=== PATIENT | female | born 1990 | race Caucasian/White ===

== ENCOUNTER 2016-10-28 16:56 | Emergency (ER) | payer BC ==
[~2016-10-28] VITALS: Ht 160 cm; Wt 107.0 kg
[~2016-10-28 16:56] MED LIST: ATV/1 PO; ESCI1TAB10 PO; FLNIN NAE; PRED20TA PO
[2016-10-28 17:06] VITALS: TEMP 37; Ht 160 cm; Wt 107.0 kg
[2016-10-28] MEDS ORDERED: HYDROCODONE/ACETAMOPHEN 5/325MG TAB PO STA (17:29)
[2016-10-28] MEDS ORDERED: CYCLOBENZAPRINE HCL 10 MG TAB PO STA (17:29)
[2016-10-28] MEDS ORDERED: KETOROLAC TROMETHAMINE 60 MG/2 ML VIAL IM STA (17:29)
[2016-10-28] MEDS ORDERED: DEXAMETHASONE SOD INJ 10 MG/ML VIAL IM ONE (17:30)
[2016-10-28] MEDS ORDERED: NORCO 5/325MG HOME PACK PO ONE (18:45)
--- NOTE | 2016-10-28 18:58 | EMERGENCY ROOM VISIT NOTE ---
ED Visit Note First contact with patient: 17:18 CHIEF COMPLAINT: Low back pain HISTORY OF PRESENT ILLNESS: This 25-year-old female presents the ER with chief complaint of bilateral low back pain which started on Saturday evening. She states it radiates down both legs posteriorly to her knees. She states it is worse with sitting or walking. If she lays on her belly it gives her relief. The patient denies any loss of bowel or bladder control. Patient does admit to having some difficulty urinating this morning but no urinary symptoms since that time. The patient does have a history of chronic back pain but has never had surgery. She took Tylenol arthritis last evening without any relief of the pain. The patient denies . REVIEW OF SYSTEMS: 6 system review was performed and was negative unless stated otherwise in history of present illness. PMH: The patient is healthy; PCOS , anxiety SOCIAL HISTORY: Patient lives with her . The patient denies tobacco use but admits to occasional alcohol use. PHYSICAL EXAM: Vital Signs normal: Reviewed Nurse's notes and agree. GEN.: 25- year-old white female appears in no acute distress. MENTAL STATUS: Alert and oriented in no acute distress. LUNGS: Clear to auscultation that wheezes rales or rhonchi. CARDIAC: Regular rate and rhythm with a 2/6 murmur noted. BACK: No CVA tenderness noted. ABDOMEN: Positive bowel sounds all 4 quadrants. Soft , nontender to palpation throughout. LUMBAR SPINE: No gross bony abnormality noted. Patient is nontender to palpation over the spinous processes. He is tender to palpation over the paravertebral regions bilaterally. She full range of motion of the lumbar spine with pain elicited with flexion, right lateral bending and right rotation . muscle strength is 5 out of 5 bilateral lower extremities and symmetrical. NEURO: Patient is able to heel and toe walk without difficulty. I lateral patellar and Achilles reflexes are 2+. Sensation is intact to pinprick bilateral lower extremities. Negative straight leg raise bilaterally. EMERGENCY DEPARTMENT COURSE: The patient was evaluated. The patient was given Decadron 10 mg IM, Toradol 60 mg IM, Flexeril 10 mg by mouth and [place] 5/325 mg 2 tablets by mouth for pain. Urine dip reveal some blood but the patient has vaginal spotting. The patient was reevaluated was feeling much better. The patient was discharged home in stable condition.. DIAGNOSIS: Low back pain with bilateral sciatica DISCHARGE INSTRUCTIONS AND TREATMENT: Take Medrol dosepak as prescribed. Ibuprofen 600 mg every 6 hours with food for pain. Rx is given for [place] 5/325 mg. 1-2 tablets every 6 hours as needed for more severe pain. Dispense [address] taking the [place]. Patient was also given Rx for Flexeril 10 mg. One tablet p.o. every 8 hours for muscle spasms. Dispense [address] taking the Flexeril. Avoid staying in any one position for an extended period of time. If symptoms persist or worsen, follow up with your family doctor for referral for additional testing. Problem List Medical Problems: (1) Murmur Status: Chronic (2) No chronic past medical history Status: Chronic (3) PCOS (polycystic ovarian syndrome) Status: Chronic Current/Historical Medications Scheduled Escitalopram Oxalate (Lexapro), 20 MG PO DAILY Lorazepam (Ativan), 1 MG PO Q6H Allergies Coded Allergies: Amoxicillin (Unverified Allergy, Unknown, extreme stomach pain , 10/28/16) Vital Signs Date Time Temp Pulse Resp B/P Pulse Ox O2 Delivery O2 Flow Rate FiO2 10/28/16 17:50 74 20 140/92 99 Room Air 10/28/16 17:06 37.0 84 18 141/88 98 Room Air Laboratory Results Test 10/28/16 18:30 Medications Administered Medications (Trade) Dose Ordered Sig/Hiram Route Start Time Stop Time Status Last Admin Dose Admin Dexamethasone Sodium Phosphate (Decadron Inj) 10 mg NOW ONCE IM 10/28/16 17:30 10/28/16 17:31 DC 10/28/16 17:46 10 MG Ketorolac Tromethamine (Toradol Inj) 60 mg NOW STAT IM 10/28/16 17:29 10/28/16 17:31 DC 10/28/16 17:46 60 MG Cyclobenzaprine HCl (Flexeril Tab) 10 mg NOW STAT PO 10/28/16 17:29 10/28/16 17:31 DC 10/28/16 17:45 10 MG Acetaminophen/ Hydrocodone Bitart ([place] 5/325 Tab) 2 tab NOW STAT PO 10/28/16 17:29 10/28/16 17:31 DC 10/28/16 17:46 2 TAB Departure Information Referrals No Doctor, Assigned (PCP) Patient Instructions [facility]
[2016-10-28 19:00] LABS: URINE APPEARANCE TURBID (CLEAR); URINE BILIRUBIN NEG (NEG); URINE COLOR DK YELLOW; URINE EPITHELIAL CELL AUTO >30 /lpf (0-5); URINE NITRITE NEG (NEG); UROBILINOGEN NEG (NEG); ZZUR CULT IF INDIC CLEAN CATCH YES
[2016-10-28] MEDS ORDERED: CYCL10TA6 PO (19:00)
[2016-10-28] MEDS ORDERED: HYDR-5688 PO (19:00)
[2016-10-28] MEDS ORDERED: METH4PAK PO (19:00)
[2016-10-28 19:02] LABS: MANUAL MICROSCOPIC REQUIRED? NO; REVIEW REQ? YES
[2016-10-28 19:17] VITALS: BP 122/78; PULSE 68; O2SAT 99
== END 2016-10-28 19:20 | disposition home or self-care (01) ==
LOC: C.EDB 16:57
DX: M54.41 Lumbago with sciatica, right side (principal); M54.42 Lumbago with sciatica, left side; G89.29 Other chronic pain; E28.2 Polycystic ovarian syndrome; F41.9 Anxiety disorder, unspecified; Z79.899 Other long term (current) drug therapy; Z88.1 Allergy status to other antibiotic agents

== ENCOUNTER 2017-04-01 16:53 | Emergency (ER) | payer SELFPAY ==
[~2017-04-01] VITALS: Ht 160 cm; Wt 103.0 kg
[~2017-04-01 16:53] MED LIST changes: -FLNIN NAE; +HYDR-5688 PO; -PRED20TA PO
[2017-04-01 17:00] VITALS: TEMP 36.7; Ht 160 cm; Wt 103.0 kg
[2017-04-01] MEDS ORDERED: MoRPHine SULFATE 10 MG/ML CARP/VIAL IV STA ×2 (17:56→20:01)
[2017-04-01] MEDS ORDERED: SODIUM CHLORIDE 0.9% 1000ML 1,000 ML IV STA (17:56)
[2017-04-01 18:31] LABS: BASO % 0.4 %; BASO ABS # 0.04 K/uL (0-0.2); COMPLETE YES; EOS % 1.8 %; HEMATOCRIT 38.3 % (37-47); IG% 0.3 %; LYMPH % 31.4 %; LYMPH ABS # 2.89 K/uL (1.2-3.4); MEAN CELL VOLUME 84.2 fL (80-100); MEAN CORPUSCULAR HEMOGLOBIN 28.8 pg (25-34); MEAN CORPUSCULAR HGB CONC 34.2 g/dl (32-36); MEAN PLATELET VOLUME 8.5 fL (7.4-10.4); MONO % 7.3 %; NEUT % 58.8 %; PLATELET COUNT 325 K/uL (130-400); RED BLOOD COUNT 4.55 M/uL (4.2-5.4); WHITE BLOOD COUNT 9.19 K/uL (4.8-10.8)
[2017-04-01 18:48] LABS: URINE APPEARANCE CLEAR (CLEAR); URINE BILIRUBIN NEG (NEG); URINE COLOR YELLOW; URINE EPITHELIAL CELL AUTO >30 /lpf (0-5); URINE NITRITE NEG (NEG); URINE PH 5.5 (4.5-7.5); URINE SPECIFIC GRAVITY 1.031 (1.000-1.030); UROBILINOGEN NEG (NEG)
[2017-04-01 18:50] LABS: MANUAL MICROSCOPIC REQUIRED? NO; REVIEW REQ? YES
[2017-04-01 18:52] LABS: ALT/SGPT 50 U/L (12-78); AST/SGOT 26 U/L (15-37); BLOOD UREA NITROGEN 10 mg/dl (7-18); BUN/CREATININE RATIO 14.4 (10-20); CALCIUM 9.3 mg/dl (8.5-10.1); CARBON DIOXIDE 25 mmol/L (21-32); CHLORIDE 102 mmol/L (98-107); CREATININE 0.72 mg/dl (0.60-1.20); GLUCOSE 174 mg/dl (70-99); POTASSIUM 3.6 mmol/L (3.5-5.1); SODIUM 134 mmol/L (136-145)
[2017-04-01 18:54] LABS: ALKALINE PHOSPHATASE 97 U/L (45-117)
--- NOTE | 2017-04-01 19:13 | EMERGENCY ROOM VISIT NOTE ---
History First contact with patient: 17:43 Chief Complaint: ABDOMINAL PAIN Stated Complaint: NAUSEA, SHARP PAIN RT SIDE, FEVER, DIARRHEA Nursing Triage Summary: pt to the ED with c/o right sided abd sharp pain over the weekend that got worse with n/d no vag bleeding no dc no urinary complaints History of Present Illness The patient is a 26 year old female who presents to the Emergency Room with complaints of right-sided abdominal pain/flank pain that started 2-3 days ago, initially was intermittent, now it is constant, sharp and stabbing, 8/10. She has associated nausea but no vomiting, as well as diarrhea, 3-4 episodes per day , that is loose and sometimes watery, nonbloody. She states today she developed fevers up to 101 that resolved after taking Advil, last dose 2 PM. She states the Advil has improved her pain, but he keeps coming back. She denies any chest pain, shortness of breath, back pain, urinary symptoms, vaginal bleeding or discharge. She reports a history of PCOS and irregular periods, last menstrual period was over 3 months ago. Review of Systems A complete 10 point review of systems was reviewed with the patient with pertinent positives and negatives as per history of present illness. All else were negative. Past Medical/Surgical History Medical Problems: (1) Murmur (2) No chronic past medical history (3) PCOS (polycystic ovarian syndrome) Family History Patient reports no known family medical history. Social History Smoking Status: Never Smoker Alcohol Use: occasionally Housing Status: lives with significant other Occupation Status: employed Current/Historical Medications Scheduled Escitalopram Oxalate (Lexapro), 20 MG PO DAILY Scheduled PRN Hydrocodone/Acetaminophen 5MG/325MG ([place] 5MG/325MG), 1 TABLET PO Q6H PRN for Pain Physical Exam Vital Signs Date Time Temp Pulse Resp B/P (MAP) Pulse Ox O2 Delivery O2 Flow Rate FiO2 04/01/17 22:44 78 19 140/90 96 Room Air 04/01/17 22:00 74 20 148/81 96 Room Air 04/01/17 20:07 80 22 147/93 95 Room Air 04/01/17 18:26 102 04/01/17 18:22 95 24 137/89 97 Room Air 04/01/17 17:00 36.7 98 18 98 Room Air Physical Exam CONSTITUTIONAL: No acute distress. Well hydrated, Well appearing and well nourished. Alert and oriented X 4 with normal affect. HEENT: Normocephalic, atraumatic. Pupils equal, round and reactive to light, EOMI. TMs normal. Pharynx normal. Moist mucous membranes. NECK: Supple, full active range of motion without discomfort. RESPIRATORY: Clear to auscultation bilaterally with no wheezing, crackles, rhonchi or stridor. Equal expansion bilaterally. CARDIOVASCULAR: Regular rate and rhythm with no murmurs, rubs or gallops. Normal peripheral perfusion. No edema. GASTROINTESTINAL: Moderate tenderness in the right upper and lower quadrants of the abdomen. Negative rebound, negative guarding. No CVA tenderness. Soft, nondistended, obese. Active bowel sounds in all 4 quadrants. INTEGUMENTARY: No rash or other significant dermatologic conditions noted. NEUROLOGIC: Cranial nerves II-XII grossly intact. No focal neurologic deficits noted. Medical Decision & Procedures ER Provider Diagnostic Interpretation: ABD/PELVIS IV AND ORAL CONT CT DOSE: 1175.41 mGy.cm HISTORY: Flank pain Rt sided abd pain, diff includes natan, ov cyst, stone, GB TECHNIQUE: Multiaxial CT images of the abdomen and pelvis were performed following the use of intravenous and oral contrast. A dose lowering technique was utilized adhering to the principles of ALARA. COMPARISON STUDY: 06/09/2016. FINDINGS: lung bases are clear. Fatty infiltration of liver. Small high density focus right hepatic lobe unchanged. This may be a small hemangioma. Spleen kidneys and pancreas are uniform. Bowel pattern is nonobstructive. The appendix is normal. 2.6 cm right ovarian cyst. Bladder is midline. No free fluid within the pelvic cul-de-sac. IMPRESSION: 1. 2.6 cm right ovarian cyst. 2. Fatty infiltration of liver. 3. Otherwise negative study. The appendix is normal. Laboratory Results 04/01/17 18:19 Red Blood Count 4.55, Mean Corpuscular Volume 84.2, Mean Corpuscular Hemoglobin 28.8, Mean Corpuscular Hemoglobin Concent 34.2, Mean Platelet Volume 8.5, Neutrophils (%) (Auto) 58.8, Lymphocytes (%) (Auto) 31.4, Monocytes (%) (Auto) 7.3, Eosinophils (%) (Auto) 1.8, Basophils (%) (Auto) 0.4, Neutrophils # (Auto) 5.39, Lymphocytes # (Auto) 2.89, Monocytes # (Auto) 0.67, Eosinophils # (Auto) 0.17, Basophils # (Auto) 0.04 04/01/17 18:19 Test 04/01/17 18:19 04/01/17 18:25 White Blood Count 9.19 K/uL (4.8-10.8) Red Blood Count 4.55 M/uL (4.2-5.4) Hemoglobin 13.1 g/dL (12.0-16.0) Hematocrit 38.3 % (37-47) Mean Corpuscular Volume 84.2 fL (80-100) Mean Corpuscular Hemoglobin 28.8 pg (25-34) Mean Corpuscular Hemoglobin Concent 34.2 g/dl (32-36) Platelet Count 325 K/uL (130-400) Mean Platelet Volume 8.5 fL (7.4-10.4) Neutrophils (%) (Auto) 58.8 % Lymphocytes (%) (Auto) 31.4 % Monocytes (%) (Auto) 7.3 % Eosinophils (%) (Auto) 1.8 % Basophils (%) (Auto) 0.4 % Neutrophils # (Auto) 5.39 K/uL (1.4-6.5) Lymphocytes # (Auto) 2.89 K/uL (1.2-3.4) Monocytes # (Auto) 0.67 K/uL (0.11-0.59) Eosinophils # (Auto) 0.17 K/uL (0-0.5) Basophils # (Auto) 0.04 K/uL (0-0.2) RDW Standard Deviation 39.2 fL (36.4-46.3) RDW Coefficient of Variation 12.9 % (11.5-14.5) Immature Granulocyte % (Auto) 0.3 % Immature Granulocyte # (Auto) 0.03 K/uL (0.00-0.02) Anion Gap 7.0 mmol/L (3-11) Est Creatinine Clear Calc Drug Dose 133.4 ml/min Estimated GFR () 132.1 Estimated GFR (Non- 114.0 BUN/Creatinine Ratio 14.4 (10-20) Calcium Level 9.3 mg/dl (8.5-10.1) Total Bilirubin 0.3 mg/dl (0.2-1) Direct Bilirubin < 0.1 mg/dl (0-0.2) Aspartate Amino Transf (AST/SGOT) 26 U/L (15-37) Alanine Aminotransferase (ALT/SGPT) 50 U/L (12-78) Alkaline Phosphatase 97 U/L (45-117) Total Protein 8.7 gm/dl (6.4-8.2) Albumin 3.5 gm/dl (3.4-5.0) Lipase 90 U/L (73-393) Urine Color YELLOW Urine Appearance CLEAR (CLEAR) Urine pH 5.5 (4.5-7.5) Urine Specific [place] 1.031 (1.000-1.030) Urine Protein NEG (NEG) Urine Glucose (UA) TRACE (NEG) Urine Ketones NEG (NEG) Urine Occult Blood 1+ (NEG) Urine Nitrite NEG (NEG) Urine Bilirubin NEG (NEG) Urine Urobilinogen NEG (NEG) Urine Leukocyte Esterase NEG (NEG) Urine WBC (Auto) 1-5 /hpf (0-5) Urine RBC (Auto) 0-4 /hpf (0-4) Urine Hyaline Casts (Auto) 1-5 /lpf (0-5) Urine Epithelial Cells (Auto) >30 /lpf (0-5) Urine Bacteria (Auto) NEG (NEG) Urine Crystals CALCIUM OXALATE (NONE Urine Test NEG (NEG) Medications Administered Medications (Trade) Dose Ordered Sig/Hiram Route Start Time Stop Time Status Last Admin Dose Admin Morphine Sulfate (MoRPHine SULFATE INJ) 6 mg NOW STAT IV 04/01/17 17:56 04/01/17 18:00 HI 04/01/17 18:28 6 MG Sodium Chloride 1,000 ml @ 999 mls/hr Q1H1M STAT IV 04/01/17 17:56 04/01/17 18:56 DC 04/01/17 18:28 999 MLS/HR Morphine Sulfate (MoRPHine SULFATE INJ) 6 mg NOW STAT IV 04/01/17 20:01 04/01/17 20:02 DC 04/01/17 20:06 6 MG Ketorolac Tromethamine (Toradol Inj) 15 mg NOW STAT IV 04/01/17 22:18 04/01/17 22:20 DC 04/01/17 22:42 15 MG Acetaminophen/ Hydrocodone Bitart ([place] 5/325mg Home Pack) 1 homepack UD ONCE PO 04/01/17 22:45 04/01/17 22:46 DC 04/01/17 22:45 1 [email or web address] Medical Decision CC: Patient presenting with complaint of right-sided abdominal pain for 3 days Interpretation of Labs: No leukocytosis, no anemia, no significant electrolyte abnormalities, normal renal fudge, normal liver enzymes and lipase, no UTI, not . Differential Diagnosis: Includes, but not limited to appendicitis, mesenteric adenitis, ovarian cyst, UTI, pyelonephritis, ureteral stone, cholecystitis, cholelithiasis, gastroenteritis, ectopic , among others. Medication Reconciliation: I attest that I have personally reviewed the patient' s current medication list. Vital signs review: I reviewed the patient's vital signs and interpret them as follows: T: Afebrile; BP: Hypertensive; HR: Mildly tachycardic; RR: Within normal limits; Pulse Ox: Within normal limits on room air. Blood pressure screening: The patient was found to have an elevated blood pressure and was referred to their primary doctor for recheck and further treatment. Summary: Patient was evaluated at bedside, history of physical exam performed. Patient is alert and in no acute distress, resting calmly in the stretcher. Patient is tender diffusely in the right side of her abdomen, no definite McBurney's or Quispe's sign tenderness, no rebound or guarding. Pelvic exam was offered and deferred by the patient. She denies any concerns for STDs. Orders were placed at bedside for labs, UA and , IV fluids, morphine for pain, CT abdomen and pelvis to evaluate for appendicitis, among other possible etiologies. Patient discussed with Dr. Mack, who agrees with my assessment and plan. Labs reviewed as above, unremarkable. CT imaging reviewed, negative for appendicitis. It shows a right ovarian cyst which is most likely the cause of patient's pain. Patient reassessed multiple times throughout ED stay, she reports improved pain after morphine and IV fluids. She was also given a dose of IV Toradol, which should work well to treat ovarian cyst pain. Patient was updated on all results and plan for discharge home with PCP/DIRECTOR CARDIOLOGY follow-up. Patient was instructed on return criteria should her symptoms worsen in any way , she verbalized understanding. Patient was discharged home in stable condition and ambulatory. Impression Primary Impression: Right ovarian cyst Departure Information Dispostion Home / Self-Care Condition GOOD Prescriptions Hydrocodone/Acetaminophen 5MG/325MG ([place] 5MG/325MG) Tab 1 TABLET PO Q6H Y for Pain, #12 TAB For Initial Treatment Prov: Keke Ríos CRNP 04/01/17 Referrals No Doctor, Assigned (PCP) Patient Instructions ED Cyst Ovarian, [facility] Additional Instructions You have been treated in the Emergency Department your Abdominal Pain. Laboratory results and imaging studies have ruled out any emergent causes for your abdominal pain which would warrant admission or surgery. You were found to have a cyst on your right ovary which is most likely the cause of your abdominal pain. You should follow-up with your PCP or Strategic Planner for further management of your ovarian cyst. You have been prescribed [place] to be used for pain control. This is a narcotic medication. You cannot drive or consume alcohol while on this medicine. This medicine should only be used for pain that cannot be controlled with over-the- counter pain medicines. For pain control, you can use the following [id number] medicines (if >12 yo): - Regular strength (200 mg/tab) Advil (ibuprofen) 3 tabs every 6-8 hours as needed. Do not exceed a dose of 3200 mg per day. Drink plenty of water and stay well hydrated. Return to the emergency department if your symptoms persist despite treatment plan outlined above or if the following symptoms occur: Fevers, chills or feeling ill, severe nausea/vomiting, blood in your stool or urine, severe worsening pain, or any other concerns.
[2017-04-01] MEDS ORDERED: OPTIRAY 320 IV PRN (21:15)
--- NOTE | 2017-04-01 21:21 | DIAGNOSTIC IMAGING REPORT ---
ABD/PELVIS IV AND ORAL CONT CT DOSE: 1175.41 mGy.cm HISTORY: Flank pain Rt sided abd pain, diff includes natan, ov cyst, stone, GB TECHNIQUE: Multiaxial CT images of the abdomen and pelvis were performed following the use of intravenous and oral contrast. A dose lowering technique was utilized adhering to the principles of ALARA. COMPARISON STUDY: 06/09/2016. FINDINGS: lung bases are clear. Fatty infiltration of liver. Small high density focus right hepatic lobe unchanged. This may be a small hemangioma. Spleen kidneys and pancreas are uniform. Bowel pattern is nonobstructive. The appendix is normal. 2.6 cm right ovarian cyst. Bladder is midline. No free fluid within the pelvic cul-de-sac. IMPRESSION: 1. 2.6 cm right ovarian cyst. 2. Fatty infiltration of liver. 3. Otherwise negative study. The appendix is normal. The above report was generated using voice recognition software. It may contain grammatical, syntax or spelling errors. Electronically signed by: Jairo Duenas M.D. 04/01/2017 9:19 PM Dictated Date/Time: 04/01/2017 9:16 PM
[2017-04-01] MEDS ORDERED: KETOROLAC TROMETHAMINE 30 MG/ML VIAL IV STA (22:18)
[2017-04-01] MEDS ORDERED: HYDR-5688 PO (22:41)
[2017-04-01 22:44] VITALS: BP 140/90; PULSE 78; O2SAT 96
[2017-04-01] MEDS ORDERED: NORCO 5/325MG HOME PACK PO ONE (22:45)
== END 2017-04-01 23:04 | disposition home or self-care (01) ==
LOC: C.EDB 16:55 → C.EDA 23:04
DX: N83.201 Unspecified ovarian cyst, right side (principal); E28.2 Polycystic ovarian syndrome; R01.1 Cardiac murmur, unspecified

== ENCOUNTER 2018-04-17 20:51 | Emergency (ER) | payer OTHER ==
[~2018-04-17] VITALS: Ht 160 cm; Wt 93.6 kg
[~2018-04-17 20:51] MED LIST changes: -ATV/1 PO; -HYDR-5688 PO
[2018-04-17 20:54] VITALS: Ht 160 cm; Wt 93.6 kg
[2018-04-17] MEDS ORDERED: SODIUM CHLORIDE 0.9% 1000ML 1,000 ML IV STA (21:23)
[2018-04-17] MEDS ORDERED: ONDANSETRON INJ 2 MG/ML 2 ML VIAL IV STA (21:23)
[2018-04-17 22:21] LABS: HEMATOCRIT 39.9 % (37-47); MEAN CORPUSCULAR HEMOGLOBIN 29.5 pg (25-34); MEAN CORPUSCULAR HGB CONC 35.1 g/dl (32-36); MEAN PLATELET VOLUME 8.8 fL (7.4-10.4); PLATELET COUNT 384 K/uL (130-400); RED CELL DISTRIBUTION WIDTH CV 12.7 % (11.5-14.5); RED CELL DISTRIBUTION WIDTH SD 38.5 fL (36.4-46.3); WHITE BLOOD COUNT 13.68 K/uL (4.8-10.8)
[2018-04-17] MEDS ORDERED: ROSU5TAB PO (22:37)
[2018-04-17] MEDS ORDERED: LORA-741 PO (22:37)
[2018-04-17] MEDS ORDERED: GLC500 PO (22:37)
[2018-04-17] MEDS ORDERED: SPIR25TA PO (22:37)
[2018-04-17 22:43] LABS: ALBUMIN 3.7 gm/dl (3.4-5.0); CALCIUM 9.4 mg/dl (8.5-10.1); CREATININE 0.85 mg/dl (0.60-1.20); POTASSIUM 3.6 mmol/L (3.5-5.1); TOTAL PROTEIN 8.7 gm/dl (6.4-8.2)
[2018-04-17] MEDS ORDERED: MoRPHine SULFATE 4 MG/ML 1 ML CARP\\VIAL IV STA (23:33)
[2018-04-18] MEDS ORDERED: ONDA4TAB65 PO
[2018-04-18 00:43] VITALS: BP 137/88; PULSE 92; TEMP 36.6; O2SAT 79
--- NOTE | 2018-04-18 07:09 | DIAGNOSTIC IMAGING REPORT ---
ULTRASOUND RIGHT UPPER QUADRANT ABDOMEN CLINICAL HISTORY: Right upper quadrant abdominal pain. COMPARISON STUDY: Abdominal CT dated 04/01/2017. TECHNIQUE: Real-time, grayscale, and color flow sonography of the right upper quadrant of the abdomen was performed. Images are reviewed in the transverse and longitudinal planes. FINDINGS: Liver: The liver is enlarged measuring over 22 cm in length. The liver demonstrates heterogeneously increased echotexture consistent with severe hepatic steatosis. Note that this degrades acoustic penetration of the liver. There is no intrahepatic biliary ductal dilatation. The main portal vein is patent. Gallbladder: The gallbladder is partially contracted. No gallstones are identified. There is no gallbladder wall thickening or pericholecystic fluid. A sonographic Quispe's sign is reportedly absent. The common bile duct measures up to 0.7 cm in diameter. Pancreas: Not well visualized due to overlying bowel gas. Right kidney: Survey images of the right kidney demonstrate normal size and echotexture. There is no hydronephrosis. Ascites: None. IMPRESSION: 1. No acute sonographic abnormality is identified. No gallstones are seen. 2. Hepatomegaly and severe hepatic steatosis. Electronically signed by: Benjamin Greco M.D. 04/18/2018 7:08 AM Dictated Date/Time: 04/18/2018 7:06 AM
--- NOTE | 2018-04-18 12:06 | EMERGENCY ROOM VISIT NOTE ---
History Report prepared by Geraldine: Madi Chaparro Under the Supervision of: Dr. Tommie Ray D.O. First contact with patient: 20:59 Chief Complaint: ABDOMINAL PAIN Stated Complaint: NAUSEA,STOMACH PAINS History of Present Illness The patient is a 27 year old female who presents to the Emergency Room with complaints of constant abdominal pain that started 3-4 days ago. The patient states she has been nauseous and has had diarrhea as well. She describes the pain as sharp and rates it a 7/10. She reports that the pain is worsened with deep breaths and movements. The patient does report a change in diet recently and that fatty foods sometimes irritate the symptoms. She also reports having a history of NIDDM in which she takes Metformin for and PCOS so she does not know when her LNMP was. Patient denies any chest pain, shortness breath, fevers, vaginal bleeding, vaginal discharge, urinary complaints, or any other symptoms. Source of History: patient Onset: 3-4 days ago Position: abdomen Symptom Intensity: 7/10 Quality: sharp Timing: constant Modifying Factors (Worsening): breathing, movement Associated Symptoms: + nausea, + diarrhea Review of Systems See HPI for pertinent positives & negatives. A total of 10 systems reviewed and were otherwise negative. Past Medical & Surgical Medical Problems: (1) Murmur (2) No chronic past medical history (3) PCOS (polycystic ovarian syndrome) Family History Patient reports no known family medical history. Social History Smoking Status: Never Smoker Alcohol Use: occasionally Housing Status: lives with significant other Occupation Status: employed Current/Historical Medications Scheduled Escitalopram Oxalate (Lexapro), 20 MG PO DAILY Lorazepam (Ativan), 0.5 MG PO DIRECTED Metformin HCl (Metformin HCl), 500 MG PO BID Rosuvastatin Calcium (Crestor), 10 MG PO DAILY Spironolactone (Aldactone), 25 MG PO DAILY Scheduled PRN Ondansetron Hcl (Zofran), 4 MG PO PRN PRN for Nausea Allergies Coded Allergies: Amoxicillin (Unverified Allergy, Unknown, extreme stomach pain , 04/17/18) Physical Exam Vital Signs Date Time Temp Pulse Resp B/P (MAP) Pulse Ox O2 Delivery O2 Flow Rate FiO2 04/18/18 00:43 36.6 92 20 137/88 79 04/17/18 20:54 36.6 92 20 162/100 79 Room Air Physical Exam GENERAL: Sitting up in bed, alert, well appearing, well nourished, no distress, non-toxic EYE EXAM: normal conjunctiva. PERRL and EOM's intact. OROPHARYNX: no exudate, no erythema, lips, buccal mucosa, and tongue normal and mucous membranes are moist NECK: supple, no nuchal rigidity, no adenopathy, non-tender LUNGS: Clear to auscultation. Normal chest wall mechanics HEART: no murmurs, S1 normal and S2 normal ABDOMEN: abdomen soft, non-tender, normo-active bowel sounds, no masses, no rebound or guarding. BACK: Back is symmetrical on inspection and there is no deformity, no midline tenderness, no CVA tenderness. SKIN: no rashes and no bruising UPPER EXTREMITIES: upper extremities are grossly normal. LOWER EXTREMITIES: No pitting edema. NEURO EXAM: Normal sensorium, cranial nerves II-XII grossly intact, normal speech, no gross weakness of arms, no gross weakness of legs. Medical Decision & Procedures ER Provider Diagnostic Interpretation: Radiology results as stated below per my review and the radiologist's interpretation: US GALLBLADDER Pancrease is not visualized on this exam. Liver in enlarged, measuring 22.2cm increased echogenicity is suggestive of fatty infiltration. Mildly dilated common bile duct measure 7mm. No choledocholithiasis is identified. No gallstones or sludge. No gallbladder wall thickening or pericholecystic fluid. Negative sonographic. No hydronephrosis or stone in the visualized portions of the right kidney No ascites Radiologist Lesvia Kelley MD Study read at 2309 and initial results transmitted at 2320. Laboratory Results 04/17/18 22:00 Red Blood Count 4.75, Mean Corpuscular Volume 84.0, Mean Corpuscular Hemoglobin 29.5, Mean Corpuscular Hemoglobin Concent 35.1, Mean Platelet Volume 8.8 04/17/18 22:00 Test 04/17/18 21:40 04/17/18 22:00 Urine Color YELLOW Urine Appearance CLOUDY (CLEAR) Urine pH 5.0 (4.5-7.5) Urine Specific [place] 1.028 (1.000-1.030) Urine Protein NEG (NEG) Urine Glucose (UA) NEG (NEG) Urine Ketones NEG (NEG) Urine Occult Blood NEG (NEG) Urine Nitrite NEG (NEG) Urine Bilirubin NEG (NEG) Urine Urobilinogen NEG (NEG) Urine Leukocyte Esterase SMALL (NEG) Urine WBC (Auto) 10-30 /hpf (0-5) Urine RBC (Auto) 0-4 /hpf (0-4) Urine Hyaline Casts (Auto) 1-5 /lpf (0-5) Urine Epithelial Cells (Auto) >30 /lpf (0-5) Urine Bacteria (Auto) 1+ (NEG) Urine Crystals CALCIUM OXALATE (NONE Urine Test NEG (NEG) White Blood Count 13.68 K/uL (4.8-10.8) Red Blood Count 4.75 M/uL (4.2-5.4) Hemoglobin 14.0 g/dL (12.0-16.0) Hematocrit 39.9 % (37-47) Mean Corpuscular Volume 84.0 fL (80-100) Mean Corpuscular Hemoglobin 29.5 pg (25-34) Mean Corpuscular Hemoglobin Concent 35.1 g/dl (32-36) Platelet Count 384 K/uL (130-400) Mean Platelet Volume 8.8 fL (7.4-10.4) RDW Standard Deviation 38.5 fL (36.4-46.3) RDW Coefficient of Variation 12.7 % (11.5-14.5) Neutrophils % (Manual) 50.8 % Lymphocytes % (Manual) 31.0 % Variant Lymphocytes % (manual) 12.1 % Monocytes % (Manual) 5.2 % Basophils % (Manual) 0.9 % Neutrophils # (Manual) 6.95 K/uL (1.4-6.5) Total Absolute Neutrophils 6.95 K/uL (1.4-6.5) Lymphocytes # (Manual) 4.24 K/uL (1.2-3.4) Absolute Variant Lymphocytes 1.66 K/uL Total Absolute Lymphocytes 5.90 K/uL (1.2-3.4) Monocytes # (Manual) 0.71 K/uL (0.11-0.59) Basophils # (Manual) 0.12 K/uL (0-0.2) Red Blood Cell Morphology Unremarkable Anion Gap 7.0 mmol/L (3-11) Est Creatinine Clear Calc Drug Dose 106.2 ml/min Estimated GFR () 107.3 Estimated GFR (Non- 92.6 BUN/Creatinine Ratio 17.6 (10-20) Calcium Level 9.4 mg/dl (8.5-10.1) Total Bilirubin 0.4 mg/dl (0.2-1) Direct Bilirubin 0.1 mg/dl (0-0.2) Aspartate Amino Transf (AST/SGOT) 17 U/L (15-37) Alanine Aminotransferase (ALT/SGPT) 36 U/L (12-78) Alkaline Phosphatase 78 U/L (45-117) Total Protein 8.7 gm/dl (6.4-8.2) Albumin 3.7 gm/dl (3.4-5.0) Lipase 94 U/L (73-393) Laboratory results per my review. Medications Administered Medications (Trade) Dose Ordered Sig/Hiram Route Start Time Stop Time Status Last Admin Dose Admin Ondansetron HCl (Zofran Inj) 4 mg NOW STAT IV 04/17/18 21:23 04/17/18 21:25 DC 04/17/18 22:21 4 MG Morphine Sulfate (MoRPHine SULFATE INJ) 4 mg NOW STAT IV 04/17/18 23:33 04/17/18 23:34 DC 04/18/18 00:17 4 MG ED Course ED COURSE: Vital signs were reviewed and showed hypertension The patients medical record was reviewed The above diagnostic studies were performed and reviewed. ED treatments and interventions as stated above. 2111: The patient was evaluated in room C12B. A complete history and physical examination was performed. 0045: Upon reevaluation, the patient is resting in bed. I discussed my findings with the patient and she understands and agrees with the treatment plan. Based on the patients age, coexisting illnesses, exam and lab findings the decision to treat as an outpatient was made. The patient remained stable while under my care. The patient appeared well at the time of discharge. Medical Decision Differential diagnoses includes but is not limited to gastritis, peptic ulcer disease, GERD, gallbladder disease, pancreatitis, small bowel obstruction, acute coronary syndrome, pericarditis, ischemic bowel, irritable bowel disease, irritable bowel syndrome, appendicitis, diverticulitis, malignancy, hernia, urinary tract infection, torsion, [/ectopic (if female)], perforation, trauma, infectious. On exam patient has minimal tenderness in the epigastric region. There is no signs of peritonitis rebound or guarding. She does have a mild leukocytosis of 13.6 thousand. BMP along with LFTs, bilirubin and lipase is normal. UA was contaminated with multiple epithelial cells. Ultrasound the gallbladder was unremarkable. There was some liver steatosis. Patient was given fluids, Zofran and morphine. She did feel significantly better. She was updated bedside discharge follow-up with PCP and hopefully GI as an outpatient. Discussed with Pt concerning signs and symptoms to watch out for. Pt was instructed to follow up with their PCP and discussed with the patient their option to return to the ED at anytime for persistent or worsening symptoms. The appropriate anticipatory guidance and out-patient management, including indications for return to the emergency department, were explained at length to the patient and understood. Medication Reconcilliation Current Medication List: was personally reviewed by me Blood Pressure Screening Patient's blood pressure: Elevated blood pressure Blood pressure disposition: Elevated BP felt to be situational Impression Primary Impression: Abdominal pain Scribe Attestation The scribe's documentation has been prepared under my direction and personally reviewed by me in its entirety. I confirm that the note above accurately reflects all work, treatment, procedures, and medical decision making performed by me. Departure Information Dispostion Home / Self-Care Prescriptions Ondansetron Hcl (ZOFRAN) 4 Mg Tab 4 MG PO PRN Y for Nausea, #20 TAB Prov: Tommie Ray, DO 04/18/18 Referrals No Doctor, Assigned (PCP) Forms HOME CARE DOCUMENTATION FORM, IMPORTANT VISIT INFORMATION Patient Instructions My [facility] Additional Instructions Please follow up with your primary care doctor with in the next 24 hours. Any worsening of your symptoms, please return to the ED immediately. This includes any fevers greater than 100.4, worsening pain, chest pain, shortness breath, persistent nausea, vomiting, unable to eat or drink, or any other concerning signs or symptoms from your standpoint. Please take Tylenol or Motrin as needed for pain. Please take Zofran as needed for nausea. Problem Qualifiers Primary Impression: Abdominal pain Abdominal location: right upper quadrant Qualified Codes: R10.11 - Right upper quadrant pain
== END 2018-04-18 00:45 | disposition home or self-care (01) ==
LOC: C.EDB 20:53 → C.EDC 04-18 00:45
DX: R10.11 Right upper quadrant pain (principal); Z88.1 Allergy status to other antibiotic agents

== ENCOUNTER 2023-12-11 19:05 | Inpatient (IN) ==
[2023-12-11] MEDS ORDERED: OXYTOCIN 30 UNITS/NSS 30 UNITS/500 ML BAG IV PRN (23:32)
[2023-12-11] MEDS ORDERED: LIDOCAINE 1% LOCAL 20 ML VIAL INFIL PRN (23:32)
[2023-12-11] MEDS ORDERED: DEXTROSE 50% 50 ML SYRINGE IV PRN (23:42)
[2023-12-11] MEDS ORDERED: SODIUM CHLORIDE 0.9% 1,000 ML IV PRN (23:42)
--- NOTE | 2023-12-11 23:50 | History & Physical Report ---
Date of Service December 11, 2023 Assessment & Plan (1) Gestational diabetes mellitus (GDM) requiring insulin: Plan: induction with cervical ripening with Cytotec Brandon balloon for ripening insulin drip Admission and Anticipated Discharge Date Admission Date: December 11, 2023 History of Present Illness Chief Complaint: induction of labor Primary Care Provider: Pj Kearney DO 33 F P0000 at38.6 weeks here for induction of labor for GDM on insulin. GBS is negative. Allergies Allergy/AdvReac Type Severity Reaction Status Date / Time amoxicillin Allergy Severe SOB/chest Verified 09/16/23 00:18 pains Home Medications Medication Instructions Recorded Confirmed Type vit no.95-ferrous 1 tab PO DAILY 03/20/23 12/11/23 History fumarate 28 mg-folic acid 800 mcg tablet () aspirin 81 mg tablet,delayed 81 mg PO DAILY 09/16/23 12/11/23 History release insulin glargine 100 unit/mL (3 65 unit subcut HS 09/16/23 12/11/23 History mL) subcutaneous pen (Basaglar KwikPen U-100 Insulin) insulin glargine 100 unit/mL (3 70 unit subcut QAM 09/16/23 12/11/23 History mL) subcutaneous pen (Basaglar KwikPen U-100 Insulin) Zoloft 100 mg PO DAILY 12/11/23 12/11/23 History Patient History Medical History Anxiety Abdominal pain PCOS (polycystic ovarian syndrome) Murmur Chest pain Surgical History H/O dilation and curettage Family History Other No significant family history Social History Smoking Status: Unknown if ever smoked Preferred Language: Moldovan marital status: Current Living Situation: Family current occupational status: employed current occupation: [employer] Feels Safe at Home: Yes OB History GDM on insulin bid ADMISSIONS EVALUATOR History PCOS hx Review of Systems All systems reviewed & are unremarkable except as noted in HPI & below Physical Exam Constitutional: WD/WN, vitals as above Eyes: PERRL, conjunctivae normal, anicteric sclerae Respiratory: normal respiratory effort, lungs clear to auscultation Cardiovascular: Rate/Rhythm: regular rate and regular rhythm Gastrointestinal (Abdomen): Inspection/Auscultation: abdomen normal to inspection Musculoskeletal: Extremities: extremities normal to inspection Skin: no rashes, warm and dry Neurologic: patellar DTR's 2+ bilat, sensation intact Psychiatric: A+Ox3, euthymic affect Genitourinary: no vaginal lesions, no adnexal mass OB Exam Abdomen: + fundal height and + vertex Manual OB Exam: + cervical dilation fingertip, + cervical effacement 50% and + station high OB Exam Monitor Tracing: + external FHT monitor used, + external uterine monitor used, + category I and + normal FHT variability Brandon with 35 ml saline placed in cervix Results & Data Vital Signs (Past 12 Hours) Vital Signs Pulse BP 12/11/23 23:34 92 H 12/11/23 23:34 153/93 H 12/11/23 23:21 85 157/93 H Code Status & VTE Plan VTE Prophylaxis Plan VTE Prophylaxis will be ordered: No Monitoring External Monitor Cat 1
[2023-12-12] MEDS: miSOPROStoL 50 MCG TAB PO SCH (00:44)
[2023-12-12 00:48] LABS: Hemoglobin 12.8 g/dl (12.0-16.0); Mean Corpuscular Hemoglobin 27.4 pg (25.0-34.0); Mean Corpuscular Hgb Conc 33.7 g/dL (32.0-36.0); Mean Corpuscular Volume 81.4 fL (80.0-100.0); Mean Platelet Volume 9.5 fL (9.4-12.4); Platelet Count 389 K/uL (130-400); RDW Coefficient of Variation 15.1 % (11.5-14.5); RDW Standard Deviation 44.1 fL (36.4-46.3); Red Blood Count 4.67 M/uL (4.20-5.40)
[2023-12-12] MEDS: INSULIN REGULAR 250 UNITS in SODIUM CHLORIDE 0.9% 247.5 ML IV PRN (01:05)
[2023-12-12] MEDS: DEXTROSE 5% 1,000 ML IV PRN (01:06)
[2023-12-12] MEDS ORDERED: BUTORPHANOL TARTRATE 2 MG/ML VIAL IV PRN (08:28)
[2023-12-12] MEDS ORDERED: ONDANSETRON INJ 2 MG/ML 2 ML VIAL IV PRN ×3 (08:29→13:41)
--- NOTE | 2023-12-12 09:10 | Obstetrical Progress Note ---
Date of Service December 12, 2023 Assessment & Plan Admission and Anticipated Discharge Date Admission Date: December 11, 2023 Subjective Patient seen and examined. I reviewed her records and confirm with her. She is 43-year-old -0-1-0 at 39 weeks of gestation who was admitted for induction of labor for pre-gestational diabetes, on insulin. She has received 1 dose of p.o. Cytotec and has been feeling contractions every 2 to 3 minutes. Pain is 5 out of 10 but she does not require any pain medications. She has a history of anxiety and she has been on Zoloft 100 mg daily and it has been under control. She denies any other medical problems. GBS is negative. She had growth ultrasounds by [facility] and EFW was have been within normal limits with abdominal circumference on the larger side. I performed a bedside ultrasound and all the measurement is all within normal limits between 37 to 38 weeks including abdominal circumference. VE; cervix is 3 to 4 cm, 60% effaced, head at -3 station, with a bulging bag. heart rate category 1, [place] showing contractions every 1 to 3 minutes, Patient plans to get epidural but not yet, Plan to continue to monitor, insulin drip per pharmacy orders, augment with oxytocin as needed, AROM after epidural, All questions were answered. Results & Data Vital Signs (Past 12 Hours) Vital Signs Temp Pulse Resp BP 12/12/23 08:20 90 143/98 H 12/12/23 08:18 82 140/94 12/12/23 07:10 16 12/12/23 07:10 36.7 C 16 12/12/23 07:07 85 136/81 12/12/23 03:10 75 124/75 12/12/23 02:57 18 12/12/23 02:57 36.7 C 18 12/11/23 23:48 36.5 C 18 12/11/23 23:34 92 H 12/11/23 23:34 153/93 H 12/11/23 23:21 85 157/93 H 12/11/23 23:18 18 12/11/23 23:18 36.5 C 18
[2023-12-12] MEDS: LACTATED RINGER'S 1,000 ML IV PRN (09:15)
[2023-12-12 09:20] LABS: Albumin Globulin Ratio 0.8 (0.9-2); Albumin Level 3.1 gm/dl (3.4-5.0); BUN Creatinine Ratio 19.7 (10-20); Bilirubin,Total 0.3 mg/dl (0.2-1.0); Calcium 9.3 mg/dl (8.6-10.3); Creatinine Clr Calc Pharmacy 142.1 ml/min; Est GFR (African American) 136.1 ml/min; Est GFR (Non-African American) 117.5 ml/min; Globulin 3.8 gm/dl (2.5-4.0); Total Protein 6.9 gm/dl (6.0-8.3)
[2023-12-12] MEDS ORDERED: BUPIVACAINE 0.25% PF 30 ML VIAL EPI PRN (10:07)
[2023-12-12] MEDS ORDERED: fentaNYL citrate PF 100 MCG/2 ML VIAL EPI PRN (10:07)
[2023-12-12] MEDS ORDERED: SODIUM CHLORIDE 0.9% PF INJ 10 ML VIAL EPI PRN (10:07)
[2023-12-12] MEDS ORDERED: ROPIVACAINE 0.5% PF 5 MG/ML 20 ML VIAL EPI PRN (10:07)
[2023-12-12] MEDS ORDERED: NALOXONE HCL 0.4 MG/1 ML VIAL/CARP IV PRN ×2 (10:07→13:41)
[2023-12-12] MEDS ORDERED: fentANYL 2 MCG/ML BUPIVacaine 0.125%-NSS 100ML BAG EPI PRN (10:07)
[2023-12-12] MEDS ORDERED: NALOXONE HCL 1 MG in SODIUM CHLORIDE 0.9% 1,000 ML IV PRN ×2 (10:07→13:41)
[2023-12-12] MEDS ORDERED: NALBUPHINE HCL 5 MG in SYRINGE 0 ML IV PRN ×2 (10:07→13:41)
[2023-12-12] MEDS ORDERED: ePHEDrine sulfate 50 MG/ML AMP IV PRN ×2 (10:07→13:41)
[2023-12-12] MEDS ORDERED: LIDOCAINE 2% MPF LOCAL 5 ML VIAL EPI PRN (10:07)
[2023-12-12] MEDS ORDERED: diphenhydrAMINE 50 MG/ML VIAL IV PRN ×2 (10:07→13:41)
--- NOTE | 2023-12-12 10:09 | Anesthesiology Consultation ---
Date of Service December 12, 2023 Assessment & Plan (1) Encounter for pre-operative examination: Chart Review Chart Review: Patient NOT seen in Pre Admission Testing and Acceptable Risk for Labor Epidural Consults Requested none History Height/Weight Height: 5 ft 3 in Weight: 96.162 kg Allergies Allergy/AdvReac Type Severity Reaction Status Date / Time amoxicillin Allergy Severe SOB/chest Verified 09/16/23 00:18 pains Medications Home Medications Medication Instructions Recorded Confirmed Last Taken vit no.95-ferrous 1 tab PO DAILY 03/20/23 12/11/23 12/11/23 fumarate 28 mg-folic acid 800 mcg tablet () aspirin 81 mg tablet,delayed 81 mg PO DAILY 09/16/23 12/11/23 12/11/23 release 0900 insulin glargine 100 unit/mL (3 65 unit subcut HS 09/16/23 12/11/23 12/11/23 20:00 mL) subcutaneous pen (Basaglar KwikPen U-100 Insulin) insulin glargine 100 unit/mL (3 70 unit subcut QAM 09/16/23 12/11/23 12/11/23 09:00 mL) subcutaneous pen (Basaglar KwikPen U-100 Insulin) Zoloft 100 mg PO DAILY 12/11/23 12/11/23 12/11/23 Active Medications Generic Name Dose Route Start Last Admin Trade Name Freq PRN Reason Stop Dose Admin Lactated Ringer's 1,000 mls @ 125 mls/hr 12/11/23 23:32 12/12/23 09:15 Lr IV 12/13/23 23:31 999 mls/hr .Q8H PRN Administration L&D Protocol Protocol Dextrose 1,000 mls @ 100 mls/hr 12/11/23 23:42 12/12/23 09:10 D5w IV 01/10/24 23:41 100 mls/hr .Q10H PRN Infusion BSG 180 or below Protocol Insulin Human Regular 250 250 mls @ 0 mls/hr 12/11/23 23:42 12/12/23 09:10 units/ Sodium Chloride IV 01/10/24 23:41 0.5 units/hr .Q0M PRN 0.5 mls/hr BSG 80mg/dL or ABOVE Titration Protocol Per Protocol Misoprostol 50 mcg 12/12/23 00:00 12/12/23 09:10 Misoprostol 50 Mcg Tab PO 01/11/24 00:00 Not Given Q4 RUBÉN Past Medical History Medical History (Updated 12/12/23 @ 10:09 by Dain Olivas MD) Encounter for pre-operative examination Anxiety Abdominal pain PCOS (polycystic ovarian syndrome) Murmur Chest pain Exercise / Class Metabolic Activity II 4-5 Yardwork/Stairs/Walk up hill Past Family History Family History Other No significant family history Past Surgical History Surgical History H/O dilation and curettage Social History Smoking Status: Unknown if ever smoked Hx Alcohol Use: No Hx Substance Use: No Physical Exam Vital Signs Last Vital Signs Temp 36.7 C 12/12/23 07:10 Pulse 78 12/12/23 10:26 Resp 16 12/12/23 07:10 BP 170/87 H 12/12/23 10:26 Pulse Ox 100 12/12/23 10:24 Testing Laboratory Results 12/12/23 00:01 12/12/23 08:40 Blood Type A Positive 12/12/23 00:01 Blood Type Cancelled 12/12/23 00:01 Antibody Screen Cancelled 12/12/23 00:01 Antibody Screen NEGATIVE 12/12/23 00:01 12/12/23 12/12/23 12/12/23 10:13 09:09 08:07 POC Glucose 88 83 86 12/12/23 12/12/23 12/12/23 07:06 06:05 05:02 POC Glucose 91 85 86 12/12/23 12/12/23 12/12/23 04:14 03:09 01:57 POC Glucose 91 86 89 12/12/23 12/11/23 01:02 23:26 POC Glucose 94 111 H
[2023-12-12] MEDS: LIDOCAINE 2%/EPINEPHRINE 1:200,000 20 ML PF ONE (10:27)
[2023-12-12] MEDS: BUPIVACAINE 0.25% PF 30 ML VIAL ONE (10:27)
[2023-12-12] MEDS: fentaNYL citrate PF 100 MCG/2 ML VIAL ONE (10:27)
[2023-12-12] MEDS: fentANYL 2 MCG/ML BUPIVacaine 0.125%-NSS 100ML BAG ONE (10:35)
[2023-12-12] MEDS: OXYTOCIN 30 UNITS/NSS 30 UNITS/500 ML BAG IV PRN (11:25)
--- OUTSIDE RECORDS SUMMARY | 2023-12-12 12:22 | External Medical Summary | Summary of Care ---
Author Name Unknown Organization [facility] Address [address] [place] [address] Phone [phone] Care Team Providers Care Pile Driving Nozzleman Name Role Phone Unavailable Primary Care Provider Unavailabl e Reason for Visit * Reason Comments Non Stress Test Encounter Details Date Type Department Care Team ([facility] st Contact Info) Description 12/05/2023 1:45 PM EDT Office Visit Gynecology/Obstetric s [facility] [place] [address] [place] [id number] Za Esquivel CRNP [address] [place] [address] [place], Non Stress Tests [facility] [address] [place] [address] High-risk in third trimester*; Obesity in , antepartum; Pre-existing type 2 diabetes mellitus during in third trimester; Medication exposure during first trimester of ; Family history of cerebral palsy; Anxiety during ; Multigravida of advanced maternal age in third trimester; Abnormal CBC; Echogenic focus of heart of fetus affecting antepartum care of mother, single or unspecified fetus; Antepartum anemia complicating Allergies Active Allergy Reactions Criticality Noted Date Comments Amoxicillin Nausea/vomiting 06/04/2016 documented as of this encounter (statuses as of 12/05/2023) Medications Medication Sig Dispensed Refills Start Date End Date Status Vitamin 27-0.8 MG Oral TabletIndications:En counter for preconception consultation Take 1 Tablet by mouth in the morning. 90 Tablet 3 11/16/2022 Active ProAir HFA 108 (90 Base) MCG/ACT Inhalation Aerosol SolutionIndications: Wheezing Inhale 2 Puffs by mouth every 4 hours as needed for Shortness of Breath or Wheezing. 18 g 3 03/28/2023 Active OneTouch Delica Lancets 33GIndications:Type 2 diabetes mellitus with hemoglobin A1c goal of less than 7.0% (FORMERLY [facility]) Check blood sugars twice daily as directed 100 Each 05/15/2023 Active OneTouch Verio In Vitro Strip (Glucose Blood)Indications:Ty pe 2 diabetes mellitus with hemoglobin A1c goal of less than 7.0% ([facility]) Check blood sugars twice daily as directed 100 Strip 05/15/2023 Active Aspirin 81 MG Oral Capsule Take by mouth. 0 Active OneTouch Verio w/Device KitIndications:Pre-e xisting type 2 diabetes mellitus during , antepartum,Supervisi on of high risk in first trimester Please monitor blood sugar four times daily (once fasting & 1 hour after breakfast, lunch, and dinner). 1 Kit 0 06/14/2023 Active OneTouch Delica Lancets 33GIndications:Pre-e xisting type 2 diabetes mellitus during , antepartum,Supervisi on of high risk in first trimester Monitor blood sugar four times daily (once fasting & 1 hour after breakfast, lunch, and dinner). 200 Each 06/14/2023 Active OneTouch Verio In Vitro Strip (Glucose Blood)Indications:Pr e-existing type 2 diabetes mellitus during , antepartum,Supervisi on of high risk in first trimester Monitor blood sugar four times daily (once fasting & 1 hour after breakfast, lunch, and dinner). 160 Strip 09/12/2023 Active Ferrous Sulfate 325 (65 Fe) MG Oral Tablet (Feosol) Take 1 Tablet by mouth in the morning and 1 Tablet at noon and 1 Tablet in the evening. 90 Tablet 09/20/2023 Active Pen [place] 32G X 4 MMIndications:Pre-ex isting type 2 diabetes mellitus during , antepartum Use to inject insulin twice daily 200 Each 09/24/2023 Active Sertraline HCl 100 MG Oral Tablet (Zoloft)Indications: Anxiety during Take 0.5 Tablets by mouth daily for 7 days, THEN 1 Tablet daily. 94 Tablet 0 10/18/2023 01/23/2024 Active Lantus SoloStar 100 UNIT/ML Subcutaneous Solution Pen-injectorIndicati ons:Pre-existing type 2 diabetes mellitus during , antepartum Inject under the skin 70 units with breakfast and 65 units at bedtime. 90 mL 3 12/04/2023 Active Hospital, Clinic, or Other Facility Administered Medication Ordered Dose Route Frequency Start Date End Date Status Albuterol Sulfate (Proventil) (5 MG/ML) 0.5% *conc* inhalation solution 2.5 mgIndications:Wheezing 2.5 mg NEBULIZER PRN 02/01/2023 02/01/2024 Ac tive documented as of this encounter (statuses as of 12/05/2023) Active Problems Problem Noted Date Diagnosed Date Antepartum anemia complicating 024 Overview: Hgb 10.2 at 27 wks, start iron Echogenic focus of heart of fetus affecting antepartum care of mother 07/23/2023 Overview: Low risk NIPT Last Assessment & Plan: An echogenic focus was seen in the left ventricle. We discussed the debatable and rare association (ie. less than 1%) between isolated echogenic focus in LV and aneuploidy. It has been reported as a weak ultrasound marker for Down syndrome. Given the fact that there are no other markers seen on ultrasound, her risk of having a fetus with Down syndrome remains overall low. In the setting of previous low- risk aneuploidy screening, no further testing is recommended for this finding. Abnormal CBC 05/15/2023 Overview: Per Ask A Doc with hematology 05/15/23: Suggest checking inflammatory markers, iron studies including ferritin and monitoring of platelet count every 8-12 weeks during . An myeloproliferative disorder can not be completely excluded though is unusual in a young patients such as this. High-risk 05/14/2023 Obesity in , antepartum 05/14/2023 Overview: Pre-gravid BMI is 36.68. Class II obesity Diagnosed with Type 2 diabetes Lab Results Component Value Date/Time HEMOGLOBIN A1C - [facility] 8.6 (H) 05/14/2023 10:06 AM HEMOGLOBIN A1C - [facility] 12.5 (H) 06/15/2020 10:09 AM Baseline Preeclampsia Labs Lab Results Component Value Date/Time PLATELET AUTO - [facility] 512 (H) 05/14/2023 10:06 AM CREATININE - [facility] 0.6 05/14/2023 10:06 AM AST - [facility] 10 05/14/2023 10:06 AM ALT - [facility] 12 05/14/2023 10:06 AM PROTEIN/ CREATININE RATIO, URINE - [facility] 118 05/14/2023 10:00 AM Last Assessment & Plan: CONSIDERATIONS: Discussed obstetrical risks associated with class II obesity (pre- BMI of 35 to 39.9) Reviewed that the accuracy of ultrasound at diagnosing anomalies is significantly decreased for women with an increased BMI. RECOMMENDATIONS: Recommend restricting weight gain during to 11-20 pounds. Patient should be referred for a nutrition consult. Recommend evaluation for signs and symptoms (snoring, excessive daytime sleepiness witnessed apnea or unexplained hypoxia) of obstructive sleep apnea. If any of these are present, referral to Sleep Medicine specialist for further evaluation should be considered. Recommend performing gestational diabetes mellitus screen now (if not performed at first visit) and repeat again at 26-28 weeks if early screen is normal. Recommend Maternal- Medicine ultrasound for anatomy at 20 weeks and for growth every 4 weeks thereafter. Pre-existing type 2 diabetes mellitus in pregnan cy 05/14/2023 Overview: Diagnosed in 2018 On insulin Follows with Diabetic MTM clinic / Plans to continue to follow with MTM Advised patient that we are available to answer any questions / concerns for her or MTM clinic about management of diabetes during Pt counseled on glucose monitoring at NOB: check QID, fasting <95 and 1 hr postprandial <140 Growth scans every 4 wks after 20 wks, twice weekly NSTs 32 wks, deliver 39th week Hemoglobin A1C last 3 results: Lab Results Component Value Date/Time HEMOGLOBIN A1C - [facility] 8.6 (H) 05/14/2023 10:06 AM HEMOGLOBIN A1C - [facility] 7.5 (H) 11/09/2022 02:06 PM HEMOGLOBIN A1C - [facility] 12.5 (H) 06/15/2020 10:09 AM HEMOGLOBIN A1C - [facility] 7.1 (H) 07/18/2018 10:27 AM HEMOGLOBIN A1C - [facility] 11.4 (H) 03/15/2018 09:21 AM HEMOGLOBIN-OUTSIDE LAB 14.2 10/01/2018 12:00 AM HEMOGLOBIN-OUTSIDE LAB 14.0 04/17/2018 12:00 AM 06/14/23: MFM ADAPT visit complete. Desires MFM to manage during now, previously followed with [facility] pharmacy. Elevated FBS and PP values. Increase to insulin glargine 20 units at bedtime (patient deferred adding in AM insulin dose at this time). Will enroll in [facility] RPM. Recommend Nutrition visit. 06/27/23-06/27/23- follow up adapt appt needs scheduled; msg sent to pars 06/28/23: RPM fasting 103-129 and PP values 116-227. Messages sent to scheduling for follow up ADAPT 07/02/23: ADAPT complete; grossly elevated fasting and PP values; increased to Basaglar 20 units with breakfast and 40 units at bedtime 07/11/23-elevations in BS msg sent to Chief Console Operator 07/11/23: RPM reviewed; elevated FBS and some PP; increase to Basaglar 25 units with breakfast and 45 units at bedtime 07/19/23-elevated sugars- msg sent to acupressure therapist 07/19/23: RPM increase to Basaglar insulin 30 units with breakfast and 50 units at bedtime 07/25/23- stable 07/02/23- elevated sugars sent to SATELLITE TV INSTALLER to review 08/01/23: RPM reviewed. Elevated FBS and PP's. (especially after breakfast). Increase Basaglar to 35 units with breakfast and 55 units at bedtime. May need to consider starting short acting with some meals--KW 08/08/23-elevated sugars- sent to SATELLITE TV INSTALLER 08/08/23: RPM reviewed. Few elevated FBS and several elevated PP's after lunches and dinners. Increase Basaglar to 45 units with breakfast and 60 units at bedtime --KW 08/16/23-elevations in sugars;msg sent to SATELLITE TV INSTALLER 08/16/23: RPM reviewed; blood sugars improving since last dose change; continue Basaglar to 45 units with breakfast and 60 units at bedtime 08/23/23- stable at this time- some elevations- will review again next week 08/29/23-sugars elevated sent to SATELLITE TV INSTALLER 08/29/23: RPM reviewed, some elevated after dinner readings over the holiday. Recent PP's within target. No medication change this week. Will review again next week. --KW 09/05/23- stable 09/12/23- stable; Recd message from patient that Basaglar is no longer covered by insurance; neither is levemir, lantus, semglar and detemir. Discussed with Dr Payne about changing patient over to Toujeo, as this is covered by insurance. Advised patient to finish our her current basaglar pens at current dose then begin Toujeo 40 units with breakfast and 50 units at bedtime.Asked her to let us know when she starts the Toujeo or if she has coverage problems again --KW 09/19/23- stable 09/24/23: Toujeo not covered per [facility]; instructed patient to call insurance to see which long acting insulin is covered. Reports Lantus and Novolin are covered. New RX sent for Lantus 45 units with breakfast and 60 units at bedtime 10/03/23-elevated sugars msg sent to SATELLITE TV INSTALLER 10/03/23: RPM reviewed; some elevated FBS and a few elevated dinner PP's. Increase Lantus to 50 units with breakfast and 65 units at bedtime ---KW 10/09/23: RPM reviewed; stable overall 10/17/23-stable 10/24/23- stable 10/31/23-some BS elevations msg sent to SATELLITE TV INSTALLER 10/31/23: RPM reviewed; some PP elevations; increase to Lantus 55 units with breakfast and continue 65 units at bedtime 11/08/23: RPM reviewed; some PP elevations; increase to Lantus 60 units with breakfast and continue 65 units at bedtime 11/19/23: RPM reviewed, overall stable. Continue Lantus 60 units with breakfast and continue 65 units at bedtime --KW 11/27/23: RPM reviewed. FBS overall stable; some PP elevations. Increase to Lantus 65 units with breakfast and continue 65 units at bedtime. 12/04/23: RPM reviewed. FBS stable; some PP elevations. Increase to Lantus 70 units with breakfast; continue 65 units at bedtime. Last Assessment & Plan: Working with ADAPT. Medication exposure during first trimester of pr egnancy 05/14/2023 Overview: LMP approximately middle of February Took 21 days doxycycline in March for Lyme disease Doxycycline. Tetracyclines cross the placenta Therapeutic doses of doxycycline during are unlikely to produce substantial teratogenic risk, but data are insufficient to say that there is no risk. In general, reports of exposure have been limited to short durations of therapy in the first trimester. Tetracyclines accumulate in developing teeth and long tubular bones. Permanent discoloration of teeth (yellow, alva, brown) can occur following in utero exposure and is more likely to occur following long-term or repeated exposure. For other indications, many guidelines consider use of doxycycline to be contraindicated during , or to be a relative contraindication in patients if other agents are available and appropriate for use. Doxycycline should not be used for the treatment of acne or rosacea in patients. Family history of cerebral palsy 05/14/2023 Overview: DION Donovan, age 43, has cerebral palsy Reviewed common cause of CP is injury Patient reports that Zion's mother had a difficult & delivery. NIPT: desires, OB to order at later date Genetic referral: declines at this time Anxiety during 05/14/2023 Overview: Switched from Prozac to Zoloft at 31 weeks due to increase in panic attacks, Buspar prn not helpful. Was on Lexapro in the past, stopped working. Last Assessment & Plan: ANXIETY AND DEPRESSION CONSIDERATIONS: Untreated maternal anxiety and depression may be associated with an increased risk of multiple poor obstetrical outcomes including miscarriages, low weight, and delivery. Women with a history of anxiety or depression are at risk for recurrence both during and/or the period. Studies of first-trimester SSRI exposure do not demonstrate consistent data to support an increased risk for structural malformations. Anti-anxiety or depression medications have been associated with transient effects (withdrawal syndrome). RECOMMENDATIONS: Mental illness can and should be treated during when the benefits of treatment outweigh potential risks. Referral to behavioral health services as clinically indicated. AMA (advanced maternal age) multigravida 35+ Overview: Patient will be age 33 at delivery NIPT: desires, OB to order Genetic referral: declines at this time Message sent to schedule patient for limited anatomy scan around 13 weeks MFM anatomy scan scheduled 07/23/2023 Last Assessment & Plan: Low risk NIPT appreciated. Type 2 diabetes mellitus wit h hemoglobin A1c goal of less than 7.0% 04/21/2018 Obesity, morbid (more than 1 00 lbs over ideal weight or BMI > 40) 06/09/2015 CAM (obstructive sleep apnea) 12/10/2014 Overview: 02/16/15 PSG -- CPAP 7 cwp, no desats 11/2014 PSG -- AHI 20.6, 33 mins <89% T&B Fibromyalgia 10/18/2014 Malaise and fatigue 10/05/2014 Snoring 10/05/2014 Panic attacks 06/29/2014 VANESSA (generalized anxiety disorder) PCOS (polycystic ovarian syndrome) Overview: Dr Soto Estimated Date of Delivery Comme nts Yes 12/18/2023 Based on Ultraso und documented as of this encounter (statuses as of 12/05/2023) Resolved Problems Problem Noted Date Diagnosed Date Resolved Date Supervision of high risk pre gnancy in first trimester 05/20/2023 10/16/2023 Tobacco smoking complicating 05/14/2023 05/14/2023 Acute conjunctivitis 08/25/2014 015 Bronchitis, complicated 08/09/201409/26 documented as of this encounter (statuses as of 12/05/2023) Immunizations Name Administration Dates Next Due Hepatitis B, 20+ yrs 07/04/2020,06/03/2020 PPD 09/26/2016,09/24/2014 Pneumococcal Conjugate Vacci ne, 20-valent ([id number]) 11/09/2022 Pneumococcal Polysaccharide PPV23 (Pneumovax) 06/03/2020 Seasonal Influenza, PF, 6 M & above, IM , (FluLaval or Fluzone) 05/14/2023,11/09/2022,06/03/2020 TDAP (age 10 and older)(Boostrix) 10/16/2023, documented as of this encounter Social History Tobacco Use Types Packs/Day Years Used Date Smoking Tobacco: Former Vaporizer Smokeless Tobacco: Never Comments:Vaporizer is medica l marijuana /discontinued since knowledge of the Alcohol Use Standard Drinks/Week Comments Not Currently 0 (1 standard drink = 0.6 oz pur e alcohol) a few beers per week PHQ-2 Answer Date Recorded PHQ-2 Score 0 09/29/2018 Hunger Vital Sign Answer Date Recorded Within the past 12 months, y ou worried that your food would run out before you got the money to buy more. Never true 11/13/19 23 Within the past 12 months, t he food you bought just didn't last and you didn't have money to get more. Never true 11/12/2022 Dolores Depression Scale Answer Date Recorded Last EPDS Total Score Not on file 05/14/2023 The thought of harming myself has occurred to me . Never 05/14/2023 Estimated Date of Delivery Comme nts Yes 12/18/2023 Based on Ultraso und Sex and Gender Information Value Date Recorded Sex Assigned at Female 04/23/2023 9:45 AM EDT Gender Identity Female 04/23/2023 9:45 AM EDT Sexual Orientation Straight 04/23/2023 9: 45 AM EDT Job Start Date Occupation Industry Not on file Not on file Not on file documented as of this encounter Progress Notes * Za Esquivel CRNP - 12/05/2023 2:20 PM EDT ASSESSMENT assessment with Non-stress Test completed on 12/05/2023 at 38.1 weeks gestation for indicationof diabetes mellitus and obesity heart baseline: 130 bpm Variability: Moderate Decelerations: absent Accelerations: present Contractions: None NST start time: 1356 NST stop time: 1429 NST strip reviewed, interpreted, and approved by OB provider, LYNN Rodriguez . NST strip stored in clinic storage file documented in this encounter Plan of Treatment Upcoming Encounters Date Type Department Care Team (Late st Contact Info) Description 12/09/2023 2:30 PM EDT Office Visit Gynecology/Obstetrics [facility] [place] [address] [place] [address] Heraclio Robledo MD [address] [place] [address] [place], Non Stress Tests [facility] [address] [address] 12/12/2023 1:45 PM EDT Office Visit Gynecology/Obstetrics [facility] [place] [address] [place] [id number] BackerZa CRNP [address] [place] [address] Freddy Non Stress Tests [facility] [address] [place] [id number] Health Maintenance Due Date Last Done Comments Diabetic Eye Exam 2006 Depression Screening 09/29/2019 09/29/2018, 03/14/20 18 Hepatitis B (3 of 3 - 19+ 3-dose series) 12/02/2020 07/04/2020, 06/03/2020 Diabetic Foot Exam 06/03/2021 06/03/2020 COVID-19 Vaccine ( season) 2023 12/22/2020, 12/01/2020 GFR 11/10/2024 11/11/2023, 08/27, 05/14/2023, Additional history exists Pap Smear 11/16/2025 11/16/2022, 1009/2017, 02/14/2016, Additional history exists Cervical Cancer Screening 11/17/2027 HPV/Co-Test 11/17/2027 11/16/2022 DTaP,Tdap,and Td Vaccines (3 - Td or Tdap) 10/16/2033 10/16/2023, 07/16/2014 Albumin/Creatinine Ratio Discontinued 11/09/2022 Pneumococcal Vaccine: Pediatrics (0 to 5 Years) and At-Risk Patients (6 to 64 Years) Completed 11/09/2022, 06/03/2020 Influenza Vaccine (FLU shot) Completed 05/14/2023, 11/09/2022, 06/03/2020 GARDASIL-HPV IMMUNIZATION SERIES Aged Out No longer eligible based on patient's age to complete this topic MENINGOCOCCAL (MENACTRA/MENVEO) Aged Out No longer eligible based on patient's age to complete this topic documented as of this encounter Medical Devices Not on filedocumented as of this encounter Visit Diagnoses Diagnosis High-risk in third trimester- Primary Obesity in , antepartum Obesity complicating , childbirth, or the puerperium, antepartum condition or complication Pre-existing type 2 diabetes mellitus during in third trimester Medication exposure during first trimester of Supervision of other high-risk Family history of cerebral palsy Family history of other neurological diseases Anxiety during Multigravida of advanced maternal age in third trimester Abnormal CBC Other abnormal blood chemistry Echogenic focus of heart of fetus affecting antepartum care of mother, single or unspecified fetus Antepartum anemia complicating Anemia, antepartum documented in this encounter
--- OUTSIDE RECORDS SUMMARY | 2023-12-12 12:22 | External Medical Summary | Summary of Care ---
Author Name Unknown Organization [facility] Address [address] [place] [address] Phone [phone] Care Team Providers Care Marketing Communications Manager Name Role Phone Unavailable Primary Care Provider Unavailabl e Encounter Details Date Type Department Care Team (Late st Contact Info) Description 12/04/2023 Orders Only [place] Superintendent Obstetric MFM [facility] [place] [address] [place] [address] Ameena Andrea CRNP [address] [place] [address] Pre-existing type 2 diabetes mellitus during , antepartum Allergies Active Allergy Reactions Criticality Noted Date Comments Amoxicillin Nausea/vomiting 06/04/2016 documented as of this encounter (statuses as of 12/04/2023) Medications Medication Sig Dispensed Refills Start Date End Date Status Vitamin 27-0.8 MG Oral TabletIndications:E ncounter for preconception consultation Take 1 Tablet by mouth in the morning. 90 Tablet 3 11/16/2022 Active ProAir HFA 108 (90 Base) MCG/ACT Inhalation Aerosol SolutionIndications :Wheezing Inhale 2 Puffs by mouth every 4 hours as needed for Shortness of Breath or Wheezing. 18 g 3 03/28/2023 Active OneTouch Delica Lancets 33GIndications:Type 2 diabetes mellitus with hemoglobin A1c goal of less than 7.0% ([facility]) Check blood sugars twice daily as directed 100 Each 5 05/15/2023 Active OneTouch Verio In Vitro Strip (Glucose Blood)Indications:T ype 2 diabetes mellitus with hemoglobin A1c goal of less than 7.0% ([facility]) Check blood sugars twice daily as directed 100 Strip 5 05/15/2023 Active Aspirin 81 MG Oral Capsule Take by mouth. 0 Active OneTouch Verio w/Device KitIndications:Pre- existing type 2 diabetes mellitus during , antepartum,Supervis ion of high risk in first trimester Please monitor blood sugar four times daily (once fasting & 1 hour after breakfast, lunch, and dinner). 1 Kit 0 06/14/2023 Active OneTouch Delica Lancets 33GIndications:Pre- existing type 2 diabetes mellitus during , antepartum,Supervis ion of high risk in first trimester Monitor blood sugar four times daily (once fasting & 1 hour after breakfast, lunch, and dinner). 200 Each 6 06/14/2023 Active OneTouch Verio In Vitro Strip (Glucose Blood)Indications:P re-existing type 2 diabetes mellitus during , antepartum,Supervis ion of high risk in first trimester Monitor blood sugar four times daily (once fasting & 1 hour after breakfast, lunch, and dinner). 160 Strip 6 09/12/2023 Active Ferrous Sulfate 325 (65 Fe) MG Oral Tablet (Feosol) Take 1 Tablet by mouth in the morning and 1 Tablet at noon and 1 Tablet in the evening. 90 Tablet 3 09/20/2023 Active Pen [place] 32G X 4 MMIndications:Pre-e xisting type 2 diabetes mellitus during , antepartum Use to inject insulin twice daily 200 Each 3 09/24/2023 Active Sertraline HCl 100 MG Oral Tablet (Zoloft)Indications :Anxiety during Take 0.5 Tablets by mouth daily for 7 days, THEN 1 Tablet daily. 94 Tablet 0 10/18/2023 4 Active Lantus SoloStar 100 UNIT/ML Subcutaneous Solution Pen-injectorIndicat ions:Pre-existing type 2 diabetes mellitus during , antepartum Inject under the skin 70 units with breakfast and 65 units at bedtime. 90 mL 3 12/04/2023 Active Lantus SoloStar 100 UNIT/ML Subcutaneous Solution Pen-injectorIndicat ions:Pre-existing type 2 diabetes mellitus during , antepartum Inject under the skin 65 units with breakfast and 65 units at bedtime. 90 mL 3 11/27/2023 4 Discontinued Hospital, Clinic, or Other Facility Administered Medication Ordered Dose Route Frequency Start Date End Date Status Albuterol Sulfate (Proventil) (5 MG/ML) 0.5% *conc* inhalation solution 2.5 mgIndications:Wheezing 2.5 mg NEBULIZER PRN 02/01/2023 02/01/2024 Ac tive documented as of this encounter (statuses as of 12/04/2023) Active Problems Problem Noted Date Diagnosed Date [...] HEMOGLOBIN-OUTSIDE LAB 14.0 04/17/2018 12:00 AM 06/14/23: M ADAPT visit complete. Desires MFM to manage during now, previously followed with [facility] pharmacy. Elevated FBS and PP values. [...] bedtime 07/11/23-elevations in BS msg sent to Administrative Court Justice 07/11/23: RPM reviewed; elevated FBS and some PP; increase to Basaglar 25 units with breakfast and 45 units at bedtime 07/19/23-elevated sugars- msg sent to post acute care nurse 07/19/23: RPM increase to Basaglar insulin 30 units with breakfast and 50 units at bedtime 07/25/23- stable 07/02/23- elevated sugars sent to CASING IN LINE FEEDER to review 08/01/23: RPM reviewed. Elevated FBS and PP's. (especially after breakfast). Increase Basaglar to 35 units with breakfast and 55 units at bedtime. May need to consider starting short acting with some meals--KW 08/08/23-elevated sugars- sent to CASING IN LINE FEEDER 08/08/23: RPM reviewed. Few elevated FBS and several elevated PP's after lunches and dinners. Increase Basaglar to 45 units with breakfast and 60 units at bedtime --KW 08/16/23-elevations in sugars;msg sent to CASING IN LINE FEEDER 08/16/23: RPM reviewed; blood sugars improving since last dose change; continue Basaglar to 45 units with breakfast and 60 units at bedtime 08/23/23- stable at this time- some elevations- will review again next week 08/29/23-sugars elevated sent to CASING IN LINE FEEDER 08/29/23: RPM reviewed, some elevated after dinner [...] at bedtime 10/03/23-elevated sugars msg sent to CASING IN LINE FEEDER 10/03/23: RPM reviewed; some elevated FBS and a few elevated dinner PP's. Increase Lantus to 50 units with breakfast and 65 units at bedtime ---KW 10/09/23: RPM reviewed; stable overall 10/17/23-stable 10/24/23- stable 10/31/23-some BS elevations msg sent to CASING IN LINE FEEDER 10/31/23: RPM reviewed; some PP elevations; increase [...] tubular bones. Permanent discoloration of teeth (yellow, mcleod, brown) can occur following in utero exposure [...] Family history of cerebral palsy 05/14/2023 Overview: FOKristie Donovan, age 43, has cerebral palsy Reviewed [...] for limited anatomy scan around 13 weeks [facility] anatomy scan scheduled 07/23/2023 Last Assessment & [...] as of this encounter (statuses as of 12/04/2023) Resolved Problems Problem Noted Date Diagnosed Date Resolved Date Supervision of high risk pre gnancy in first trimester 05/20/2023 10/16/2023 Tobacco smoking complicating 05/14/2023 05/14/2023 Acute conjunctivitis 08/25/2014 015 Bronchitis, complicated 08/09/201409/26 documented as of this encounter (statuses as of 12/04/2023) Immunizations Name Administration Dates Next Due Hepatitis B, 20+ yrs 07/04/2020,06/03/2020 PPD 09/26/2016,09/24/2014 Pneumococcal Conjugate Vacci ne, 20-valent ([id number]) 11/09/2022 Pneumococcal Polysaccharide PPV23 (Pneumovax) 06/03/2020 Seasonal [...] money to get more. Never true 11/12/2022 [place] Depression Scale Answer Date Recorded Last EPDS [...] on file documented as of this encounter Plan of Treatment Upcoming Encounters Date Type Department Care Team (Late st Contact Info) Description 12/05/2023 1:45 PM EDT Office Visit Gynecology/Obstetrics Amaris Hayes [address] [place] [address] Za Esquivel CRNP [address] [place] [id number] Freddy Non Stress Tests [facility] [address] [place] [address] 12/09/2023 2:30 PM EDT Office Visit Gynecology/Obstetrics Amaris Hayes [address] [place] [address] Heraclio Robledo MD [address] [place] [address] Freddy Non Stress Tests [facility] [address] [place] [address] 12/12/2023 1:45 PM EDT Office Visit Gynecology/Obstetrics Amaris Hayes [address] [place] [address] Za Esquivel CRNP [address] [place] [address] Freddy, Non Stress Tests [facility] [address] [place] [address] Health Maintenance Due Date Last Done Comments Diabetic Eye Exam 2006 Depression Screening 09/29/2019 09/29/2018, 03/14/20 18 Hepatitis B (3 of 3 - 19+ 3-dose series) 12/02/2020 07/04/2020, 06/03/2020 Diabetic Foot Exam 06/03/2021 06/03/2020 COVID-19 Vaccine (2022- season) 2023 12/22/2020, 12/01/2020 GFR 11/10/2024 11/11/2023, 08/27, 05/14/2023, Additional history exists Pap Smear 11/16/2025 11/16/2022, 09/2017, 02/14/2016, Additional history exists Cervical Cancer Screening [...] as of this encounter Visit Diagnoses Diagnosis Pre-existing type 2 diabetes mellitus during , antepartum documented in this encounter
--- OUTSIDE RECORDS SUMMARY | 2023-12-12 12:22 | External Medical Summary ---
Author Name Unknown Address Unknown Organization K01:[facility] - [facility] [address] [facility] [address] [facility] [address] Laboratory Report Ordering Provider Test Date Status BRENDA HENDRICKS 11/28/2023 15:35:34 Final Observation Date Value Abnormality Reference (Units ) Status Color of Urine by Auto 11/28/2023 15:35:34 Yellow Colorless, Light Yellow, Yellow, Dark Yellow Final Clarity, Urine 11/28/2023 15:35:34 Clear Clear Final Glucose [Mass/volume] in Urine by Automated test strip 11/28/2023 15:35:34 50 Abnormal Negative (mg/dL) Final Bilirubin.total [Presence] in Urine by Automated test strip 11/28/2023 15:35:34 Negative Negative Final Ketones [Mass/volume] in Urine by Automated test strip 11/28/2023 15:35:34 Trace Abnormal Negative (mg/dL) Final Specific gravity, Urine 11/28/2023 15:35:34 1.028 1.003-1.030 Final Hemoglobin [Presence] in Urine by Automated test strip 11/28/2023 15:35:34 Small Abnormal Negative Final pH, Urine 11/28/2023 15:35:34 6.0 5.0-7.5 (Units) Final Protein [Mass/volume] in Urine by Automated test strip 11/28/2023 15:35:34 Trace Abnormal Negative (mg/dL) Final Urobilinogen [Mass/volume] in Urine by Automated test strip 11/28/2023 15:35:34 2.0 Abnormal Normal (mg/dL) Final Nitrite [Presence] in Urine by Automated test strip 11/28/2023 15:35:34 Negative Negative Final Leukocyte esterase [Presence] in Urine by Automated test strip 11/28/2023 15:35:34 Negative Negative Final Performing Location [facility] - [address] [facility] [address]
--- OUTSIDE RECORDS SUMMARY | 2023-12-12 12:22 | External Medical Summary | Summary of Care ---
Author Name Unknown Organization [facility] Address [address] [place] [address] Phone [phone] Care Team Providers Care Extractor And Wringer Operator Name Role Phone Unavailable Primary Care Provider Unavailabl e Reason for Visit * Reason Comments Return Visit Non Stress Test Encounter Details Date Type Department Care Team ([facility] st Contact Info) Description 12/02/2023 9:15 AM EDT Office Visit Gynecology/Obstetric s [facility] [address] [facility] [place] [address] Arielle Lu, DNP, CNM [address] [facility] [place] [address] Hayes, Non Stress Tests [facility] [address] [facility] [place] [address] High risk , antepartum*; Obesity in , antepartum; Pre-existing type 2 diabetes mellitus during , antepartum; Medication exposure during first trimester of ; Family history of cerebral palsy; Anxiety during ; Antepartum multigravida of advanced maternal age; Abnormal CBC; Echogenic focus of heart of fetus affecting antepartum care of mother, single or unspecified fetus; Antepartum anemia complicating ; High risk , antepartum [O09.90]; Pre-existing type 2 diabetes mellitus during , antepartum [O24.119] Allergies Active Allergy Reactions Criticality Noted Date Comments Amoxicillin Nausea/vomiting 06/04/2016 documented as of this encounter (statuses as of 12/02/2023) Medications Medication Sig Dispensed Refills Start Date [...] hemoglobin A1c goal of less than 7.0% ([facility]) Check blood sugars twice daily as directed 100 Each 05/15/2023 Active OneTouch Verio In Vitro Strip (Glucose Blood)Indications:Ty pe 2 diabetes mellitus with hemoglobin A1c goal of less than 7.0% ([facility]) Check blood sugars twice daily as directed [...] evening. 90 Tablet 3 09/20/2023 Active Pen [place] 32G X 4 MMIndications:Pre-ex isting type 2 [...] units at bedtime. 90 mL 3 11/27/2023 Active Hospital, Clinic, or Other Facility Administered Medication Ordered Dose Route Frequency Start Date End Date Status Albuterol Sulfate (Proventil) (5 MG/ML) 0.5% *conc* inhalation solution 2.5 mgIndications:Wheezing 2.5 mg NEBULIZER PRN 02/01/2023 02/01/2024 Ac tive documented as of this encounter (statuses as of 12/02/2023) Active Problems Problem Noted Date Diagnosed Date [...] to manage during now, previously followed with [facility] pharmacy. Elevated FBS and PP values. Increase [...] bedtime 07/11/23-elevations in BS msg sent to Machine Stapler 07/11/23: RPM reviewed; elevated FBS and some PP; increase to Basaglar 25 units with breakfast and 45 units at bedtime 07/19/23-elevated sugars- msg sent to candy counter clerk 07/19/23: RPM increase to Basaglar insulin 30 units with breakfast and 50 units at bedtime 07/25/23- stable 07/02/23- elevated sugars sent to ELECTION ASSISTANT to review 08/01/23: RPM reviewed. Elevated FBS and PP's. (especially after breakfast). Increase Basaglar to 35 units with breakfast and 55 units at bedtime. May need to consider starting short acting with some meals--KW 08/08/23-elevated sugars- sent to ELECTION ASSISTANT 08/08/23: RPM reviewed. Few elevated FBS and several elevated PP's after lunches and dinners. Increase Basaglar to 45 units with breakfast and 60 units at bedtime --KW 08/16/23-elevations in sugars;msg sent to ELECTION ASSISTANT 08/16/23: RPM reviewed; blood sugars improving since last dose change; continue Basaglar to 45 units with breakfast and 60 units at bedtime 08/23/23- stable at this time- some elevations- will review again next week 08/29/23-sugars elevated sent to ELECTION ASSISTANT 08/29/23: RPM reviewed, some elevated after dinner [...] at bedtime 10/03/23-elevated sugars msg sent to ELECTION ASSISTANT 10/03/23: RPM reviewed; some elevated FBS and a few elevated dinner PP's. Increase Lantus to 50 units with breakfast and 65 units at bedtime ---KW 10/09/23: RPM reviewed; stable overall 10/17/23-stable 10/24/23- stable 10/31/23-some BS elevations msg sent to ELECTION ASSISTANT 10/31/23: RPM reviewed; some PP elevations; increase [...] breakfast and continue 65 units at bedtime. Last Assessment [...] for limited anatomy scan around 13 weeks [facility] anatomy scan scheduled 07/23/2023 Last Assessment & [...] as of this encounter (statuses as of 12/02/2023) Resolved Problems Problem Noted Date Diagnosed Date Resolved Date Supervision of high risk pre gnancy in first trimester 05/20/2023 10/16/2023 Tobacco smoking complicating 05/14/2023 05/14/2023 Acute conjunctivitis 08/25/2014 015 Bronchitis, complicated 08/09/201409/26 documented as of this encounter (statuses as of 12/02/2023) Immunizations Name Administration Dates Next Due Hepatitis B, 20+ yrs 07/04/2020,06/03/2020 PPD 09/26/2016,09/24/2014 Pneumococcal Conjugate Vacci ne, 20-valent ([id number]) 11/09/2022 Pneumococcal Polysaccharide PPV23 (Pneumovax) 06/03/2020 Seasonal [...] money to get more. Never true 11/12/2022 [place] Depression Scale Answer Date Recorded Last EPDS [...] on file documented as of this encounter Last Filed Vital Signs Vital Sign Reading Time Taken Comments Blood Pressure 124/72 12/02/2023 9:09 AM EDT Pulse - - Temperature - - Respiratory Rate - - Oxygen Saturation - - Inhaled Oxygen Concentration - - Weight - - Height - - Body Mass Index - - documented in this encounter Progress Notes * Arielle Lu, SULLY, CNM - 12/02/2023 9:38 AM EDT 37w5d Doing well, no concerns today. Active movement, denies contractions, LOF or VB. NST Cat 1 Taking insulin 65u AM and PM, reporting sugars via ADAPT per pt. ASSESSMENT assessment with Non-stress Test completed on 12/02/2023 at 37.5 weeks gestation for indication of diabetes mellitus and obesity heart baseline: 145 bpm Variability: Moderate Decelerations: absent Accelerations: present Contractions: None, some Darci Gonsales, pt denies painful UCs NST start time: 911 NST stop time: 936 NST strip reviewed, interpreted, and approved by OB provider, Arielle Lu DNP, CNM. NST strip stored in clinic storage file Reviewed labor precautions, kick counts, loss of fluid, vaginal bleeding, round ligament pain, and encouraged hydration. Has IOL scheduled 12/10 Will continue 2x weekly NSTs RTO on for FLORIDALMA/NST documented in this encounter Nursing Notes * Sheridan Garcia LPN - 12/02/2023 9:09 AM EDT Pt is currently 37w5d with an Estimated Date of Delivery: 12/18/23 - documented in this encounter Plan of Treatment Upcoming Encounters Date Type Department Care Team (Late st Contact Info) Description 12/05/2023 1:45 PM EDT Office Visit Gynecology/Obstetrics Amaris Hayes [address] [place] [address] Za Esquivel CRNP [address] [place] [address] Freddy Non Stress Tests [facility] [address] [place] [address] 12/09/2023 2:30 PM EDT Office Visit Gynecology/Obstetrics Amaris Hayes [address] [place] [address] Heraclio Robledo MD [address] [place] [address] Freddy Non Stress Tests [facility] [address] [place] [address] 12/12/2023 1:45 PM EDT Office Visit Gynecology/Obstetrics Amaris Hayes [address] [place] [address] Za Esquivel CRNP [address] [place] [address] Freddy, Non Stress Tests [facility] [address] [place] [address] Health Maintenance Due Date Last Done Comments [...] as of this encounter Visit Diagnoses Diagnosis High risk , antepartum [O09.90]- Primary Obesity in , antepartum Obesity complicating , childbirth, or the puerperium, antepartum condition or complication Pre-existing type 2 diabetes mellitus during , antepartum [O24.119] Medication exposure during first trimester of Supervision of other high-risk Family history of cerebral palsy Family history of other neurological diseases Anxiety during Antepartum multigravida of advanced maternal age Abnormal CBC Other abnormal blood chemistry Echogenic focus of heart of fetus affecting antepartum care of mother, single or unspecified fetus Antepartum anemia complicating Anemia, antepartum documented in this encounter
--- OUTSIDE RECORDS SUMMARY | 2023-12-12 12:22 | External Medical Summary | Summary of Care ---
Author Name Unknown Organization [facility] Address [address] [place] [address] Phone [phone] Care Team Providers Care Overedge Sewer Name Role Phone Unavailable Primary Care Provider Unavailabl e Reason for Visit * Reason Onset Date Comments Home Monitoring Orders Only 12/11/2023 Encounter Details Date Type Department Care Team ([facility] st Contact Info) Description 12/11/2023 Home Monitoring Retrofit Installer Obstetric MFM [facility] [address] [place] [address] Luz Cordon CRNP [address] [place] [address] Pre-existing type 2 diabetes mellitus in * Allergies Active Allergy Reactions Criticality Noted Date Comments Amoxicillin Nausea/vomiting 06/04/2016 documented as of this encounter (statuses as of 12/11/2023) Medications Medication Sig Dispensed Refills Start Date [...] than 7.0% ([facility]) Check blood sugars twice daily as directed 100 Each 5 05/15/2023 Active OneTouch Verio In Vitro Strip (Glucose Blood)Indications:Ty pe 2 diabetes mellitus with hemoglobin A1c goal of less than 7.0% ([facility]) Check blood sugars twice daily as directed [...] evening. 90 Tablet 3 09/20/2023 Active Pen [place] 32G X 4 MMIndications:Pre-ex isting type 2 [...] as of this encounter (statuses as of 12/11/2023) Active Problems Problem Noted Date Diagnosed Date [...] AM 06/14/23: MFM ADAPT visit complete. Desires M to manage during now, previously followed with [facility] pharmacy. Elevated FBS and PP values. Increase [...] bedtime 07/11/23-elevations in BS msg sent to Academic Vice President 07/11/23: RPM reviewed; elevated FBS and some PP; increase to Basaglar 25 units with breakfast and 45 units at bedtime 07/19/23-elevated sugars- msg sent to nps 07/19/23: RPM increase to Basaglar insulin 30 units with breakfast and 50 units at bedtime 07/25/23- stable 07/02/23- elevated sugars sent to BLUEPRINT READER to review 08/01/23: RPM reviewed. Elevated FBS and PP's. (especially after breakfast). Increase Basaglar to 35 units with breakfast and 55 units at bedtime. May need to consider starting short acting with some meals--KW 08/08/23-elevated sugars- sent to BLUEPRINT READER 08/08/23: RPM reviewed. Few elevated FBS and several elevated PP's after lunches and dinners. Increase Basaglar to 45 units with breakfast and 60 units at bedtime --KW 08/16/23-elevations in sugars;msg sent to BLUEPRINT READER 08/16/23: RPM reviewed; blood sugars improving since last dose change; continue Basaglar to 45 units with breakfast and 60 units at bedtime 08/23/23- stable at this time- some elevations- will review again next week 08/29/23-sugars elevated sent to BLUEPRINT READER 08/29/23: RPM reviewed, some elevated after dinner [...] at bedtime 10/03/23-elevated sugars msg sent to BLUEPRINT READER 10/03/23: RPM reviewed; some elevated FBS and a few elevated dinner PP's. Increase Lantus to 50 units with breakfast and 65 units at bedtime ---KW 10/09/23: RPM reviewed; stable overall 10/17/23-stable 10/24/23- stable 10/31/23-some BS elevations msg sent to BLUEPRINT READER 10/31/23: RPM reviewed; some PP elevations; increase [...] with breakfast; continue 65 units at bedtime. 12/11/23: RPM reviewed; Stable; continue Lantus 70 units with breakfast and 65 units at bedtime Last Assessment & Plan: Working with ADAPT. [...] for limited anatomy scan around 13 weeks [facility] anatomy scan scheduled 07/23/2023 Last Assessment & [...] as of this encounter (statuses as of 12/11/2023) Resolved Problems Problem Noted Date Diagnosed Date Resolved Date Supervision of high risk pre gnancy in first trimester 05/20/2023 10/16/2023 Tobacco smoking complicating 05/14/2023 05/14/2023 Acute conjunctivitis 08/25/2014 015 Bronchitis, complicated 08/09/201409/26 documented as of this encounter (statuses as of 12/11/2023) Immunizations Name Administration Dates Next Due Hepatitis B, 20+ yrs 07/04/2020,06/03/2020 PPD 09/26/2016,09/24/2014 Pneumococcal Conjugate Vacci ne, 20-valent ([id number]) 11/09/2022 Pneumococcal Polysaccharide PPV23 (Pneumovax) 06/03/2020 Seasonal [...] money to get more. Never true 11/12/2022 [place] Depression Scale Answer Date Recorded Last EPDS [...] as of this encounter Progress Notes * Adali Yoder, SWATHI - 12/11/2023 12:34 PM EDT Patient has been discharged from [facility] Diabetes in Home Monitoring Program - Delivery documented in this encounter Plan of Treatment Upcoming Encounters Date Type Department Care Team (Late st Contact Info) Description 12/12/2023 1:45 PM EDT Office Visit Gynecology/Obstetrics Amaris Hayes [address] [place] [address] Za Esquivel CRNP [address] [place] [address] Maile Hayes Stress Tests [facility] [address] [place] [address] Health Maintenance Due Date Last Done Comments Diabetic Eye Exam 2006 Depression Screening 09/29/2019 09/29/2018, 03/14/20 18 Hepatitis B (3 of 3 - 19+ 3-dose series) 12/02/2020 07/04/2020, 06/03/2020 Diabetic Foot Exam 06/03/2021 06/03/2020 COVID-19 Vaccine ( - season) 2023 12/22/2020, 12/01/2020 GFR 11/10/2024 11/11/2023, [...] Diagnoses Diagnosis Pre-existing type 2 diabetes mellitus in - Primary Diabetes mellitus of mother, complicating , childbirth, or the puerperium, unspecified as to episode of care documented in this encounter
--- OUTSIDE RECORDS SUMMARY | 2023-12-12 12:22 | External Medical Summary ---
Author Name Unknown Address Unknown Organization [id number]:[facility] [place] [address] [facility] [address] Laboratory Report Ordering Provider Test Date Status BRENDA HENDRICKS 11/28/2023 15:35:34 Final Observation Date Value Abnormality Reference (Units ) Status RBC, Urine 11/28/2023 15:35:34 0-2 0-2 (/HPF) Final WBC, Urine 11/28/2023 15:35:34 0-2 0-2 (/HPF) Final Bacteria [#/area] in Urine sediment by Microscopy high power field 11/28/2023 15:35:34 0-25 0-25 (/HPF) Final Calcium oxalate crystals [#/area] in Urine sediment by Microscopy high power field 11/28/2023 15:35:34 50+ Abnormal None (/HPF) Final Performing Location [facility] [place] [address] [facility] [address]
--- OUTSIDE RECORDS SUMMARY | 2023-12-12 12:22 | External Medical Summary | Summary of Care ---
Author Name Unknown Organization [facility] Address [address] [place] [address] Phone [phone] Care Team Providers Care Arson Investigator Name Role Phone Unavailable Primary Care Provider Unavailabl e Encounter Details Date Type Department Care Team (Late st Contact Info) Description 08/29/2023 Telephone Family Practice [facility], [place] [address] [place] [address] [facility] [place], [address] [place] [address] Allergies Active Allergy Reactions Criticality Noted Date Comments Amoxicillin Nausea/vomiting 06/04/2016 documented as of this encounter (statuses as of 11/28/2023) Medications Medication Sig Dispensed Refills Start Date End Date Status Vitamin 27-0.8 MG Oral TabletIndications: Encounter for preconception consultation Take 1 Tablet by mouth in the morning. 90 Tablet 3 3 Active ProAir HFA 108 (90 Base) MCG/ACT Inhalation Aerosol SolutionIndication s:Wheezing Inhale 2 Puffs by mouth every 4 hours as needed for Shortness of Breath or Wheezing. 18 g 3 3 Active OneTouch Delica Lancets 33GIndications:Typ e 2 diabetes mellitus with hemoglobin A1c goal of less than 7.0% ([facility]) Check blood sugars twice daily as directed 100 Each 5 3 Active OneTouch Verio In Vitro Strip (Glucose Blood)Indications: Type 2 diabetes mellitus with hemoglobin A1c goal of less than 7.0% ([facility]) Check blood sugars twice daily as directed 100 Strip 5 3 Active Aspirin 81 MG Oral Capsule Take by mouth. 0 Active OneTouch Verio w/Device KitIndications:Pre -existing type 2 diabetes mellitus during , antepartum,Supervi kiera of high risk in first trimester Please monitor blood sugar four times daily (once fasting & 1 hour after breakfast, lunch, and dinner). 1 Kit 0 3 Active OneTouch Delica Lancets 33GIndications:Pre -existing type 2 diabetes mellitus during , antepartum,Supervi kiera of high risk in first trimester Monitor blood sugar four times daily (once fasting & 1 hour after breakfast, lunch, and dinner). 200 Each 6 3 Active FLUoxetine HCl 20 MG Oral Capsule (PROzac) Take 1 Capsule by mouth in the morning. Take together with the 10mg capsule for a total dose of 30mg.. 90 Capsule 3 3 10/16/19 24 Discontinued(Ref ill) FLUoxetine HCl 10 MG Oral Capsule (PROzac) Take 1 Capsule by mouth in the morning. Take together with the 20mg capsule for a total dose of 30mg.. 90 Capsule 3 3 10/16/19 24 Discontinued(Ref ill) Promethazine HCl 25 MG Oral Tablet (Phenergan) Take 1 Tablet by mouth every 6 hours as needed for Nausea. 30 Tablet 1 3 10/16/19 24 Discontinued [employer]Touch Verio In Vitro Strip (Glucose Blood)Indications: Pre-existing type 2 diabetes mellitus during , antepartum,Supervi ikera of high risk in first trimester Monitor blood sugar four times daily (once fasting & 1 hour after breakfast, lunch, and dinner). 150 Strip 6 3 09/12/19 24 Discontinued Pen [place] 32G X 4 MMIndications:Pre- existing type 2 diabetes mellitus during in second trimester Use to inject insulin twice daily 200 Each 3 3 09/24/19 24 Discontinued(Ref ill) Insulin Glargine Solostar 100 UNIT/ML Subcutaneous Solution Pen-injector (Basaglar Magalis)Indication s:Pre-existing type 2 diabetes mellitus during in second trimester Inject 45 units with breakfast and 60 units at bedtime. 135 mL 3 3 09/12/19 24 Discontinued(Med ication/Dose Changed) Hospital, Clinic, or Other Facility Administered Medication Ordered Dose Route Frequency Start Date End Date Status Albuterol Sulfate (Proventil) (5 MG/ML) 0.5% *conc* inhalation solution 2.5 mgIndications:Wheezing 2.5 mg NEBULIZER PRN 02/01/2023 02/01/2024 Ac tive documented as of this encounter (statuses as of 11/28/2023) Active Problems Problem Noted Date Diagnosed Date [...] to manage during now, previously followed with [facility] pharmacy. Elevated FBS and PP values. Increase [...] bedtime 07/11/23-elevations in BS msg sent to Manufacturer Representative 07/11/23: RPM reviewed; elevated FBS and some PP; increase to Basaglar 25 units with breakfast and 45 units at bedtime 07/19/23-elevated sugars- msg sent to center human resources manager 07/19/23: RPM increase to Basaglar insulin 30 units with breakfast and 50 units at bedtime 07/25/23- stable 07/02/23- elevated sugars sent to TREATING MACHINE OPERATOR to review 08/01/23: RPM reviewed. Elevated FBS and PP's. (especially after breakfast). Increase Basaglar to 35 units with breakfast and 55 units at bedtime. May need to consider starting short acting with some meals--KW 08/08/23-elevated sugars- sent to TREATING MACHINE OPERATOR 08/08/23: RPM reviewed. Few elevated FBS and several elevated PP's after lunches and dinners. Increase Basaglar to 45 units with breakfast and 60 units at bedtime --KW 08/16/23-elevations in sugars;msg sent to TREATING MACHINE OPERATOR 08/16/23: RPM reviewed; blood sugars improving since last dose change; continue Basaglar to 45 units with breakfast and 60 units at bedtime 08/23/23- stable at this time- some elevations- will review again next week 08/29/23-sugars elevated sent to TREATING MACHINE OPERATOR 08/29/23: RPM reviewed, some elevated after dinner [...] at bedtime 10/03/23-elevated sugars msg sent to TREATING MACHINE OPERATOR 10/03/23: RPM reviewed; some elevated FBS and a few elevated dinner PP's. Increase Lantus to 50 units with breakfast and 65 units at bedtime ---KW 10/09/23: RPM reviewed; stable overall 10/17/23-stable 10/24/23- stable 10/31/23-some BS elevations msg sent to TREATING MACHINE OPERATOR 10/31/23: RPM reviewed; some PP elevations; increase [...] Family history of cerebral palsy 05/14/2023 Overview: FOB [place], age 41, has cerebral palsy Reviewed common [...] as of this encounter (statuses as of 11/28/2023) Resolved Problems Problem Noted Date Diagnosed Date Resolved Date Supervision of high risk pre gnancy in first trimester 05/20/2023 10/16/2023 Tobacco smoking complicating 05/14/2023 05/14/2023 Acute conjunctivitis 08/25/2014 015 Bronchitis, complicated 08/09/201409/26 documented as of this encounter (statuses as of 11/28/2023) Immunizations Name Administration Dates Next Due Hepatitis B, 20+ yrs 07/04/2020,06/03/2020 PPD 09/26/2016,09/24/2014 Pneumococcal Conjugate Vacci ne, 20-valent ([id number]) 11/09/2022 Pneumococcal Polysaccharide PPV23 (Pneumovax) 06/03/2020 Seasonal Influenza, PF, 6 M & above, IM , (FluLaval or Fluzone) 05/14/2023,11/09/2022,06/03/2020 TDAP (age 10 and older)(Boostrix) 07/16/2014 documented as of this encounter Social History [...] money to get more. Never true 11/12/2022 [place] Depression Scale Answer Date Recorded Last EPDS [...] on file documented as of this encounter Miscellaneous Notes * Telephone Encounter - Marlin Morris OSA - 08/29/2023 1:00 PM EST Alternative request was sent for medication Basaglar Comments " The prescribed Medication is not covered by insurance.Please consider changing to one ofthe suggested covered alternatives" [facility] Pharmacy documented in this encounter Plan of Treatment Upcoming Encounters Date Type Department Care Team (Late st Contact Info) Description 12/02/2023 9:15 AM EDT Office Visit Gynecology/Obstetrics [facility] [address] [address] Arielle Lu, DNP, CNM [address] [place] [address] Maile Hayes Stress [facility] [address] [address] 12/05/2023 1:45 PM EDT Office Visit Gynecology/Obstetrics [facility] [address] [address] Za Esquivel CRNP [address] [place] [address] Freddy Non Stress Tests [facility] [address] [place] [address] 12/09/2023 2:30 PM EDT Office Visit Gynecology/Obstetrics [facility]iel[facility] [address] [place] [address] eHraclio Robledo MD [address] [place] [address] Maile Hayes Stress [facility] [address] [place] [address] 12/12/2023 1:45 PM EDT Office Visit Gynecology/Obstetrics ArtieDavonfrances Hayes [address] [place] [address] Za Esquivel CRNP [address] [place] [address] Maile Hayes Stress [facility] [address] [place] [address] Health Maintenance Due Date Last Done Comments [...]
--- OUTSIDE RECORDS SUMMARY | 2023-12-12 12:22 | External Medical Summary | Summary of Care ---
Author Name Unknown Organization [facility] Address [address] [place] [address] Phone [phone] Care Team Providers Care Composite Technician Name Role Phone Unavailable Primary Care Provider Unavailabl e Reason for Visit * Reason Comments Return Visit Non Stress Test Encounter Details Date Type Department Care Team ([facility] st Contact Info) Description 12/09/2023 2:30 PM EDT Office Visit Gynecology/Obstetric s [facility] Freddy [address] [place] [address] Heraclio Robledo MD [address] [place] [address] Freddy, Non Stress Tests [facility] [address] [place] [address] High-risk in third trimester*; Obesity in , [...] as of this encounter (statuses as of 12/09/2023) Medications Medication Sig Dispensed Refills Start Date [...] hemoglobin A1c goal of less than 7.0% ([facility]) Check blood sugars twice daily as directed 100 Each 05/15/2023 Active OneTouch Verio In Vitro Strip (Glucose Blood)Indications:Ty pe 2 diabetes mellitus with hemoglobin A1c goal of less than 7.0% ([facility]) Check blood sugars twice daily as directed [...] the evening. 90 Tablet 09/20/2023 Active Pen [place] 32G X 4 MMIndications:Pre-ex isting type 2 [...] as of this encounter (statuses as of 12/09/2023) Active Problems Problem Noted Date Diagnosed Date [...] to manage during now, previously followed with [facility] pharmacy. Elevated FBS and PP values. [...] bedtime 07/11/23-elevations in BS msg sent to Export Sales Assistant 07/11/23: RPM reviewed; elevated FBS and some PP; increase to Basaglar 25 units with breakfast and 45 units at bedtime 07/19/23-elevated sugars- msg sent to diorama model maker 07/19/23: RPM increase to Basaglar insulin 30 units with breakfast and 50 units at bedtime 07/25/23- stable 07/02/23- elevated sugars sent to OPERATING ENGINEER to review 08/01/23: RPM reviewed. Elevated FBS and PP's. (especially after breakfast). Increase Basaglar to 35 units with breakfast and 55 units at bedtime. May need to consider starting short acting with some meals--KW 08/08/23-elevated sugars- sent to OPERATING ENGINEER 08/08/23: RPM reviewed. Few elevated FBS and several elevated PP's after lunches and dinners. Increase Basaglar to 45 units with breakfast and 60 units at bedtime --KW 08/16/23-elevations in sugars;msg sent to OPERATING ENGINEER 08/16/23: RPM reviewed; blood sugars improving since last dose change; continue Basaglar to 45 units with breakfast and 60 units at bedtime 08/23/23- stable at this time- some elevations- will review again next week 08/29/23-sugars elevated sent to OPERATING ENGINEER 08/29/23: RPM reviewed, some elevated after dinner [...] at bedtime 10/03/23-elevated sugars msg sent to OPERATING ENGINEER 10/03/23: RPM reviewed; some elevated FBS and a few elevated dinner PP's. Increase Lantus to 50 units with breakfast and 65 units at bedtime ---KW 10/09/23: RPM reviewed; stable overall 10/17/23-stable 10/24/23- stable 10/31/23-some BS elevations msg sent to OPERATING ENGINEER 10/31/23: RPM reviewed; some PP elevations; increase [...] as of this encounter (statuses as of 12/09/2023) Resolved Problems Problem Noted Date Diagnosed Date Resolved Date Supervision of high risk pre gnancy in first trimester 05/20/2023 10/16/2023 Tobacco smoking complicating 05/14/2023 05/14/2023 Acute conjunctivitis 08/25/2014 015 Bronchitis, complicated 08/09/201409/26 documented as of this encounter (statuses as of 12/09/2023) Immunizations Name Administration Dates Next Due Hepatitis B, 20+ yrs 07/04/2020,06/03/2020 PPD 09/26/2016,09/24/2014 Pneumococcal Conjugate Vacci ne, 20-valent ([id number]) 11/09/2022 Pneumococcal Polysaccharide PPV23 (Pneumovax) 06/03/2020 Seasonal [...] money to get more. Never true 11/12/2022 [place] Depression Scale Answer Date Recorded Last EPDS [...] Sign Reading Time Taken Comments Blood Pressure 124/66 12/09/2023 2:48 PM EDT Pulse - - Temperature - - Respiratory Rate - - Oxygen Saturation - - Inhaled Oxygen Concentration - - Weight 95.7 kg (211 lb) 12/09/2023 2:48 PM EDT Height 160 cm (5' 3") 12/09/2023 2:48 PM EDT Body Mass Index 37.38 12/09/2023 2:48 PM EDT documented in this encounter Progress Notes * Heraclio Robledo MD - 12/09/2023 3:23 PM EDT Pt doing well NST; CAT1 VE; th/post Hiram for induction in 48 hrs documented in this encounter Nursing Notes * Deidra Mccullough LPN - 12/09/2023 2:50 PM EDT 38w5d NST, FLORIDALMA IOL 12/11/23. documented in this encounter Plan of Treatment Upcoming Encounters Date Type Department Care Team (Late st Contact Info) Description 12/12/2023 1:45 PM EDT Office Visit Gynecology/Obstetrics Artie'frances Hayes [address] [place] [address] Za Esquivel CRNP [address] [place] [address] Maile Hayes Stress [facility] [address] [place] [address] Health Maintenance Due Date Last Done Comments [...]
--- OUTSIDE RECORDS SUMMARY | 2023-12-12 12:22 | External Medical Summary | Summary of Care ---
Author Name Unknown Organization [facility] Address [address] [place] [address] Phone [phone] Care Team Providers Care Engineer Sergeant Name Role Phone Unavailable Primary Care Provider Unavailabl e Reason for Visit * Reason Comments Return Visit Encounter Details Date Type Department Care Team ([facility] st Contact Info) Description 11/28/2023 1:45 PM EDT Office Visit Gynecology/Obstetric s [facility] Freddy [address] [place] [address] Luz Wadsworth PA-Barry [address] [facility] [place] [address] Freddy, Non Stress Tests [facility] [address] [place] [address] High-risk in third trimester*; Obesity in , antepartum; Pre-existing type 2 diabetes mellitus during in third trimester; Antepartum anemia complicating ; Multigravida of advanced maternal age in third trimester; Anxiety during ; Medication exposure during first trimester of ; Family history of cerebral palsy; Echogenic focus of heart of fetus affecting antepartum care of mother, single or unspecified fetus; Decreased urine output Allergies Active Allergy Reactions Criticality Noted Date [...] goal of less than 7.0% ([facility]) Check blood sugars twice daily as directed 100 Each 05/15/2023 Active OneTouch Verio In Vitro Strip (Glucose Blood)Indications:Ty pe 2 diabetes mellitus with hemoglobin A1c goal of less than 7.0% ([facility]) Check blood sugars twice daily as directed [...] the evening. 90 Tablet 09/20/2023 Active Pen [place] 32G X 4 MMIndications:Pre-ex isting type 2 [...] to manage during now, previously followed with [facility] pharmacy. Elevated FBS and PP [...] bedtime 07/11/23-elevations in BS msg sent to Web Consultant 07/11/23: RPM reviewed; elevated FBS and some PP; increase to Basaglar 25 units with breakfast and 45 units at bedtime 07/19/23-elevated sugars- msg sent to educational specialist 07/19/23: RPM increase to Basaglar insulin 30 units with breakfast and 50 units at bedtime 07/25/23- stable 07/02/23- elevated sugars sent to MOSAIC TILE MAKER to review 08/01/23: RPM reviewed. Elevated FBS and PP's. (especially after breakfast). Increase Basaglar to 35 units with breakfast and 55 units at bedtime. May need to consider starting short acting with some meals--KW 08/08/23-elevated sugars- sent to MOSAIC TILE MAKER 08/08/23: RPM reviewed. Few elevated FBS and several elevated PP's after lunches and dinners. Increase Basaglar to 45 units with breakfast and 60 units at bedtime --KW 08/16/23-elevations in sugars;msg sent to MOSAIC TILE MAKER 08/16/23: RPM reviewed; blood sugars improving since last dose change; continue Basaglar to 45 units with breakfast and 60 units at bedtime 08/23/23- stable at this time- some elevations- will review again next week 08/29/23-sugars elevated sent to MOSAIC TILE MAKER 08/29/23: RPM reviewed, some elevated after dinner [...] at bedtime 10/03/23-elevated sugars msg sent to MOSAIC TILE MAKER 10/03/23: RPM reviewed; some elevated FBS and a few elevated dinner PP's. Increase Lantus to 50 units with breakfast and 65 units at bedtime ---KW 10/09/23: RPM reviewed; stable overall 10/17/23-stable 10/24/23- stable 10/31/23-some BS elevations msg sent to MOSAIC TILE MAKER 10/31/23: RPM reviewed; some PP elevations; increase [...] PPD 09/26/2016,09/24/2014 Pneumococcal Conjugate Vacci ne, 20-valent ([id number]) 11/09/2022 Pneumococcal Polysaccharide PPV23 (Pneumovax) 06/03/2020 Seasonal [...] money to get more. Never true 11/12/2022 [place] Depression Scale Answer Date Recorded Last EPDS [...] Sign Reading Time Taken Comments Blood Pressure 124/76 11/28/2023 1:59 PM EDT Pulse - - Temperature - - Respiratory Rate - - Oxygen Saturation - - Inhaled Oxygen Concentration - - Weight 94.8 kg (209 lb) 11/28/2023 1:59 PM EDT Height 160 cm (5' 3") 11/28/2023 1:59 PM EDT Body Mass Index 37.02 11/28/2023 1:59 PM EDT documented in this encounter Progress Notes * Luz Wadsworth PA-C - 11/28/2023 1:45 PM EDT Lilly Tristan is a 32 year old female here for her routine OB appointment at 37w1d Her Estimated Date of Delivery: 12/18/23 Patient states she has been having trouble urinating. She has been having decreased volume to her urine since yesterday. She feels that when she pees it has just been "little dribbles". She reports drinking 3 diluted bottle of Gatorade daily for fluid intake. She has no further concerns at this time. REVIEW OF SYSTEMS She affirms movement. Denies vaginal bleeding, LOF, contractions, N/V, headaches, vision changes, chest pain, deep calf pain/tightness, RUQ pain. PHYSICAL EXAM Filed Vitals: 11/28/23 1359 BP: 124/76 Weight: 94.8 kg (209 lb) Height: 1.6 m (5' 3") Consulted with LYNN Alcantara to perform a bladder scan. Volume less than 200 mL. ASSESSMENT assessment with Non-stress Test completed on 11/28/2023 at 37w1d gestation for indication of diabetes mellitus, obesity. heart baseline: 130 bpm Variability: Moderate Decelerations: absent Accelerations: present Contractions: None NST start time: 1352 NST stop time: 1421 NST strip reviewed, interpreted, and approved by OB provider, Luz Wadsworth PA-C. NST strip stored in clinic storage file ASSESSMENT/PLAN High-risk in third trimester (Primary) Obesity in , antepartum Pre-existing type 2 diabetes mellitus during in third trimester - NSTs 2x weekly. IOL scheduled 12/10. Antepartum anemia complicating - Patient is taking PO iron. Multigravida of advanced maternal age in third trimester Anxiety during Medication exposure during first trimester of Family history of cerebral palsy Echogenic focus of heart of fetus affecting antepartum care of mother, single or unspecified fetus Decreased urine output - URINALYSIS, REFLEX TO MICROSCOPIC - Strongly encouraged her to increase fluid intake to ensure adequate hydration. Patient states sheis able to tolerate water, she just prefers Gatorade. Encouraged to replace some of her daily Gatorades with plain water. - Will follow-up with results of urine culture. Supervision of - labor precautions and kick counts reviewed RTO in 1 week Luz Wadsworth PA-C 11/28/2023 documented in this encounter Plan of Treatment Upcoming Encounters Date Type Department Care Team (Late st Contact Info) Description 12/02/2023 9:15 AM EDT Office Visit Gynecology/Obstetrics [facility] [address] [place] [address] Arielle Lu, DNP, CNM [address] [place] [address] Hayes, Non Stress Tests [facility] [address] [place] [address] 12/05/2023 1:45 PM EDT Office Visit Gynecology/Obstetrics [facility] [address] [place] [address] Za Esquivel CRNP [address] [place] [address] Freddy, Non Stress Tests [facility] [address] [place] [address] 12/09/2023 2:30 PM EDT Office Visit Gynecology/Obstetrics [facility] [address] [place] [address] Heraclio Robledo MD [address] [place] [address] Hayes, Non Stress Tests [facility] [address] [place] [address] 12/12/2023 1:45 PM EDT Office Visit Gynecology/Obstetrics [facility] [address] [place] [address] Za Esquivel CRNP [address] [place] [address] Hayes, Non Stress Tests [facility] [address] [place] [address] Pending Results Name Type Priority Associated Diagnoses Date /Time URINALYSIS, REFLEX TO MICROSCOPIC Lab Routine Decreased urine output 11/28/2023 3:35 PM EDT Health Maintenance Due Date Last Done Comments [...] 2 diabetes mellitus during in third trimester Antepartum anemia complicating Anemia, antepartum Multigravida of advanced maternal age in third trimester Anxiety during Medication exposure during first trimester of Supervision of other high-risk Family history of cerebral palsy Family history of other neurological diseases Echogenic focus of heart of fetus affecting antepartum care of mother, single or unspecified fetus Decreased urine output documented in this encounter
--- OUTSIDE RECORDS SUMMARY | 2023-12-12 12:23 | External Medical Summary | Summary of Care ---
Author Name Unknown Organization [facility] Address [address] [place] [address] Phone [phone] Care Team Providers Care Recoating Machine Operator Name Role Phone Unavailable Primary Care Provider Unavailabl e Reason for Visit * Reason Comments Non Stress Test Encounter Details Date Type Department Care Team ([facility] st Contact Info) Description 11/21/2023 9:45 AM EDT Office Visit Gynecology/Obstetric s [facility] [address] [place] [address] Lolly Wright CRNP [address] [place] [address] Hayes, Non Stress Tests [facility] [address] [place] [address] High-risk in third trimester*; Obesity in , [...] as of this encounter (statuses as of 11/21/2023) Medications Medication Sig Dispensed Refills Start Date [...] hemoglobin A1c goal of less than 7.0% ([facility]) Check blood sugars twice daily as directed 100 Each 05/15/2023 Active OneTouch Verio In Vitro Strip (Glucose Blood)Indications:Ty pe 2 diabetes mellitus with hemoglobin A1c goal of less than 7.0% ([facility]) Check blood sugars twice daily as [...] the evening. 90 Tablet 09/20/2023 Active Pen [place] 32G X 4 MMIndications:Pre-ex isting type 2 [...] during , antepartum Inject under the skin 60 units with breakfast and 65 units at bedtime. 90 mL 3 11/08/2023 Active Hospital, Clinic, or Other Facility Administered Medication Ordered Dose Route Frequency Start Date End Date Status Albuterol Sulfate (Proventil) (5 MG/ML) 0.5% *conc* inhalation solution 2.5 mgIndications:Wheezing 2.5 mg NEBULIZER PRN 02/01/2023 02/01/2024 Ac tive documented as of this encounter (statuses as of 11/21/2023) Active Problems Problem Noted Date Diagnosed Date [...] to manage during now, previously followed with [facility] pharmacy. Elevated FBS and PP [...] bedtime 07/11/23-elevations in BS msg sent to Waiter Waitress 07/11/23: RPM reviewed; elevated FBS and some PP; increase to Basaglar 25 units with breakfast and 45 units at bedtime 07/19/23-elevated sugars- msg sent to filter plant supervisor 07/19/23: RPM increase to Basaglar insulin 30 units with breakfast and 50 units at bedtime 07/25/23- stable 07/02/23- elevated sugars sent to INFUSION PHARMACIST to review 08/01/23: RPM reviewed. Elevated FBS and PP's. (especially after breakfast). Increase Basaglar to 35 units with breakfast and 55 units at bedtime. May need to consider starting short acting with some meals--KW 08/08/23-elevated sugars- sent to INFUSION PHARMACIST 08/08/23: RPM reviewed. Few elevated FBS and several elevated PP's after lunches and dinners. Increase Basaglar to 45 units with breakfast and 60 units at bedtime --KW 08/16/23-elevations in sugars;msg sent to INFUSION PHARMACIST 08/16/23: RPM reviewed; blood sugars improving since last dose change; continue Basaglar to 45 units with breakfast and 60 units at bedtime 08/23/23- stable at this time- some elevations- will review again next week 08/29/23-sugars elevated sent to INFUSION PHARMACIST 08/29/23: RPM reviewed, some elevated after dinner [...] at bedtime 10/03/23-elevated sugars msg sent to INFUSION PHARMACIST 10/03/23: RPM reviewed; some elevated FBS and a few elevated dinner PP's. Increase Lantus to 50 units with breakfast and 65 units at bedtime ---KW 10/09/23: RPM reviewed; stable overall 10/17/23-stable 10/24/23- stable 10/31/23-some BS elevations msg sent to INFUSION PHARMACIST 10/31/23: RPM reviewed; some PP elevations; increase to Lantus 55 units with breakfast and continue 65 units at bedtime 11/08/23: RPM reviewed; some PP elevations; increase to Lantus 60 units with breakfast and continue 65 units at bedtime 11/19/23: RPM reviewed, overall stable. Continue Lantus 60 units with breakfast and continue 65 units at bedtime --KW Last Assessment & Plan: Working with [facility]. [...] for limited anatomy scan around 13 weeks [facility] anatomy scan scheduled 07/23/2023 Last Assessment [...] as of this encounter (statuses as of 11/21/2023) Resolved Problems Problem Noted Date Diagnosed Date Resolved Date Supervision of high risk pre gnancy in first trimester 05/20/2023 10/16/2023 Tobacco smoking complicating 05/14/2023 05/14/2023 Acute conjunctivitis 08/25/2014 015 Bronchitis, complicated 08/09/201409/26 documented as of this encounter (statuses as of 11/21/2023) Immunizations Name Administration Dates Next Due Hepatitis B, 20+ yrs 07/04/2020,06/03/2020 PPD 09/26/2016,09/24/2014 Pneumococcal Conjugate Vacci ne, 20-valent ([id number]) 11/09/2022 Pneumococcal Polysaccharide PPV23 (Pneumovax) 06/03/2020 Seasonal [...] money to get more. Never true 11/12/2022 [facility] [place] Depression Scale Answer Date Recorded Last EPDS [...] Sign Reading Time Taken Comments Blood Pressure 114/78 11/21/2023 10:08 AM EDT Pulse - - Temperature - - Respiratory Rate - - Oxygen Saturation - - Inhaled Oxygen Concentration - - Weight 94.3 kg (208 lb) 11/21/2023 10:08 AM EDT Height - - Body Mass Index 36.85 11/18/2023 10:57 AM EDT documented in this encounter Progress Notes * Lolly Wright CRNP - 11/21/2023 10:38 AM EDT 36w1d Feeling some pressure, ?mild, irregular contractions. Asking for cervical check. Cervix high- only able to palpate a small portion of anterior lip. GBS done. Program Services Planner Documentation Provider requested production scheduler. Name of production scheduler: [facility] ASSESSMENT assessment with Non-stress Test completed on 11/21/2023 at 36.1weeks gestation for indication of diabetes mellitus heart baseline: 150 bpm Variability: Moderate Decelerations: absent Accelerations: present Contractions: None NST start time: 0943 NST stop time: 1020 NST strip reviewed, interpreted, and approved by OB provider, LYNN Figueredo . NST strip stored in clinic storage file documented in this encounter Plan of Treatment Upcoming Encounters Date Type Department Care Team (Late st Contact Info) Description 11/25/2023 9:15 AM EDT Office Visit Gynecology/Obstetrics [facility] [address] [place] [address] Faby Zelaya, NADEEM [address] [place] [address] Freddy Non Stress Tests [facility] [address] [place] [address] 11/28/2023 1:45 PM EDT Office Visit Gynecology/Obstetrics [facility] [address] [place] [address] Za Esquivel CRNP [address] [place] [address] Freddy Non Stress Tests [facility] [address] [place] [address] 12/02/2023 9:15 AM EDT Office Visit Gynecology/Obstetrics [facility] [address] [place] [address] Arielle Lu DNP, CNM [address] [place] [address] Freddy Non Stress Tests [facility] [address] [place] [address] 12/05/2023 1:45 PM EDT Office Visit Gynecology/Obstetrics [facility] [address] [place] [address] Za Esquivel CRNP [address] [place] [address] Maile Hayes Stress Tests [facility] [address] [place] [address] 12/09/2023 2:30 PM EDT Office Visit Gynecology/Obstetrics [facility] [address] [place] [address] Heraclio Robledo MD [address] [place] [address] Maile Hayes Stress Tests [facility] [address] [place] [address] 12/12/2023 1:45 PM EDT Office Visit Gynecology/Obstetrics Artieli Hayes [address] [place] [address] Za Esquivel CRNP [address] [place] [address] Maile Hayes Stress Tests [facility] [address] [place] [address] Scheduled Orders Name Type Priority Associated Diagnoses Orde r Schedule GROUP B STREP CULTURE/PCR Lab Routine High-risk in third trimester Ordered: 11/21/2023 Health Maintenance Due Date Last Done Comments Diabetic Eye Exam 2006 Depression Screening 09/29/2019 09/29/2018, 03/14/20 18 Hepatitis B (3 of 3 - 19+ 3-dose series) 12/02/2020 07/04/2020, 06/03/2020 Diabetic Foot Exam 06/03/2021 06/03/2020 COVID-19 Vaccine (3 2022- season) 2023 12/22/2020, 12/01/2020 GFR 11/10/2024 11/11/2023, 08/27, 05/14/2023, Additional history exists Pap Smear 11/16/2025 11/16/2022, 10/0 09/2017, 02/14/2016, Additional history exists Cervical Cancer [...]
--- OUTSIDE RECORDS SUMMARY | 2023-12-12 12:23 | External Medical Summary ---
Author Name Unknown Address Unknown Organization [id number]:[facility] [place] [address] [facility] [address] Laboratory Report Ordering Provider Test Date Status SALVADOR KILGORE 11/21/2023 10:56:33 Final Observation Date Value Abnormality Reference (Units ) Status Streptococcus agalactiae DNA [Presence] in Specimen by NASRA with probe detection 11/21/2023 10:56:33 Negative Negative Final No Group B Streptococcus det ected by culture-enhanced PCR (amplified probe).
The collection of vaginal/rectal swab specimen combinations (FDA approved specimen type) is optimal for the detection of Group B Streptococcus. Single source collection (vaginal only or rectal only) or alternate specimen sources may lead to false negative results. Performing Location [facility] [place] [address] [place] [address]
--- OUTSIDE RECORDS SUMMARY | 2023-12-12 12:23 | External Medical Summary | Summary of Care ---
Author Name Unknown Organization [facility] Address [address] [place] [address] Phone [phone] Care Team Providers Care Coremaker Pipe Name Role Phone Unavailable Primary Care Provider Unavailabl e Reason for Visit * Reason Comments Return Visit Encounter Details Date Type Department Care Team ([facility] st Contact Info) Description 11/14/2023 1:45 PM EDT Office Visit Gynecology/Obstetric s [facility] [address] [place] [address] Za Esquivel CRNP [address] [place] [address] Freddy, Non Stress Tests [facility]avo [address] [place] [address] High-risk in third trimester*; Obesity in , [...] as of this encounter (statuses as of 11/14/2023) Medications Medication Sig Dispensed Refills Start Date [...] hemoglobin A1c goal of less than 7.0% ([facility]) Check blood sugars twice daily as directed 100 Each 05/15/2023 Active OneTouch Verio In Vitro Strip (Glucose Blood)Indications:Ty pe 2 diabetes mellitus with hemoglobin A1c goal of less than 7.0% ([facility]) Check blood sugars twice daily [...] the evening. 90 Tablet 09/20/2023 Active Pen [place] 32G X 4 MMIndications:Pre-ex isting type 2 diabetes mellitus during , antepartum Use to inject insulin twice daily 200 Each 09/24/2023 Active hydrOXYzine HCl 50 MG Oral TabletIndications:An xiety during Take 1 Tablet by mouth 4 times a day as needed for Anxiety. 30 Tablet 3 10/16/2023 Active Sertraline HCl 100 MG Oral Tablet [...] as of this encounter (statuses as of 11/14/2023) Active Problems Problem Noted Date Diagnosed Date [...] manage during now, previously followed with [facility] pharmacy. Elevated FBS and PP values. [...] bedtime 07/11/23-elevations in BS msg sent to Agent Broker 07/11/23: RPM reviewed; elevated FBS and some PP; increase to Basaglar 25 units with breakfast and 45 units at bedtime 07/19/23-elevated sugars- msg sent to medical laboratory technologist 07/19/23: RPM increase to Basaglar insulin 30 units with breakfast and 50 units at bedtime 07/25/23- stable 07/02/23- elevated sugars sent to SEAFOOD AND SERVICE MEAT MANAGER to review 08/01/23: RPM reviewed. Elevated FBS and PP's. (especially after breakfast). Increase Basaglar to 35 units with breakfast and 55 units at bedtime. May need to consider starting short acting with some meals--KW 08/08/23-elevated sugars- sent to SEAFOOD AND SERVICE MEAT MANAGER 08/08/23: RPM reviewed. Few elevated FBS and several elevated PP's after lunches and dinners. Increase Basaglar to 45 units with breakfast and 60 units at bedtime --KW 08/16/23-elevations in sugars;msg sent to SEAFOOD AND SERVICE MEAT MANAGER 08/16/23: RPM reviewed; blood sugars improving since last dose change; continue Basaglar to 45 units with breakfast and 60 units at bedtime 08/23/23- stable at this time- some elevations- will review again next week 08/29/23-sugars elevated sent to SEAFOOD AND SERVICE MEAT MANAGER 08/29/23: RPM reviewed, some elevated after dinner [...] at bedtime 10/03/23-elevated sugars msg sent to SEAFOOD AND SERVICE MEAT MANAGER 10/03/23: RPM reviewed; some elevated FBS and a few elevated dinner PP's. Increase Lantus to 50 units with breakfast and 65 units at bedtime ---KW 10/09/23: RPM reviewed; stable overall 10/17/23-stable 10/24/23- stable 10/31/23-some BS elevations msg sent to SEAFOOD AND SERVICE MEAT MANAGER 10/31/23: RPM reviewed; some PP elevations; increase to Lantus 55 units with breakfast and continue 65 units at bedtime 11/08/23: RPM reviewed; some PP elevations; increase to Lantus 60 units with breakfast and continue 65 units at bedtime Last Assessment & [...] for limited anatomy scan around 13 weeks [facility] anatomy scan scheduled 07/23/2023 Last Assessment & [...] as of this encounter (statuses as of 11/14/2023) Resolved Problems Problem Noted Date Diagnosed Date Resolved Date Supervision of high risk pre gnancy in first trimester 05/20/2023 10/16/2023 Tobacco smoking complicating 05/14/2023 05/14/2023 Acute conjunctivitis 08/25/2014 015 Bronchitis, complicated 08/09/201409/26 documented as of this encounter (statuses as of 11/14/2023) Immunizations Name Administration Dates Next Due Hepatitis B, 20+ yrs 07/04/2020,06/03/2020 PPD 09/26/2016,09/24/2014 Pneumococcal Conjugate Vacci ne, 20-valent ([id number]) 11/09/2022 Pneumococcal Polysaccharide PPV23 (Pneumovax) 06/03/2020 Seasonal [...] money to get more. Never true 11/12/2022 [place] Depression Scale Answer Date Recorded Last EPDS [...] Sign Reading Time Taken Comments Blood Pressure 136/82 11/14/2023 2:03 PM EDT Pulse - - Temperature - - Respiratory Rate - - Oxygen Saturation - - Inhaled Oxygen Concentration - - Weight 95.3 kg (210 lb) 11/14/2023 2:03 PM EDT Height - - Body Mass Index 37.2 11/04/2023 10:06 AM EDT documented in this encounter Progress Notes * Za Esquivel CRNP - 11/14/2023 2:10 PM EDT 35w1d Good movement. No leaking/bleeding or regular ctx. Seeing MFM for growth scan and BPP today. Recommend talking to MFM in regards to EFW; advised that typically C/S would be advised if EFM is projected to be >/=4500 g at term in patients with DM. Baby's size alone would not change delivery or due date. Normal fundal height. Denies HAs, vision changes today. Normal preE labs earlier this week. 39 wk IOL scheduled. Continue NSTs, weekly visits. LYNN Rodriguez * Sita Westbrook LPN - 11/14/2023 2:04 PM EDT 35w1d Denies vaginal bleeding/rom + movement Concerns with growth- would size be indication for sooner than 39 wk delivery. documented in this encounter Plan of Treatment Upcoming Encounters Date Type Department Care Team (Late st Contact Info) Description 11/18/2023 11:00 AM EDT Office Visit Gynecology/Obstetrics [facility]onfr[facility] Hayes [address] [place] [address] Silva Crowder, [place] [address] [facility] [address] Freddy Non Stress Tests [facility] [address] [place] [address] 11/21/2023 9:45 AM EDT Office Visit Gynecology/Obstetrics ArtieDavonfrances Hayes [address] [place] [address] Lolly Wright CRNP [address] [place] [address] Freddy Non Stress Tests Chavo [address] [place] [address] 11/25/2023 9:15 AM EDT Office Visit Gynecology/Obstetrics ArtieDavons Ahyes [address] [place] [address] Faby Zelaya, NADEEM [address] [place] [address] Freddy Non Stress Tests Chavo [address] [place] [address] 11/28/2023 1:45 PM EDT Office Visit Gynecology/Obstetrics Amaris Hayes [address] [place] [address] BackerZa CRNP [address] [place] [address] Freddy, Non Stress Tests Chavo [address] [place] [address] 12/02/2023 9:15 AM EDT Office Visit Gynecology/Obstetrics Amaris Hayes [address] [place] [address] Arielle Lu, SULLY, [address] [place] [address] Freddy Non Stress Tests Chavo [address] [place] [address] 12/05/2023 1:45 PM EDT Office Visit Gynecology/Obstetrics Amaris Hayes [address] [place] [address] BackerZa CRNP [address] [place] [address] Freddy Non Stress Tests Chavo [address] [place] [address] 12/09/2023 2:30 PM EDT Office Visit Gynecology/Obstetrics [facility] Hayes [address] [place] [address] Heraclio Robledo MD [address] [place] [address] Hayes, Non Stress Tests Chavo [address] [place] [address] 12/12/2023 1:45 PM EDT Office Visit Gynecology/Obstetrics Amaris Hayes [address] [place] [address] Backer, LYNN Campbell [address] [place] [address] Freddy, Non Stress Tests Chavo [address] [place] [address] Health Maintenance Due Date Last Done Comments [...]
--- OUTSIDE RECORDS SUMMARY | 2023-12-12 12:23 | External Medical Summary | Summary of Care ---
Author Name Unknown Organization [facility] Address [address] [place] [address] Phone [phone] Care Team Providers Care Corrections Cadet Name Role Phone Unavailable Primary Care Provider Unavailabl e Reason for Visit * Reason Comments Return Visit Encounter Details Date Type Department Care Team ([facility] st Contact Info) Description 11/18/2023 11:00 AM EDT Office Visit Gynecology/Obstetric s [facility] [address] [facility] [address] Silva Crowder, CN [address] [place] [address] Hayes, Non Stress Tests Chavo [address] [facility] [address] High-risk in third trimester*; Pre-existing type 2 diabetes mellitus during in third trimester; Anxiety during ; Multigravida of advanced maternal age in third trimester; Antepartum anemia complicating Allergies Active Allergy Reactions Criticality Noted Date Comments Amoxicillin Nausea/vomiting 06/04/2016 documented as of this encounter (statuses as of 11/18/2023) Medications Medication Sig Dispensed Refills Start Date [...] hemoglobin A1c goal of less than 7.0% ([facility]) Check blood sugars twice daily as directed 100 Each 05/15/2023 Active OneTouch Verio In Vitro Strip (Glucose Blood)Indications:T ype 2 diabetes mellitus with hemoglobin A1c goal of less than 7.0% ([facility]) Check blood sugars twice daily as directed [...] evening. 90 Tablet 3 09/20/2023 Active Pen [place] 32G X 4 MMIndications:Pre-e xisting type 2 diabetes mellitus during , antepartum Use to inject insulin twice daily 200 Each 3 09/24/2023 Active Sertraline HCl 100 MG Oral Tablet (Zoloft)Indications :Anxiety during Take 0.5 Tablets by mouth daily for 7 days, THEN 1 Tablet daily. 94 Tablet 0 10/18/2023 Active Lantus SoloStar 100 UNIT/ML Subcutaneous Solution Pen-injectorIndicat ions:Pre-existing type 2 diabetes mellitus during , antepartum Inject under the skin 60 units with breakfast and 65 units at bedtime. 90 mL 3 11/08/2023 Active hydrOXYzine HCl 50 MG Oral TabletIndications:A nxiety during Take 1 Tablet by mouth 4 times a day as needed for Anxiety. 30 Tablet 3 10/16/2023 Discontinue d(Patient preference/ discontinua tion) Hospital, Clinic, or Other Facility Administered Medication Ordered Dose Route Frequency Start Date End Date Status Albuterol Sulfate (Proventil) (5 MG/ML) 0.5% *conc* inhalation solution 2.5 mgIndications:Wheezing 2.5 mg NEBULIZER PRN 02/01/2023 02/01/2024 Ac tive documented as of this encounter (statuses as of 11/18/2023) Active Problems Problem Noted Date Diagnosed Date [...] manage during now, previously followed with [facility] pharmacy. Elevated FBS and PP values. [...] bedtime 07/11/23-elevations in BS msg sent to Air Commodore 07/11/23: RPM reviewed; elevated FBS and some PP; increase to Basaglar 25 units with breakfast and 45 units at bedtime 07/19/23-elevated sugars- msg sent to rnp 07/19/23: RPM increase to Basaglar insulin 30 units with breakfast and 50 units at bedtime 07/25/23- stable 07/02/23- elevated sugars sent to NUTRITION WORKER to review 08/01/23: RPM reviewed. Elevated FBS and PP's. (especially after breakfast). Increase Basaglar to 35 units with breakfast and 55 units at bedtime. May need to consider starting short acting with some meals--KW 08/08/23-elevated sugars- sent to NUTRITION WORKER 08/08/23: RPM reviewed. Few elevated FBS and several elevated PP's after lunches and dinners. Increase Basaglar to 45 units with breakfast and 60 units at bedtime --KW 08/16/23-elevations in sugars;msg sent to NUTRITION WORKER 08/16/23: RPM reviewed; blood sugars improving since last dose change; continue Basaglar to 45 units with breakfast and 60 units at bedtime 08/23/23- stable at this time- some elevations- will review again next week 08/29/23-sugars elevated sent to NUTRITION WORKER 08/29/23: RPM reviewed, some elevated after dinner [...] at bedtime 10/03/23-elevated sugars msg sent to NUTRITION WORKER 10/03/23: RPM reviewed; some elevated FBS and a few elevated dinner PP's. Increase Lantus to 50 units with breakfast and 65 units at bedtime ---KW 10/09/23: RPM reviewed; stable overall 10/17/23-stable 10/24/23- stable 10/31/23-some BS elevations msg sent to NUTRITION WORKER 10/31/23: RPM reviewed; some PP elevations; increase [...] for limited anatomy scan around 13 weeks [facility] anatomy scan scheduled 07/23/2023 Last Assessment [...] as of this encounter (statuses as of 11/18/2023) Resolved Problems Problem Noted Date Diagnosed Date Resolved Date Supervision of high risk pre gnancy in first trimester 05/20/2023 10/16/2023 Tobacco smoking complicating 05/14/2023 05/14/2023 Acute conjunctivitis 08/25/2014 015 Bronchitis, complicated 08/09/201409/26 documented as of this encounter (statuses as of 11/18/2023) Immunizations Name Administration Dates Next Due Hepatitis B, 20+ yrs 07/04/2020,06/03/2020 PPD 09/26/2016,09/24/2014 Pneumococcal Conjugate Vacci ne, 20-valent ([id number]) 11/09/2022 Pneumococcal Polysaccharide PPV23 (Pneumovax) 06/03/2020 Seasonal [...] money to get more. Never true 11/12/2022 [place] Depression Scale Answer Date Recorded Last EPDS [...] Sign Reading Time Taken Comments Blood Pressure 120/68 11/18/2023 10:57 AM EDT Pulse - - Temperature - - Respiratory Rate - - Oxygen Saturation - - Inhaled Oxygen Concentration - - Weight 94.8 kg (209 lb) 11/18/2023 10:57 AM EDT Height 160 cm (5' 3") 11/18/2023 10:57 AM EDT Body Mass Index 37.02 11/18/2023 10:57 AM EDT documented in this encounter Progress Notes * Silva Crowder CNM - 11/18/2023 11:46 AM EDT ASSESSMENT assessment with Non-stress Test completed on 11/18/2023 at 35w5d EGA for indication of gestational diabetes mellitus heart baseline: 140 bpm Variability: Moderate Decelerations: absent Accelerations: present Contractions: occasional, no consistent pattern NST start time: 10:49am NST stop time: 11:37am NST strip reviewed, interpreted, and approved by OB provider, Silva Crowder CNM. NST strip stored in clinic storage file. Patient here for NST only today. Affirms good movement. Denies vaginal bleeding, LOF, FONTANEZ, vision changes, and RUQ pain. Occasional contractions. Taking insulin, 81mg ASA daily, PNV, iron, and Zoloft. Feels well on Zoloft. No concerns today. Reviewed labor precautions. RTC 11/21/23 for NST and FLORDIALMA. Silva Crowder CNM 11/18/23 11:49 AM documented in this encounter Plan of Treatment Upcoming Encounters Date Type Department Care Team (Late st Contact Info) Description 11/21/2023 9:45 AM EDT Office Visit Gynecology/Obstetrics Amaris Hayes [address] [place] [address] Lolly Wright CRNP [address] [place] [address] Freddy Non Stress Tests Chavo [address] [place] [address] 11/25/2023 9:15 AM EDT Office Visit Gynecology/Obstetrics Amaris Hayes [address] [place] [address] Faby Zelaya, NADEEM [address] [facility] [place] [address] Freddy Non Stress Tests Chavo [address] [place] [address] 11/28/2023 1:45 PM EDT Office Visit Gynecology/Obstetrics Amaris Hayes [address] [place] [address] Za Esquivel CRNP [address] [place] [address] Freddy Non Stress Tests Chavo [address] [place] [address] 12/02/2023 9:15 AM EDT Office Visit Gynecology/Obstetrics Amaris Acs [address] [place] [address] Arielle Lu, SULLY, CN [address] [place] [address] Freddy, Non Stress Tests Chavo [address] [place] [address] 12/05/2023 1:45 PM EDT Office Visit Gynecology/Obstetrics Artie's Hayes [address] [place] [address] Za Esquivel CRNP [address] [place] [address] Freddy Non Stress Tests Chavo [address] [place] [address] 12/09/2023 2:30 PM EDT Office Visit Gynecology/Obstetrics [facility]aris Acs [address] [place] [address] Heraclio Robledo MD [address] [place] [address] Freddy Non Stress Tests Chavo [address] [place] [address] 12/12/2023 1:45 PM EDT Office Visit Gynecology/Obstetrics Artie's Hayes [address] [place] [address] Za Esquivel CRNP [address] [place] [address] Freddy Non Stress Tests Chavo [address] [place] [address] Health Maintenance Due Date Last Done Comments Diabetic Eye Exam 2006 Depression Screening 09/29/2019 09/29/2018, 03/14/20 18 Hepatitis B (3 of 3 - 19+ 3-dose series) 12/02/2020 07/04/2020, 06/03/2020 Diabetic Foot Exam 06/03/2021 06/03/2020 COVID-19 Vaccine (3 - 2022- season) 2023 12/22/2020, 12/01/2020 GFR 11/10/2024 [...] Diagnoses Diagnosis High-risk in third trimester- Primary Pre-existing type 2 diabetes mellitus during in third trimester Anxiety during Multigravida of advanced maternal age in third trimester Antepartum anemia complicating Anemia, antepartum documented in this encounter
--- OUTSIDE RECORDS SUMMARY | 2023-12-12 12:23 | External Medical Summary | Summary of Care ---
Author Name Unknown Organization [facility] Address [address] [place] [address] Phone [phone] Care Team Providers Care Emg Technician Name Role Phone Unavailable Primary Care Provider Unavailabl e Reason for Visit * Reason Comments Non Stress Test Encounter Details Date Type Department Care Team ([facility] st Contact Info) Description 11/21/2023 9:45 AM EDT Office Visit Gynecology/Obstetric s Alva's Hayes [address] [place] [address] Lolly Wright CRNP [address] [place] [address] Hayes, Non Stress Tests Chavo [address] [place] [address] High-risk in third trimester*; Obesity in , [...] hemoglobin A1c goal of less than 7.0% ([facility]) Check blood sugars twice daily as directed 100 Each 05/15/2023 Active OneTouch Verio In Vitro Strip (Glucose Blood)Indications:Ty pe 2 diabetes mellitus with hemoglobin A1c goal of less than 7.0% ([facility]) Check blood sugars twice daily as [...] the evening. 90 Tablet 09/20/2023 Active Pen [place] 32G X 4 MMIndications:Pre-ex isting type 2 [...] to manage during now, previously followed with [facility] pharmacy. Elevated FBS and PP [...] bedtime 07/11/23-elevations in BS msg sent to Graphic Arts Technician 07/11/23: RPM reviewed; elevated FBS and some PP; increase to Basaglar 25 units with breakfast and 45 units at bedtime 07/19/23-elevated sugars- msg sent to wireless cellular technician 07/19/23: RPM increase to Basaglar insulin 30 units with breakfast and 50 units at bedtime 07/25/23- stable 07/02/23- elevated sugars sent to DISABILITY RATER to review 08/01/23: RPM reviewed. Elevated FBS and PP's. (especially after breakfast). Increase Basaglar to 35 units with breakfast and 55 units at bedtime. May need to consider starting short acting with some meals--KW 08/08/23-elevated sugars- sent to DISABILITY RATER 08/08/23: RPM reviewed. Few elevated FBS and several elevated PP's after lunches and dinners. Increase Basaglar to 45 units with breakfast and 60 units at bedtime --KW 08/16/23-elevations in sugars;msg sent to DISABILITY RATER 08/16/23: RPM reviewed; blood sugars improving since last dose change; continue Basaglar to 45 units with breakfast and 60 units at bedtime 08/23/23- stable at this time- some elevations- will review again next week 08/29/23-sugars elevated sent to DISABILITY RATER 08/29/23: RPM reviewed, some elevated after dinner [...] at bedtime 10/03/23-elevated sugars msg sent to DISABILITY RATER 10/03/23: RPM reviewed; some elevated FBS and a few elevated dinner PP's. Increase Lantus to 50 units with breakfast and 65 units at bedtime ---KW 10/09/23: RPM reviewed; stable overall 10/17/23-stable 10/24/23- stable 10/31/23-some BS elevations msg sent to DISABILITY RATER 10/31/23: RPM reviewed; some PP elevations; increase [...] for limited anatomy scan around 13 weeks [facility] anatomy scan scheduled 07/23/2023 Last Assessment [...] PPD 09/26/2016,09/24/2014 Pneumococcal Conjugate Vacci ne, 20-valent ([id number]) 11/09/2022 Pneumococcal Polysaccharide PPV23 (Pneumovax) 06/03/2020 Seasonal [...] money to get more. Never true 11/12/2022 [place] Depression Scale Answer Date Recorded Last EPDS [...] small portion of anterior lip. GBS done. Court Registry Officer Documentation Provider requested time stamp assembler. Name of time stamp assembler: [facility] ASSESSMENT assessment with Non-stress Test completed on [...] Hayes [address] [place] [address] Faby Zelaya, NADEEM [address] [place] [address] Freddy Non Stress Tests Chavo [address] [place] [address] 11/28/2023 1:45 PM EDT Office Visit Gynecology/Obstetrics Amaris Acs [address] [place] [address] Za Esquivel CRNP [address] [place] [address] Freddy Non Stress Tests Chavo [address] [place] [address] 12/02/2023 9:15 AM EDT Office Visit Gynecology/Obstetrics Amaris Acs [address] [place] [address] Arielle Lu DNP, CNM [address] [place] [address] Freddy Non Stress Tests Chavo [address] [place] [address] 12/05/2023 1:45 PM EDT Office Visit Gynecology/Obstetrics Amaris Acs [address] [place] [address] Za Esquivel CRNP [address] [place] [address] Maile Hayes Stress Tests Chavo [address] [place] [address] 12/09/2023 2:30 PM EDT Office Visit Gynecology/Obstetrics Alvali Hayes [address] [place] [address] Heraclio Robledo MD [address] [place] [address] Maile Hayes Stress Tests Chavo [address] [place] [address] 12/12/2023 1:45 PM EDT Office Visit Gynecology/Obstetrics ArtieDavonfrances Hayes [address] [place] [address] Za Esquivel CRNP [address] [place] [address] Maile Hayes Stress Tests Chavo [address] [place], [place] [address] Pending Results Name Type Priority Associated Diagnoses Date /Time GROUP B STREP CULTURE/PCR Lab Routine High-risk in third trimester 11/21/2023 10:56 AM EDT Health Maintenance Due Date Last Done [...]
--- OUTSIDE RECORDS SUMMARY | 2023-12-12 12:23 | External Medical Summary | Summary of Care ---
Author Name Unknown Organization [facility] Address [address] [place] [address] Phone [phone] Care Team Providers Care Business Technology Teacher Name Role Phone Unavailable Primary Care Provider Unavailabl e Encounter Details Date Type Department Care Team (Late st Contact Info) Description 11/27/2023 Orders Only Automotive Brake Adjuster Obstetric MFM [facility], [place] [address] [place] [address] Ameena Andrea CRNP [address] [place] [address] Pre-existing type 2 diabetes mellitus during , antepartum Allergies Active Allergy Reactions Criticality Noted Date Comments Amoxicillin Nausea/vomiting 06/04/2016 documented as of this encounter (statuses as of 11/27/2023) Medications Medication Sig Dispensed Refills Start Date [...] hemoglobin A1c goal of less than 7.0% ([facility]) Check blood sugars twice daily as directed 100 Each 5 05/15/2023 Active OneTouch Verio In Vitro Strip (Glucose Blood)Indications:T ype 2 diabetes mellitus with hemoglobin A1c goal of less than 7.0% ([facility]) Check blood sugars twice daily as [...] evening. 90 Tablet 3 09/20/2023 Active Pen Gray 32G X 4 MMIndications:Pre-e xisting type 2 [...] at bedtime. 90 mL 3 11/27/2023 Active Lantus SoloStar 100 UNIT/ML Subcutaneous Solution Pen-injectorIndicat ions:Pre-existing type 2 diabetes mellitus during , antepartum Inject under the skin 60 units with breakfast and 65 units at bedtime. 90 mL 3 11/08/2023 4 Discontinued Hospital, Clinic, or Other Facility Administered Medication Ordered Dose Route Frequency Start Date End Date Status Albuterol Sulfate (Proventil) (5 MG/ML) 0.5% *conc* inhalation solution 2.5 mgIndications:Wheezing 2.5 mg NEBULIZER PRN 02/01/2023 02/01/2024 Ac tive documented as of this encounter (statuses as of 11/27/2023) Active Problems Problem Noted Date Diagnosed Date [...] to manage during now, previously followed with [facility] pharmacy. Elevated FBS and PP [...] bedtime 07/11/23-elevations in BS msg sent to Commercial Cleaner 07/11/23: RPM reviewed; elevated FBS and some PP; increase to Basaglar 25 units with breakfast and 45 units at bedtime 07/19/23-elevated sugars- msg sent to nnps 07/19/23: RPM increase to Basaglar insulin 30 units with breakfast and 50 units at bedtime 07/25/23- stable 07/02/23- elevated sugars sent to DIRECTOR SALES AND TRADE MARKETING to review 08/01/23: RPM reviewed. Elevated FBS and PP's. (especially after breakfast). Increase Basaglar to 35 units with breakfast and 55 units at bedtime. May need to consider starting short acting with some meals--KW 08/08/23-elevated sugars- sent to DIRECTOR SALES AND TRADE MARKETING 08/08/23: RPM reviewed. Few elevated FBS and several elevated PP's after lunches and dinners. Increase Basaglar to 45 units with breakfast and 60 units at bedtime --KW 08/16/23-elevations in sugars;msg sent to DIRECTOR SALES AND TRADE MARKETING 08/16/23: RPM reviewed; blood sugars improving since last dose change; continue Basaglar to 45 units with breakfast and 60 units at bedtime 08/23/23- stable at this time- some elevations- will review again next week 08/29/23-sugars elevated sent to DIRECTOR SALES AND TRADE MARKETING 08/29/23: RPM reviewed, some elevated after dinner [...] at bedtime 10/03/23-elevated sugars msg sent to DIRECTOR SALES AND TRADE MARKETING 10/03/23: RPM reviewed; some elevated FBS and a few elevated dinner PP's. Increase Lantus to 50 units with breakfast and 65 units at bedtime ---KW 10/09/23: RPM reviewed; stable overall 10/17/23-stable 10/24/23- stable 10/31/23-some BS elevations msg sent to DIRECTOR SALES AND TRADE MARKETING 10/31/23: RPM reviewed; some PP elevations; increase [...] for limited anatomy scan around 13 weeks [facility] anatomy scan scheduled 07/23/2023 Last Assessment & [...] as of this encounter (statuses as of 11/27/2023) Resolved Problems Problem Noted Date Diagnosed Date Resolved Date Supervision of high risk pre gnancy in first trimester 05/20/2023 10/16/2023 Tobacco smoking complicating 05/14/2023 05/14/2023 Acute conjunctivitis 08/25/2014 015 Bronchitis, complicated 08/09/201409/26 documented as of this encounter (statuses as of 11/27/2023) Immunizations Name Administration Dates Next Due Hepatitis B, 20+ yrs 07/04/2020,06/03/2020 PPD 09/26/2016,09/24/2014 Pneumococcal Conjugate Vacci ne, 20-valent ([id number]) 11/09/2022 Pneumococcal Polysaccharide PPV23 (Pneumovax) 06/03/2020 Seasonal [...] money to get more. Never true 11/12/2022 [place] Depression Scale Answer Date Recorded Last EPDS [...] Care Team (Late st Contact Info) Description 11/28/2023 1:45 PM EDT Office Visit Gynecology/Obstetrics Amaris Hayes [address] [place] [address] Za Esquivel CRNP [address] [place] [address] Maile Hayes Stress Tests Chavo [address] [place] [address] 12/02/2023 9:15 AM EDT Office Visit Gynecology/Obstetrics Amaris Hayes [address] [place] [address] Arielle Lu, SULLY, [address] [place] [address] Maile Hayes Stress Tests Chavo [address] [place] [address] 12/05/2023 1:45 PM EDT Office Visit Gynecology/Obstetrics Amaris Hayes [address] [place] [address] BackerZa CRNP [address] [place] [address] Hayes, Non Stress Tests Chavo [address] [place] [address] 12/09/2023 2:30 PM EDT Office Visit Gynecology/Obstetrics Amaris Hayes [address] [place] [address] Heraclio Robledo MD [address] [place] [address] Freddy Non Stress Tests Chavo [address] [place] [address] 12/12/2023 1:45 PM EDT Office Visit Gynecology/Obstetrics Amaris Hayes [address] [place] [address] BackerZa CRNP [address] [place] [address] Maile Hayes Stress Tests Chavo [address] [place] [address] Health Maintenance Due Date Last Done Comments Diabetic Eye Exam 2006 Depression Screening 09/29/2019 09/29/2018, 03/14/20 18 Hepatitis B (3 of 3 - 19+ 3-dose series) 12/02/2020 07/04/2020, 06/03/2020 Diabetic Foot Exam 06/03/2021 06/03/2020 COVID-19 Vaccine ( - 2022- season) 2023 12/22/2020, 12/01/2020 GFR [...]
--- OUTSIDE RECORDS SUMMARY | 2023-12-12 12:23 | External Medical Summary | Summary of Care ---
Author Name Unknown Organization [facility] Address [address] [place] [address] Phone [phone] Care Team Providers Care Trestle Mainternance Laborer Name Role Phone Unavailable Primary Care Provider Unavailabl e Reason for Visit * Reason Comments Non Stress Test Encounter Details Date Type Department Care Team ([facility] st Contact Info) Description 11/25/2023 9:15 AM EDT Office Visit Gynecology/Obstetric s Alva's Hayes [address] [facility] [place] [address] Faby Zelaya, NADEEM [address] [place] [address] Hayes, Non Stress Tests [facility]avo [address] [facility] [address] High-risk in third trimester*; Obesity in , [...] as of this encounter (statuses as of 11/25/2023) Medications Medication Sig Dispensed Refills Start Date [...] the evening. 90 Tablet 09/20/2023 Active Pen [place] 32G X 4 MMIndications:Pre-ex isting type 2 [...] as of this encounter (statuses as of 11/25/2023) Active Problems Problem Noted Date Diagnosed Date [...] to manage during now, previously followed with [facility] pharmacy. Elevated FBS and PP values. [...] 07/11/23-elevations in BS msg sent to Air Reduction Equipment Operator 07/11/23: RPM reviewed; elevated FBS and some PP; increase to Basaglar 25 units with breakfast and 45 units at bedtime 07/19/23-elevated sugars- msg sent to fnp 07/19/23: RPM increase to Basaglar insulin 30 units with breakfast and 50 units at bedtime 07/25/23- stable 07/02/23- elevated sugars sent to STEVEDORING SUPERVISOR to review 08/01/23: RPM reviewed. Elevated FBS and PP's. (especially after breakfast). Increase Basaglar to 35 units with breakfast and 55 units at bedtime. May need to consider starting short acting with some meals--KW 08/08/23-elevated sugars- sent to STEVEDORING SUPERVISOR 08/08/23: RPM reviewed. Few elevated FBS and several elevated PP's after lunches and dinners. Increase Basaglar to 45 units with breakfast and 60 units at bedtime --KW 08/16/23-elevations in sugars;msg sent to STEVEDORING SUPERVISOR 08/16/23: RPM reviewed; blood sugars improving since last dose change; continue Basaglar to 45 units with breakfast and 60 units at bedtime 08/23/23- stable at this time- some elevations- will review again next week 08/29/23-sugars elevated sent to STEVEDORING SUPERVISOR 08/29/23: RPM reviewed, some elevated after dinner [...] at bedtime 10/03/23-elevated sugars msg sent to STEVEDORING SUPERVISOR 10/03/23: RPM reviewed; some elevated FBS and a few elevated dinner PP's. Increase Lantus to 50 units with breakfast and 65 units at bedtime ---KW 10/09/23: RPM reviewed; stable overall 10/17/23-stable 10/24/23- stable 10/31/23-some BS elevations msg sent to STEVEDORING SUPERVISOR 10/31/23: RPM reviewed; some PP elevations; increase [...] for limited anatomy scan around 13 weeks [facility] anatomy scan scheduled 07/23/2023 Last Assessment [...] as of this encounter (statuses as of 11/25/2023) Resolved Problems Problem Noted Date Diagnosed Date Resolved Date Supervision of high risk pre gnancy in first trimester 05/20/2023 10/16/2023 Tobacco smoking complicating 05/14/2023 05/14/2023 Acute conjunctivitis 08/25/2014 015 Bronchitis, complicated 08/09/201409/26 documented as of this encounter (statuses as of 11/25/2023) Immunizations Name Administration Dates Next Due Hepatitis B, 20+ yrs 07/04/2020,06/03/2020 PPD 09/26/2016,09/24/2014 Pneumococcal Conjugate Vacci ne, 20-valent ([id number]) 11/09/2022 Pneumococcal Polysaccharide PPV23 (Pneumovax) 06/03/2020 Seasonal [...] money to get more. Never true 11/12/2022 [place] Depression Scale Answer Date Recorded Last EPDS [...] Sign Reading Time Taken Comments Blood Pressure 112/76 11/25/2023 9:44 AM EDT Pulse - - Temperature - - Respiratory Rate - - Oxygen Saturation - - Inhaled Oxygen Concentration - - Weight 95.3 kg (210 lb 3.2 oz) 11/25/2023 9:44 A M EDT Height 160 cm (5' 3") 11/25/2023 9:44 AM EDT Body Mass Index 37.24 11/25/2023 9:44 AM EDT documented in this encounter Progress Notes * Faby Zelaya CNM - 11/25/2023 9:29 AM EDT ASSESSMENT assessment with Non-stress Test completed on 11/25/2023 at 36weeks gestation for indication of diabetes mellitus heart baseline: 150 bpm Variability: Moderate Decelerations: absent Accelerations: present Contractions: Present x1 lasting 50sec NST start time: 0930 NST stop time: 0954 NST strip reviewed, interpreted, and approved by OB provider, Faby Zelaya CNM . NST strip stored in clinic storage file documented in this encounter Nursing Notes * Kathy Fuentes RN - 11/25/2023 9:44 AM EDT Patient here for NST 36w5d No concerns Kathy Fuentes RN documented in this encounter Plan of Treatment Upcoming Encounters Date Type Department Care Team (Late st Contact Info) Description 11/28/2023 1:45 PM EDT Office Visit Gynecology/Obstetrics Artie'frances Hayes [address] [place] [address] Za Esquivel CRNP [address] [place] [address] Freddy, Non Stress Tests Chavo [address] [place] [address] 12/02/2023 9:15 AM EDT Office Visit Gynecology/Obstetrics Artie'frances Acs [address] [place] [address] Arielle Lu, SULLY, [address] [place] [address] Freddy, Non Stress Tests Chavo [address] [place] [address] 12/05/2023 1:45 PM EDT Office Visit Gynecology/Obstetrics Artie's Hayes [address] [place] [address] Za Esquivel CRNP [address] [place] [address] Freddy Non Stress Tests Chavo [address] [place] [address] 12/09/2023 2:30 PM EDT Office Visit Gynecology/Obstetrics Amaris Hayes [address] [place] [address] Heraclio Robledo MD [address] [place] [address] Freddy Non Stress Tests Chaov [address] [place] [address] 12/12/2023 1:45 PM EDT Office Visit Gynecology/Obstetrics Alvali Acs [address] [place] [address] Za Esquivel CRNP [address] [place] [address] Maile Hayes Stress Tests Chavo [address] [place] [address] Health Maintenance Due Date Last Done Comments [...]
--- OUTSIDE RECORDS SUMMARY | 2023-12-12 12:23 | External Medical Summary | Summary of Care ---
Author Name Unknown Organization [facility] Address [address] [place] [address] Phone [phone] Care Team Providers Care Staff Cytotechnologist Name Role Phone Unavailable Primary Care Provider Unavailabl e Encounter Details Date Type Department Care Team (Late st Contact Info) Description 11/14/2023 2:30 PM EDT Office Visit Director Of Marketing Communications Obstetrics Maternal Medicine, [address] [address] Shani Payne, DO [address] [place], [place] [id number] Pre-existing type 2 diabetes mellitus during in third trimester*; Obesity in , antepartum; Multigravida of advanced maternal age in third trimester; Ultrasound for screening for growth restriction; 35 weeks gestation of Allergies Active Allergy Reactions Criticality Noted Date [...] A1c goal of less than 7.0% ([facility]) Check blood sugars twice daily as directed 100 Each 5 05/15/2023 Active OneTouch Verio In Vitro Strip (Glucose Blood)Indications:Ty pe 2 diabetes mellitus with hemoglobin A1c goal of less than 7.0% ([facility]) Check blood sugars twice daily [...] evening. 90 Tablet 3 09/20/2023 Active Pen [place] 32G X 4 MMIndications:Pre-ex isting type 2 diabetes mellitus during , antepartum Use to inject insulin twice daily 200 Each 3 09/24/2023 Active hydrOXYzine HCl 50 MG Oral [...] to manage during now, previously followed with [facility] pharmacy. Elevated FBS and PP values. [...] bedtime 07/11/23-elevations in BS msg sent to Cartographic Engineer 07/11/23: RPM reviewed; elevated FBS and some PP; increase to Basaglar 25 units with breakfast and 45 units at bedtime 07/19/23-elevated sugars- msg sent to accountant helper 07/19/23: RPM increase to Basaglar insulin 30 units with breakfast and 50 units at bedtime 07/25/23- stable 07/02/23- elevated sugars sent to CERTIFIED ART THERAPIST to review 08/01/23: RPM reviewed. Elevated FBS and PP's. (especially after breakfast). Increase Basaglar to 35 units with breakfast and 55 units at bedtime. May need to consider starting short acting with some meals--KW 08/08/23-elevated sugars- sent to CERTIFIED ART THERAPIST 08/08/23: RPM reviewed. Few elevated FBS and several elevated PP's after lunches and dinners. Increase Basaglar to 45 units with breakfast and 60 units at bedtime --KW 08/16/23-elevations in sugars;msg sent to CERTIFIED ART THERAPIST 08/16/23: RPM reviewed; blood sugars improving since last dose change; continue Basaglar to 45 units with breakfast and 60 units at bedtime 08/23/23- stable at this time- some elevations- will review again next week 08/29/23-sugars elevated sent to CERTIFIED ART THERAPIST 08/29/23: RPM reviewed, some elevated after dinner [...] at bedtime 10/03/23-elevated sugars msg sent to CERTIFIED ART THERAPIST 10/03/23: RPM reviewed; some elevated FBS and a few elevated dinner PP's. Increase Lantus to 50 units with breakfast and 65 units at bedtime ---KW 10/09/23: RPM reviewed; stable overall 10/17/23-stable 10/24/23- stable 10/31/23-some BS elevations msg sent to CERTIFIED ART THERAPIST 10/31/23: RPM reviewed; some PP elevations; increase [...] for limited anatomy scan around 13 weeks [facility] anatomy scan scheduled 07/23/2023 Last Assessment [...] PPD 09/26/2016,09/24/2014 Pneumococcal Conjugate Vacci ne, 20-valent ([id number]) 11/09/2022 Pneumococcal Polysaccharide PPV23 (Pneumovax) 06/03/2020 Seasonal [...] money to get more. Never true 11/12/2022 [place] Depression Scale Answer Date Recorded Last EPDS [...] as of this encounter Progress Notes * Shani Payne DO - 11/14/2023 4:31 PM EDT Lilly presented today at 35w1d for an ultrasound for the following indications: Pre-existing type 2 diabetes mellitus during in third trimester Assessment & Plan: Working with [facility]. Obesity in , antepartum Multigravida of advanced maternal age in third trimester Ultrasound for screening for growth restriction 35 weeks gestation of Ultrasound summary: Patient presented for growth assessment at 35w 1d. Large AC noted at 99% with overall EFW of 2987 g at 85%. MELINDA 14.7 cm. Cephalic presentation. BP 8/8. I reviewed the ultrasound images. Lilly was given the opportunity to meet with me if she had any questions. Please refer to the ultrasound report for additional details about today's ultrasound examination. RECOMMENDATIONS: Follow up with MFM for ultrasound as clinically indicated. See prior formal MFM consultation note. 2x weekly NSTs. Thank you for allowing us to participate in the care of this patient. Please call with any questions. Shani Payne DO 11/14/2023 4:31 PM documented in this encounter Miscellaneous Notes * Assessment & Plan Note - Shani Payne DO - 11/14/2023 4:31 PM EDT Associated Problem(s): Pre-existing type 2 diabetes mellitus in Working with [facility]. documented in this encounter Plan of Treatment Upcoming Encounters Date Type Department Care Team (Late st Contact Info) Description 11/18/2023 11:00 AM EDT Office Visit Gynecology/Obstetrics Alva's Hayes [address] [place] [address] Silva Crowder CNM [address] [facility] [place] [address] Freddy, Non Stress Tests Chavo [address] [place] [address] 11/21/2023 9:45 AM EDT Office Visit Gynecology/Obstetrics Alva's Hayes [address] [place] [address] Lolly Wright CRNP [address] [place] [address] Hayes, Non Stress Tests Chavo [address] [place] [address] 11/25/2023 9:15 AM EDT Office Visit Gynecology/Obstetrics Alva's Hayes [address] [place] [address] Faby Zelaya CNM [address] [facility] [place] [address] Hayes, Non Stress Tests Chavo [address] [place] [address] 11/28/2023 1:45 PM EDT Office Visit Gynecology/Obstetrics Alva's Hayes [address] [place] [address] Za Esquivel CRNP [address] [place] [address] Hayes, Non Stress Tests Chavo [address] [place] [address] 12/02/2023 9:15 AM EDT Office Visit Gynecology/Obstetrics Artie's Hayes [address] [place] [address] Arielle Lu, SULLY, [address] [place] [address] Freddy, Non Stress Tests Chavo [address] [place] [address] 12/05/2023 1:45 PM EDT Office Visit Gynecology/Obstetrics Artie's Hayes [address] [place] [address] Za Esquivel CRNP [address] [place] [address] Freddy Non Stress Tests Chavo [address] [place] [address] 12/09/2023 2:30 PM EDT Office Visit Gynecology/Obstetrics Artie's Hayes [address] [place] [address] Heraclio Robledo MD [address] [place] [address] Freddy, Non Stress Tests Chavo [address] [place] [address] 12/12/2023 1:45 PM EDT Office Visit Gynecology/Obstetrics Alva's Hayes [address] [place] [address] Za Esquivel CRNP [address] [place] [address] Hayes, Non Stress Tests Chavo [address] [place] [address] Health Maintenance Due Date Last Done Comments Diabetic Eye Exam 2006 Depression Screening 09/29/2019 09/29/2018, 03/14/20 Hepatitis B (3 of 3 - 19+ [...] Diagnosis Pre-existing type 2 diabetes mellitus during in third trimester- Primary Obesity in , antepartum Obesity complicating , childbirth, or the puerperium, antepartum condition or complication Multigravida of advanced maternal age in third trimester Ultrasound for screening for growth restriction screening for growth retardation using ultrasonics 35 weeks gestation of state, incidental documented in this encounter
--- OUTSIDE RECORDS SUMMARY | 2023-12-12 12:24 | External Medical Summary ---
Author Name Unknown Address Unknown Organization [id number] [place] [address] [place] [id number] Laboratory Report Ordering Provider Test Date Status EDY ZACARIAS 11/11/2023 10:13:42 Final Observation Date Value Abnormality Reference (Units ) Status BUN 11/11/2023 10:13:42 11 6-20 (mg/dL) Final Creatinine 11/11/2023 10:13:42 0.7 0.5-1.0 (mg/dL) Final Glomerular filtration rate/1.73 sq M.predicted [Volume Rate/Area] in Serum, Plasma or Blood by Creatinine-based formula (CKD-EPI) 11/11/2023 10:13:42 >90 >=60 (mL/min) Final eGFR is calculated based on the CKD-EPI 2020 equation SODIUM 11/11/2023 10:13:42 134 Below low normal 135 -146 (mmol/L) Final Potassium 11/11/2023 10:13:42 4.4 3.5-5.1 (m mol/L) Final Cl 11/11/2023 10:13:42 101 98-107 (mm ol/L) Final CO2 11/11/2023 10:13:42 21 Below low normal 22- 32 (mmol/L) Final Anion gap 11/11/2023 10:13:42 12 7-15 (mmol /L) Final Glucose 11/11/2023 10:13:42 114 70-120 (mg /dL) Final Albumin 11/11/2023 10:13:42 3.5 Below low normal 3.8 -5.0 (g/dL) Final AST (Aspartate aminotransferase) 11/11/2023 10:13:42 16 10-35 (U/L) Fin al Alk Phos 11/11/2023 10:13:42 153 Above high normal 35 -130 (U/L) Final Bilirubin, Total 11/11/2023 10:13:42 0.2 <=1 .2 (mg/dL) Final Calcium 11/11/2023 10:13:42 10.1 8.4-10.2 ( mg/dL) Final Protein 11/11/2023 10:13:42 7.0 6.0-8.3 (g /dL) Final ALT (Alanine aminotransferase) 11/11/2023 10:13:42 27 10-35 (U/L) Dustin sherwood Performing Location [facility] [place] [address] [facility] [address]
--- OUTSIDE RECORDS SUMMARY | 2023-12-12 12:24 | External Medical Summary | Summary of Care ---
Author Name Unknown Organization [facility] Address [address] [place] [address] Phone [phone] Care Team Providers Care Line Patroller Name Role Phone Unavailable Primary Care Provider Unavailabl e Reason for Visit * Reason Onset Date Comments Encounter Created in Error 11/07/2023 Encounter Details Date Type Department Care Team ([facility] st Contact Info) Description 11/07/2023 Telephone Gynecology/Obstetrics [facility] [address] [place] [address] Silva Crowder, [facility] [address] [place] [address] Encounter Created in Error Allergies Active Allergy Reactions Criticality Noted Date Comments Amoxicillin Nausea/vomiting 06/04/2016 documented as of this encounter (statuses as of 11/07/2023) Medications Medication Sig Dispensed Refills Start Date [...] hemoglobin A1c goal of less than 7.0% ([facility]) Check blood sugars twice daily as directed 100 Each 5 05/15/2023 Active OneTouch Verio In Vitro Strip (Glucose Blood)Indications:Ty pe 2 diabetes mellitus with hemoglobin A1c goal of less than 7.0% ([facility]) Check blood sugars twice daily [...] evening. 90 Tablet 3 09/20/2023 Active Pen [place] 32G X 4 MMIndications:Pre-ex isting type 2 [...] during , antepartum Inject under the skin 55 units with breakfast and 65 units at bedtime. 90 mL 3 10/31/2023 Active Hospital, Clinic, or Other Facility Administered Medication Ordered Dose Route Frequency Start Date End Date Status Albuterol Sulfate (Proventil) (5 MG/ML) 0.5% *conc* inhalation solution 2.5 mgIndications:Wheezing 2.5 mg NEBULIZER PRN 02/01/2023 02/01/2024 Ac tive documented as of this encounter (statuses as of 11/07/2023) Active Problems Problem Noted Date Diagnosed Date [...] to manage during now, previously followed with [facility] pharmacy. Elevated FBS and PP [...] bedtime 07/11/23-elevations in BS msg sent to Space Control Agent 07/11/23: RPM reviewed; elevated FBS and some PP; increase to Basaglar 25 units with breakfast and 45 units at bedtime 07/19/23-elevated sugars- msg sent to manpower development specialist manager 07/19/23: RPM increase to Basaglar insulin 30 units with breakfast and 50 units at bedtime 07/25/23- stable 07/02/23- elevated sugars sent to LEG MAN to review 08/01/23: RPM reviewed. Elevated FBS and PP's. (especially after breakfast). Increase Basaglar to 35 units with breakfast and 55 units at bedtime. May need to consider starting short acting with some meals--KW 08/08/23-elevated sugars- sent to LEG MAN 08/08/23: RPM reviewed. Few elevated FBS and several elevated PP's after lunches and dinners. Increase Basaglar to 45 units with breakfast and 60 units at bedtime --KW 08/16/23-elevations in sugars;msg sent to LEG MAN 08/16/23: RPM reviewed; blood sugars improving since last dose change; continue Basaglar to 45 units with breakfast and 60 units at bedtime 08/23/23- stable at this time- some elevations- will review again next week 08/29/23-sugars elevated sent to LEG MAN 08/29/23: RPM reviewed, some elevated after dinner [...] at bedtime 10/03/23-elevated sugars msg sent to LEG MAN 10/03/23: RPM reviewed; some elevated FBS and a few elevated dinner PP's. Increase Lantus to 50 units with breakfast and 65 units at bedtime ---KW 10/09/23: RPM reviewed; stable overall 10/17/23-stable 10/24/23- stable 10/31/23-some BS elevations msg sent to LEG MAN 10/31/23: RPM reviewed; some PP elevations; increase [...] for limited anatomy scan around 13 weeks [facility] anatomy scan scheduled 07/23/2023 Last Assessment [...] as of this encounter (statuses as of 11/07/2023) Resolved Problems Problem Noted Date Diagnosed Date Resolved Date Supervision of high risk pre gnancy in first trimester 05/20/2023 10/16/2023 Tobacco smoking complicating 05/14/2023 05/14/2023 Acute conjunctivitis 08/25/2014 015 Bronchitis, complicated 08/09/201409/26 documented as of this encounter (statuses as of 11/07/2023) Immunizations Name Administration Dates Next Due Hepatitis B, 20+ yrs 07/04/2020,06/03/2020 PPD 09/26/2016,09/24/2014 Pneumococcal Conjugate Vacci ne, 20-valent ([id number]) 11/09/2022 Pneumococcal Polysaccharide PPV23 (Pneumovax) 06/03/2020 Seasonal [...] money to get more. Never true 11/12/2022 [place] Depression Scale Answer Date Recorded Last EPDS [...] Care Team (Late st Contact Info) Description 11/11/2023 9:15 AM EDT Office Visit Gynecology/Obstetrics Artieli Acs [address] [place] [address] Arielle Lu DNP, CNM [address] [place] [address] Maile Hayes Stress Tests Chavo [address] [place] [address] 11/14/2023 1:45 PM EDT Office Visit Gynecology/Obstetrics Artieli Freddy [address] [place] [address] Za Esquivel CRNP [address] [place] [address] Maile Hayes Stress Tests Chavo [address] [place] [address] 11/14/2023 2:30 PM EDT Imaging Maternal Medicine Imaging, Chavo Hayes [address] [place] [address] 11/18/2023 11:00 AM EDT Office Visit Gynecology/Obstetrics Artieli Acs [address] [place] [address] Silva Crowder, LEXISM [address] [place] [address] Hayes, Non Stress Tests Chavo [address] [place] [address] 11/21/2023 9:45 AM EDT Office Visit Gynecology/Obstetrics Artie's Hayes [address] [place] [address] Lolly Wright CRNP [address] [place] [address] Hayes, Non Stress Tests Chavo [address] [place] [address] 11/25/2023 9:15 AM EDT Office Visit Gynecology/Obstetrics [facility] Hayes [address] [place] [address] Faby Zelaya, LEXIS [address] [facility] [address] Freddy Non Stress Tests Chavo [address] [place] [address] 11/28/2023 1:45 PM EDT Office Visit Gynecology/Obstetrics [facility] Hayes [address] [place] [address] Za Esquivle CRNP [address] [place] [address] Hayes, Non Stress Tests Chavo [address] [place] [address] 12/02/2023 9:15 AM EDT Office Visit Gynecology/Obstetrics Artie's Hayes [address] [place] [address] Arielle Lu DNP, CNM [address] [facility] [address] Hayes, Non Stress Tests Chavo [address] [place] [address] 12/05/2023 1:45 PM EDT Office Visit Gynecology/Obstetrics Amaris Hayes [address] [place] [address] Za Esquivel CRNP [address] [place] [address] Freddy Non Stress Tests Chavo [address] [place] [address] 12/09/2023 2:30 PM EDT Office Visit Gynecology/Obstetrics Amaris Hayes [address] [place] [address] Heraclio Robledo MD [address] [place] [address] Freddy Non Stress Tests Chavo [address] [place] [address] 12/12/2023 1:45 PM EDT Office Visit Gynecology/Obstetrics Amaris Hayes [address] [place] [address] Za Esquivel CRNP [address] [place] [address] Freddy Non Stress Tests Chavo [address] [place] [address] Health Maintenance Due Date Last Done Comments Diabetic Eye Exam 2006 Depression Screening 09/29/2019 09/29/2018, 03/14/20 18 Hepatitis B (3 of 3 - 19+ 3-dose series) 12/02/2020 07/04/2020, 06/03/2020 Diabetic Foot Exam 06/03/2021 06/03/2020 COVID-19 Vaccine ( season) 2023 12/22/2020, 12/01/2020 GFR 09/19/2024 09/19/2023, 04/26, 11/09/2022, Additional history exists Pap Smear 11/16/2025 11/16/2022, 10/09/2017, 02/14/2016, Additional history exists Cervical Cancer Screening [...] as of this encounter Visit Diagnoses Diagnosis Antepartum anemia- Primary Anemia, antepartum documented in this encounter
--- OUTSIDE RECORDS SUMMARY | 2023-12-12 12:24 | External Medical Summary ---
Author Name Unknown Address Unknown Organization [facility] [address] [place] [id number] Laboratory Report Ordering Provider Test Date Status EDY ZACARIAS 11/11/2023 10:13:42 Final Observation Date Value Abnormality Reference (Units ) Status WBC, Total 11/11/2023 10:13:42 16.60 Above high normal 4 .00-10.80 (K/uL) Final RBC 11/11/2023 10:13:42 4.45 3.85-5.15 (M/uL) Final Hemoglobin 11/11/2023 10:13:42 12.2 12.0-15.3 (g/dL) Final HCT 11/11/2023 10:13:42 36.9 36.0-45.2 (%) Final MCV 11/11/2023 10:13:42 82.9 81.5-97.5 (fL) Final MCH 11/11/2023 10:13:42 27.4 27.0-34.0 (pg) Final MCHC 11/11/2023 10:13:42 33.1 32.0-36.0 (g/dL) Final RDW 11/11/2023 10:13:42 14.8 11.5-15.5 (%) Final Platelets 11/11/2023 10:13:42 410 Above high normal 14 0-400 (K/uL) Final MPV 11/11/2023 10:13:42 9.2 6.6-11.1 ( fL) Final Performing Location [facility] [place] [address] [place] [id number]
--- OUTSIDE RECORDS SUMMARY | 2023-12-12 12:24 | External Medical Summary | Summary of Care ---
Author Name Unknown Organization [facility] Address [address] [place] [address] Phone [phone] Care Team Providers Care Documentation Writer Name Role Phone Unavailable Primary Care Provider Unavailabl e Reason for Visit * Reason Comments Non Stress Test Encounter Details Date Type Department Care Team ([facility] st Contact Info) Description 11/04/2023 10:15 AM EDT Office Visit Gynecology/Obstetric s [facility] [address] [facility] [address] Silva Crowder, CN [address] [place] [address] Hayes, Non Stress Tests [facility] [address] [facility] [address] High-risk , third trimester*; Pre-existing type 2 diabetes mellitus during in third trimester; Anxiety during ; Multigravida of advanced maternal age in third trimester; Antepartum anemia complicating ; Class 2 obesity Allergies Active Allergy Reactions Criticality Noted Date [...] A1c goal of less than 7.0% ([facility]) Check blood sugars twice daily as directed 100 Each 5 05/15/2023 Active OneTouch Verio In Vitro Strip (Glucose Blood)Indications:Ty pe 2 diabetes mellitus with hemoglobin A1c goal of less than 7.0% (HCC) Check blood sugars twice daily as directed [...] evening. 90 Tablet 3 09/20/2023 Active Pen [place] 32G X 4 MMIndications:Pre-ex isting type 2 [...] to manage during now, previously followed with [facility] pharmacy. Elevated FBS and PP values. [...] bedtime 07/11/23-elevations in BS msg sent to Engineer Automated Equipment 07/11/23: RPM reviewed; elevated FBS and some PP; increase to Basaglar 25 units with breakfast and 45 units at bedtime 07/19/23-elevated sugars- msg sent to crystal report developer 07/19/23: RPM increase to Basaglar insulin 30 units with breakfast and 50 units at bedtime 07/25/23- stable 07/02/23- elevated sugars sent to WET SUIT GLUER to review 08/01/23: RPM reviewed. Elevated FBS and PP's. (especially after breakfast). Increase Basaglar to 35 units with breakfast and 55 units at bedtime. May need to consider starting short acting with some meals--KW 08/08/23-elevated sugars- sent to WET SUIT GLUER 08/08/23: RPM reviewed. Few elevated FBS and several elevated PP's after lunches and dinners. Increase Basaglar to 45 units with breakfast and 60 units at bedtime --KW 08/16/23-elevations in sugars;msg sent to WET SUIT GLUER 08/16/23: RPM reviewed; blood sugars improving since last dose change; continue Basaglar to 45 units with breakfast and 60 units at bedtime 08/23/23- stable at this time- some elevations- will review again next week 08/29/23-sugars elevated sent to WET SUIT GLUER 08/29/23: RPM reviewed, some elevated after dinner [...] at bedtime 10/03/23-elevated sugars msg sent to WET SUIT GLUER 10/03/23: RPM reviewed; some elevated FBS and a few elevated dinner PP's. Increase Lantus to 50 units with breakfast and 65 units at bedtime ---KW 10/09/23: RPM reviewed; stable overall 10/17/23-stable 10/24/23- stable 10/31/23-some BS elevations msg sent to WET SUIT GLUER 10/31/23: RPM reviewed; some PP elevations; increase [...] PPD 09/26/2016,09/24/2014 Pneumococcal Conjugate Vacci ne, 20-valent ([id number]) 11/09/2022 Pneumococcal Polysaccharide PPV23 (Pneumovax) 06/03/2020 Seasonal [...] money to get more. Never true 11/12/2022 Liberal Depression Scale Answer Date Recorded Last EPDS [...] Sign Reading Time Taken Comments Blood Pressure 128/76 11/04/2023 10:06 AM EDT Pulse - - Temperature - - Respiratory Rate - - Oxygen Saturation - - Inhaled Oxygen Concentration - - Weight 94.8 kg (209 lb) 11/04/2023 10:06 AM EDT Height 160 cm (5' 3") 11/04/2023 10:06 AM EDT Body Mass Index 37.02 11/04/2023 10:06 AM EDT documented in this encounter Progress Notes * Silva Crowder CNM - 11/04/2023 10:26 AM EDT ASSESSMENT assessment with Non-stress Test completed on 11/04/2023 at 33w5d gestation for indication of pre-existing type 2 diabetes heart baseline: 150 bpm Variability: Moderate Decelerations: absent Accelerations: present Contractions: None NST start time: 1012 NST stop time: 1109 NST strip reviewed, interpreted, and approved by OB provider, Silva Crowder CNM. NST strip stored in clinic storage file. NST reactive. Lilly Tristan is a 32 year old female here for her routine OB appointment at 34w1d Her Estimated Date of Delivery: 12/18/23 REVIEW OF SYSTEMS: She affirms movement. Denies vaginal bleeding, LOF, contractions, N/V, vision changes, and RUQ pain. Occasional cramping,about 2-3 times per day lasting 2-3 minutes. Lives 30 minutes from [facility]. Once weekly headaches which resolve with hydration. PHYSICAL EXAM: Filed Vitals: 11/04/23 1006 BP: 128/76 Weight: 94.8 kg (209 lb) Height: 1.6 m (5' 3") ASSESSMENT/PLAN: (O24.113) Pre-existing type 2 diabetes mellitus during in third trimester Plan: -Managed by MFM (O99.340, F41.9) Anxiety during Plan: -Continue Zoloft 100mg daily; patient states she feels "wonderful" (O09.523) Multigravida of advanced maternal age in third trimester (O99.019) Antepartum anemia complicating Plan: -Continue PO iron -Hgb 11.2 on 10/16/23 (E66.9) Class 2 obesity Plan: -Weekly NSTs (O09.93) High-risk , third trimester (primary encounter diagnosis) Plan: - labor precautions and kick counts reviewed - RTO in 3 days for NST Silva Crowder CNM documented in this encounter Plan of Treatment Upcoming Encounters Date Type Department Care Team (Late st Contact Info) Description 11/11/2023 9:15 AM EDT Office Visit Gynecology/Obstetrics [facility] [address] [place] [address] Arielle Lu, SULLY, CNM [address] [place] [address] [place] [address] Freddy, Non Stress Tests Ch[facility] [address] [address] 11/14/2023 1:45 PM EDT Office Visit Gynecology/Obstetrics [facility] [address] [place] [address] Za Esquivel CRNP [address] [place] [id number] Hayes, Non Stress Tests Chavo [address] [place] [address] 11/14/2023 2:30 PM EDT Imaging Maternal Medicine Imaging, [facility]avo Hayes [address] [place] [address] 11/18/2023 11:00 AM EDT Office Visit Gynecology/Obstetrics [facility] [address] [place] [address] Silva Crowder CN [address] [facility] [place] [address] Hayes, Non Stress Tests Chavo [address] [place] [address] 11/21/2023 9:45 AM EDT Office Visit Gynecology/Obstetrics [facility] [address] [place] [address] Lolly Wright CRNP [address] [place] [address] Hayes, Non Stress Tests Chavo [address] [place] [address] 11/25/2023 9:15 AM EDT Office Visit Gynecology/Obstetrics [facility] [address] [place] [address] Faby Zelaya, NADEEM [address] [facility] [place] [address] Hayes, Non Stress Tests Chavo [address] [place] [address] 11/28/2023 1:45 PM EDT Office Visit Gynecology/Obstetrics [facility] [address] [place] [address] BackerZa CRNP [address] [place] [address] Hayes, Non Stress Tests Chavo [address] [place] [address] 12/02/2023 9:15 AM EDT Office Visit Gynecology/Obstetrics [facility] [address] [place] [address] Arielle Lu, SULLY, [address] [place] [address] Freddy Non Stress Tests Chavo [address] [place] [address] 12/05/2023 1:45 PM EDT Office Visit Gynecology/Obstetrics [facility] [address] [place] [address] Backer, LYNN Campbell [address] [place] [address] Freddy Non Stress Tests Chavo [address] [place] [address] 12/09/2023 2:30 PM EDT Office Visit Gynecology/Obstetrics [facility] [address] [place] [address] Heraclio Robledo MD [address] [place] [address] Hayes, Non Stress Tests Chavo [address] [place] [address] 12/12/2023 1:45 PM EDT Office Visit Gynecology/Obstetrics [facility] [address] [place] [address] Backer, Za Brumfiled, BARREL COATER [address] [place] [address] Hayes, Non Stress Tests Chavo [address] [place] [address] Health Maintenance Due Date Last Done Comments Diabetic Eye Exam 2006 Depression Screening 09/29/2019 09/29/2018, 03/14/20 18 Hepatitis B (3 of 3 - 19+ 3-dose series) 12/02/2020 07/04/2020, 06/03/2020 Diabetic Foot Exam 06/03/2021 06/03/2020 COVID-19 Vaccine (2022- season) 2023 12/22/2020, 12/01/2020 GFR 09/19/2024 09/19/2023, [...] of this encounter Visit Diagnoses Diagnosis High-risk , third trimester- Primary Pre-existing type 2 diabetes mellitus during in third trimester Anxiety during Multigravida of advanced maternal age in third trimester Antepartum anemia complicating Anemia, antepartum Class 2 obesity documented in this encounter
--- OUTSIDE RECORDS SUMMARY | 2023-12-12 12:24 | External Medical Summary | Summary of Care ---
Author Name Unknown Organization [facility] Address [address] [place] [address] Phone [phone] Care Team Providers Care Porcelain Enameling Supervisor Name Role Phone Unavailable Primary Care Provider Unavailabl e Reason for Visit * Reason Comments Non Stress Test Encounter Details Date Type Department Care Team ([facility] st Contact Info) Description 11/11/2023 9:15 AM EDT Office Visit Gynecology/Obstetric s [facility] [address] [facility] [place] [address] Arielle Lu, SULLY, CNM [address] [place] [address] Hayes, Non Stress Tests [facility] [address] [facility] [address] High risk , antepartum*; Obesity in , antepartum; Pre-existing type 2 diabetes mellitus during , antepartum; Medication exposure during first trimester of ; Family history of cerebral palsy; Anxiety during ; Antepartum multigravida of advanced maternal age; Antepartum anemia complicating ; Elevated BP without diagnosis of hypertension; High risk , antepartum [O09.90]; Pre-existing type 2 diabetes mellitus during , antepartum [O24.119] Allergies Active Allergy Reactions Criticality Noted Date Comments Amoxicillin Nausea/vomiting 06/04/2016 documented as of this encounter (statuses as of 11/11/2023) Medications Medication Sig Dispensed Refills Start Date [...] evening. 90 Tablet 3 09/20/2023 Active Pen [place] 32G X 4 MMIndications:Pre-ex isting type 2 [...] as of this encounter (statuses as of 11/11/2023) Active Problems Problem Noted Date Diagnosed Date [...] to manage during now, previously followed with [facility] pharmacy. Elevated FBS and PP [...] bedtime 07/11/23-elevations in BS msg sent to Technical Instructor 07/11/23: RPM reviewed; elevated FBS and some PP; increase to Basaglar 25 units with breakfast and 45 units at bedtime 07/19/23-elevated sugars- msg sent to transmissions systems operator 07/19/23: RPM increase to Basaglar insulin 30 units with breakfast and 50 units at bedtime 07/25/23- stable 07/02/23- elevated sugars sent to CENTRAL STATION OPERATOR to review 08/01/23: RPM reviewed. Elevated FBS and PP's. (especially after breakfast). Increase Basaglar to 35 units with breakfast and 55 units at bedtime. May need to consider starting short acting with some meals--KW 08/08/23-elevated sugars- sent to CENTRAL STATION OPERATOR 08/08/23: RPM reviewed. Few elevated FBS and several elevated PP's after lunches and dinners. Increase Basaglar to 45 units with breakfast and 60 units at bedtime --KW 08/16/23-elevations in sugars;msg sent to CENTRAL STATION OPERATOR 08/16/23: RPM reviewed; blood sugars improving since last dose change; continue Basaglar to 45 units with breakfast and 60 units at bedtime 08/23/23- stable at this time- some elevations- will review again next week 08/29/23-sugars elevated sent to CENTRAL STATION OPERATOR 08/29/23: RPM reviewed, some elevated after [...] at bedtime 10/03/23-elevated sugars msg sent to CENTRAL STATION OPERATOR 10/03/23: RPM reviewed; some elevated FBS and a few elevated dinner PP's. Increase Lantus to 50 units with breakfast and 65 units at bedtime ---KW 10/09/23: RPM reviewed; stable overall 10/17/23-stable 10/24/23- stable 10/31/23-some BS elevations msg sent to CENTRAL STATION OPERATOR 10/31/23: RPM reviewed; some PP elevations; [...] for limited anatomy scan around 13 weeks [facility] anatomy scan scheduled 07/23/2023 Last Assessment [...] as of this encounter (statuses as of 11/11/2023) Resolved Problems Problem Noted Date Diagnosed Date Resolved Date Supervision of high risk pre gnancy in first trimester 05/20/2023 10/16/2023 Tobacco smoking complicating 05/14/2023 05/14/2023 Acute conjunctivitis 08/25/2014 015 Bronchitis, complicated 08/09/201409/26 documented as of this encounter (statuses as of 11/11/2023) Immunizations Name Administration Dates Next Due Hepatitis B, 20+ yrs 07/04/2020,06/03/2020 PPD 09/26/2016,09/24/2014 Pneumococcal Conjugate Vacci ne, 20-valent ([id number]) 11/09/2022 Pneumococcal Polysaccharide PPV23 (Pneumovax) 06/03/2020 Seasonal [...] money to get more. Never true 11/12/2022 [place] Depression Scale Answer Date Recorded Last EPDS [...] Sign Reading Time Taken Comments Blood Pressure 138/84 11/11/2023 10:01 AM EDT Pulse - - Temperature - - Respiratory Rate - - Oxygen Saturation - - Inhaled Oxygen Concentration - - Weight 94.3 kg (208 lb) 11/11/2023 10:01 AM EDT Height - - Body Mass Index 36.85 11/04/2023 10:06 AM EDT documented in this encounter Progress Notes * Arielle Lu, SULLY, CNM - 11/11/2023 10:03 AM EDT Lilly Tristan is a 32 year old female here for her routine OB appointment at 34w5d Her Estimated Date of Delivery: 12/18/23 REVIEW OF SYSTEMS: She affirms movement. Denies vaginal bleeding, LOF, contractions. Reports that she is having intermittent headaches, withseeing spots a couple times per day, sometimes accompanied by nausea. States she will check sugars when this happens and they will be 80s-90s. States they are very shortlived and never needs to take Tylenol. Encouraged increasing hydration. Discussed will get baseline pre-e labs as BP is slightly elevated today at 138/84. PHYSICAL EXAM: Filed Vitals: 11/11/23 1001 BP: 138/84 Weight: 94.3 kg (208 lb) ASSESSMENT/PLAN: (O09.90) High-risk (primary encounter diagnosis) Plan: US BPP W/O NON-STRESS TEST, COMPREHENSIVE METABOLIC PANEL, CBC, PROTEIN/ CREATININE RATIO, URINE (O24.119) Pre-existing type 2 diabetes mellitus in Plan: -NSTs 2x/weekly - Sending sugars in- on insulin Lantus 60u with breakfast, 65u PM (O99.019) Antepartum anemia complicating Plan: On iron (R03.0) Elevated BP without diagnosis of hypertension Plan: COMPREHENSIVE METABOLIC PANEL, CBC, PROTEIN/ CREATININE RATIO, URINE - Bp slightly elevated, will get baseline labs - Discussed warning signs Reviewed labor precautions, kick counts, loss of fluid, vaginal bleeding, round ligament pain, and encouraged hydration. ASSESSMENT assessment with Non-stress Test completed on 11/11/2023 at 34.5weeks gestation for indication of diabetes mellitus heart baseline: 135 bpm Variability: Moderate Decelerations: absent Accelerations: present Contractions: None, irritability NST start time: 0920 NST stop time: 0950 NST strip reviewed, interpreted, and approved by OB provider, Arielle Lu DNP, CNM. NST strip stored in clinic storage file - 2x weekly NSTs, - Visit with next NST Arielle Lu DNP, CNM documented in this encounter Plan of Treatment Upcoming Encounters Date Type Department Care Team (Late st Contact Info) Description 11/11/2023 10:45 AM EDT Imaging Radiology [facility]nd [address] [place] [address] High-risk 11/11/2023 11:40 AM EDT Laboratory Laboratory, [address] [place] [address] [facility] Chavo [address] [place] [address] Arrived 11/14/2023 1:45 PM EDT Office Visit Gynecology/Obstetric s [facility] [address] [place] [address] Za Esquivel CRNP [address] [place] [address] Freddy, Non Stress Tests Chavo [address] [place] [address] 11/14/2023 2:30 PM EDT Imaging Maternal Medicine ImagingChavo [address] [place] [phone] 11/18/2023 11:00 AM EDT Office Visit Gynecology/Obstetric s [facility] [address] [place] [address] Silva Crowder, [address], [place] [address] Freddy, Non Stress Tests Chavo [address] [place] [address] 11/21/2023 9:45 AM EDT Office Visit Gynecology/Obstetric s [facility] [address] [place] [address] Lolly Wright CRNP [address] [place] [address] Freddy, Non Stress Tests Chavo [address] [place] [address] 11/25/2023 9:15 AM EDT Office Visit Gynecology/Obstetric s [facility] [address] [place] [address] Faby Zelaya, CN [address] [place] [address] Hayes, Non Stress Tests Chavo [address] [place] [address] 11/28/2023 1:45 PM EDT Office Visit Gynecology/Obstetric s [facility] Hayes [address] [place] [address] Za Esquivel CRNP [address] [place] [address] Hayes, Non Stress Tests Chavo [address] [place] [address] 12/02/2023 9:15 AM EDT Office Visit Gynecology/Obstetric s [facility] [address] [place] [address] Arielle Lu DNP, CN [address] [place] [address] Hayes, Non Stress Tests Chavo [address] [place] [address] 12/05/2023 1:45 PM EDT Office Visit Gynecology/Obstetric s [facility] [address] [place] [address] Za Esquivel CRNP [address] [place] [address] Hayes, Non Stress Tests Chavo [address] [place] [address] 12/09/2023 2:30 PM EDT Office Visit Gynecology/Obstetric s [facility] [address] [place] [address] Heraclio Robledo MD [address] [place] [address] Hayes, Non Stress Tests Chavo [address] [place] [address] 12/12/2023 1:45 PM EDT Office Visit Gynecology/Obstetric s Am[facility] Hayes [address] [place] [address] Backer, LYNN Campbell [address] [place] [address] Freddy, Non Stress Tests Chavo [address] [place] [address] Pending Results Name Type Priority Associated Diagnoses Date /Time COMPREHENSIVE METABOLIC PANEL Lab Routine High risk , antepartum Elevated BP without diagnosis of hypertension 11/11/2023 10:13 AM EDT CBC Lab Routine High risk , antepartum Elevated BP without diagnosis of hypertension 11/11/2023 10:13 AM EDT Scheduled Orders Name Type Priority Associated Diagnoses Orde r Schedule US BPP W/O NON-STRESS TEST Medical Imaging Routine High risk , antepartum Expected: 11/11/2023, Expires: 12/11/2024 PROTEIN/ CREATININE RATIO, URINE Lab Routine High risk , antepartum Elevated BP without diagnosis of hypertension Ordered: 11/11/2023 Health Maintenance Due Date Last Done Comments [...] during Antepartum multigravida of advanced maternal age Antepartum anemia complicating Anemia, antepartum Elevated BP without diagnosis of hypertension High-risk Unspecified high-risk documented in this encounter
--- OUTSIDE RECORDS SUMMARY | 2023-12-12 12:24 | External Medical Summary | Summary of Care ---
Author Name Unknown Organization [facility] Address [address] [place] [address] Phone [phone] Care Team Providers Care Postdoctoral Scholar Name Role Phone Unavailable Primary Care Provider Unavailabl e Reason for Visit * Reason Comments Non Stress Test Encounter Details Date Type Department Care Team ([facility] st Contact Info) Description 11/04/2023 10:15 AM EDT Office Visit Gynecology/Obstetric s [facility] [address] [facility] [address] Silva Crowder, CN [address] [place] [address] Hayes, Non Stress Tests [facility] [address] [address] High-risk , third trimester*; Pre-existing type 2 [...] goal of less than 7.0% ([facility]) Check blood sugars twice daily as directed [...] evening. 90 Tablet 3 09/20/2023 Active Pen [place] 32G X 4 MMIndications:Pre-ex isting type 2 [...] to manage during now, previously followed with [facility] pharmacy. Elevated FBS and PP values. [...] bedtime 07/11/23-elevations in BS msg sent to Green Building Engineer 07/11/23: RPM reviewed; elevated FBS and some PP; increase to Basaglar 25 units with breakfast and 45 units at bedtime 07/19/23-elevated sugars- msg sent to worldwide chief creative officer 07/19/23: RPM increase to Basaglar insulin 30 units with breakfast and 50 units at bedtime 07/25/23- stable 07/02/23- elevated sugars sent to EDGE CUTTER to review 08/01/23: RPM reviewed. Elevated FBS and PP's. (especially after breakfast). Increase Basaglar to 35 units with breakfast and 55 units at bedtime. May need to consider starting short acting with some meals--KW 08/08/23-elevated sugars- sent to EDGE CUTTER 08/08/23: RPM reviewed. Few elevated FBS and several elevated PP's after lunches and dinners. Increase Basaglar to 45 units with breakfast and 60 units at bedtime --KW 08/16/23-elevations in sugars;msg sent to EDGE CUTTER 08/16/23: RPM reviewed; blood sugars improving since last dose change; continue Basaglar to 45 units with breakfast and 60 units at bedtime 08/23/23- stable at this time- some elevations- will review again next week 08/29/23-sugars elevated sent to EDGE CUTTER 08/29/23: RPM reviewed, some elevated after dinner [...] at bedtime 10/03/23-elevated sugars msg sent to EDGE CUTTER 10/03/23: RPM reviewed; some elevated FBS and a few elevated dinner PP's. Increase Lantus to 50 units with breakfast and 65 units at bedtime ---KW 10/09/23: RPM reviewed; stable overall 10/17/23-stable 10/24/23- stable 10/31/23-some BS elevations msg sent to EDGE CUTTER 10/31/23: RPM reviewed; some PP elevations; increase [...] PPD 09/26/2016,09/24/2014 Pneumococcal Conjugate Vacci ne, 20-valent ([id number]) 11/09/2022 Pneumococcal Polysaccharide PPV23 (Pneumovax) 06/03/2020 Seasonal [...] money to get more. Never true 11/12/2022 [place] Depression Scale Answer Date Recorded Last EPDS [...] lasting 2-3 minutes. Lives 30 minutes from [facility]. Once weekly headaches which resolve with hydration. [...] Gynecology/Obstetrics [facility] Hayes [address] [place] [address] Arielle Lu, SULLY, CNM [address] [place] [address] [place] [address] Freddy, Non Stress Tests Chavo [address] [place] [address] 11/14/2023 1:45 PM EDT Office Visit Gynecology/Obstetrics [facility] [address] [place] [address] Za Esquivel CRNP [address] [place] [id number] Hayes, Non Stress Tests Chavo [address] [place] [address] 11/14/2023 2:30 PM EDT Imaging Maternal Medicine Imaging, [facility]avo Hayes [address] [place] [address] 11/18/2023 11:00 AM EDT Office Visit Gynecology/Obstetrics [facility] [address] [place] [address] Silva Crowder CN [address] [place] [address] Hayes, Non Stress Tests Chavo [address] [place] [address] 11/21/2023 9:45 AM EDT Office Visit Gynecology/Obstetrics [facility] [address] [place] [address] Lolly Wright CRNP [address] [place] [address] Hayes, Non Stress Tests Chavo [address] [place] [address] 11/25/2023 9:15 AM EDT Office Visit Gynecology/Obstetrics [facility] [address] [place] [address] Faby Zelaya, NADEEM [address] [place] [address] Hayes, Non Stress Tests Chavo [address] [place] [address] 11/28/2023 1:45 PM EDT Office Visit Gynecology/Obstetrics [facility] Hayes [address] [place] [address] BackerZa CRNP [address] [place] [address] Hayes, Non Stress Tests Chavo [address] [place] [address] 12/02/2023 9:15 AM EDT Office Visit Gynecology/Obstetrics [facility] [address] [place] [address] Arielle Lu, SULLY, [address] [place] [address] Freddy Non Stress Tests Chavo [address] [place] [address] 12/05/2023 1:45 PM EDT Office Visit Gynecology/Obstetrics [facility] [address] [place] [address] Backer, LYNN Campbell [address] [place] [address] Freddy Non Stress Tests Chavo [address] [place] [address] 12/09/2023 2:30 PM EDT Office Visit Gynecology/Obstetrics [facility] [address] [place] [address] Heraclio Robledo MD [address] [place] [address] Hayes, Non Stress Tests Chavo [address] [place] [address] 12/12/2023 1:45 PM EDT Office Visit Gynecology/Obstetrics [facility] [address] [place] [address] Backer, Za Brumfield, LONG WALL MINING MACHINE HELPER [address] [place] [address] Hayes, Non Stress Tests Chavo [address] [place] [address] Health Maintenance Due Date Last Done Comments [...]
--- OUTSIDE RECORDS SUMMARY | 2023-12-12 12:24 | External Medical Summary | Summary of Care ---
Author Name Unknown Organization [facility] Address [address] [place] [address] Phone [phone] Care Team Providers Care Salesperson Burial Needs Name Role Phone Unavailable Primary Care Provider Unavailabl e Encounter Details Date Type Department Care Team (Late st Contact Info) Description 11/13/2023 Telephone Gynecology/Obstetrics [facility] [address] [facility] [address] Arielle Lu, DNP, CNM [address] [place] [address] Allergies Active Allergy Reactions Criticality Noted Date Comments Amoxicillin Nausea/vomiting 06/04/2016 documented as of this encounter (statuses as of 11/13/2023) Medications Medication Sig Dispensed Refills Start Date [...] A1c goal of less than 7.0% ([facility]) Check blood sugars twice daily as directed 100 Each 5 05/15/2023 Active OneTouch Verio In Vitro Strip (Glucose Blood)Indications:Ty pe 2 diabetes mellitus with hemoglobin A1c goal of less than 7.0% ([facility]) Check blood sugars twice daily as [...] evening. 90 Tablet 3 09/20/2023 Active Pen [place] 32G X 4 MMIndications:Pre-ex isting type [...] as of this encounter (statuses as of 11/13/2023) Active Problems Problem Noted Date Diagnosed Date [...] bedtime 07/11/23-elevations in BS msg sent to Automatic Oven Operator 07/11/23: RPM reviewed; elevated FBS and some PP; increase to Basaglar 25 units with breakfast and 45 units at bedtime 07/19/23-elevated sugars- msg sent to nonprofit financial controller 07/19/23: RPM increase to Basaglar insulin 30 units with breakfast and 50 units at bedtime 07/25/23- stable 07/02/23- elevated sugars sent to RES HABILITATION ASSISTANT to review 08/01/23: RPM reviewed. Elevated FBS and PP's. (especially after breakfast). Increase Basaglar to 35 units with breakfast and 55 units at bedtime. May need to consider starting short acting with some meals--KW 08/08/23-elevated sugars- sent to RES HABILITATION ASSISTANT 08/08/23: RPM reviewed. Few elevated FBS and several elevated PP's after lunches and dinners. Increase Basaglar to 45 units with breakfast and 60 units at bedtime --KW 08/16/23-elevations in sugars;msg sent to RES HABILITATION ASSISTANT 08/16/23: RPM reviewed; blood sugars improving since last dose change; continue Basaglar to 45 units with breakfast and 60 units at bedtime 08/23/23- stable at this time- some elevations- will review again next week 08/29/23-sugars elevated sent to RES HABILITATION ASSISTANT 08/29/23: RPM reviewed, some elevated after [...] at bedtime 10/03/23-elevated sugars msg sent to RES HABILITATION ASSISTANT 10/03/23: RPM reviewed; some elevated FBS and a few elevated dinner PP's. Increase Lantus to 50 units with breakfast and 65 units at bedtime ---KW 10/09/23: RPM reviewed; stable overall 10/17/23-stable 10/24/23- stable 10/31/23-some BS elevations msg sent to RES HABILITATION ASSISTANT 10/31/23: RPM reviewed; some PP elevations; [...] for limited anatomy scan around 13 weeks [facility] anatomy scan scheduled 07/23/2023 Last Assessment [...] as of this encounter (statuses as of 11/13/2023) Resolved Problems Problem Noted Date Diagnosed Date Resolved Date Supervision of high risk pre gnancy in first trimester 05/20/2023 10/16/2023 Tobacco smoking complicating 05/14/2023 05/14/2023 Acute conjunctivitis 08/25/2014 015 Bronchitis, complicated 08/09/201409/26 documented as of this encounter (statuses as of 11/13/2023) Immunizations Name Administration Dates Next Due Hepatitis B, 20+ yrs 07/04/2020,06/03/2020 PPD 09/26/2016,09/24/2014 Pneumococcal Conjugate Vacci ne, 20-valent ([id number]) 11/09/2022 Pneumococcal Polysaccharide PPV23 (Pneumovax) 06/03/2020 Seasonal [...] money to get more. Never true 11/12/2022 [place] Depression Scale Answer Date Recorded Last EPDS [...] encounter Miscellaneous Notes * Telephone Encounter - Sheridan Garcia LPN - 11/13/2023 12:17 PM EDT Patient notified. PIH precautions reviewed. * Telephone Encounter - Sheridan Garcia LPN - 11/13/2023 12:16 PM EDT ----- Message from Arielle Lu DNP, CNM sent at 11/13/2023 12:13 PM EDT ----- Please let pt know her baseline PIH labs do not indicate pre-eclampsia at this time, please review PIH precautions and continue 2x weekly NSTs/visits PCR: 139 AST: 16 ALT :27 Platelets: 410 documented in this encounter Plan of Treatment Upcoming Encounters Date Type Department Care Team (Late st Contact Info) Description 11/14/2023 1:45 PM EDT Office Visit Gynecology/Obstetrics Amaris Hayes [address] [place] [address] Za Esquivel CRNP [address] [place] [address] Maile Hayes Stress Tests Chavo [address] [place] [address] 11/14/2023 2:30 PM EDT Imaging Maternal Medicine Imaging, Chavo Hayes [address] [place] [address] 11/14/2023 2:30 PM EDT Office Visit Senior Corporate Accountant Obstetrics Maternal Medicine, Chavo Hayes [address] [place] [address] Shani Payne, DO [address] [place] [address] 11/18/2023 11:00 AM EDT Office Visit Gynecology/Obstetrics [facility] [address] [place] [address] Silva Crowder CNM [address] [place] [address] Hayes, Non Stress Tests Chavo [address] [place] [address] 11/21/2023 9:45 AM EDT Office Visit Gynecology/Obstetrics [facility] [address] [place] [address] Lolly Wright CRNP [address] [place] [address] Hayes, Non Stress Tests Chavo [address] [place] [address] 11/25/2023 9:15 AM EDT Office Visit Gynecology/Obstetrics [facility] [address] [place] [address] Faby Zelaya CNM 400 [place] [address] Hayes, Non Stress Tests Chavo [address] [place] [address] 11/28/2023 1:45 PM EDT Office Visit Gynecology/Obstetrics [facility] Hayes [address] [place] [address] Za Esquivel CRNP [address] [place] [address] Hayes, Non Stress Tests Chavo [address] [place] [address] 12/02/2023 9:15 AM EDT Office Visit Gynecology/Obstetrics [facility] Hayes [address] [place] [address] Arielle Lu, SULLY, [address] [place] [address] Freddy Non Stress Tests Chavo [address] [place] [address] 12/05/2023 1:45 PM EDT Office Visit Gynecology/Obstetrics [facility] [address] [place] [address] Za Esquivel CRNP [address] [place] [address] Freddy Non Stress Tests Chavo [address] [place] [address] 12/09/2023 2:30 PM EDT Office Visit Gynecology/Obstetrics [facility] [address] [place] [address] Heraclio Robledo MD [address] [place] [address] Hayes, Non Stress Tests Chavo [address] [place] [address] 12/12/2023 1:45 PM EDT Office Visit Gynecology/Obstetrics [facility] [address] [place] [address] Backer, LYNN Campbell [address] [place] [address] Freddy, Non Stress Tests Chavo [address] [place] [address] Health Maintenance Due Date Last Done Comments [...]
--- OUTSIDE RECORDS SUMMARY | 2023-12-12 12:24 | External Medical Summary ---
Author Name Unknown Address Unknown Organization K01:[facility] – [place] - [address] [place] [address] Laboratory Report Ordering Provider Test Date Status EDY ZACARIAS 11/11/2023 10:35:56 Final Normal: <150 mg/ g creatinine
High: 150-500 mg/g creatinine
Very High: >500 mg/g creatinine
Nephrotic: >3000 mg/g creatinine Observation Date Value Abnormality Reference (Units ) Status Protein/Creatinine [Ratio] in Urine 11/11/2023 10:35:56 139 <150 (mg/g ) Final Protein, Urine 11/11/2023 10:35:56 15 (mg/dL) Final Creatinine, Urine 11/11/2023 10:35:56 108 (mg/dL) Final Performing Location [facility] – [place] - [address] [place] [address]
--- OUTSIDE RECORDS SUMMARY | 2023-12-12 12:24 | External Medical Summary | Summary of Care ---
Author Name Unknown Organization [facility] Address [address] [place] [address] Phone [phone] Care Team Providers Care Workforce Management Consultant Name Role Phone Unavailable Primary Care Provider Unavailabl e Encounter Details Date Type Department Care Team ([facility] st Contact Info) Description 11/08/2023 Orders Only Product Marketing Engineer Obstetric MFM [facility] [address] [place] [address] Luz Cordon CRNP [address] [place], [place] [id number] Pre-existing type 2 diabetes mellitus during , antepartum Allergies Active Allergy Reactions Criticality Noted Date Comments Amoxicillin Nausea/vomiting 06/04/2016 documented as of this encounter (statuses as of 11/08/2023) Medications Medication Sig Dispensed Refills Start Date [...] hemoglobin A1c goal of less than 7.0% ([facility]) Check blood sugars twice daily as directed 100 Each 5 05/15/2023 Active OneTouch Verio In Vitro Strip (Glucose Blood)Indications:T ype 2 diabetes mellitus with hemoglobin A1c goal of less than 7.0% ([facility]) Check blood sugars twice daily [...] evening. 90 Tablet 3 09/20/2023 Active Pen [place] 32G X 4 MMIndications:Pre-e xisting type 2 diabetes mellitus during , antepartum Use to inject insulin twice daily 200 Each 3 09/24/2023 Active hydrOXYzine HCl 50 MG Oral TabletIndications:A [...] at bedtime. 90 mL 3 11/08/2023 Active Lantus SoloStar 100 UNIT/ML Subcutaneous Solution Pen-injectorIndicat ions:Pre-existing type 2 diabetes mellitus during , antepartum Inject under the skin 55 units with breakfast and 65 units at bedtime. 90 mL 3 10/31/2023 4 Discontinued Hospital, Clinic, or Other Facility Administered Medication Ordered Dose Route Frequency Start Date End Date Status Albuterol Sulfate (Proventil) (5 MG/ML) 0.5% *conc* inhalation solution 2.5 mgIndications:Wheezing 2.5 mg NEBULIZER PRN 02/01/2023 02/01/2024 Ac tive documented as of this encounter (statuses as of 11/08/2023) Active Problems Problem Noted Date Diagnosed Date [...] to manage during now, previously followed with [facility] pharmacy. Elevated FBS and PP [...] bedtime 07/11/23-elevations in BS msg sent to Fish Protector 07/11/23: RPM reviewed; elevated FBS and some PP; increase to Basaglar 25 units with breakfast and 45 units at bedtime 07/19/23-elevated sugars- msg sent to timber grader 07/19/23: RPM increase to Basaglar insulin 30 units with breakfast and 50 units at bedtime 07/25/23- stable 07/02/23- elevated sugars sent to COMMONWEALTH ATTORNEY to review 08/01/23: RPM reviewed. Elevated FBS and PP's. (especially after breakfast). Increase Basaglar to 35 units with breakfast and 55 units at bedtime. May need to consider starting short acting with some meals--KW 08/08/23-elevated sugars- sent to COMMONWEALTH ATTORNEY 08/08/23: RPM reviewed. Few elevated FBS and several elevated PP's after lunches and dinners. Increase Basaglar to 45 units with breakfast and 60 units at bedtime --KW 08/16/23-elevations in sugars;msg sent to COMMONWEALTH ATTORNEY 08/16/23: RPM reviewed; blood sugars improving since last dose change; continue Basaglar to 45 units with breakfast and 60 units at bedtime 08/23/23- stable at this time- some elevations- will review again next week 08/29/23-sugars elevated sent to COMMONWEALTH ATTORNEY 08/29/23: RPM reviewed, some elevated after dinner [...] at bedtime 10/03/23-elevated sugars msg sent to COMMONWEALTH ATTORNEY 10/03/23: RPM reviewed; some elevated FBS and a few elevated dinner PP's. Increase Lantus to 50 units with breakfast and 65 units at bedtime ---KW 10/09/23: RPM reviewed; stable overall 10/17/23-stable 10/24/23- stable 10/31/23-some BS elevations msg sent to COMMONWEALTH ATTORNEY 10/31/23: RPM reviewed; some PP elevations; increase [...] as of this encounter (statuses as of 11/08/2023) Resolved Problems Problem Noted Date Diagnosed Date Resolved Date Supervision of high risk pre gnancy in first trimester 05/20/2023 10/16/2023 Tobacco smoking complicating 05/14/2023 05/14/2023 Acute conjunctivitis 08/25/2014 015 Bronchitis, complicated 08/09/201409/26 documented as of this encounter (statuses as of 11/08/2023) Immunizations Name Administration Dates Next Due Hepatitis B, 20+ yrs 07/04/2020,06/03/2020 PPD 09/26/2016,09/24/2014 Pneumococcal Conjugate Vacci ne, 20-valent ([id number]) 11/09/2022 Pneumococcal Polysaccharide PPV23 (Pneumovax) 06/03/2020 Seasonal [...] money to get more. Never true 11/12/2022 [place] Depression Scale Answer Date Recorded Last EPDS [...] Gynecology/Obstetrics Amaris Hayes [address] [place] [address] Arielle Lu, SULLY, CNM [address] [facility] [place] [address] Maile Hayes Stress Tests Chavo [place] [address] 11/14/2023 1:45 PM EDT Office Visit Gynecology/Obstetrics Amaris Hayes [address] [place] [address] BackZa cross CRNP [address] [place] [address] Maile Hayes Stress Tests Chavo [place] [address] 11/14/2023 2:30 PM EDT Imaging Maternal Medicine Imaging, Chavo Hayes [address] [place] [phone] 11/18/2023 11:00 AM EDT Office Visit Gynecology/Obstetrics [facility] [address] [place] [address] Silva Crowder, [place] [address] [place] [address] Hayes, Non Stress Tests Chavo [address] [place] [address] 11/21/2023 9:45 AM EDT Office Visit Gynecology/Obstetrics [facility] Hayes [address] [place] [address] Lolly Wright CRNP [address] [place] [address] Hayes, Non Stress Tests Chavo [address] [place] [address] 11/25/2023 9:15 AM EDT Office Visit Gynecology/Obstetrics [facility] [address] [place] [address] Faby Zelaya, [place] 400 [place] [address] Hayes, Non Stress Tests Chavo [address] [place] [address] 11/28/2023 1:45 PM EDT Office Visit Gynecology/Obstetrics [facility] Hayes [address] [place] [address] Za Esquivel CRNP [address] [place] [address] Hayes, Non Stress Tests Chavo [address] [place] [address] 12/02/2023 9:15 AM EDT Office Visit Gynecology/Obstetrics [facility] Hayes [address] [place] [address] Arielle Lu, SULLY, [facility] [address] [place] [address] Hayes, Non Stress Tests Chavo [address] [place] [address] 12/05/2023 1:45 PM EDT Office Visit Gynecology/Obstetrics [facility] Hayes [address] [place] [address] Za Esquivel CRNP [address] [place] [address] Freddy Non Stress Tests Chavo [address] [place] [address] 12/09/2023 2:30 PM EDT Office Visit Gynecology/Obstetrics [facility] [address] [place] [address] Heraclio Robledo MD [address] [place] [address] Freddy Non Stress Tests Chavo [address] [place] [address] 12/12/2023 1:45 PM EDT Office Visit Gynecology/Obstetrics [facility] [address] [place] [address] Za Esquivel CRNP [address] [place] [address] Freddy Non Stress Tests Chavo [address] [place] [address] Health Maintenance Due Date Last Done Comments Diabetic Eye Exam 2006 Depression Screening 09/29/2019 09/29/2018, 03/14/20 18 Hepatitis B (3 of 3 - 19+ 3-dose series) 12/02/2020 07/04/2020, 06/03/2020 Diabetic Foot Exam 06/03/2021 06/03/2020 COVID-19 Vaccine ( - season) 2023 12/22/2020, 12/01/2020 GFR 09/19/2024 09/19/2023, [...]
--- OUTSIDE RECORDS SUMMARY | 2023-12-12 12:24 | External Medical Summary | Summary of Care ---
Author Name Unknown Organization [facility] Address [address] [place] [address] Phone [phone] Care Team Providers Care Prototype Assembler Electronics Name Role Phone Unavailable Primary Care Provider Unavailabl e Reason for Visit * Reason Comments Outpatient Testing Encounter Details Date Type Department Care Team (Late st Contact Info) Description 11/11/2023 11:40 AM EDT Laboratory Laboratory, [facility] [address] [place] [phone] [facility] [address] [place] [address] Arrived Allergies Active Allergy Reactions Criticality Noted Date [...] hemoglobin A1c goal of less than 7.0% ([facility]) Check blood sugars twice daily as directed 100 Each 5 05/15/2023 Active OneTouch Verio In Vitro Strip (Glucose Blood)Indications:Ty pe 2 diabetes mellitus with hemoglobin A1c goal of less than 7.0% ([facility]) Check blood sugars twice daily as directed [...] evening. 90 Tablet 3 09/20/2023 Active Pen [place] 32G X 4 MMIndications:Pre-ex isting type 2 [...] to manage during now, previously followed with [facility] pharmacy. Elevated FBS and PP values. [...] bedtime 07/11/23-elevations in BS msg sent to Slot Operations Director 07/11/23: RPM reviewed; elevated FBS and some PP; increase to Basaglar 25 units with breakfast and 45 units at bedtime 07/19/23-elevated sugars- msg sent to web mobile designer 07/19/23: RPM increase to Basaglar insulin 30 units with breakfast and 50 units at bedtime 07/25/23- stable 07/02/23- elevated sugars sent to DISTRICT EXTENSION SERVICE AGENT to review 08/01/23: RPM reviewed. Elevated FBS and PP's. (especially after breakfast). Increase Basaglar to 35 units with breakfast and 55 units at bedtime. May need to consider starting short acting with some meals--KW 08/08/23-elevated sugars- sent to DISTRICT EXTENSION SERVICE AGENT 08/08/23: RPM reviewed. Few elevated FBS and several elevated PP's after lunches and dinners. Increase Basaglar to 45 units with breakfast and 60 units at bedtime --KW 08/16/23-elevations in sugars;msg sent to DISTRICT EXTENSION SERVICE AGENT 08/16/23: RPM reviewed; blood sugars improving since last dose change; continue Basaglar to 45 units with breakfast and 60 units at bedtime 08/23/23- stable at this time- some elevations- will review again next week 08/29/23-sugars elevated sent to DISTRICT EXTENSION SERVICE AGENT 08/29/23: RPM reviewed, some elevated after dinner [...] at bedtime 10/03/23-elevated sugars msg sent to DISTRICT EXTENSION SERVICE AGENT 10/03/23: RPM reviewed; some elevated FBS and a few elevated dinner PP's. Increase Lantus to 50 units with breakfast and 65 units at bedtime ---KW 10/09/23: RPM reviewed; stable overall 10/17/23-stable 10/24/23- stable 10/31/23-some BS elevations msg sent to DISTRICT EXTENSION SERVICE AGENT 10/31/23: RPM reviewed; some PP elevations; increase [...] for limited anatomy scan around 13 weeks [facility] anatomy scan scheduled 07/23/2023 Last Assessment & [...] PPD 09/26/2016,09/24/2014 Pneumococcal Conjugate Vacci ne, 20-valent ([id number]) 11/09/2022 Pneumococcal Polysaccharide PPV23 (Pneumovax) 06/03/2020 Seasonal [...] money to get more. Never true 11/12/2022 [place] Depression Scale Answer Date Recorded Last EPDS [...] Gynecology/Obstetrics Amaris Hayes [address] [place] [address] Za Esquivel CRNP [address] [place] [address] Freddy Non Stress Tests Chavofrances [place]ail [place] [address] 11/14/2023 2:30 PM EDT Imaging Maternal Medicine Imaging, Chavo [place] [phone] 11/18/2023 11:00 AM EDT Office Visit Gynecology/Obstetrics [facility]ie[facility]onfr[facility] Hayes [address] [place] [address] Silva Crowder, [address] [place] [address] Freddy, Non Stress Tests Chavo [address] [place] [address] 11/21/2023 9:45 AM EDT Office Visit Gynecology/Obstetrics ArtieDavonfrances Hayes [address] [place] [address] Lolly Wright CRNP [address] [place] [address] Hayes, Non Stress Tests Chavo [address] [place] [address] 11/25/2023 9:15 AM EDT Office Visit Gynecology/Obstetrics [facility] Hayes [address] [place] [address] Faby Zelaya, CN [address] [place] [address] Hayes, Non Stress Tests Chavo [address] [place] [address] 11/28/2023 1:45 PM EDT Office Visit Gynecology/Obstetrics [facility] Hayes [address] [place] [address] Za Esquivel CRNP [address] [place] [address] Freddy, Non Stress Tests Chavo [address] [place] [address] 12/02/2023 9:15 AM EDT Office Visit Gynecology/Obstetrics [facility] [address] [place] [address] Arielle Lu DNP, CNM 400 [place] [address] Hayes, Non Stress Tests Chavo [address] [place] [address] 12/05/2023 1:45 PM EDT Office Visit Gynecology/Obstetrics [facility] [address] [place] [address] Za Esquivel CRNP [address] [place] [address] Maile Hayes Stress Tests Chavo [address] [place] [address] 12/09/2023 2:30 PM EDT Office Visit Gynecology/Obstetrics Amaris Hayes [address] [place] [address] Heraclio Robledo MD [address] [place] [address] Freddy Non Stress Tests Chavo [address] [place] [address] 12/12/2023 1:45 PM EDT Office Visit Gynecology/Obstetrics Amaris Hayes [address] [place] [address] Za Esquivel CRNP [address] [place] [address] Maile Hayes Stress Tests Chavo [address] [place] [address] Health Maintenance Due Date Last Done Comments [...]
--- OUTSIDE RECORDS SUMMARY | 2023-12-12 12:25 | External Medical Summary | Summary of Care ---
Author Name Unknown Organization [facility] Address [address] [place] [address] Phone [phone] Care Team Providers Care Publishing Manager Name Role Phone Unavailable Primary Care Provider Unavailabl e Encounter Details Date Type Department Care Team (Late st Contact Info) Description 10/31/2023 Telephone Gynecology/Obstetrics Amaris Hayes [address] [place] [address] Lolly Wright CRNP [address] [place] [address] Allergies Active Allergy Reactions Criticality Noted Date Comments Amoxicillin Nausea/vomiting 06/04/2016 documented as of this encounter (statuses as of 11/01/2023) Medications Medication Sig Dispensed Refills Start Date [...] A1c goal of less than 7.0% ([facility]) Check blood sugars twice daily as directed 100 Each 5 05/15/2023 Active OneTouch Verio In Vitro Strip (Glucose Blood)Indications:Ty pe 2 diabetes mellitus with hemoglobin A1c goal of less than 7.0% ([facility]) Check blood sugars twice [...] evening. 90 Tablet 3 09/20/2023 Active Pen [place] 32G X 4 MMIndications:Pre-ex isting type 2 [...] as of this encounter (statuses as of 11/01/2023) Active Problems Problem Noted Date Diagnosed Date [...] bedtime 07/11/23-elevations in BS msg sent to Erp Consultant 07/11/23: RPM reviewed; elevated FBS and some PP; increase to Basaglar 25 units with breakfast and 45 units at bedtime 07/19/23-elevated sugars- msg sent to gas worker 07/19/23: RPM increase to Basaglar insulin 30 units with breakfast and 50 units at bedtime 07/25/23- stable 07/02/23- elevated sugars sent to EVENT MARKETING REPRESENTATIVE to review 08/01/23: RPM reviewed. Elevated FBS and PP's. (especially after breakfast). Increase Basaglar to 35 units with breakfast and 55 units at bedtime. May need to consider starting short acting with some meals--KW 08/08/23-elevated sugars- sent to EVENT MARKETING REPRESENTATIVE 08/08/23: RPM reviewed. Few elevated FBS and several elevated PP's after lunches and dinners. Increase Basaglar to 45 units with breakfast and 60 units at bedtime --KW 08/16/23-elevations in sugars;msg sent to EVENT MARKETING REPRESENTATIVE 08/16/23: RPM reviewed; blood sugars improving since last dose change; continue Basaglar to 45 units with breakfast and 60 units at bedtime 08/23/23- stable at this time- some elevations- will review again next week 08/29/23-sugars elevated sent to EVENT MARKETING REPRESENTATIVE 08/29/23: RPM reviewed, some elevated after dinner [...] at bedtime 10/03/23-elevated sugars msg sent to EVENT MARKETING REPRESENTATIVE 10/03/23: RPM reviewed; some elevated FBS and a few elevated dinner PP's. Increase Lantus to 50 units with breakfast and 65 units at bedtime ---KW 10/09/23: RPM reviewed; stable overall 10/17/23-stable 10/24/23- stable 10/31/23-some BS elevations msg sent to EVENT MARKETING REPRESENTATIVE 10/31/23: RPM reviewed; some PP elevations; increase to Lantus 55 units with breakfast and continue 65 units at bedtime Last Assessment & Plan: Working with [facility]. Medication exposure during first trimester of pr caroleenancy 05/14/2023 Overview: LMP approximately middle of February [...] for limited anatomy scan around 13 weeks [facility] anatomy scan scheduled 07/23/2023 Last Assessment [...] as of this encounter (statuses as of 11/01/2023) Resolved Problems Problem Noted Date Diagnosed Date Resolved Date Supervision of high risk pre gnancy in first trimester 05/20/2023 10/16/2023 Tobacco smoking complicating 05/14/2023 05/14/2023 Acute conjunctivitis 08/25/2014 015 Bronchitis, complicated 08/09/201409/26 documented as of this encounter (statuses as of 11/01/2023) Immunizations Name Administration Dates Next Due Hepatitis B, 20+ yrs 07/04/2020,06/03/2020 PPD 09/26/2016,09/24/2014 Pneumococcal Conjugate Vacci ne, 20-valent ([id number]) 11/09/2022 Pneumococcal Polysaccharide PPV23 (Pneumovax) 06/03/2020 Seasonal [...] money to get more. Never true 11/12/2022 [place] Depression Scale Answer Date Recorded Last EPDS [...] encounter Miscellaneous Notes * Telephone Encounter - Sita Westbrook LPN - 10/31/2023 11:19 AM EST error documented in this encounter Plan of Treatment Upcoming Encounters Date Type Department Care Team (Late st Contact Info) Description 11/04/2023 10:15 AM EDT Office Visit Gynecology/Obstetrics [facility] [address] [place] [address] Silva Crowder, [place] [address] [facility] [address] Freddy, Non Stress Tests Chavo [address] [place] [address] 11/07/2023 1:45 PM EDT Office Visit Gynecology/Obstetrics [facility] [address] [place] [address] Za Esquivel CRNP [address] [place] [address] Freddy, Non Stress Tests Chavo [address] [place] [address] 11/11/2023 9:15 AM EDT Office Visit Gynecology/Obstetrics [facility] [address] [place] [address] Arielle Lu DNP, CNM 400 [facility] [place] [address] Hayes, Non Stress Tests Chavo [address] [place] [address] 11/14/2023 1:45 PM EDT Office Visit Gynecology/Obstetrics Amaris cAs [address] [place] [address] Za Esquivel CRNP [address] [place] [address] Hayes, Non Stress Tests Chavo [address] [place] [address] 11/14/2023 2:30 PM EDT Imaging Maternal Medicine Imaging, Chavo Hayes [address] [place] [address] 11/18/2023 11:00 AM EDT Office Visit Gynecology/Obstetrics Amaris Hayes [address] [place] [address] Silva Crowder, [address], [place] [address] Hayes, Non Stress Tests Chavo [address] [place] [address] 11/21/2023 9:45 AM EDT Office Visit Gynecology/Obstetrics Amaris Hayes [address] [place] [address] Lolly Wright CRNP [address] [place] [address] Hayes, Non Stress Tests Chavo [address] [place] [address] 11/25/2023 9:15 AM EDT Office Visit Gynecology/Obstetrics [facility] [address] [place] [address] Faby Zelaya, CN [address] [place] [address] Hayes, Non Stress Tests Chavo [address] [place] [address] 11/28/2023 1:45 PM EDT Office Visit Gynecology/Obstetrics [facility] Hayes [address] [place] [address] BackZa cross CRNP [address] [place] [address] Freddy Non Stress Tests Chavo [address] [place] [address] 12/02/2023 9:15 AM EDT Office Visit Gynecology/Obstetrics [facility] [address] [place] [address] Arielle Lu DNP, CN [address] [place] [address] Freddy Non Stress Tests Chavo [address] [place] [address] 12/05/2023 1:45 PM EDT Office Visit Gynecology/Obstetrics [facility] Hayes [address] [place] [address] BackerZa CRNP [address] [place] [address] Freddy, Non Stress Tests Chavo [address] [place] [address] 12/09/2023 2:30 PM EDT Office Visit Gynecology/Obstetrics [facility] [address] [place] [address] Heraclio Robledo MD [address] [place] [address] Hayes, Non Stress Tests Chavo [address] [place] [address] 12/12/2023 1:45 PM EDT Office Visit Gynecology/Obstetrics Amaris Hayes [address] [place] [address] Backer, LYNN Campbell [address] [place] [address] Freddy Non Stress Tests Chavo [address] [place] [address] Health Maintenance Due Date Last Done Comments Diabetic Eye Exam 2006 Depression Screening 09/29/2019 09/29/2018, 03/14/20 18 Hepatitis B (3 of 3 - 19+ 3-dose series) 12/02/2020 07/04/2020, 06/03/2020 Diabetic Foot Exam 06/03/2021 06/03/2020 COVID-19 Vaccine ( - 2022- season) 2023 12/22/2020, 12/01/2020 GFR 09/19/2024 09/19/2023, [...]
--- OUTSIDE RECORDS SUMMARY | 2023-12-12 12:25 | External Medical Summary | Summary of Care ---
Author Name Unknown Organization [facility] Address [address] [place] [address] Phone [phone] Care Team Providers Care Mixing Picker Tender Name Role Phone Unavailable Primary Care Provider Unavailabl e Encounter Details Date Type Department Care Team (Late st Contact Info) Description 10/17/2023 1:45 PM EST Office Visit Prn Occupational Therapist Obstetrics Maternal [facility], [address] [address] Shani Payne, DO [address] [place] [address] Pre-existing type 2 diabetes mellitus during in third trimester*; Obesity in , antepartum; Ultrasound for screening for growth restriction; 31 weeks gestation of Allergies Active Allergy Reactions Criticality Noted Date Comments Amoxicillin Nausea/vomiting 06/04/2016 documented as of this encounter (statuses as of 10/18/2023) Medications Medication Sig Dispensed Refills Start Date [...] evening. 90 Tablet 3 09/20/2023 Active Pen [place] 32G X 4 MMIndications:Pre-ex isting type 2 diabetes mellitus during , antepartum Use to inject insulin twice daily 200 Each 3 09/24/2023 Active Lantus SoloStar 100 UNIT/ML Subcutaneous Solution Pen-injectorIndicati ons:Pre-existing type 2 diabetes mellitus during , antepartum Inject under the skin 50 units with breakfast and 65 units at bedtime 90 mL 3 10/03/2023 Active hydrOXYzine HCl 50 MG Oral TabletIndications:An xiety during Take 1 Tablet by mouth 4 times a day as needed for Anxiety. 30 Tablet 3 10/16/2023 Active Sertraline HCl 100 MG Oral Tablet (Zoloft)Indications: Anxiety during Take 0.5 Tablets by mouth daily for 7 days, THEN 1 Tablet daily. 94 Tablet 0 10/18/2023 01/23/2024 Active Hospital, Clinic, or Other Facility Administered Medication Ordered Dose Route Frequency Start Date End Date Status Albuterol Sulfate (Proventil) (5 MG/ML) 0.5% *conc* inhalation solution 2.5 mgIndications:Wheezing 2.5 mg NEBULIZER PRN 02/01/2023 02/01/2024 Ac tive documented as of this encounter (statuses as of 10/18/2023) Active Problems Problem Noted Date Diagnosed Date [...] to manage during now, previously followed with [facility] pharmacy. Elevated FBS and PP values. [...] bedtime 07/11/23-elevations in BS msg sent to Pull Over Machine Operator 07/11/23: RPM reviewed; elevated FBS and some PP; increase to Basaglar 25 units with breakfast and 45 units at bedtime 07/19/23-elevated sugars- msg sent to fisheries enforcement officer 07/19/23: RPM increase to Basaglar insulin 30 units with breakfast and 50 units at bedtime 07/25/23- stable 07/02/23- elevated sugars sent to LOAF COUNTER to review 08/01/23: RPM reviewed. Elevated FBS and PP's. (especially after breakfast). Increase Basaglar to 35 units with breakfast and 55 units at bedtime. May need to consider starting short acting with some meals--KW 08/08/23-elevated sugars- sent to LOAF COUNTER 08/08/23: RPM reviewed. Few elevated FBS and several elevated PP's after lunches and dinners. Increase Basaglar to 45 units with breakfast and 60 units at bedtime --KW 08/16/23-elevations in sugars;msg sent to LOAF COUNTER 08/16/23: RPM reviewed; blood sugars improving since last dose change; continue Basaglar to 45 units with breakfast and 60 units at bedtime 08/23/23- stable at this time- some elevations- will review again next week 08/29/23-sugars elevated sent to LOAF COUNTER 08/29/23: RPM reviewed, some elevated after dinner [...] at bedtime 10/03/23-elevated sugars msg sent to LOAF COUNTER 10/03/23: RPM reviewed; some elevated FBS and a few elevated dinner PP's. Increase Lantus to 50 units with breakfast and 65 units at bedtime ---KW 10/09/23: RPM reviewed; stable overall 10/17/23-stable Last Assessment & Plan: Working with [facility]. [...] for limited anatomy scan around 13 weeks [facility] anatomy scan scheduled 07/23/2023 Last Assessment & [...] as of this encounter (statuses as of 10/18/2023) Resolved Problems Problem Noted Date Diagnosed Date Resolved Date Supervision of high risk pre gnancy in first trimester 05/20/2023 10/16/2023 Tobacco smoking complicating 05/14/2023 05/14/2023 Acute conjunctivitis 08/25/2014 015 Bronchitis, complicated 08/09/201409/26 documented as of this encounter (statuses as of 10/18/2023) Immunizations Name Administration Dates Next Due Hepatitis B, 20+ yrs 07/04/2020,06/03/2020 PPD 09/26/2016,09/24/2014 Pneumococcal Conjugate Vacci ne, 20-valent ([id number]) 11/09/2022 Pneumococcal Polysaccharide PPV23 (Pneumovax) 06/03/2020 Seasonal [...] money to buy more. Never true 11/13/19 Within the past 12 months, t he food you bought just didn't last and you didn't have money to get more. Never true 11/12/2022 [place] Depression Scale Answer Date Recorded Last EPDS [...] Progress Notes * Shani Payne DO - 10/18/2023 8:25 AM EST Lilly presented for an ultrasound for the following indications: Pre-existing type 2 diabetes mellitus during in third trimester Assessment & Plan: Working with [facility]. Obesity in , antepartum Ultrasound for screening for growth restriction 31 weeks gestation of Ultrasound summary: Patient presented at 31w 1d for growth assessment. Normal growth with EFW 1928 g at 73%ile. Normal MELINDA at 18.8 cm. Cephalic presentation. I reviewed the ultrasound images. Lilly was given the opportunity to meet with me if she had any questions. Please refer to the ultrasound report for additional details about today's ultrasound examination. RECOMMENDATIONS: Recommend follow up ultrasound with MFM in 4 weeks for growth secondary to above indications. See prior formal MFM consultation note. Thank you for allowing us to participate in the care of this patient. Please call with any questions. Shani Payne DO 10/18/2023 8:25 AM documented in this encounter Miscellaneous Notes * Assessment & Plan Note - Shani Payne DO - 10/18/2023 8:25 AM EST Associated Problem(s): Pre-existing type 2 diabetes mellitus in Working with [facility]. documented in this encounter Plan of Treatment Upcoming Encounters Date Type Department Care Team (Late st Contact Info) Description 10/24/2023 9:45 AM EST Office Visit Gynecology/Obstetrics [address] [place] [address] Silva Crowder CNM [address] [place] [address], [place] [address] Freddy, Non Stress Tests Chavo [address] [place] [address] 10/28/2023 1:45 PM EST Office Visit Gynecology/Obstetrics [facility] [address] [place] [address] Za Esquivel CRNP [address] [place] [address] Freddy Non Stress Tests Chavo [address] [place] [address] 10/31/2023 11:15 AM EST Office Visit Gynecology/Obstetrics [facility] [address] [place] [address] Lolly Wright CRNP [address] [place] [address] Freddy Non Stress Tests Chavo [address] [place] [address] 11/04/2023 10:15 AM EDT Office Visit Gynecology/Obstetrics [facility] [address] [place] [address] Silva Crowder, [place] [address] [facility] [address] Freddy, Non Stress Tests Chavo [address] [place] [address] 11/07/2023 1:45 PM EDT Office Visit Gynecology/Obstetrics [facility] [address] [place] [address] Za Esquivel CRNP [address] [place] [address] Hayes, Non Stress Tests Chavo [address] [place] [address] 11/11/2023 9:15 AM EDT Office Visit Gynecology/Obstetrics [facility] [address] [place] [address] Arielle Lu DNP, CNM [address] [place] [address] Hayes, Non Stress Tests Chavo [address] [place] [address] 11/14/2023 1:45 PM EDT Office Visit Gynecology/Obstetrics [facility] [address] [place] [address] Za Esquivel CRNP [address] [place] [address] Hayes, Non Stress Tests Chavo [address] [place] [address] 11/14/2023 2:30 PM EDT Imaging Maternal Medicine Imaging, Chavo Hayes [address] [place] [address] 11/18/2023 11:00 AM EDT Office Visit Gynecology/Obstetrics [facility] [address] [place] [address] Silva Crowder, [facility] [address] [place] [address] Hayes, Non Stress Tests Chavo [address] [place] [address] 11/21/2023 9:45 AM EDT Office Visit Gynecology/Obstetrics [facility] [address] [place] [address] Lolly Wright CRNP [address] [place] [address] Hayes, Non Stress Tests Chavo [address] [place] [address] 11/25/2023 9:15 AM EDT Office Visit Gynecology/Obstetrics [facility] [address] [place] [address] Faby Zelaya, [place] [address] [place] [address] Hayes, Non Stress Tests Chavo [address] [place] [address] 11/28/2023 1:45 PM EDT Office Visit Gynecology/Obstetrics [facility] [address] [place] [address] Za Esquivel CRNP [address] [place] [address] Hayes, Non Stress Tests Chavo [address] [place] [address] 12/02/2023 9:15 AM EDT Office Visit Gynecology/Obstetrics [facility] [address] [place] [address] Arielle Lu DNP, CNM [address] [place] [address] Hayes, Non Stress Tests Chavo [address] [place] [address] 12/05/2023 1:45 PM EDT Office Visit Gynecology/Obstetrics [facility] Hayes [address] [place] [address] Za Esquivel CRNP [address] [place] [address] Hayes, Non Stress Tests Chavo [address] [place] [address] 12/09/2023 2:30 PM EDT Office Visit Gynecology/Obstetrics Amaris Hayes [address] [place] [address] Heraclio Robledo MD [address] [place] [address] Freddy Non Stress Tests Ch[facility] [address] [place] [address] 12/12/2023 1:45 PM EDT Office Visit Gynecology/Obstetrics [facility] Hayes [address] [place] [address] Za Esquivel CRNP [address] [place] [address] Freddy Non Stress Tests Chavo [address] [place] [address] Health Maintenance Due Date Last Done Comments Diabetic Eye Exam 2006 Depression Screening 09/29/2019 09/29/2018, 03/14/20 18 Hepatitis B (3 of 3 - 19+ 3-dose series) 12/02/2020 07/04/2020, 06/03/2020 Diabetic Foot Exam 06/03/2021 06/03/2020 COVID-19 Vaccine (3 2022- season) 2023 12/22/2020, 12/01/2020 GFR 09/19/2024 [...] or the puerperium, antepartum condition or complication Ultrasound for screening for growth restriction screening for growth retardation using ultrasonics 31 weeks gestation of state, incidental documented in this encounter
--- OUTSIDE RECORDS SUMMARY | 2023-12-12 12:25 | External Medical Summary | Summary of Care ---
Author Name Unknown Organization [facility] Address [address] [place] [address] Phone [phone] Care Team Providers Care Box Spinner Name Role Phone Unavailable Primary Care Provider Unavailabl e Encounter Details Date Type Department Care Team ([facility] st Contact Info) Description 10/31/2023 Orders Only Dairy Worker Obstetric MFM [facility] [address] [place] [address] Luz Cordon CRNP [address] [place], [place] [id number] Pre-existing type 2 diabetes mellitus during , antepartum Allergies Active Allergy Reactions Criticality Noted Date Comments Amoxicillin Nausea/vomiting 06/04/2016 documented as of this encounter (statuses as of 10/31/2023) Medications Medication Sig Dispensed Refills Start Date [...] hemoglobin A1c goal of less than 7.0% ([facility]) Check blood sugars twice daily as directed 100 Each 5 05/15/2023 Active OneTouch Verio In Vitro Strip (Glucose Blood)Indications:T ype 2 diabetes mellitus with hemoglobin A1c goal of less than 7.0% ([facility]) Check blood sugars twice daily as [...] evening. 90 Tablet 3 09/20/2023 Active Pen [place] 32G X 4 MMIndications:Pre-e xisting type 2 [...] at bedtime. 90 mL 3 10/31/2023 Active Lantus SoloStar 100 UNIT/ML Subcutaneous Solution Pen-injectorIndicat ions:Pre-existing type 2 diabetes mellitus during , antepartum Inject under the skin 50 units with breakfast and 65 units at bedtime 90 mL 3 10/03/2023 4 Discontinued Hospital, Clinic, or Other Facility Administered Medication Ordered Dose Route Frequency Start Date End Date Status Albuterol Sulfate (Proventil) (5 MG/ML) 0.5% *conc* inhalation solution 2.5 mgIndications:Wheezing 2.5 mg NEBULIZER PRN 02/01/2023 02/01/2024 Ac tive documented as of this encounter (statuses as of 10/31/2023) Active Problems Problem Noted Date Diagnosed Date [...] manage during now, previously followed with [facility] pharmacy. Elevated FBS and PP [...] bedtime 07/11/23-elevations in BS msg sent to Nightman 07/11/23: RPM reviewed; elevated FBS and some PP; increase to Basaglar 25 units with breakfast and 45 units at bedtime 07/19/23-elevated sugars- msg sent to community center coordinator 07/19/23: RPM increase to Basaglar insulin 30 units with breakfast and 50 units at bedtime 07/25/23- stable 07/02/23- elevated sugars sent to APPLICATION SUPPORT TECHNICIAN to review 08/01/23: RPM reviewed. Elevated FBS and PP's. (especially after breakfast). Increase Basaglar to 35 units with breakfast and 55 units at bedtime. May need to consider starting short acting with some meals--KW 08/08/23-elevated sugars- sent to APPLICATION SUPPORT TECHNICIAN 08/08/23: RPM reviewed. Few elevated FBS and several elevated PP's after lunches and dinners. Increase Basaglar to 45 units with breakfast and 60 units at bedtime --KW 08/16/23-elevations in sugars;msg sent to APPLICATION SUPPORT TECHNICIAN 08/16/23: RPM reviewed; blood sugars improving since last dose change; continue Basaglar to 45 units with breakfast and 60 units at bedtime 08/23/23- stable at this time- some elevations- will review again next week 08/29/23-sugars elevated sent to APPLICATION SUPPORT TECHNICIAN 08/29/23: RPM reviewed, some elevated after dinner [...] at bedtime 10/03/23-elevated sugars msg sent to APPLICATION SUPPORT TECHNICIAN 10/03/23: RPM reviewed; some elevated FBS and a few elevated dinner PP's. Increase Lantus to 50 units with breakfast and 65 units at bedtime ---KW 10/09/23: RPM reviewed; stable overall 10/17/23-stable 10/24/23- stable 10/31/23-some BS elevations msg sent to APPLICATION SUPPORT TECHNICIAN 10/31/23: RPM reviewed; some PP elevations; increase [...] for limited anatomy scan around 13 weeks [facility] anatomy scan scheduled 07/23/2023 Last Assessment & [...] as of this encounter (statuses as of 10/31/2023) Resolved Problems Problem Noted Date Diagnosed Date Resolved Date Supervision of high risk pre gnancy in first trimester 05/20/2023 10/16/2023 Tobacco smoking complicating 05/14/2023 05/14/2023 Acute conjunctivitis 08/25/2014 015 Bronchitis, complicated 08/09/201409/26 documented as of this encounter (statuses as of 10/31/2023) Immunizations Name Administration Dates Next Due Hepatitis B, 20+ yrs 07/04/2020,06/03/2020 PPD 09/26/2016,09/24/2014 Pneumococcal Conjugate Vacci ne, 20-valent ([id number]) 11/09/2022 Pneumococcal Polysaccharide PPV23 (Pneumovax) 06/03/2020 Seasonal [...] money to get more. Never true 11/12/2022 [place] Depression Scale Answer Date Recorded Last EPDS [...] Team (Late st Contact Info) Description 10/31/2023 11:15 AM EST Office Visit Gynecology/Obstetrics Amaris Hayes [address] [place] [address] Lolly Wright CRNP [address] [place] [address] Freddy Non Stress Tests Chavo [address] [place] [address] 11/04/2023 10:15 AM EDT Office Visit Gynecology/Obstetrics ArtieDavonfrances Hayes [address] [place] [address] Silva Crowder, [address] [place] [address] Freddy Non Stress Tests Chavo [address] [place] [address] 11/07/2023 1:45 PM EDT Office Visit Gynecology/Obstetrics Artieli Hayes [address] [place] [address] Za Esquivel CRNP [address] [place] [address] Hayes, Non Stress Tests Chavo [address] [place] [address] 11/11/2023 9:15 AM EDT Office Visit Gynecology/Obstetrics Concepcións Hayes [address] [place] [address] Arielle Lu DNP, CNM [address] [place] [address] Hayes, Non Stress Tests Chavo [address] [place] [address] 11/14/2023 1:45 PM EDT Office Visit Gynecology/Obstetrics Amaris Acs [address] [place] [address] Za Esquivel CRNP [address] [place] [address] Hayes, Non Stress Tests Chavo [address] [place] [address] 11/14/2023 2:30 PM EDT Imaging Maternal Medicine Imaging, Chavo Hayes [address] [place] [address] 11/18/2023 11:00 AM EDT Office Visit Gynecology/Obstetrics Artie's Hayes [address] [place] [address] Silva Crowder, [place] [address] [place] [address] Hayes, Non Stress Tests Chavo [address] [place] [address] 11/21/2023 9:45 AM EDT Office Visit Gynecology/Obstetrics Artie's Hayes [address] [place] [address] Lolly Wright CRNP [address] [place] [address] Hayes, Non Stress Tests Chavo [address] [place] [address] 11/25/2023 9:15 AM EDT Office Visit Gynecology/Obstetrics Alva's Hayes [address] [place] [address] Faby Zelaya, [place] [address] [place] [address] Freddy, Non Stress Tests Chavo [address] [place] [address] 11/28/2023 1:45 PM EDT Office Visit Gynecology/Obstetrics Alva's Hayes [address] [place] [address] Za Esquivel CRNP [address] [place] [address] Freddy, Non Stress Tests Chavo [address] [place] [address] 12/02/2023 9:15 AM EDT Office Visit Gynecology/Obstetrics Alva's Hayes [address] [place] [address] Arielle Lu DNP, CNM [address] [place] [address] Hayes, Non Stress Tests Chavo [address] [place] [address] 12/05/2023 1:45 PM EDT Office Visit Gynecology/Obstetrics Alva's Hayes [address] [place] [address] BackerZa CRNP [address] [place] [address] Freddy Non Stress Tests Chavo [address] [place] [address] 12/09/2023 2:30 PM EDT Office Visit Gynecology/Obstetrics Amaris Hayes [address] [place] [address] Heraclio Robledo MD [address] [place] [address] Maile Hayes Stress Tests [facility] [address] [place] [address] 12/12/2023 1:45 PM EDT Office Visit Gynecology/Obstetrics Alvali Hayes [address] [place] [address] BackerZa CRNP [address] [place] [address] Maile Hayes Stress Tests [facility] [address] [place] [address] Health Maintenance Due Date Last Done Comments [...]
--- OUTSIDE RECORDS SUMMARY | 2023-12-12 12:25 | External Medical Summary | Summary of Care ---
Author Name Unknown Organization [facility] Address [address] [place] [address] Phone [phone] Care Team Providers Care Composition Stone Applicator Name Role Phone Unavailable Primary Care Provider Unavailabl e Reason for Visit * Reason Comments Non Stress Test Encounter Details Date Type Department Care Team ([facility] st Contact Info) Description 10/31/2023 11:15 AM EST Office Visit Gynecology/Obstetric s Artie's Freddy [address] [place] [address] oLlly Wright CRNP [address] [place] [address] Hayes, Non Stress Tests Chavo [address] [place] [address] High-risk in third trimester*; Obesity in , [...] hemoglobin A1c goal of less than 7.0% ([facility]) Check blood sugars twice daily as directed 100 Each 05/15/2023 Active OneTouch Verio In Vitro Strip (Glucose Blood)Indications:Ty pe 2 diabetes mellitus with hemoglobin A1c goal of less than 7.0% ([facility]) Check blood sugars twice daily [...] the evening. 90 Tablet 09/20/2023 Active Pen [place] 32G X 4 MMIndications:Pre-ex isting type 2 [...] to manage during now, previously followed with [facility] pharmacy. Elevated FBS and PP values. [...] bedtime 07/11/23-elevations in BS msg sent to Division Operations Manager 07/11/23: RPM reviewed; elevated FBS and some PP; increase to Basaglar 25 units with breakfast and 45 units at bedtime 07/19/23-elevated sugars- msg sent to biblical studies professor 07/19/23: RPM increase to Basaglar insulin 30 units with breakfast and 50 units at bedtime 07/25/23- stable 07/02/23- elevated sugars sent to COLD ROLLER to review 08/01/23: RPM reviewed. Elevated FBS and PP's. (especially after breakfast). Increase Basaglar to 35 units with breakfast and 55 units at bedtime. May need to consider starting short acting with some meals--KW 08/08/23-elevated sugars- sent to COLD ROLLER 08/08/23: RPM reviewed. Few elevated FBS and several elevated PP's after lunches and dinners. Increase Basaglar to 45 units with breakfast and 60 units at bedtime --KW 08/16/23-elevations in sugars;msg sent to COLD ROLLER 08/16/23: RPM reviewed; blood sugars improving since last dose change; continue Basaglar to 45 units with breakfast and 60 units at bedtime 08/23/23- stable at this time- some elevations- will review again next week 08/29/23-sugars elevated sent to COLD ROLLER 08/29/23: RPM reviewed, some elevated after dinner [...] at bedtime 10/03/23-elevated sugars msg sent to COLD ROLLER 10/03/23: RPM reviewed; some elevated FBS and a few elevated dinner PP's. Increase Lantus to 50 units with breakfast and 65 units at bedtime ---KW 10/09/23: RPM reviewed; stable overall 10/17/23-stable 10/24/23- stable 10/31/23-some BS elevations msg sent to COLD ROLLER 10/31/23: RPM reviewed; some PP elevations; increase [...] for limited anatomy scan around 13 weeks [facility] anatomy scan scheduled 07/23/2023 Last Assessment [...] PPD 09/26/2016,09/24/2014 Pneumococcal Conjugate Vacci ne, 20-valent ([id number]) 11/09/2022 Pneumococcal Polysaccharide PPV23 (Pneumovax) 06/03/2020 Seasonal [...] money to get more. Never true 11/12/2022 [place] Depression Scale Answer Date Recorded Last EPDS [...] Sign Reading Time Taken Comments Blood Pressure 108/68 10/31/2023 12:16 PM EST Pulse - - Temperature - - Respiratory Rate - - Oxygen Saturation - - Inhaled Oxygen Concentration - - Weight - - Height - - Body Mass Index - - documented in this encounter Progress Notes * Lolly Wright CRNP - 10/31/2023 12:15 PM EST ASSESSMENT assessment with Non-stress Test completed on 10/31/2023 at 33.1weeks gestation for indication of diabetes mellitus heart baseline: 130 bpm Variability: Moderate Decelerations: absent Accelerations: present Contractions: None NST start time: 1110 NST stop time: 1137 NST strip reviewed, interpreted, and approved by OB providerLolly CRNP . NST strip stored in clinic storage file documented in this encounter Plan of Treatment Upcoming Encounters Date Type Department Care Team (Late st Contact Info) Description 11/04/2023 10:15 AM EDT Office Visit Gynecology/Obstetrics [facility] [address] [place] [address] Silva Crowder, CN [address] [place] [address] Hayes, Non Stress Tests Chavo [address] [place] [address] 11/07/2023 1:45 PM EDT Office Visit Gynecology/Obstetrics Alva's Hayes [address] [place] [address] BackerZa CRNP [address] [place] [address] Freddy Non Stress Tests Chavo [address] [place] [address] 11/11/2023 9:15 AM EDT Office Visit Gynecology/Obstetrics Alva's Hayes [address] [place] [address] Arielle Lu DNP, CN [address] [place] [address] Freddy, Non Stress Tests Chavo [address] [place] [address] 11/14/2023 1:45 PM EDT Office Visit Gynecology/Obstetrics Alva's Hayes [address] [place] [address] BackerZa CRNP [address] [place] [address] Freddy, Non Stress Tests Chavo [address] [place] [address] 11/14/2023 2:30 PM EDT Imaging Maternal Medicine Imaging, Chavo Hayes [address] [place] [address] 11/18/2023 11:00 AM EDT Office Visit Gynecology/Obstetrics Artie'frances Acs [address] [place] [address] Silva Crowder, [facility] [address] [place] [address] Freddy Non Stress Tests Chavo [address] [place] [address] 11/21/2023 9:45 AM EDT Office Visit Gynecology/Obstetrics Amaris Acs [address] [place] [address] Lolly Wright CRNP [address] [place] [address] Freddy Non Stress Tests Chavo [address] [place] [address] 11/25/2023 9:15 AM EDT Office Visit Gynecology/Obstetrics Amaris Acs [address] [place] [address] Faby Zelaya, [place] [address] [place] [address] Freddy Non Stress Tests Chavo [address] [place] [address] 11/28/2023 1:45 PM EDT Office Visit Gynecology/Obstetrics Amaris Acs [address] [place] [address] Za Esquivel CRNP [address] [place] [address] Freddy Non Stress Tests Chavo [address] [place] [address] 12/02/2023 9:15 AM EDT Office Visit Gynecology/Obstetrics Artie's Hayes [address] [place] [address] Arielle Lu, DNP, CNM [address] [place] [address] Freddy Non Stress Tests Chavo [address] [place] [address] 12/05/2023 1:45 PM EDT Office Visit Gynecology/Obstetrics Artie's Hayes [address] [place] [address] Za Esquivel CRNP [address] [place] [address] Maile Hayes Stress Tests Ch[facility] [address] [place] [address] 12/09/2023 2:30 PM EDT Office Visit Gynecology/Obstetrics [facility]aris Acs [address] [place] [address] Heraclio Robledo MD [address] [place] [address] Maile Hayes Stress Tests Ch[facility] [address] [place] [address] 12/12/2023 1:45 PM EDT Office Visit Gynecology/Obstetrics Artie'frances Acs [address] [place] [address] Za Esquivel CRNP [address] [place] [address] Freddy Non Stress Tests Chavo [address] [place] [address] Health Maintenance Due Date Last Done Comments [...]
--- OUTSIDE RECORDS SUMMARY | 2023-12-12 12:25 | External Medical Summary | Summary of Care ---
Author Name Unknown Organization [facility] Address [address] [place] [address] Phone [phone] Care Team Providers Care Pharmacy Graduate Intern Name Role Phone Unavailable Primary Care Provider Unavailabl e Reason for Visit * Reason Comments Non Stress Test Encounter Details Date Type Department Care Team ([facility] st Contact Info) Description 11/07/2023 1:45 PM EDT Office Visit Gynecology/Obstetric s Alva's Hayes [address] [place] [address] Za Esquivel CRNP [address] [place] [address] Hayes, Non Stress Tests Chavo [address] [place] [address] High-risk in third trimester*; Obesity in , [...] hemoglobin A1c goal of less than 7.0% ([facility]) Check blood sugars twice daily as directed 100 Each 05/15/2023 Active OneTouch Verio In Vitro Strip (Glucose Blood)Indications:Ty pe 2 diabetes mellitus with hemoglobin A1c goal of less than 7.0% ([facility]) Check blood sugars twice daily [...] the evening. 90 Tablet 09/20/2023 Active Pen [place] 32G X 4 MMIndications:Pre-ex isting type 2 [...] to manage during now, previously followed with [facility] pharmacy. Elevated FBS and PP [...] bedtime 07/11/23-elevations in BS msg sent to Tunnel Drier Operator 07/11/23: RPM reviewed; elevated FBS and some PP; increase to Basaglar 25 units with breakfast and 45 units at bedtime 07/19/23-elevated sugars- msg sent to entry level marketing representative 07/19/23: RPM increase to Basaglar insulin 30 units with breakfast and 50 units at bedtime 07/25/23- stable 07/02/23- elevated sugars sent to COMMUNITY ASSOCIATE to review 08/01/23: RPM reviewed. Elevated FBS and PP's. (especially after breakfast). Increase Basaglar to 35 units with breakfast and 55 units at bedtime. May need to consider starting short acting with some meals--KW 08/08/23-elevated sugars- sent to COMMUNITY ASSOCIATE 08/08/23: RPM reviewed. Few elevated FBS and several elevated PP's after lunches and dinners. Increase Basaglar to 45 units with breakfast and 60 units at bedtime --KW 08/16/23-elevations in sugars;msg sent to COMMUNITY ASSOCIATE 08/16/23: RPM reviewed; blood sugars improving since last dose change; continue Basaglar to 45 units with breakfast and 60 units at bedtime 08/23/23- stable at this time- some elevations- will review again next week 08/29/23-sugars elevated sent to COMMUNITY ASSOCIATE 08/29/23: RPM reviewed, some elevated after dinner [...] at bedtime 10/03/23-elevated sugars msg sent to COMMUNITY ASSOCIATE 10/03/23: RPM reviewed; some elevated FBS and a few elevated dinner PP's. Increase Lantus to 50 units with breakfast and 65 units at bedtime ---KW 10/09/23: RPM reviewed; stable overall 10/17/23-stable 10/24/23- stable 10/31/23-some BS elevations msg sent to COMMUNITY ASSOCIATE 10/31/23: RPM reviewed; some PP elevations; increase [...] for limited anatomy scan around 13 weeks [facility] anatomy scan scheduled 07/23/2023 Last Assessment & [...] PPD 09/26/2016,09/24/2014 Pneumococcal Conjugate Vacci ne, 20-valent ([id number]) 11/09/2022 Pneumococcal Polysaccharide PPV23 (Pneumovax) 06/03/2020 Seasonal [...] money to get more. Never true 11/12/2022 [place] Depression Scale Answer Date Recorded Last EPDS [...] Sign Reading Time Taken Comments Blood Pressure 114/70 11/07/2023 2:27 PM EDT Pulse - - Temperature - - Respiratory Rate - - Oxygen Saturation - - Inhaled Oxygen Concentration - - Weight - - Height - - Body Mass Index - - documented in this encounter Progress Notes * Za Esquivel CRNP - 11/07/2023 2:05 PM EDT ASSESSMENT assessment with Non-stress Test completed on 11/07/2023 at 34.1 weeks gestation for indicationof diabetes mellitus heart baseline: 130 bpm Variability: Moderate Decelerations: absent Accelerations: present Contractions: x1 NST start time: 1339 NST stop time: 1415 NST strip reviewed, interpreted, and approved by OB provider, LYNN Rodriguez . NST strip stored in clinic storage file documented in this encounter Plan of Treatment Upcoming Encounters Date Type Department Care Team (Late st Contact Info) Description 11/11/2023 9:15 AM EDT Office Visit Gynecology/Obstetrics [facility]va[facility] Hayes [address] [place] [address] Arielle Lu DNP, CN [address] [place] [address] Hayes, Non Stress Tests [facility] [address] [place] [address] 11/14/2023 1:45 PM EDT Office Visit Gynecology/Obstetrics [facility] Hayes [address] [place] [address] Za Esquivel CRNP [address] [place] [address] Hayes, Non Stress Tests Chavo [address] [place] [address] 11/14/2023 2:30 PM EDT Imaging Maternal Medicine Imaging, Chavo Hayes [address] [place] [address] 11/18/2023 11:00 AM EDT Office Visit Gynecology/Obstetrics [facility] Hayes [address] [place] [address] Silva Crowder, CN [address] [place] [address] Hayes, Non Stress Tests Ch[facility] [address] [place] [address] 11/21/2023 9:45 AM EDT Office Visit Gynecology/Obstetrics [facility] Hayes [address] [place] [address] Lolly Wright CRNP [address] [place] [address] Hayes, Non Stress Tests Ch[facility] [address] [place] [address] 11/25/2023 9:15 AM EDT Office Visit Gynecology/Obstetrics Alva's Hayes [address] [place] [address] Faby Zelaya, [facility] [address] [place] [address] Freddy, Non Stress Tests Chavo [address] [place] [address] 11/28/2023 1:45 PM EDT Office Visit Gynecology/Obstetrics Alva[facility] Hayes [address] [place] [address] BackZa cross CRNP [address] [place] [address] Freddy Non Stress Tests Chavo [address] [place] [address] 12/02/2023 9:15 AM EDT Office Visit Gynecology/Obstetrics Alva[facility] Hayes [address] [place] [address] Arielle Lu DNP, [facility] [address] [place] [address] Freddy Non Stress Tests Chavo [address] [place] [address] 12/05/2023 1:45 PM EDT Office Visit Gynecology/Obstetrics [facility]va[facility] Hayes [address] [place] [address] BackerZa CRNP [address] [place] [address] Freddy Non Stress Tests Chavo [address] [place] [address] 12/09/2023 2:30 PM EDT Office Visit Gynecology/Obstetrics Amaris Hayes [address] [place] [address] Heraclio Robledo MD [address] [address] Freddy Non Stress Tests [facility] [address] [place] [address] 12/12/2023 1:45 PM EDT Office Visit Gynecology/Obstetrics Amaris Hayes [address] [place] [address] Backer, LYNN Campbell [address] [place] [address] Maile Hayes Stress Tests [facility] [address] [place] [address] Health Maintenance Due Date Last Done Comments [...]
--- OUTSIDE RECORDS SUMMARY | 2023-12-12 12:25 | External Medical Summary | Summary of Care ---
Author Name Unknown Organization [facility] Address [address] [place] [address] Phone [phone] Care Team Providers Care Pan Cleaner Name Role Phone Unavailable Primary Care Provider Unavailabl e Reason for Visit * Reason Comments Return Visit Encounter Details Date Type Department Care Team ([facility] st Contact Info) Description 10/28/2023 1:45 PM EST Office Visit Gynecology/Obstetric s Amaris Hayes [address] [place] [address] Za Esquivel CRNP [address] [place] [address] Freddy, Non Stress Tests Chavo [address] [place] [address] High-risk in third trimester*; Obesity in , [...] as of this encounter (statuses as of 10/28/2023) Medications Medication Sig Dispensed Refills Start Date [...] the evening. 90 Tablet 09/20/2023 Active Pen [place] 32G X 4 MMIndications:Pre-ex isting type 2 diabetes mellitus during , antepartum Use to inject insulin twice daily 200 Each 09/24/2023 Active Lantus SoloStar 100 UNIT/ML Subcutaneous [...] as of this encounter (statuses as of 10/28/2023) Active Problems Problem Noted Date Diagnosed Date [...] to manage during now, previously followed with [facility] pharmacy. Elevated FBS and PP values. Increase [...] bedtime 07/11/23-elevations in BS msg sent to Cook Jelly 07/11/23: RPM reviewed; elevated FBS and some PP; increase to Basaglar 25 units with breakfast and 45 units at bedtime 07/19/23-elevated sugars- msg sent to slipcover cutter 07/19/23: RPM increase to Basaglar insulin 30 units with breakfast and 50 units at bedtime 07/25/23- stable 07/02/23- elevated sugars sent to DRAW STRING KNOTTER to review 08/01/23: RPM reviewed. Elevated FBS and PP's. (especially after breakfast). Increase Basaglar to 35 units with breakfast and 55 units at bedtime. May need to consider starting short acting with some meals--KW 08/08/23-elevated sugars- sent to DRAW STRING KNOTTER 08/08/23: RPM reviewed. Few elevated FBS and several elevated PP's after lunches and dinners. Increase Basaglar to 45 units with breakfast and 60 units at bedtime --KW 08/16/23-elevations in sugars;msg sent to DRAW STRING KNOTTER 08/16/23: RPM reviewed; blood sugars improving since last dose change; continue Basaglar to 45 units with breakfast and 60 units at bedtime 08/23/23- stable at this time- some elevations- will review again next week 08/29/23-sugars elevated sent to DRAW STRING KNOTTER 08/29/23: RPM reviewed, some elevated after dinner [...] at bedtime 10/03/23-elevated sugars msg sent to DRAW STRING KNOTTER 10/03/23: RPM reviewed; some elevated FBS and a few elevated dinner PP's. Increase Lantus to 50 units with breakfast and 65 units at bedtime ---KW 10/09/23: RPM reviewed; stable overall 10/17/23-stable 10/24/23- stable Last Assessment & Plan: Working with [facility]. [...] as of this encounter (statuses as of 10/28/2023) Resolved Problems Problem Noted Date Diagnosed Date Resolved Date Supervision of high risk pre gnancy in first trimester 05/20/2023 10/16/2023 Tobacco smoking complicating 05/14/2023 05/14/2023 Acute conjunctivitis 08/25/2014 015 Bronchitis, complicated 08/09/201409/26 documented as of this encounter (statuses as of 10/28/2023) Immunizations Name Administration Dates Next Due Hepatitis B, 20+ yrs 07/04/2020,06/03/2020 PPD 09/26/2016,09/24/2014 Pneumococcal Conjugate Vacci ne, 20-valent ([id number]) 11/09/2022 Pneumococcal Polysaccharide PPV23 (Pneumovax) 06/03/2020 Seasonal [...] money to get more. Never true 11/12/2022 Ava Depression Scale Answer Date Recorded Last EPDS [...] Sign Reading Time Taken Comments Blood Pressure 112/70 10/28/2023 2:39 PM EST Pulse - - Temperature - - Respiratory Rate - - Oxygen Saturation - - Inhaled Oxygen Concentration - - Weight - - Height - - Body Mass Index - - documented in this encounter Progress Notes * Za Esquivel CRNP - 10/28/2023 1:53 PM EST 32w5d Up to date with growth scans, followed by [facility]. Baby is moving well. No ctx, leaking/bleeding. Feels "much better" since switching to Zoloft. Reactive NST. Continue 2x/week. LYNN Rodriguez ASSESSMENT assessment with Non-stress Test completed on 10/28/2023 at 32.5 weeks gestation for indication of diabetes mellitus heart baseline: 130 bpm Variability: Moderate Decelerations: absent Accelerations: present Contractions: None NST start time: 1348 NST stop time: 1431 NST strip reviewed, interpreted, and approved by OB provider, LYNN Rodriguez . NST strip stored in clinic storage file documented in this encounter Plan of Treatment Upcoming Encounters Date Type Department Care Team (Late st Contact Info) Description 10/31/2023 11:15 AM EST Office Visit Gynecology/Obstetrics [facility] Hayes [address] [place] [address] Lolly Wright CRNP [address] [place] [address] Hayes, Non Stress Tests Chavo [address] [place] [address] 11/04/2023 10:15 AM EDT Office Visit Gynecology/Obstetrics [facility] Hayes [address] [place] [address] Silva Crowder, [place] [address] [facility] [place] [address] Hayes, Non Stress Tests Chavo [address] [place] [address] 11/07/2023 1:45 PM EDT Office Visit Gynecology/Obstetrics [facility]ie[facility] Hayes [address] [place] [address] Za Esquivel CRNP [address] [place] [address] Hayes, Non Stress Tests Chavo [address] [place] [address] 11/11/2023 9:15 AM EDT Office Visit Gynecology/Obstetrics [facility] [address] [place] [address] Arielle Lu DNP, CNM [address] [facility] [place] [address] Hayes, Non Stress Tests Chavo [address] [place] [address] 11/14/2023 1:45 PM EDT Office Visit Gynecology/Obstetrics [facility] Hayes [address] [place] [address] Za Esquivel CRNP [address] [place] [address] Hayes, Non Stress Tests Chavo [address] [place] [address] 11/14/2023 2:30 PM EDT Imaging Maternal Medicine Imaging, Chavo Hayes [address] [place] [address] 11/18/2023 11:00 AM EDT Office Visit Gynecology/Obstetrics [facility]aris Acs [address] [place] [address] Silva Crowder, CN [address] [place] [address] Hayes, Non Stress Tests Chavo [address] [place] [address] 11/21/2023 9:45 AM EDT Office Visit Gynecology/Obstetrics [facility] Acs [address] [place] [address] Lolly Wright CRNP [address] [place] [address] Hayes, Non Stress Tests Chavo [address] [place] [address] 11/25/2023 9:15 AM EDT Office Visit Gynecology/Obstetrics [facility] Hayes [address] [place] [address] Faby Zelaya, CNM [address] [facility] [place] [address] Hayes, Non Stress Tests Chavo [address] [place] [address] 11/28/2023 1:45 PM EDT Office Visit Gynecology/Obstetrics Amaris Hayes [address] [place] [address] BackerZa CRNP [address] [place] [address] Freddy Non Stress Tests Chavo [address] [place] [address] 12/02/2023 9:15 AM EDT Office Visit Gynecology/Obstetrics Amaris Hayes [address] [place] [address] Arielle Lu DNP, [address] [address] Maile Hayes Stress Tests Chavo [address] [place] [address] 12/05/2023 1:45 PM EDT Office Visit Gynecology/Obstetrics Amaris Hayes [address] [place] [address] BackerZa CRNP [address] [place] [address] Freddy Non Stress Tests Chavo [address] [place] [address] 12/09/2023 2:30 PM EDT Office Visit Gynecology/Obstetrics Amaris Hayes [address] [place] [address] Heraclio Robledo MD [address] [place] [address] Freddy Non Stress Tests Chavo [address] [place] [address] 12/12/2023 1:45 PM EDT Office Visit Gynecology/Obstetrics Amaris Hayes [address] [place] [address] Backer, ZaLYNN Arellano [address] [place] [address] Freddy, Non Stress Tests Chavo [address] [place] [address] Health Maintenance Due Date Last Done Comments [...]
--- OUTSIDE RECORDS SUMMARY | 2023-12-12 12:25 | External Medical Summary | Summary of Care ---
Author Name Unknown Organization [facility] Address [address] [place] [address] Phone [phone] Care Team Providers Care Lecturer Of Portuguese Name Role Phone Unavailable Primary Care Provider Unavailabl e Reason for Visit * Reason Comments Non Stress Test Encounter Details Date Type Department Care Team ([facility] st Contact Info) Description 11/07/2023 1:45 PM EDT Office Visit Gynecology/Obstetric s [facility] Hayes [address] [place] [address] Za Esquivel CRNP [address] [place] [address] Hayes, Non Stress Tests Chavo [address] [employer] [place] [address] High-risk in third trimester*; Obesity in , [...] hemoglobin A1c goal of less than 7.0% ([facility]) Check blood sugars twice daily as directed 100 Each 05/15/2023 Active OneTouch Verio In Vitro Strip (Glucose Blood)Indications:Ty pe 2 diabetes mellitus with hemoglobin A1c goal of less than 7.0% ([facility]) Check blood sugars twice daily [...] the evening. 90 Tablet 09/20/2023 Active Pen [place] 32G X 4 MMIndications:Pre-ex isting type 2 [...] to manage during now, previously followed with [facility] pharmacy. Elevated FBS and PP values. [...] bedtime 07/11/23-elevations in BS msg sent to Slate Picker 07/11/23: RPM reviewed; elevated FBS and some PP; increase to Basaglar 25 units with breakfast and 45 units at bedtime 07/19/23-elevated sugars- msg sent to experimental plastics fabricator 07/19/23: RPM increase to Basaglar insulin 30 units with breakfast and 50 units at bedtime 07/25/23- stable 07/02/23- elevated sugars sent to BIN PACKER to review 08/01/23: RPM reviewed. Elevated FBS and PP's. (especially after breakfast). Increase Basaglar to 35 units with breakfast and 55 units at bedtime. May need to consider starting short acting with some meals--KW 08/08/23-elevated sugars- sent to BIN PACKER 08/08/23: RPM reviewed. Few elevated FBS and several elevated PP's after lunches and dinners. Increase Basaglar to 45 units with breakfast and 60 units at bedtime --KW 08/16/23-elevations in sugars;msg sent to BIN PACKER 08/16/23: RPM reviewed; blood sugars improving since last dose change; continue Basaglar to 45 units with breakfast and 60 units at bedtime 08/23/23- stable at this time- some elevations- will review again next week 08/29/23-sugars elevated sent to BIN PACKER 08/29/23: RPM reviewed, some elevated after dinner [...] at bedtime 10/03/23-elevated sugars msg sent to BIN PACKER 10/03/23: RPM reviewed; some elevated FBS and a few elevated dinner PP's. Increase Lantus to 50 units with breakfast and 65 units at bedtime ---KW 10/09/23: RPM reviewed; stable overall 10/17/23-stable 10/24/23- stable 10/31/23-some BS elevations msg sent to BIN PACKER 10/31/23: RPM reviewed; some PP elevations; increase [...] for limited anatomy scan around 13 weeks [facility] anatomy scan scheduled 07/23/2023 Last Assessment & [...] PPD 09/26/2016,09/24/2014 Pneumococcal Conjugate Vacci ne, 20-valent ([id number]) 11/09/2022 Pneumococcal Polysaccharide PPV23 (Pneumovax) 06/03/2020 Seasonal [...] money to get more. Never true 11/12/2022 Brant Depression Scale Answer Date Recorded Last EPDS [...] Hayes [address] [place] [address] Arielle Lu DNP, CN [address] [place] [address] Hayes, Non Stress Tests Chavo [address] [place] [address] 11/14/2023 1:45 PM EDT Office Visit Gynecology/Obstetrics [facility] [address] [place] [address] Za Esquivel CRNP [address] [place] [address] Hayes, Non Stress Tests Chavo [address] [place] [address] 11/14/2023 2:30 PM EDT Imaging Maternal Medicine Imaging, Chavo Hayes [address] [place] [address] 11/18/2023 11:00 AM EDT Office Visit Gynecology/Obstetrics [facility] [address] [place] [address] Silva Crowder, CN [address] [place] [address] Hayes, Non Stress Tests Chavo [address] [place] [address] 11/21/2023 9:45 AM EDT Office Visit Gynecology/Obstetrics [facility] [address] [place] [address] Lolly Wright CRNP [address] [place] [address] Hayes, Non Stress Tests Chavo [address] [place] [address] 11/25/2023 9:15 AM EDT Office Visit Gynecology/Obstetrics [facility] [address] [place] [address] Faby Zelaya, [facility] [address] [place] [address] Freddy, Non Stress Tests Chavo [address] [place] [address] 11/28/2023 1:45 PM EDT Office Visit Gynecology/Obstetrics [facility] Hayes [address] [place] [address] BackZa crsos CRNP [address] [place] [address] Freddy Non Stress Tests Chavo [address] [place] [address] 12/02/2023 9:15 AM EDT Office Visit Gynecology/Obstetrics [facility] Hayes [address] [place] [address] Arielle Lu DNP, [facility] [address] [place] [address] Freddy Non Stress Tests Chavo [address] [place] [address] 12/05/2023 1:45 PM EDT Office Visit Gynecology/Obstetrics [facility] Hayes [address] [place] [address] BackerZa CRNP [address] [place] [address] Freddy Non Stress Tests Chavo [address] [place] [address] 12/09/2023 2:30 PM EDT Office Visit Gynecology/Obstetrics Amaris Hayes [address] [place] [address] Heraclio Robledo MD [address] [place] [address] Freddy Non Stress Tests [facility] [address] [place] [address] 12/12/2023 1:45 PM EDT Office Visit Gynecology/Obstetrics Amaris Hayes [address] [place] [address] Backer, LYNN Campbell [address] [place] [address] Maile Hayes Stress Tests [facility] [address] [place] [address] Health Maintenance Due Date Last Done Comments [...]
--- OUTSIDE RECORDS SUMMARY | 2023-12-12 12:25 | External Medical Summary | Summary of Care ---
Author Name Unknown Organization [facility] Address [address] [place] [address] Phone [phone] Care Team Providers Care Regulatory Affairs Manager Name Role Phone Unavailable Primary Care Provider Unavailabl e Reason for Visit * Reason Comments Return Visit Encounter Details Date Type Department Care Team ([facility] st Contact Info) Description 10/24/2023 9:45 AM EST Office Visit Gynecology/Obstetric s Alva's Freddy [address] [facility] [place] [address] Silva Crowder, CN [address] [place] [address] Hayes, Non Stress Tests Chavo [address] [facility] [place] [address] High-risk in third trimester*; Anxiety during ; Antepartum anemia complicating ; Pre-existing type 2 diabetes mellitus during in third trimester; Class 2 obesity Allergies Active Allergy Reactions Criticality Noted Date Comments Amoxicillin Nausea/vomiting 06/04/2016 documented as of this encounter (statuses as of 10/24/2023) Medications Medication Sig Dispensed Refills Start Date [...] of less than 7.0% ([facility]) Check blood sugars twice daily as [...] evening. 90 Tablet 3 09/20/2023 Active Pen [place] 32G X 4 MMIndications:Pre-ex isting type 2 [...] as of this encounter (statuses as of 10/24/2023) Active Problems Problem Noted Date Diagnosed Date [...] (H) 07/18/2018 10:27 AM [facility] ([facility] 03/15/2018 09:21 AM HEMOGLOBIN-OUTSIDE LAB 14.2 10/01/2018 12:00 AM HEMOGLOBIN-OUTSIDE LAB 14.0 04/17/2018 12:00 AM 06/14/23: MFM [facility] visit complete. Desires MFM to manage during now, previously followed with [facility] pharmacy. Elevated FBS and PP [...] bedtime 07/11/23-elevations in BS msg sent to Weighmaster Lead 07/11/23: RPM reviewed; elevated FBS and some PP; increase to Basaglar 25 units with breakfast and 45 units at bedtime 07/19/23-elevated sugars- msg sent to sawmill worker 07/19/23: RPM increase to Basaglar insulin 30 units with breakfast and 50 units at bedtime 07/25/23- stable 07/02/23- elevated sugars sent to BACK SHOE WORKER to review 08/01/23: RPM reviewed. Elevated FBS and PP's. (especially after breakfast). Increase Basaglar to 35 units with breakfast and 55 units at bedtime. May need to consider starting short acting with some meals--KW 08/08/23-elevated sugars- sent to BACK SHOE WORKER 08/08/23: RPM reviewed. Few elevated FBS and several elevated PP's after lunches and dinners. Increase Basaglar to 45 units with breakfast and 60 units at bedtime --KW 08/16/23-elevations in sugars;msg sent to BACK SHOE WORKER 08/16/23: RPM reviewed; blood sugars improving since last dose change; continue Basaglar to 45 units with breakfast and 60 units at bedtime 08/23/23- stable at this time- some elevations- will review again next week 08/29/23-sugars elevated sent to BACK SHOE WORKER 08/29/23: RPM reviewed, some elevated after [...] at bedtime 10/03/23-elevated sugars msg sent to BACK SHOE WORKER 10/03/23: RPM reviewed; some elevated FBS [...] for limited anatomy scan around 13 weeks [facility] anatomy scan scheduled 07/23/2023 Last Assessment [...] as of this encounter (statuses as of 10/24/2023) Resolved Problems Problem Noted Date Diagnosed Date Resolved Date Supervision of high risk pre gnancy in first trimester 05/20/2023 10/16/2023 Tobacco smoking complicating 05/14/2023 05/14/2023 Acute conjunctivitis 08/25/2014 015 Bronchitis, complicated 08/09/201409/26 documented as of this encounter (statuses as of 10/24/2023) Immunizations Name Administration Dates Next Due Hepatitis B, 20+ yrs 07/04/2020,06/03/2020 PPD 09/26/2016,09/24/2014 Pneumococcal Conjugate Vacci ne, 20-valent ([id number]) 11/09/2022 Pneumococcal Polysaccharide PPV23 (Pneumovax) 06/03/2020 Seasonal [...] money to get more. Never true 11/12/2022 Omer Depression Scale Answer Date Recorded Last EPDS [...] Reading Time Taken Comments Blood Pressure 120/68 10/24/2023 10:41 AM EST Pulse - - Temperature - - Respiratory Rate - - Oxygen Saturation - - Inhaled Oxygen Concentration - - Weight 94.3 kg (208 lb) 10/24/2023 10:41 AM EST Height 160 cm (5' 3") 10/24/2023 10:41 AM EST Body Mass Index 36.85 10/24/2023 10:41 AM EST documented in this encounter Progress Notes * Silva Crowder CNM - 10/24/2023 10:32 AM EST ASSESSMENT assessment with Non-stress Test completed on 10/24/2023 at 32w1d EGA for indication of gestational diabetes mellitus heart baseline: 140 bpm from 0932 until 0950, then there were multiple breaks in the strip with difficulty determining baseling from 0950 until 1014, then baseline 125bpm from 1014 until 1034 Variability: Moderate Decelerations: absent Accelerations: present (15x15) Contractions: None NST start time: 0932 NST stop time: 1034 NST strip reviewed, interpreted, and approved by OB provider, Silva Crowder CNM. NST strip stored in clinic storage file. NST reactive Lilly Tristan is a 32 year old female here for NST appointment at 32w1d. She was not scheduled for [facility] appointment today; NST only. Her Estimated Date of Delivery: 12/18/23 REVIEW OF SYSTEMS: She affirms movement. Denies vaginal bleeding, LOF, contractions, N/V, headaches, vision changes, and RUQ pain. PHYSICAL EXAM: Filed Vitals: 10/24/23 1041 BP: 120/68 Weight: 94.3 kg (208 lb) Height: 1.6 m (5' 3") Fundal height: not assessed ASSESSMENT/PLAN: (O24.119) Pre-existing type 2 diabetes mellitus in Plan: -Followed by [facility] for diabetes management -Twice weekly NSTs; NST reactive today -Followed by MFM (O99.340, F41.9) Anxiety during Plan: -Did not address mental health during today's visit. (O99.019) Antepartum anemia complicating Plan: -Hgb 11.2 on 10/16/23 (E66.9) Class 2 obesity Plan: -Twice weekly NSTs for diabetes -Followed by MFM (O09.93) High-risk in third trimester (primary encounter diagnosis) Plan: - labor precautions and kick counts reviewed - RTO in 4 days for NST Silva Crowder CNM documented in this encounter Plan of Treatment Upcoming Encounters Date Type Department Care Team (Late st Contact Info) Description 10/28/2023 1:45 PM EST Office Visit Gynecology/Obstetrics Amaris Hayes [address] [place] [address] Za Esquivel CRNP [address] [place] [address] Freddy, Non Stress Tests Chavo [address] [place] [address] 10/31/2023 11:15 AM EST Office Visit Gynecology/Obstetrics Amaris Hayes [address] [place] [address] Lolly Wright CRNP [address] [place] [address] Hayes, Non Stress Tests Chavo [address] [place] [address] 11/04/2023 10:15 AM EDT Office Visit Gynecology/Obstetrics [facility] Hayes [address] [place] [address] Silva Crowder, [facility] [address] [place] [address] Hayes, Non Stress Tests Chavo [address] [place] [address] 11/07/2023 1:45 PM EDT Office Visit Gynecology/Obstetrics [facility] [address] [place] [address] Za Esquivel CRNP [address] [place] [address] Freddy Non Stress Tests Chavo [address] [place] [address] 11/11/2023 9:15 AM EDT Office Visit Gynecology/Obstetrics [facility] Hayes [address] [place] [address] Arielle Lu DNP, [facility] [address] [place] [address] Freddy Non Stress Tests Chavo [address] [place] [address] 11/14/2023 1:45 PM EDT Office Visit Gynecology/Obstetrics [facility] Hayes [address] [place] [address] Za Esquivel CRNP [address] [place] [address] Freddy, Non Stress Tests Chavo [address] [place] [address] 11/14/2023 2:30 PM EDT Imaging Maternal Medicine Imaging, Chavo Hayes [address] [place], [place] [id number] 11/18/2023 11:00 AM EDT Office Visit Gynecology/Obstetrics [facility] [address] [place] [address] Silva Crowder, [place] [address] [facility] [place] [address] Hayes, Non Stress Tests Chavo [address] [place] [address] 11/21/2023 9:45 AM EDT Office Visit Gynecology/Obstetrics [facility] [address] [place] [address] Lolly Wright CRNP [address] [place] [address] Hayes, Non Stress Tests [facility] [address] [place] [address] 11/25/2023 9:15 AM EDT Office Visit Gynecology/Obstetrics [facility] [address] [place] [address] Faby Zelaya, [place] [address] [facility] [place] [address] Hayes, Non Stress Tests Chavo [address] [place] [address] 11/28/2023 1:45 PM EDT Office Visit Gynecology/Obstetrics [facility] [address] [place] [address] Za Esquivel CRNP [address] [place] [address] Hayes, Non Stress Tests Chavo [address] [place] [address] 12/02/2023 9:15 AM EDT Office Visit Gynecology/Obstetrics [facility] [address] [place] [address] Arielle Lu, SULLY, CNM [address] [facility] [place] [address] Hayes, Non Stress Tests Chavo [address] [place] [address] 12/05/2023 1:45 PM EDT Office Visit Gynecology/Obstetrics [facility] [address] [place] [address] Za Esquivel CRNP [address] [place] [address] Freddy, Non Stress Tests Chavo [address] [place] [address] 12/09/2023 2:30 PM EDT Office Visit Gynecology/Obstetrics [facility] Hayes [address] [place] [address] Heraclio Robledo MD [address] [place] [address] Hayes, Non Stress Tests Chavo [address] [place] [address] 12/12/2023 1:45 PM EDT Office Visit Gynecology/Obstetrics [facility] [address] [place] [address] Za Esquivel CRNP [address] [place] [address] Hayes, Non Stress Tests Chavo [address] [place] [address] Health Maintenance Due Date Last Done Comments [...] Diagnoses Diagnosis High-risk in third trimester- Primary Anxiety during Antepartum anemia complicating Anemia, antepartum Pre-existing type 2 diabetes mellitus during in third trimester Class 2 obesity documented in this encounter
--- OUTSIDE RECORDS SUMMARY | 2023-12-12 12:26 | External Medical Summary ---
Author Name Unknown Address Unknown Organization K01:[place] [facility] [place] [address] [place] [id number] Laboratory Report Ordering Provider Test Date Status ZEYAD JALLOH 10/16/2023 14:41:59 Final Observation Date Value Abnormality Reference (Units ) Status Vitamin B12 10/16/2023 14:41:59 [id number] (pg/mL) Final Performing Location LABORATORY C - [address] [place] [id number]
--- OUTSIDE RECORDS SUMMARY | 2023-12-12 12:26 | External Medical Summary | Summary of Care ---
Author Name Unknown Organization [facility] Address [address] [facility] [place] [address] Phone [phone] Care Team Providers Care Stone Layer Name Role Phone Unavailable Primary Care Provider Unavailabl e Reason for Visit * Reason Comments Return Visit Encounter Details Date Type Department Care Team (Late st Contact Info) Description 10/16/2023 2:15 PM EST Office Visit Gynecology/Obstetric s Amaris Hayes [address] [place] [address] BackerZa CRNP [address] [place] [address] High-risk in third trimester*; Obesity in , antepartum; Pre-existing type 2 diabetes mellitus during in third trimester; Medication exposure during first trimester of ; Family history of cerebral palsy; Anxiety during ; Multigravida of advanced maternal age in third trimester; Abnormal CBC; Echogenic focus of heart of fetus affecting antepartum care of mother, single or unspecified fetus; Antepartum anemia complicating ; Need for prophylactic vaccination with combined wavtrjvjxe-jlygzxf-xq rtussis (DTP) vaccine Allergies Active Allergy Reactions Criticality Noted Date Comments Amoxicillin Nausea/vomiting 06/04/2016 documented as of this encounter (statuses as of 10/16/2023) Medications Medication Sig Dispensed Refills Start Date End Date Status FLUoxetine HCl 20 MG Oral Capsule (PROzac) Take 1 Capsule by mouth in the morning. Take together with the 10mg capsule for a total dose of 30mg.. 90 Capsule 3 10/22/2022 Active FLUoxetine HCl 10 MG Oral Capsule (PROzac) Take 1 Capsule by mouth in the morning. Take together with the 20mg capsule for a total dose of 30mg.. 90 Capsule 3 10/22/2022 Active Vitamin 27-0.8 MG Oral TabletIndications: Encounter for preconception consultation Take 1 Tablet by mouth in the morning. 90 Tablet 3 11/16/2022 Active ProAir HFA 108 (90 Base) MCG/ACT Inhalation Aerosol SolutionIndication s:Wheezing Inhale 2 Puffs by mouth every 4 hours as needed for Shortness of Breath or Wheezing. 18 g 3 03/28/2023 Active OneTouch Delica Lancets 33GIndications:Typ e 2 diabetes mellitus with hemoglobin A1c goal of less than 7.0% ([facility]) Check blood sugars twice daily as directed 100 Each 5 05/15/2023 Active OneTouch Verio In Vitro Strip (Glucose Blood)Indications: Type 2 diabetes mellitus with hemoglobin A1c goal of less than 7.0% ([facility]) Check blood sugars twice daily [...] Kit 0 06/14/2023 Active OneTouch Delica Lancets 33GIndications:Pre -existing type 2 diabetes mellitus during , antepartum,Supervi kiera of high risk in first trimester Monitor blood sugar four times daily (once fasting & 1 hour after breakfast, lunch, and dinner). 200 Each 6 06/14/2023 Active OneTouch Verio In Vitro Strip (Glucose Blood)Indications: Pre-existing [...] evening. 90 Tablet 3 09/20/2023 Active Pen [place] 32G X 4 MMIndications:Pre- existing type 2 diabetes mellitus during , antepartum Use to inject insulin twice daily 200 Each 3 09/24/2023 Active Lantus SoloStar 100 UNIT/ML Subcutaneous Solution Pen-injectorIndica tions:Pre-existing type 2 diabetes mellitus during , antepartum Inject under the skin 50 units with breakfast and 65 units at bedtime 90 mL 3 10/03/2023 Active hydrOXYzine HCl 50 MG Oral TabletIndications: Anxiety during Take 1 Tablet by mouth 4 times a day as needed for Anxiety. 30 Tablet 3 10/16/2023 Active Promethazine HCl 25 MG Oral Tablet (Phenergan) Take 1 Tablet by mouth every 6 hours as needed for Nausea. 30 Tablet 1 05/07/2023 4 Discontinued hydrOXYzine HCl 25 MG Oral Tablet Take 1 Tablet by mouth 4 times a day as needed for Anxiety. 30 Tablet 0 09/10/2023 4 Discontinued Hospital, Clinic, or Other Facility Administered Medication Ordered Dose Route Frequency Start Date End Date Status Albuterol Sulfate (Proventil) (5 MG/ML) 0.5% *conc* inhalation solution 2.5 mgIndications:Wheezing 2.5 mg NEBULIZER PRN 02/01/2023 02/01/2024 Ac tive documented as of this encounter (statuses as of 10/16/2023) Active Problems Problem Noted Date Diagnosed Date [...] during Pt counseled on glucose monitoring at B: check QID, fasting <95 and 1 hr [...] AM 06/14/23: [facility] visit complete. Desires [facility] to manage during now, previously followed with [facility] pharmacy. Elevated FBS and PP values. Increase [...] bedtime 07/11/23-elevations in BS msg sent to Cardiology Clinical Consultant 07/11/23: RPM reviewed; elevated FBS and some PP; increase to Basaglar 25 units with breakfast and 45 units at bedtime 07/19/23-elevated sugars- msg sent to project financial analyst 07/19/23: RPM increase to Basaglar insulin 30 units with breakfast and 50 units at bedtime 07/25/23- stable 07/02/23- elevated sugars sent to NEGATIVE SPOTTER to review 08/01/23: RPM reviewed. Elevated FBS and PP's. (especially after breakfast). Increase Basaglar to 35 units with breakfast and 55 units at bedtime. May need to consider starting short acting with some meals--KW 08/08/23-elevated sugars- sent to NEGATIVE SPOTTER 08/08/23: RPM reviewed. Few elevated FBS and several elevated PP's after lunches and dinners. Increase Basaglar to 45 units with breakfast and 60 units at bedtime --KW 08/16/23-elevations in sugars;msg sent to NEGATIVE SPOTTER 08/16/23: RPM reviewed; blood sugars improving since last dose change; continue Basaglar to 45 units with breakfast and 60 units at bedtime 08/23/23- stable at this time- some elevations- will review again next week 08/29/23-sugars elevated sent to NEGATIVE SPOTTER 08/29/23: RPM reviewed, some elevated after dinner [...] at bedtime 10/03/23-elevated sugars msg sent to NEGATIVE SPOTTER 10/03/23: RPM reviewed; some elevated FBS and a few elevated dinner PP's. Increase Lantus to 50 units with breakfast and 65 units at bedtime ---KW 10/09/23: RPM reviewed; stable overall Last Assessment & Plan: Working with [facility]; insulin recently adjusted. Due to elevated A1c, will refer to peds cardiology for echo. Lilly is still having some days where she is unable to eat due to nausea/vominting. She has been prescribed promethazine. Suggest the addition of B6 sour lollipops as well as consideration to alcohol wipes as the scent can relieve nausea. If she is still having difficulty, please consider adding another antiemetic agent such as Zofran to her regimen. Oral intake is important to maintain while taking insulin. Hemoglobin AIC Results: Lab Results Component Value Date/Time HEMOGLOBIN A1C - [facility] 8.6 (H) 05/14/2023 10:06 AM HEMOGLOBIN A1C - [facility] 7.5 (H) 11/09/2022 02:06 PM HEMOGLOBIN A1C - [facility] 12.5 (H) 06/15/2020 10:09 AM HEMOGLOBIN A1C - [facility] 7.1 (H) 07/18/2018 10:27 AM HEMOGLOBIN A1C - [facility] 11.4 (H) 03/15/2018 09:21 AM Medication exposure during first trimester of pr [...] at this time Anxiety during 05/14/2023 Overview: Well managed with Prozac Reports a stable mood in . Denies any suicidal or homicidal ideation. Reports she has a good support system at home. Last Assessment & Plan: ANXIETY AND DEPRESSION [...] limited anatomy scan around 13 weeks [facility] anatomy scan scheduled 07/23/2023 Last Assessment [...] as of this encounter (statuses as of 10/16/2023) Resolved Problems Problem Noted Date Diagnosed Date Resolved Date Supervision of high risk pre gnancy in first trimester 05/20/2023 10/16/2023 Tobacco smoking complicating 05/14/2023 05/14/2023 Acute conjunctivitis 08/25/2014 015 Bronchitis, complicated 08/09/201409/26 documented as of this encounter (statuses as of 10/16/2023) Immunizations Name Administration Dates Next Due Hepatitis B, 20+ yrs 07/04/2020,06/03/2020 PPD 09/26/2016,09/24/2014 Pneumococcal Conjugate Vacci ne, 20-valent ([id number]) 11/09/2022 Pneumococcal Polysaccharide PPV23 (Pneumovax) 06/03/2020 Seasonal [...] money to get more. Never true 11/12/2022 [place] Depression Scale Answer Date Recorded Last EPDS [...] Sign Reading Time Taken Comments Blood Pressure 120/70 10/16/2023 2:01 PM EST Pulse - - Temperature - - Respiratory Rate - - Oxygen Saturation - - Inhaled Oxygen Concentration - - Weight 95.7 kg (211 lb) 10/16/2023 2:01 PM EST Height - - Body Mass Index 37.38 10/04/2023 2:18 PM EST documented in this encounter Progress Notes * Za Esquivel CRNP - 10/16/2023 2:04 PM EST 31w0d Baby is active; no bleeding, leaking, or ctx. Panic attacks 3-4x/week, wake her in the middle of the night. Not about any particular stressor; she is usually able to talk herself down. Has a good nighttime routine, takes hydroxyzine about 2 hrs before going to bed. She is on daily Prozac. Does not feel like hydroxyzine is as effective as it was at first. Will increase to 50 mg, can use q4 hrs prn. Offered referral to behavioral health; declines for now, but will let us know if desired. She does have sleep apnea and uses a CPAP. Sees MFM for routine growth scans, next one is tomorrow. Pt is uploading glucose level readings to [facility] for management. Accepts Tdap today. Start biweekly NSTs at 32 weeks due to type II DM. Will recheck CBC today. LYNN Rodriguez * Sita Westbrook LPN - 10/16/2023 2:03 PM EST 31w0d Denies vaginal bleeding/rom + movement Having panic attacks 3-4 times weekly- using hydroxyzine feels not as effective now as it was when she first starting taking. Tdap today documented in this encounter Nursing Notes * Sita Westbrook LPN - 10/16/2023 2:23 PM EST Patient here for tdap injection. Patient doing well no complaints. Injection given IM as ordered. Patient tolerated well. Patient to follow up as directed. Patient instructed to call if any complications. Patient verbalized understanding of instructions given. Injection site: Left Deltoid Medication Source: Dispensed stock medication documented in this encounter Plan of Treatment Upcoming Encounters Date Type Department Care Team (Late st Contact Info) Description 10/17/2023 1:45 PM EST Imaging Maternal Medicine Imaging, [facility] [address] [place] [phone] 10/17/2023 1:45 PM EST Office Visit Sex Crimes Detective Obstetrics Maternal Medicine, Chavofrances [address] [place] [address] Shani Payne, DO [address] [place] [address] 10/24/2023 9:45 AM EST Office Visit Gynecology/Obstetrics Amaris Hayes [address] [place] [address] Silva Crowder, CN [address] [place] [address] Freddy Non Stress Tests Chavo [place] [address] 11/07/2023 1:45 PM EDT Office Visit Gynecology/Obstetrics ArtieDavonfrances Hayes [address] [place] [address] Za Esquivel CRNP [address] [place] [address] Freddy Non Stress Tests Chavo [address] [place] [address] 11/11/2023 9:15 AM EDT Office Visit Gynecology/Obstetrics Amaris Hayes [address] [place] [address] Arielle Lu, SULLY, CNM [address] [place] [address] [place] [address] 11/14/2023 1:45 PM EDT Office Visit Gynecology/Obstetrics Amaris Hayes [address] [place], [place] [address] Backer, LYNN Campbell [address] [place], [place] [address] [place] [address] 11/14/2023 2:30 PM EDT Office Visit Sex Crimes Detective Obstetrics Maternal Medicine, [place], [place] [address] Shani Payne, DO [address] [place] [address] 11/14/2023 2:30 PM EDT Imaging Maternal Medicine [place], [place] [phone] 11/18/2023 11:00 AM EDT Office Visit Gynecology/Obstetrics Amaris Hayes [address] [place] [address] Silva Crowder, CNM [address] [place] [address] Freddy Non Stress Tests [place] [address] 11/21/2023 9:45 AM EDT Office Visit Gynecology/Obstetrics Amaris Hayes [address] [place] [address] Lolly Wright CRNP [address] [place] [address] Freddy, Non Stress Tests Chavo [address] [place] [address] 11/25/2023 9:15 AM EDT Office Visit Gynecology/Obstetrics Alva's Hayes [address] [place] [address] Faby Zelaya, CNM [address] [place] [address] Freddy Non Stress Tests Chavo [address] [place] [address] 11/28/2023 1:45 PM EDT Office Visit Gynecology/Obstetrics Alva's Hayes [address] [place] [address] Za Esquivel CRNP [address] [place] [address] Freddy Non Stress Tests Chavo [address] [place] [address] 12/02/2023 9:15 AM EDT Office Visit Gynecology/Obstetrics Alva's Hayes [address] [place] [address] Arielle Lu DNP, CNM [address] [place] [address] Freddy, Non Stress Tests Chavo [address] [place] [address] 12/05/2023 1:45 PM EDT Office Visit Gynecology/Obstetrics Alva's Hayes [address] [place] [address] Za Esquivel CRNP [address] [place] [address] Freddy Non Stress Tests Chavo [address] [place] [address] 12/09/2023 2:30 PM EDT Office Visit Gynecology/Obstetrics Alvali Hayes [address] [place] [address] Heraclio Robledo MD [address] [place] [address] Maile Hayes Stress Tests Chavo [address] [place] [address] 12/12/2023 1:45 PM EDT Office Visit Gynecology/Obstetrics Alvali Hayes [address] [place] [address] Za Esquivel CRNP [address] [place] [address] Maile Hayes Stress Tests Chavo [address] [place] [address] Scheduled Orders Name Type Priority Associated Diagnoses Orde r Schedule CBC WITH WBC DIFFERENTIAL AND ANEMIA REFLEX WORKUP Lab Routine Abnormal CBC Antepartum anemia complicating Expected: 10/16/2023 (Approximate), Expires: 10/16/2024 Health Maintenance Due Date Last Done Comments [...] unspecified fetus Antepartum anemia complicating Anemia, antepartum Need for prophylactic vaccination with combined sjdqrqebrm-fkgpuhd-scfuzeuvt (DTP) vaccine documented in this encounter
--- OUTSIDE RECORDS SUMMARY | 2023-12-12 12:26 | External Medical Summary ---
Author Name Unknown Address Unknown Organization K01:LABORATORY [facility] - [address] [place] [address] Laboratory Report Ordering Provider Test Date Status [id number] 10/16/2023 14:41:59 Final Observation Date Value Abnormality Reference (Units ) Status TSH 10/16/2023 14:41:59 2.90 0.27-4.20 (uIU/mL) Final Performing Location LABORATORY [facility] - [address] [place] [address]
--- OUTSIDE RECORDS SUMMARY | 2023-12-12 12:26 | External Medical Summary | Summary of Care ---
Author Name Unknown Organization [facility] Address [address] [facility] [address] Phone [phone] Care Team Providers Care Batch Trucker Name Role Phone Unavailable Primary Care Provider Unavailabl e Reason for Visit * Reason Comments Return Visit Encounter Details Date Type Department Care Team (Late st Contact Info) Description 10/04/2023 2:15 PM EST Office Visit Gynecology/Obstetric s Amaris Hayes [address] [place] [address] Lolly Wright CRNP [address] [place] [address] High-risk in third trimester*; Obesity in , antepartum; Pre-existing type 2 diabetes mellitus during in third trimester; Medication exposure during first trimester of ; Family history of cerebral palsy; Anxiety during ; Multigravida of advanced maternal age in third trimester; Abnormal CBC; Echogenic focus of heart of fetus affecting antepartum care of mother, single or unspecified fetus Allergies Active Allergy Reactions Criticality Noted Date Comments Amoxicillin Nausea/vomiting 06/04/2016 documented as of this encounter (statuses as of 10/04/2023) Medications Medication Sig Dispensed Refills Start Date [...] 3 10/22/2022 Active Vitamin 27-0.8 MG Oral TabletIndications:Enc ounter for preconception consultation Take 1 Tablet by mouth in the morning. 90 Tablet 3 11/16/2022 Active ProAir HFA 108 (90 Base) MCG/ACT Inhalation Aerosol SolutionIndications:W heezing Inhale 2 Puffs by mouth every 4 hours as needed for Shortness of Breath or Wheezing. 18 g 3 03/28/2023 Active Promethazine HCl 25 MG Oral Tablet (Phenergan) Take 1 Tablet by mouth every 6 hours as needed for Nausea. 30 Tablet 1 05/07/2023 Active OneTouch Delica Lancets 33GIndications:Type 2 diabetes mellitus with hemoglobin A1c goal of less than 7.0% ([facility]) Check blood sugars twice daily as directed 100 Each 5 05/15/2023 Active OneTouch Verio In Vitro Strip (Glucose Blood)Indications:Typ e 2 diabetes mellitus with hemoglobin A1c goal of less than 7.0% ([facility]) Check blood sugars twice daily as directed 100 Strip 5 05/15/2023 Active Aspirin 81 MG Oral Capsule Take by mouth. 0 Active OneTouch Verio w/Device KitIndications:Pre-ex isting type 2 diabetes mellitus during , antepartum,Supervisio n of high risk in first trimester Please monitor blood sugar four times daily (once fasting & 1 hour after breakfast, lunch, and dinner). 1 Kit 0 06/14/2023 Active OneTouch Delica Lancets 33GIndications:Pre-ex isting type 2 diabetes mellitus during , antepartum,Supervisio n of high risk in first trimester Monitor blood sugar four times daily (once fasting & 1 hour after breakfast, lunch, and dinner). 200 Each 6 06/14/2023 Active hydrOXYzine HCl 25 MG Oral Tablet Take 1 Tablet by mouth 4 times a day as needed for Anxiety. 30 Tablet 0 09/10/2023 Active OneTouch Verio In Vitro Strip (Glucose Blood)Indications:Pre -existing type 2 diabetes mellitus during , antepartum,Supervisio n of high risk in first trimester Monitor blood sugar four times daily (once fasting & 1 hour after breakfast, lunch, and dinner). 160 Strip 6 09/12/2023 Active Ferrous Sulfate 325 (65 Fe) MG Oral Tablet (Feosol) Take 1 Tablet by mouth in the morning and 1 Tablet at noon and 1 Tablet in the evening. 90 Tablet 3 09/20/2023 Active Pen [place] 32G X 4 MMIndications:Pre-exi sting type 2 diabetes mellitus during , antepartum Use to inject insulin twice daily 200 Each 3 09/24/2023 Active Lantus SoloStar 100 UNIT/ML Subcutaneous Solution Pen-injectorIndicatio ns:Pre-existing type 2 diabetes mellitus during , antepartum Inject under the skin 50 units with breakfast and 65 units at bedtime 90 mL 3 10/03/2023 Active Hospital, Clinic, or Other Facility Administered Medication Ordered Dose Route Frequency Start Date End Date Status Albuterol Sulfate (Proventil) (5 MG/ML) 0.5% *conc* inhalation solution 2.5 mgIndications:Wheezing 2.5 mg NEBULIZER PRN 02/01/2023 02/01/2024 Ac tive documented as of this encounter (statuses as of 10/04/2023) Active Problems Problem Noted Date Diagnosed Date Antepartum anemia complicating 024 Overview: Hgb 10.2 at 27 wks, start iron Echogenic focus of heart of fetus affecting antepartum care of mother 07/23/2023 Last Assessment & Plan: An echogenic focus [...] further testing is recommended for this finding. Supervision of high risk in first trim allen 05/20/2023 Abnormal CBC 05/15/2023 Overview: Per Ask A [...] to manage during now, previously followed with [facility] pharmacy. Elevated FBS and PP [...] bedtime 07/11/23-elevations in BS msg sent to Hospital Admitting Clerk 07/11/23: RPM reviewed; elevated FBS and some PP; increase to Basaglar 25 units with breakfast and 45 units at bedtime 07/19/23-elevated sugars- msg sent to senior talent management consultant 07/19/23: RPM increase to Basaglar insulin 30 units with breakfast and 50 units at bedtime 07/25/23- stable 07/02/23- elevated sugars sent to SCIENTIFIC INFORMATICS ANALYST to review 08/01/23: RPM reviewed. Elevated FBS and PP's. (especially after breakfast). Increase Basaglar to 35 units with breakfast and 55 units at bedtime. May need to consider starting short acting with some meals--KW 08/08/23-elevated sugars- sent to SCIENTIFIC INFORMATICS ANALYST 08/08/23: RPM reviewed. Few elevated FBS and several elevated PP's after lunches and dinners. Increase Basaglar to 45 units with breakfast and 60 units at bedtime --KW 08/16/23-elevations in sugars;msg sent to SCIENTIFIC INFORMATICS ANALYST 08/16/23: RPM reviewed; blood sugars improving since last dose change; continue Basaglar to 45 units with breakfast and 60 units at bedtime 08/23/23- stable at this time- some elevations- will review again next week 08/29/23-sugars elevated sent to SCIENTIFIC INFORMATICS ANALYST 08/29/23: RPM reviewed, some elevated after dinner [...] at bedtime 10/03/23-elevated sugars msg sent to SCIENTIFIC INFORMATICS ANALYST 10/03/23: RPM reviewed; some elevated FBS and a few elevated dinner PP's. Increase Lantus to 50 units with breakfast and 65 units at bedtime ---KW Last Assessment & Plan: Working with [facility]; [...] as of this encounter (statuses as of 10/04/2023) Resolved Problems Problem Noted Date Diagnosed Date Resolved Date Tobacco smoking complicating 05/14/2023 05/14/2023 Acute conjunctivitis 08/25/2014 015 Bronchitis, complicated 08/09/201409/26 documented as of this encounter (statuses as of 10/04/2023) Immunizations Name Administration Dates Next Due Hepatitis B, 20+ yrs 07/04/2020,06/03/2020 PPD 09/26/2016,09/24/2014 Pneumococcal Conjugate Vacci ne, 20-valent ([id number]) 11/09/2022 Pneumococcal Polysaccharide PPV23 (Pneumovax) 06/03/2020 Seasonal [...] money to get more. Never true 11/12/2022 [place] Depression Scale Answer Date Recorded Last EPDS [...] Sign Reading Time Taken Comments Blood Pressure 118/74 10/04/2023 2:18 PM EST Pulse - - Temperature - - Respiratory Rate - - Oxygen Saturation - - Inhaled Oxygen Concentration - - Weight 94.3 kg (208 lb) 10/04/2023 2:18 PM EST Height 160 cm (5' 3") 10/04/2023 2:18 PM EST Body Mass Index 36.85 10/04/2023 2:18 PM EST documented in this encounter Progress Notes * Lolly Wright CRNP - 10/04/2023 2:36 PM EST 29w2d No concerns. Feeling really well. Insulin dose just increased earlier this week by [facility] team. Having no issues with insulin. Baby is active. No contractions or bleeding. Following with MFM. To begin NSTs twice weekly at 32w. LYNN iFgueredo * Cate Huggins LPN - 10/04/2023 2:18 PM EST 29w2d Denies any concerns documented in this encounter Plan of Treatment Upcoming Encounters Date Type Department Care Team (Late st Contact Info) Description 10/17/2023 1:45 PM EST Imaging Maternal Medicine Imaging, Chavo [address] [place] [phone] 11/14/2023 2:30 PM EDT Office Visit Cement Car Dumper Obstetrics Maternal Medicine, Chavo [address] [place] [address] Shani Payne, DO [address] [place] [address] 11/14/2023 2:30 PM EDT Imaging Maternal Medicine Imaging, Chavo Hayes [address] [facility] [place] [phone] Health Maintenance Due Date Last Done Comments Diabetic Eye Exam 2006 Depression Screening 09/29/2019 09/29/2018, 03/14/20 18 Hepatitis B (3 of 3 - 19+ 3-dose series) 12/02/2020 07/04/2020, 06/03/2020 Diabetic Foot Exam 06/03/2021 06/03/2020 COVID-19 Vaccine (3 - 2022- season) 2023 12/22/2020, 12/01/2020 DTaP,Tdap,and Td Vaccines (2 - Td or Tdap) 07/16/2024 07/16/2014 GFR 09/19/2024 09/19/2023, 04/26, 11/09/2022, Additional history exists Pap Smear 11/16/2025 11/16/2022, 09/2017, 02/14/2016, Additional history exists Cervical Cancer Screening 11/17/2027 HPV/Co-Test 11/17/2027 11/16/2022 Albumin/Creatinine Ratio Discontinued 11/09/2022 Pneumococcal Vaccine: Pediatrics [...] care of mother, single or unspecified fetus documented in this encounter
--- OUTSIDE RECORDS SUMMARY | 2023-12-12 12:26 | External Medical Summary ---
Author Name Unknown Address Unknown Organization K01:LABORATORY [facility] [place] - [address] [facility] [address] Laboratory Report Ordering Provider Test Date Status YEIMIBACKER 10/16/2023 14:41:59 Final Observation Date Value Abnormality Reference (Units ) Status WBC, Total 10/16/2023 14:41:59 15.39 Above high normal 4 .00-10.80 (K/uL) Final RBC 10/16/2023 14:41:59 4.01 3.85-5.15 (M/uL) Final Hemoglobin 10/16/2023 14:41:59 11.2 Below low normal 12 .0-15.3 (g/dL) Final Anemia reflex testing trigge rs on a HGB < 12.0 for Females and HGB < 13.0 for Males in accordance with the WHO Anemia Guidelines
Anemia reflex testing triggers on a HGB < 12.0 for Females and HGB < 13.0 for Males in accordance with the WHO Anemia Guidelines HCT 10/16/2023 14:41:59 36.1 36.0-45.2 (%) Final MCV 10/16/2023 14:41:59 90.0 81.5-97.5 (fL) Final MCH 10/16/2023 14:41:59 27.9 27.0-34.0 (pg) Final MCHC 10/16/2023 14:41:59 31.0 32.0-36.0 (g/dL) Final RDW 10/16/2023 14:41:59 14.7 11.5-15.5 (%) Final Platelets 10/16/2023 14:41:59 434 Above hi gh normal 140-400 (K/uL) Final MPV 10/16/2023 14:41:59 9.6 6.6-11.1 ( fL) Final Nucleated erythrocytes/100 leukocytes [Ratio] in Blood by Automated count 10/16/2023 14:41:59 0 <=0 (/100 WBCs) Final Performing Location LABORATORY [facility] - [facility] [address] [facility] [address]
--- OUTSIDE RECORDS SUMMARY | 2023-12-12 12:26 | External Medical Summary | Summary of Care ---
Author Name Unknown Organization [facility] Address [address] [place] [address] Phone [phone] Care Team Providers Care Bulk Mail Technician Name Role Phone Unavailable Primary Care Provider Unavailabl e Reason for Visit * Reason Onset Date Comments Medication Refill 10/16/2023 Encounter Details Date Type Department Care Team (Late st Contact Info) Description 10/16/2023 Refill Family Practice [facility] [address] [place] [address] Lupis Hawthorne CRNP [address] [place] [address] Allergies Active Allergy Reactions Criticality Noted Date Comments Amoxicillin Nausea/vomiting 06/04/2016 documented as of this encounter (statuses as of 10/17/2023) Medications Medication Sig Dispensed Refills Start Date [...] goal of less than 7.0% ([facility]) Check blood sugars twice daily as directed 100 Each 5 05/15/2023 Active OneTouch Verio In Vitro Strip (Glucose Blood)Indications:T ype 2 diabetes mellitus with hemoglobin A1c goal of less than 7.0% ([facility]) Check blood sugars twice daily as [...] evening. 90 Tablet 3 09/20/2023 Active Pen [place] 32G X 4 MMIndications:Pre-e xisting type 2 diabetes mellitus during , antepartum Use to inject insulin twice daily 200 Each 3 09/24/2023 Active Lantus SoloStar 100 UNIT/ML Subcutaneous Solution Pen-injectorIndicat ions:Pre-existing type 2 diabetes mellitus during , antepartum Inject under the skin 50 units with breakfast and 65 units at bedtime 90 mL 3 10/03/2023 Active FLUoxetine HCl 20 MG Oral Capsule (PROzac) Take 1 Capsule by mouth in the morning. Take together with the 10mg capsule for a total dose of 30mg.. 90 Capsule 10/17/2023 Active FLUoxetine HCl 10 MG Oral Capsule (PROzac) Take 1 Capsule by mouth in the morning. Take together with the 20mg capsule for a total dose of 30mg.. 90 Capsule 3 10/17/2023 Active hydrOXYzine HCl 50 MG Oral TabletIndications:A nxiety during Take 1 Tablet by mouth 4 times a day as needed for Anxiety. 30 Tablet 3 10/16/2023 Active FLUoxetine HCl 20 MG Oral Capsule (PROzac) Take 1 Capsule by mouth in the morning. Take together with the 10mg capsule for a total dose of 30mg.. 90 Capsule 3 10/22/2022 4 Discontinue d(Refill) FLUoxetine HCl 10 MG Oral Capsule (PROzac) Take 1 Capsule by mouth in the morning. Take together with the 20mg capsule for a total dose of 30mg.. 90 Capsule 3 10/22/2022 4 Discontinue d(Refill) Hospital, Clinic, or Other Facility Administered Medication Ordered Dose Route Frequency Start Date End Date Status Albuterol Sulfate (Proventil) (5 MG/ML) 0.5% *conc* inhalation solution 2.5 mgIndications:Wheezing 2.5 mg NEBULIZER PRN 02/01/2023 02/01/2024 Ac tive documented as of this encounter (statuses as of 10/17/2023) Active Problems Problem Noted Date Diagnosed Date [...] manage during now, previously followed with [facility] pharmacy. Elevated FBS and PP values. Increase [...] bedtime 07/11/23-elevations in BS msg sent to Onyx Chip Terrazzo Worker 07/11/23: RPM reviewed; elevated FBS and some PP; increase to Basaglar 25 units with breakfast and 45 units at bedtime 07/19/23-elevated sugars- msg sent to psychiatric arnp 07/19/23: RPM increase to Basaglar insulin 30 units with breakfast and 50 units at bedtime 07/25/23- stable 07/02/23- elevated sugars sent to WINDOWS VMWARE ADMINISTRATOR to review 08/01/23: RPM reviewed. Elevated FBS and PP's. (especially after breakfast). Increase Basaglar to 35 units with breakfast and 55 units at bedtime. May need to consider starting short acting with some meals--KW 08/08/23-elevated sugars- sent to WINDOWS VMWARE ADMINISTRATOR 08/08/23: RPM reviewed. Few elevated FBS and several elevated PP's after lunches and dinners. Increase Basaglar to 45 units with breakfast and 60 units at bedtime --KW 08/16/23-elevations in sugars;msg sent to WINDOWS VMWARE ADMINISTRATOR 08/16/23: RPM reviewed; blood sugars improving since last dose change; continue Basaglar to 45 units with breakfast and 60 units at bedtime 08/23/23- stable at this time- some elevations- will review again next week 08/29/23-sugars elevated sent to WINDOWS VMWARE ADMINISTRATOR 08/29/23: RPM reviewed, some elevated after dinner [...] at bedtime 10/03/23-elevated sugars msg sent to WINDOWS VMWARE ADMINISTRATOR 10/03/23: RPM reviewed; some elevated FBS and [...] as of this encounter (statuses as of 10/17/2023) Resolved Problems Problem Noted Date Diagnosed Date Resolved Date Supervision of high risk pre gnancy in first trimester 05/20/2023 10/16/2023 Tobacco smoking complicating 05/14/2023 05/14/2023 Acute conjunctivitis 08/25/2014 015 Bronchitis, complicated 08/09/201409/26 documented as of this encounter (statuses as of 10/17/2023) Immunizations Name Administration Dates Next Due Hepatitis B, 20+ yrs 07/04/2020,06/03/2020 PPD 09/26/2016,09/24/2014 Pneumococcal Conjugate Vacci ne, 20-valent ([id number]) 11/09/2022 Pneumococcal Polysaccharide PPV23 (Pneumovax) 06/03/2020 Seasonal [...] money to get more. Never true 11/12/2022 [place] Depression Scale Answer Date Recorded Last EPDS [...] encounter Miscellaneous Notes * Telephone Encounter - Barry Loera DO - 10/17/2023 7:52 AM EST Signed Prescriptions: Disp Refills FLUoxetine HCl 20 MG Oral Capsule (PROzac) 90 Cap*3 Sig: Take 1 Capsule by mouth in the morning. Take together with the 10mg capsule for a total dose of 30mg.. Authorizing Provider: BARRY LOERA FLUoxetine HCl 10 MG Oral Capsule (PROzac) 90 Cap*3 Sig: Take 1 Capsule by mouth in the morning. Take together with the 20mg capsule for a total dose of 30mg.. Authorizing Provider: BARRY LOERA * Telephone Encounter - Ana Tran [facility] [place] - 10/17/2023 6:15 AM EST Pending Prescriptions: Disp Refills FLUoxetine HCl 20 MG Oral Capsule (PROzac) 90 Cap*1 Sig: Take 1 Capsule by mouth in the morning. Take together with the 10mg capsule for a total dose of 30mg.. FLUoxetine HCl 10 MG Oral Capsule (PROzac) 90 Cap*1 Sig: Take 1 Capsule by mouth in the morning. Take together with the 20mg capsule for a total dose of 30mg.. - * Telephone Encounter - Ana Tran [facility] [place] - 10/17/2023 6:14 AM EST Protocol not met - pt is documented in this encounter Plan of Treatment Upcoming Encounters Date Type Department Care Team (Late st Contact Info) Description 10/17/2023 1:45 PM EST Imaging Maternal Medicine [facility], [address] [place] [phone] 10/17/2023 1:45 PM EST Office Visit Title One Reading Teacher Obstetrics Maternal Medicine, Chavo Hayes [address] [place] [address] Shani Payne, DO [address] [place] [facility] [facility] [place] [address] 10/24/2023 9:45 AM EST Office Visit Gynecology/Obstetrics [facility] [address] [place] [address] Silva Crowder, CNM [address] [facility], [place] [address] Freddy Non Stress Tests Chavo [address] [place] [address] 10/28/2023 1:45 PM EST Office Visit Gynecology/Obstetrics [facility] [address] [place] [address] Za Esquivel CRNP [address] [place] [address] Freddy Non Stress Tests Chavo [address] [place] [address] 10/31/2023 11:15 AM EST Office Visit Gynecology/Obstetrics [facility] [address] [place] [address] Lolly Wright CRNP [address] [place] [address] Freddy Non Stress Tests Chavo [address] [place] [address] 11/04/2023 10:15 AM EDT Office Visit Gynecology/Obstetrics [facility] [address] [place] [address] Silva Crowder, CNM [address] [place] [address] Freddy, Non Stress Tests Chavo [address] [place] [address] 11/07/2023 1:45 PM EDT Office Visit Gynecology/Obstetrics [facility] [address] [place] [address] Za Esquivel CRNP [address] [place] [address] Freddy Non Stress Tests Chavo [address] [place] [address] 11/11/2023 9:15 AM EDT Office Visit Gynecology/Obstetrics [facility] Hayes [address] [place] [address] Arielle Lu, SULLY, CN [address] [place] [address] Freddy Non Stress Tests Chavo [address] [place] [address] 11/14/2023 1:45 PM EDT Office Visit Gynecology/Obstetrics [facility] [address] [place] [address] Za Esquivel CRNP [address] [place] [address] Freddy Non Stress Tests Chavo [address] [place] [address] 11/14/2023 2:30 PM EDT Imaging Maternal Medicine Imaging, Chavo Hayes [address] [place] [id number] 11/18/2023 11:00 AM EDT Office Visit Gynecology/Obstetrics [facility] [address] [place] [address] Silva Crowder CN [address] [place] [address] Hayes, Non Stress Tests Chavo [address] [place] [address] 11/21/2023 9:45 AM EDT Office Visit Gynecology/Obstetrics [facility] [address] [place] [address] Lolly Wright CRNP [address] [place] [address] Hayes, Non Stress Tests Chavo [address] [place] [address] 11/25/2023 9:15 AM EDT Office Visit Gynecology/Obstetrics [facility] [address] [place] [address] Faby Zelaya CN [address] [place] [address] Hayes, Non Stress Tests Chavo [address] [place] [address] 11/28/2023 1:45 PM EDT Office Visit Gynecology/Obstetrics [facility] [address] [place] [address] Za Esquivel CRNP [address] [place] [address] Hayes, Non Stress Tests Chavo [address] [place] [address] 12/02/2023 9:15 AM EDT Office Visit Gynecology/Obstetrics [facility] [address] [place] [address] Arielle Lu, DNP, CN [address] [place] [address] Hayes, Non Stress Tests Chavo [address] [place] [address] 12/05/2023 1:45 PM EDT Office Visit Gynecology/Obstetrics [facility] [address] [place] [address] Za Esquivel CRNP [address] [place] [address] Freddy Non Stress Tests Chavo [address] [place] [address] 12/09/2023 2:30 PM EDT Office Visit Gynecology/Obstetrics [facility] [address] [place] [address] Heraclio Robledo MD [address] [place] [address] Freddy, Non Stress Tests [facility] [address] [place] [address] 12/12/2023 1:45 PM EDT Office Visit Gynecology/Obstetrics [facility] [address] [place] [address] Za Esquivel CRNP [address] [place] [address] Freddy, Non Stress Tests Chavo [address] [place] [address] Health Maintenance Due Date Last Done Comments [...]
--- OUTSIDE RECORDS SUMMARY | 2023-12-12 12:26 | External Medical Summary ---
Author Name Unknown Address Unknown Organization K01:[place]ORY [facility] [place] [address] [place] [id number] Laboratory Report Ordering Provider Test Date Status ZEYAD JALLOH 10/16/2023 14:41:59 Final Observation Date Value Abnormality Reference (Units ) Status Folic Acid 10/16/2023 14:41:59 5.2 >4.5 (ng/ mL) Final Performing Location LABORATORY [facility] - [address] [place] [id number]
--- OUTSIDE RECORDS SUMMARY | 2023-12-12 12:26 | External Medical Summary ---
Author Name Unknown Address Unknown Organization K01:[place] [facility] [place] [address] [facility] [address] Laboratory Report Ordering Provider Test Date Status YEIMIBACKER 10/16/2023 14:41:59 Final Observation Date Value Abnormality Reference (Units ) Status SYNC LEUKOCYTES IN BLOOD BY AUTOMATED COUNT 10/16/2023 14:41:59 15.39 Above high normal 4.00-10.80 (K/uL) Final Segs 10/16/2023 14:41:59 70.8 40.0-75.0 (%) Final Lymphs % 10/16/2023 14:41:59 20.8 18.0-42.0 (%) Final Monos 10/16/2023 14:41:59 6.1 1.0-11.0 (%) Final Eosinophils 10/16/2023 14:41:59 1.3 0.0-6.0 (%) Final Basos 10/16/2023 14:41:59 0.4 0.0-2.0 (%) Final Immature Granulocyte, Percent 10/16/2023 14:41:59 0.6 0.0-2.0 (%) Final Absolute Segs 10/16/2023 14:41:59 10.89 Above high normal 1.80-7.70 (K/uL) Final Lymphs, absolute 10/16/2023 14:41:59 3.20 1.00-4.80 (K/ul) Final Monos, Abs 10/16/2023 14:41:59 0.94 0.00-1.10 (K/uL) Final Eos, Abs 10/16/2023 14:41:59 0.20 0.00-0.70 (K/uL) Final Basos, Abs 10/16/2023 14:41:59 0.06 0.00-0.20 (K/uL) Final Immature Granulocytes, Number 10/16/2023 14:41:59 0.10 0.00-0.20 (K/uL) Final Performing Location [place] [facility] [place] [address] [facility] [address]
--- OUTSIDE RECORDS SUMMARY | 2023-12-12 12:26 | External Medical Summary | Summary of Care ---
Author Name Unknown Organization [facility] Address [address] [place] [address] Phone [phone] Care Team Providers Care Account Liaison Name Role Phone Unavailable Primary Care Provider Unavailabl e Reason for Visit * Reason Comments Outpatient Testing Encounter Details Date Type Department Care Team (Late st Contact Info) Description 10/16/2023 2:40 PM EST Laboratory Laboratory, [facility] [address] [place] [id number] [facility] [address] [place] [address] Abnormal CBC; Antepartum anemia complicating Allergies Active Allergy Reactions [...] HFA 108 (90 Base) MCG/ACT Inhalation Aerosol SolutionIndications:Jose R alonso Inhale 2 Puffs by mouth every 4 hours as needed for Shortness of Breath or Wheezing. 18 g 3 03/28/2023 Active OneTouch Delica Lancets 33GIndications:Type 2 diabetes mellitus with hemoglobin A1c goal of less than 7.0% ([facility]) Check blood sugars twice daily as directed 100 Each 5 05/15/2023 Active OneTouch Verio In Vitro Strip (Glucose Blood)Indications:Typ e 2 diabetes mellitus with hemoglobin A1c goal of less than 7.0% ([facility]) Check blood sugars twice daily as [...] evening. 90 Tablet 3 09/20/2023 Active Pen [place] 32G X 4 MMIndications:Pre-exi sting type 2 diabetes mellitus during , antepartum Use to inject insulin twice daily 200 Each 3 09/24/2023 Active Lantus SoloStar 100 UNIT/ML Subcutaneous Solution Pen-injectorIndicatio ns:Pre-existing type 2 diabetes mellitus during , antepartum Inject under the skin 50 units with breakfast and 65 units at bedtime 90 mL 3 10/03/2023 Active hydrOXYzine HCl 50 MG Oral TabletIndications:Anx iety during Take 1 Tablet by mouth 4 times a day as needed for Anxiety. 30 Tablet 3 10/16/2023 Active Hospital, Clinic, or Other Facility Administered [...] bedtime 07/11/23-elevations in BS msg sent to Hot Box Operator 07/11/23: RPM reviewed; elevated FBS and some PP; increase to Basaglar 25 units with breakfast and 45 units at bedtime 07/19/23-elevated sugars- msg sent to telecasting technician 07/19/23: RPM increase to Basaglar insulin 30 units with breakfast and 50 units at bedtime 07/25/23- stable 07/02/23- elevated sugars sent to SUPERVISOR P[employer]ODUCTS to review 08/01/23: RPM reviewed. Elevated FBS and PP's. (especially after breakfast). Increase Basaglar to 35 units with breakfast and 55 units at bedtime. May need to consider starting short acting with some meals--KW 08/08/23-elevated sugars- sent to SUPER[employer] 08/08/23: RPM reviewed. Few elevated FBS and several elevated PP's after lunches and dinners. Increase Basaglar to 45 units with breakfast and 60 units at bedtime --KW 08/16/23-elevations in sugars;msg sent to SUPERVIS[employer] 08/16/23: RPM reviewed; blood sugars improving since last dose change; continue Basaglar to 45 units with breakfast and 60 units at bedtime 08/23/23- stable at this time- some elevations- will review again next week 08/29/23-sugars elevated sent to SUPER[employer] 08/29/23: RPM reviewed, some elevated after dinner [...] at bedtime 10/03/23-elevated sugars msg sent to SUPERVISOR [employer] 10/03/23: RPM reviewed; some elevated FBS and [...] PPD 09/26/2016,09/24/2014 Pneumococcal Conjugate Vacci ne, 20-valent ([id number]) 11/09/2022 Pneumococcal Polysaccharide PPV23 (Pneumovax) 06/03/2020 Seasonal [...] money to get more. Never true 11/12/2022 [place] Depression Scale Answer Date Recorded Last EPDS [...] Maternal Medicine Imaging, Chavo [address] [place] [phone] 10/17/2023 1:45 PM EST Office Visit Computer Aided Drafter Obstetrics Maternal Medicine, [facility] [address] [place] [address] Shani Payne, DO [address] [facility] [address] 10/24/2023 9:45 AM EST Office Visit Gynecology/Obstetrics [facility] [address] [place] [address] Silva Crowder, [facility] [address] [place] [address] Freddy Non Stress Tests Chavo [address] [place] [address] 11/07/2023 1:45 PM EDT Office Visit Gynecology/Obstetrics [facility] [address] [place] [address] Za Esquivel CRNP [address] [place] [address] Freddy Non Stress Tests Chavo [address] [place] [address] 11/11/2023 9:15 AM EDT Office Visit Gynecology/Obstetrics [facility] [address] [place] [address] Arielle Lu, SULLY, CN [address] [place] [address] Freddy Non Stress Tests Chavo [address] [place] [address] 11/14/2023 1:45 PM EDT Office Visit Gynecology/Obstetrics [facility] [address] [place] [address] Za Esquivel CRNP [address] [place] [address] Freddy Non Stress Tests Chavo [address] [place] [address] 11/14/2023 2:30 PM EDT Office Visit Computer Aided Drafter Obstetrics Maternal Medicine, Chavo Hayes [address] [place] [address] Pina Paynene Martinezi, DO [address] [facility] [place] [address] 11/14/2023 2:30 PM EDT Imaging Maternal Medicine Imaging, Chavo Hayes [address] [place] [address] 11/18/2023 11:00 AM EDT Office Visit Gynecology/Obstetrics [facility] [address] [place] [address] Silva Crowder, NADE[place] [address] [place] [address] Freddy Non Stress Tests Chavo [address] [place] [address] 11/21/2023 9:45 AM EDT Office Visit Gynecology/Obstetrics [facility] [address] [place] [address] Lolly Wright CRNP [address] [place] [address] Freddy Non Stress Tests Chavo [address] [place] [address] 11/25/2023 9:15 AM EDT Office Visit Gynecology/Obstetrics [facility] [address] [place] [address] Faby Zelaya, NADE[place] [address] [place] [address] Freddy, Non Stress Tests Chavo [address] [place] [address] 11/28/2023 1:45 PM EDT Office Visit Gynecology/Obstetrics [facility] [address] [place] [address] Za Esquivel CRNP [address] [place] [address] Freddy Non Stress Tests Chavo [address] [place] [address] 12/02/2023 9:15 AM EDT Office Visit Gynecology/Obstetrics [facility] [address] [place] [address] Arielle Lu, SULLY, CN [address] [place], [place] [address] Freddy Non Stress Tests Chavo [address] [place] [address] 12/05/2023 1:45 PM EDT Office Visit Gynecology/Obstetrics [facility] [address] [place] [address] Za Esquivel CRNP [address] [place] [address] Freddy Non Stress Tests Chavo [address] [place] [address] 12/09/2023 2:30 PM EDT Office Visit Gynecology/Obstetrics [facility] [address] [place] [address] Heraclio Robledo MD [address] [place] [address] Freddy Non Stress Tests Chavo [address] [place] [address] 12/12/2023 1:45 PM EDT Office Visit Gynecology/Obstetrics [facility] [address] [place] [address] Za Esquivel CRNP [address] [place] [address] Hayes, Maile Stress Tests Chavo [address] [place] [address] Pending Results Name Type Priority Associated Diagnoses Date /Time CBC WITH WBC DIFFERENTIAL AND ANEMIA REFLEX WORKUP Lab Routine Abnormal CBC Antepartum anemia complicating 10/16/2023 2:41 PM EST ANEMIA CBC Lab Routine Abnormal CBC Antepartum anemia complicating 10/16/2023 2:41 PM EST DIFFERENTIAL, AUTOMATED Lab Routine Abnormal CBC Antepartum anemia complicating 10/16/2023 2:41 PM EST ANEMIA REFLEX CHEMISTRY HOLD Lab Routine Abnormal CBC Antepartum anemia complicating 10/16/2023 2:41 PM EST Health Maintenance Due Date Last Done Comments [...] as of this encounter Visit Diagnoses Diagnosis Abnormal CBC Other abnormal blood chemistry Antepartum anemia complicating Anemia, antepartum documented in this encounter
--- OUTSIDE RECORDS SUMMARY | 2023-12-12 12:26 | External Medical Summary | Summary of Care ---
Author Name Unknown Organization [facility] Address [address] [place] [address] Phone [phone] Care Team Providers Care Property And Supply Officer Name Role Phone Unavailable Primary Care Provider Unavailabl e Reason for Visit * Reason Comments eRx-Medication Refill Encounter Details Date Type Department Care Team (Late st Contact Info) Description 10/12/2023 Refill Family Practice [facility] [address] [place] [id number] Lupis Hawthorne CRNP [address] [place] [address] Allergies Active Allergy Reactions Criticality Noted Date Comments Amoxicillin Nausea/vomiting 06/04/2016 documented as of this encounter (statuses as of 10/14/2023) Medications Medication Sig Dispensed Refills Start Date [...] 108 (90 Base) MCG/ACT Inhalation Aerosol SolutionIndications:W gavin Inhale 2 Puffs by mouth every 4 [...] lunch, and dinner). 200 Each 06/14/2023 Active hydrOXYzine HCl 25 MG Oral [...] evening. 90 Tablet 3 09/20/2023 Active Pen [place] 32G X 4 MMIndications:Pre-exi sting type 2 [...] as of this encounter (statuses as of 10/14/2023) Active Problems Problem Noted Date Diagnosed Date [...] this finding. Supervision of high risk in [facility] 05/20/2023 Abnormal CBC 05/15/2023 Overview: Per Ask [...] to manage during now, previously followed with [facility] pharmacy. Elevated FBS and PP [...] bedtime 07/11/23-elevations in BS msg sent to Stunt Performer 07/11/23: RPM reviewed; elevated FBS and some PP; increase to Basaglar 25 units with breakfast and 45 units at bedtime 07/19/23-elevated sugars- msg sent to survey statistician 07/19/23: RPM increase to Basaglar insulin 30 units with breakfast and 50 units at bedtime 07/25/23- stable 07/02/23- elevated sugars sent to KILN WORKER to review 08/01/23: RPM reviewed. Elevated FBS and PP's. (especially after breakfast). Increase Basaglar to 35 units with breakfast and 55 units at bedtime. May need to consider starting short acting with some meals--KW 08/08/23-elevated sugars- sent to KILN WORKER 08/08/23: RPM reviewed. Few elevated FBS and several elevated PP's after lunches and dinners. Increase Basaglar to 45 units with breakfast and 60 units at bedtime --KW 08/16/23-elevations in sugars;msg sent to KILN WORKER 08/16/23: RPM reviewed; blood sugars improving since last dose change; continue Basaglar to 45 units with breakfast and 60 units at bedtime 08/23/23- stable at this time- some elevations- will review again next week 08/29/23-sugars elevated sent to KILN WORKER 08/29/23: RPM reviewed, some elevated after [...] at bedtime 10/03/23-elevated sugars msg sent to KILN WORKER 10/03/23: RPM reviewed; some elevated FBS [...] (H) 07/18/2018 10:27 AM HEMOGLOBIN A1C - WILLIAN 11.4 (H) 03/15/2018 09:21 AM Medication exposure [...] as of this encounter (statuses as of 10/14/2023) Resolved Problems Problem Noted Date Diagnosed Date Resolved Date Tobacco smoking complicating 05/14/2023 05/14/2023 Acute conjunctivitis 08/25/2014 015 Bronchitis, complicated 08/09/201409/26 documented as of this encounter (statuses as of 10/14/2023) Immunizations Name Administration Dates Next Due Hepatitis B, 20+ yrs 07/04/2020,06/03/2020 PPD 09/26/2016,09/24/2014 Pneumococcal Conjugate Vacci ne, 20-valent ([id number]) 11/09/2022 Pneumococcal Polysaccharide PPV23 (Pneumovax) 06/03/2020 Seasonal [...] money to get more. Never true 11/12/2022 [place] Depression Scale Answer Date Recorded Last EPDS [...] encounter Miscellaneous Notes * Telephone Encounter - Lilibeth Monreal LPN - 10/14/2023 11:09 AM ESTRefused Prescriptions: Disp Refills FLUoxetine HCl 20 MG Oral Capsule (PROzac) 90 Cap*0 Sig: TAKE 1CAP BY MOUTH IN THE MORNING WITH THE 10MG CAPSULE FOR A TOTAL DOSE OF 30MG..Refused By: Gerardo MONREAL for Refusal: Other (comment below) FLUoxetine HCl 10 MG Oral Capsule (PROzac) 90 Cap*0 Sig: TAKE 1 CAPSULE BY MOUTH IN THE MORNING, TAKE TOGETHER WITH THE 20MG CAPSULE FOR A TOTALDOSE OF 30MGRefused By: Gerardo MONREAL for Refusal: Other (comment below) * Telephone Encounter - Candi Jeffery stationary plant operators - 10/14/2023 10:46 AM EST Pending Prescriptions: Disp Refills FLUoxetine HCl 20 MG Oral Capsule (PROzac) 90 Cap*0 Sig: TAKE 1 CAP BY MOUTH IN THE MORNING WITH THE 10MG CAPSULE FOR A TOTAL DOSE OF 30MG.. FLUoxetine HCl 10 MG Oral Capsule (PROzac) 90 Cap*0 Sig: TAKE 1 CAPSULE BY MOUTH IN THE MORNING, TAKE TOGETHER WITH THE 20MG CAPSULE FOR A TOTAL DOSE OF 30MG * Telephone Encounter - Candi Jeffery PHARM Tech - 10/14/2023 10:45 AM EST Received message from [facility] regarding patient needing appointment. Placed call to patient to advise. Pt was agreeable to set up appointment but did not want to schedule at this time. Patient advised they will call back to set up appointment. Will schedule after she has the baby, is due in November. Thank you, Candi Jeffery [facility] Food Beverage Supervisor II [facility] (formerly Telepharmacy) 10/14/2023,10:45 AM * Telephone Encounter - Agueda Brar [facility] - 10/13/2023 7:04 PM ESTPending Prescriptions: Disp Refills FLUoxetine HCl 20 MG Oral Capsule (PROzac) 90 Cap*0 Sig: TAKE 1 CAP BY MOUTH IN THE MORNING WITH THE 10MG CAPSULE FOR A TOTAL DOSE OF 30MG.. FLUoxetine HCl 10 MG Oral Capsule (PROzac) 90 Cap*0 Sig: TAKE 1 CAPSULE BY MOUTH IN THE MORNING, TAKE TOGETHER WITH THE 20MG CAPSULE FOR A TOTAL DOSE OF 30MG * Telephone Encounter - Agueda Brar [facility] - 10/13/2023 7:03 PM EST Previous patient of Dr. Kearney. Please contact patient so that an appointment can be scheduled with a NEW PRIMARY CARE provider before this refill can be authorized. After contacting patient, please forward request to the [facility] nurse pool. Last Visit: 03/26/2023 (in office), 10/22/2022 (telemedicine) Next Visit: Visit date not found Thank you, Agueda Brar, PharmD Clinical Pharmacist [facility]) 10/13/23 7:04 PM [phone] * Telephone Encounter - Agueda Brar [facility] - 10/13/2023 7:01 PM EST Pending Prescriptions: Disp Refills FLUoxetine HCl 20 MG Oral Capsule (PROzac*90 Cap*0 Sig: TAKE 1 CAP BY MOUTH IN THE MORNING WITH THE 10MG CAPSULE FOR A TOTAL DOSE OF 30MG.. FLUoxetine HCl 10 MG Oral Capsule (PROzac*90 Cap*0 Sig: TAKE 1 CAPSULE BY MOUTH IN THE MORNING, TAKE TOGETHER WITH THE 20MG CAPSULE FOR A TOTAL DOSE OF 30MG Last Visit: 03/26/2023 (in office), 10/22/2022 (telemedicine) Next Visit: Visit date not found If no future appointments scheduled, and last appointment is greater than a year ago, please schedule patient for a follow-up appointment Last date the medication was ordered: 10/22/22 Pharmacy: [id number] Is this request for a controlled substance? No Urine Drug Screen:No results found for this or any previous visit. Patient Phone Numbers Labs: Lab Results Component Value Date/Time CREAT 0.5 09/19/2023 08:35 AM CREAT 0.6 06/15/2020 10:09 AM POTASSIUM 3.8 09/19/2023 08:35 AM POTASSIUM 4.8 06/15/2020 10:09 AM TSH 1.49 05/14/2023 10:06 AM TSH 1.27 03/15/2018 09:21 AM LDLCALC 181 (H) 11/09/2022 02:06 PM LDLCALC 149 (H) 03/15/2018 09:21 AM LDLDIRECT 172 (H) 06/15/2020 10:09 AM ALT 19 09/19/2023 08:35 AM ALT 94 (H) 06/15/2020 10:09 AM HGBA1C 8.6 (H) 05/14/2023 10:06 AM HGBA1C 12.5 (H) 06/15/2020 10:09 AM documented in this encounter Plan of Treatment Upcoming Encounters Date Type Department Care Team (Late st Contact Info) Description 10/16/2023 2:15 PM EST Office [facility] [address] [facility] [place] [address] Za Esquivel CRNP [address] [facility] [place] [address] 10/17/2023 1:45 PM EST Imaging Maternal Medicine Imaging, [facility] [address] [place] [address] [place] [phone] 11/14/2023 2:30 PM EDT Office Visit Regional Vice President Life Sales Obstetrics Maternal Medicine, [facility] [place] [address] Shani Payne, DO [address] [place] [address] 11/14/2023 2:30 PM EDT Imaging Maternal Medicine Imaging, [facility] [address] [place] [phone] Health Maintenance Due Date Last Done Comments [...]
--- OUTSIDE RECORDS SUMMARY | 2023-12-12 12:27 | External Medical Summary ---
Author Name Unknown Address Unknown Organization [id number][facility] [place] [facility] [address] [facility] [address] Laboratory Report Ordering Provider Test Date Status JAMESALVADOR 09/19/2023 08:35:25 Final Observation Date Value Abnormality Reference (Units ) Status Retic, % (auto) 09/19/2023 08:35:25 2.16 Above high normal 0.80-1.90 (%) Final Reticulocytes, Absolute 09/19/2023 08:35:25 80.4 31.3-100.1 (K/uL) Final Reticulocyte fraction, immature 09/19/2023 08:35:25 20.1 2.5-20.6 (%) Final Reticulocyte HGB 09/19/2023 08:35:25 28.9 Below low normal 29.7-37.4 (pg) Final Performing Location [facility] [place] [address] [place] [address]
--- OUTSIDE RECORDS SUMMARY | 2023-12-12 12:27 | External Medical Summary | Summary of Care ---
Author Name Unknown Organization [facility] Address [address] [place] [address] Phone [phone] Care Team Providers Care Word Processing Machine Operator Name Role Phone Unavailable Primary Care Provider Unavailabl e Encounter Details Date Type Department Care Team (Late st Contact Info) Description 10/03/2023 Orders Only Health Officer Obstetrics Maternal Medicine, [place] [address], [place] [id number] Carolina Silva CRNP [address] [place] [address] Pre-existing type 2 diabetes mellitus during , antepartum Allergies Active Allergy Reactions Criticality Noted Date Comments Amoxicillin Nausea/vomiting 06/04/2016 documented as of this encounter (statuses as of 10/03/2023) Medications Medication Sig Dispensed Refills Start Date [...] 3 10/22/2022 Active Vitamin 27-0.8 MG Oral TabletIndications:E ncounter for [...] the evening. 90 Tablet 09/20/2023 Active Pen Gr[place] 32G X 4 MMIndications:Pre-e xisting type 2 diabetes mellitus during , antepartum Use to inject insulin twice daily 200 Each 3 09/24/2023 Active Lantus SoloStar 100 UNIT/ML Subcutaneous Solution Pen-injectorIndicat ions:Pre-existing type 2 diabetes mellitus during , antepartum Inject under the skin 50 units with breakfast and 65 units at bedtime 90 mL 3 10/03/2023 Active Lantus SoloStar 100 UNIT/ML Subcutaneous Solution Pen-injectorIndicat ions:Pre-existing type 2 diabetes mellitus during , antepartum Inject under the skin 45 units with breakfast and 60 units at bedtime 30 mL 3 09/24/2023 4 Discontinue d(Refill) Hospital, Clinic, or Other Facility Administered Medication Ordered Dose Route Frequency Start Date End Date Status Albuterol Sulfate (Proventil) (5 MG/ML) 0.5% *conc* inhalation solution 2.5 mgIndications:Wheezing 2.5 mg NEBULIZER PRN 02/01/2023 02/01/2024 Ac tive documented as of this encounter (statuses as of 10/03/2023) Active Problems Problem Noted Date Diagnosed Date [...] AM 06/14/23: MFM ADAPT visit complete. Desires [facility] to manage during now, previously followed with [facility] pharmacy. Elevated FBS and PP values. [...] bedtime 07/11/23-elevations in BS msg sent to Railroad Carman 07/11/23: RPM reviewed; elevated FBS and some PP; increase to Basaglar 25 units with breakfast and 45 units at bedtime 07/19/23-elevated sugars- msg sent to manager inpatient 07/19/23: RPM increase to Basaglar insulin 30 units with breakfast and 50 units at bedtime 07/25/23- stable 07/02/23- elevated sugars sent to SOCIAL SERVICES COORDINATOR to review 08/01/23: RPM reviewed. Elevated FBS and PP's. (especially after breakfast). Increase Basaglar to 35 units with breakfast and 55 units at bedtime. May need to consider starting short acting with some meals--KW 08/08/23-elevated sugars- sent to SOCIAL SERVICES COORDINATOR 08/08/23: RPM reviewed. Few elevated FBS and several elevated PP's after lunches and dinners. Increase Basaglar to 45 units with breakfast and 60 units at bedtime --KW 08/16/23-elevations in sugars;msg sent to SOCIAL SERVICES COORDINATOR 08/16/23: RPM reviewed; blood sugars improving since last dose change; continue Basaglar to 45 units with breakfast and 60 units at bedtime 08/23/23- stable at this time- some elevations- will review again next week 08/29/23-sugars elevated sent to SOCIAL SERVICES COORDINATOR 08/29/23: RPM reviewed, some elevated after dinner [...] at bedtime 10/03/23-elevated sugars msg sent to SOCIAL SERVICES COORDINATOR 10/03/23: RPM reviewed; some elevated FBS and [...] as of this encounter (statuses as of 10/03/2023) Resolved Problems Problem Noted Date Diagnosed Date Resolved Date Tobacco smoking complicating 05/14/2023 05/14/2023 Acute conjunctivitis 08/25/2014 015 Bronchitis, complicated 08/09/201409/26 documented as of this encounter (statuses as of 10/03/2023) Immunizations Name Administration Dates Next Due Hepatitis B, 20+ yrs 07/04/2020,06/03/2020 PPD 09/26/2016,09/24/2014 Pneumococcal Conjugate Vacci ne, 20-valent ([id number]) 11/09/2022 Pneumococcal Polysaccharide PPV23 (Pneumovax) 06/03/2020 Seasonal [...] money to get more. Never true 11/12/2022 [place] Depression Scale Answer Date Recorded Last EPDS [...] Description 10/04/2023 2:15 PM EST Office Visit Gynecology/Obstetrics [facility] [address] [place] [address] Lolly Wright CRNP [address] [place] [address] 10/17/2023 1:45 PM EST Imaging Maternal Medicine [facility] [address] [place] [phone] 11/14/2023 2:30 PM EDT Office Visit Health [facility] [address] [place] [address] Shani Payne, DO [address] [place] [address] 11/14/2023 2:30 PM EDT Imaging Maternal Medicine Imaging, [facility] [place] [phone] Health Maintenance Due Date Last Done [...]
--- OUTSIDE RECORDS SUMMARY | 2023-12-12 12:27 | External Medical Summary ---
Author Name Unknown Address Unknown Organization [id number]:[facility] [address] - [address] [place] [address] Laboratory Report Ordering Provider Test Date Status GLADIS JOHNS 09/19/2023 08:35:25 Final Observation Date Value Abnormality Reference (Units ) Status BUN 09/19/2023 08:35:25 5 Below low normal 6-20 (mg/dL) Final Creatinine 09/19/2023 08:35:25 0.5 0.5-1.0 (mg/dL) Final Glomerular filtration rate/1.73 sq M.predicted [Volume Rate/Area] in Serum, Plasma or Blood by Creatinine-based formula (CKD-EPI) 09/19/2023 08:35:25 >90 >=60 (mL/min) Final eGFR is calculated based on the CKD-EPI 2020 equation SODIUM 09/19/2023 08:35:25 138 135-146 (m mol/L) Final Potassium 09/19/2023 08:35:25 3.8 3.5-5.1 (m mol/L) Final Cl 09/19/2023 08:35:25 105 98-107 (mm ol/L) Final CO2 09/19/2023 08:35:25 23 22-32 (mmo l/L) Final Anion gap 09/19/2023 08:35:25 10 7-15 (mmol /L) Final Glucose 09/19/2023 08:35:25 96 70-120 (mg /dL) Final Albumin 09/19/2023 08:35:25 3.4 Below low normal 3.8 -5.0 (g/dL) Final AST (Aspartate aminotransferase) 09/19/2023 08:35:25 11 10-35 (U/L) Fin al Alk Phos 09/19/2023 08:35:25 88 35-130 (U/ L) Final Bilirubin, Total 09/19/2023 08:35:25 0.2 <=1 .2 (mg/dL) Final Calcium 09/19/2023 08:35:25 9.3 8.4-10.2 ( mg/dL) Final Protein 09/19/2023 08:35:25 6.6 6.0-8.3 (g /dL) Final ALT (Alanine aminotransferase) 09/19/2023 08:35:25 19 10-35 (U/L) Dustin sherwood Performing Location [facility] [address] - [address] [facility] [address]
--- OUTSIDE RECORDS SUMMARY | 2023-12-12 12:27 | External Medical Summary ---
Author Name Unknown Address Unknown Organization K01:LAB[facility]AT[facility] - [address] [place] [address] Laboratory Report Ordering Provider Test Date Status SALVADOR KILGORE 09/19/2023 08:35:25 Final Observation Date Value Abnormality Reference (Units ) Status Ferritin 09/19/2023 08:35:25 43 13-150 (ng /mL) Final Performing Location [facility] - [address] [place] [address]
--- OUTSIDE RECORDS SUMMARY | 2023-12-12 12:27 | External Medical Summary | Summary of Care ---
Author Name Unknown Organization [facility] Address [address] [place] [address] Phone [phone] Care Team Providers Care Vp Customer Development Name Role Phone Unavailable Primary Care Provider Unavailabl e Reason for Visit * Reason Comments Outpatient Testing Encounter Details Date Type Department Care Team (Late st Contact Info) Description 09/19/2023 9:20 AM EST Laboratory Laboratory, [facility] [address] [place] [phone] [facility] [address] [place] [address] Thrombocytosis; Leukocytosis, unspecified type; High-risk in second trimester Allergies Active Allergy Reactions Criticality Noted Date Comments Amoxicillin Nausea/vomiting 06/04/2016 documented as of this encounter (statuses as of 09/19/2023) Medications Medication Sig Dispensed Refills Start Date [...] goal of less than 7.0% ([facility]) Check blood sugars twice daily as directed 100 Each 5 05/15/2023 Active OneTouch Verio In Vitro Strip (Glucose Blood)Indications:Typ e 2 diabetes mellitus with hemoglobin A1c goal of less than 7.0% ([facility]) Check blood sugars twice daily as [...] and dinner). 200 Each 6 06/14/2023 Active Pen [place] 32G X 4 MMIndications:Pre-exi sting type 2 diabetes mellitus during in second trimester Use to inject insulin twice daily 200 Each 3 07/11/2023 Active hydrOXYzine HCl 25 MG Oral Tablet Take 1 Tablet by mouth 4 times a day as needed for Anxiety. 30 Tablet 0 09/10/2023 Active Toujeo Max SoloStar 300 UNIT/ML Subcutaneous Solution Pen-injector (Insulin Glargine (2 Unit Dial))Indications:Pre -existing type 2 diabetes mellitus during , antepartum Inject under skin 40 units with breakfast and inject under skin 50 units at bedtime. 45 mL 0 09/12/2023 Active OneTouch Verio In Vitro Strip (Glucose Blood)Indications:Pre -existing type 2 diabetes mellitus during , antepartum,Supervisio n of high risk in first trimester Monitor blood sugar four times daily (once fasting & 1 hour after breakfast, lunch, and dinner). 160 Strip 6 09/12/2023 Active Hospital, Clinic, or Other Facility Administered Medication Ordered Dose Route Frequency Start Date End Date Status Albuterol Sulfate (Proventil) (5 MG/ML) 0.5% *conc* inhalation solution 2.5 mgIndications:Wheezing 2.5 mg NEBULIZER PRN 02/01/2023 02/01/2024 Ac tive documented as of this encounter (statuses as of 09/19/2023) Active Problems Problem Noted Date Diagnosed Date Echogenic focus of heart of fetus affecting [...] this finding. Supervision of high risk in [facility] 05/20/2023 Abnormal CBC 05/15/2023 Overview: Per [...] to manage during now, previously followed with [facility] pharmacy. Elevated FBS and PP values. Increase [...] bedtime 07/11/23-elevations in BS msg sent to Financial Analysis Manager 07/11/23: RPM reviewed; elevated FBS and some PP; increase to Basaglar 25 units with breakfast and 45 units at bedtime 07/19/23-elevated sugars- msg sent to vp scientific affairs 07/19/23: RPM increase to Basaglar insulin 30 units with breakfast and 50 units at bedtime 07/25/23- stable 07/02/23- elevated sugars sent to EQUITY MANAGER to review 08/01/23: RPM reviewed. Elevated FBS and PP's. (especially after breakfast). Increase Basaglar to 35 units with breakfast and 55 units at bedtime. May need to consider starting short acting with some meals--KW 08/08/23-elevated sugars- sent to EQUITY MANAGER 08/08/23: RPM reviewed. Few elevated FBS and several elevated PP's after lunches and dinners. Increase Basaglar to 45 units with breakfast and 60 units at bedtime --KW 08/16/23-elevations in sugars;msg sent to EQUITY MANAGER 08/16/23: RPM reviewed; blood sugars improving since last dose change; continue Basaglar to 45 units with breakfast and 60 units at bedtime 08/23/23- stable at this time- some elevations- will review again next week 08/29/23-sugars elevated sent to EQUITY MANAGER 08/29/23: RPM reviewed, some elevated after [...] if she has coverage problems again --KW Last Assessment & Plan: Working with ADAPT; [...] for limited anatomy scan around 13 weeks [facility] anatomy scan scheduled 07/23/2023 Last Assessment [...] as of this encounter (statuses as of 09/19/2023) Resolved Problems Problem Noted Date Diagnosed Date Resolved Date Tobacco smoking complicating 05/14/2023 05/14/2023 Acute conjunctivitis 08/25/2014 015 Bronchitis, complicated 08/09/201409/26 documented as of this encounter (statuses as of 09/19/2023) Immunizations Name Administration Dates Next Due Hepatitis B, 20+ yrs 07/04/2020,06/03/2020 PPD 09/26/2016,09/24/2014 Pneumococcal Conjugate Vacci ne, 20-valent ([id number]) 11/09/2022 Pneumococcal Polysaccharide PPV23 (Pneumovax) 06/03/2020 Seasonal [...] money to get more. Never true 11/12/2022 [place] Depression Scale Answer Date Recorded Last EPDS [...] Amaris Hayes [address] [place] [address] Lolly Wright CRNP [address] [place] [address] 10/17/2023 1:45 PM EST Imaging Maternal Medicine Imaging[facility] [address] [place] [phone] 11/14/2023 2:30 PM EDT Office Visit Printing Roller Handler Obstetrics [facility] [place] [address] Shani Payne, DO [address] [place] [address] 11/14/2023 2:30 PM EDT Imaging Maternal Medicine Imaging, Chavo Hayes [address] [place] [phone] Pending Results Name Type Priority Associated Diagnoses Date /Time COMPREHENSIVE METABOLIC PANEL Lab STAT Thrombocytosis Leukocytosis, unspecified type 09/19/2023 8:35 AM EST SYPHILIS ANTIBODY SCREEN WITH REFLEX TO RPR Lab Routine High-risk in second trimester 09/19/2023 8:35 AM EST CBC WITH WBC DIFFERENTIAL AND ANEMIA REFLEX WORKUP Lab STAT High-risk in second trimester 09/19/2023 8:35 AM EST SYPHILIS ANTIBODY SCREEN Lab Routine High-risk in second trimester 09/19/2023 8:35 AM EST ANEMIA REFLEX CHEMISTRY HOLD Lab STAT High-risk in second trimester 09/19/2023 8:35 AM EST RETICULOCYTE PANEL Lab STAT High-risk in second trimester 09/19/2023 8:35 AM EST Health Maintenance Due Date Last Done Comments Diabetic Eye Exam 2006 Depression Screening 09/29/2019 09/29/2018, 03/14/20 18 Hepatitis B (3 of 3 - 19+ 3-dose series) 12/02/2020 07/04/2020, 06/03/2020 Diabetic Foot Exam 06/03/2021 06/03/2020 COVID-19 Vaccine ( season) 2023 12/22/2020, 12/01/2020 GFR 05/14/2024 05/14/2023, 10/24, 10/14/2022, Additional history exists DTaP,Tdap,and Td Vaccines (2 - Td or Tdap) 07/16/2024 07/16/2014 Pap Smear 11/16/2025 11/16/2022, 09/2017, 02/14/2016, Additional [...] Not on filedocumented as of this encounter Procedures Procedure Name Priority Date/Time Associated Diagnosis Comments ANEMIA CBC STAT 09/19/2023 8:35 AM EST High-risk in second trimester DIFFERENTIAL, AUTOMATED STAT 09/19/2023 8:35 AM EST High-risk in second trimester documented in this encounter Results * (ABNORMAL) DIFFERENTIAL, AUTOMATED (09/19/2023 8:35 AM EST) WBC 15.47(H) 4.00 - 10.80 K/uL 09/19/2023 8:43 AM EST [facility] Neutrophils % 76.7(H) 40.0 - 75.0 % 09/19/2023 8:43 AM EST [facility] Lymphocytes % 16.2(L) 18.0 - 42.0 % 09/19/2023 8:43 AM EST [facility] Monocytes % 5.3 1.0 - 11.0 % 09/19/2023 8:43 AM EST [facility] Eosinophils % 1.6 0.0 - 6.0 % 09/19/2023 8:43 AM EST [facility] Basophils % 0.2 0.0 - 2.0 % 09/19/2023 8:43 AM EST [facility] Absolute Neutrophils 11.87(H) 1.80 - 7.70 K/uL 09/19/2023 8:43 AM EST [facility] Absolute Lymphocytes 2.50 1.00 - 4.80 K/ul 09/19/2023 8:43 AM EST [facility] Absolute Monocytes 0.82 0.00 - 1.10 K/uL 09/19/2023 8:43 AM EST [facility] Absolute Eosinophils 0.25 0.00 - 0.70 K/uL 09/19/2023 8:43 AM EST [facility] Absolute Basophils 0.03 0.00 - 0.20 K/uL 09/19/2023 8:43 AM EST [facility] Blood Venous blood specimen / Unknown Venipuncture / Unknown 09/19/2023 8:35 AM EST 09/19/2023 8:35 AM EST Lolly BAILEY LAB BLOOD ORDERABLES [facility] [address] [facility] [place] [address] * (ABNORMAL) ANEMIA CBC (09/19/2023 8:35 AM EST) WBC 15.47(H) 4.00 - 10.80 K/uL 09/19/2023 8:43 AM EST [facility] RBC 3.69 3.85 - 5.15 M/uL 09/19/2023 8:43 AM EST [facility] HGB 10.2(L) 12.0 - 15.3 g/dL 09/19/2023 8:43 AM EST [facility] Comment: Anemia reflex testing triggers on a HGB < 12.0 for Females and HGB < 13.0 for Males in accordance with the WHO Anemia Guidelines Anemia reflex testing triggers on a HGB < 12.0 for Females and HGB < 13.0 for Males in accordance with the WHO Anemia Guidelines HCT 32.0(L) 36.0 - 45.2 % 09/19/2023 8:43 AM EST [facility] MCV 86.7 81.5 - 97.5 fL 09/19/2023 8:43 AM EST [facility] MCH 27.6 27.0 - 34.0 pg 09/19/2023 8:43 AM EST [facility] MCHC 31.9 32.0 - 36.0 g/dL 09/19/2023 8:43 AM EST [facility] RDW 14.6 11.5 - 15.5 % 09/19/2023 8:43 AM EST [facility] PLT 392 140 - 400 K/uL 09/19/2023 8:43 AM EST [facility] MPV 8.8 6.6 - 11.1 fL 09/19/2023 8:43 AM EST [facility] Blood Venous blood specimen / Unknown Venipuncture / Unknown 09/19/2023 8:35 AM EST 09/19/2023 8:35 AM EST Lolly BAILEY LAB BLOOD ORDERABLES [facility] [address] [facility] [place] [address] documented in this encounter Visit Diagnoses Diagnosis Thrombocytosis Essential thrombocythemia Leukocytosis, unspecified type High-risk in second trimester documented in this encounter
--- OUTSIDE RECORDS SUMMARY | 2023-12-12 12:27 | External Medical Summary ---
Author Name Unknown Address Unknown Organization [id number]:[facility] - [address] [place] [id number] Laboratory Report Ordering Provider Test Date Status SALVADOR KILGORE 09/19/2023 08:35:25 Final Observation Date Value Abnormality Reference (Units ) Status WBC, Total 09/19/2023 08:35:25 15.47 Above high normal 4 .00-10.80 (K/uL) Final RBC 09/19/2023 08:35:25 3.69 3.85-5.15 (M/uL) Final Hemoglobin 09/19/2023 08:35:25 10.2 Below low normal 12 .0-15.3 (g/dL) Final Anemia reflex testing trigge rs on a HGB < 12.0 for Females and HGB < 13.0 for Males in accordance with the WHO Anemia Guidelines
Anemia reflex testing triggers on a HGB < 12.0 for Females and HGB < 13.0 for Males in accordance with the WHO Anemia Guidelines HCT 09/19/2023 08:35:25 32.0 Below low normal 36. 0-45.2 (%) Final MCV 09/19/2023 08:35:25 86.7 81.5-97.5 (fL) Final MCH 09/19/2023 08:35:25 27.6 27.0-34.0 (pg) Final MCHC 09/19/2023 08:35:25 31.9 32.0-36.0 (g/dL) Final RDW 09/19/2023 08:35:25 14.6 11.5-15.5 (%) Final Platelets 09/19/2023 08:35:25 392 140-400 (K /uL) Final MPV 09/19/2023 08:35:25 8.8 6.6-11.1 ( fL) Final Performing Location [facility]1 0 - [address] [place] [address]
--- OUTSIDE RECORDS SUMMARY | 2023-12-12 12:27 | External Medical Summary ---
Author Name Unknown Address Unknown Organization [id number]:LAB[facility]ATORY [facility] [place] - [address] [facility] [address] Laboratory Report Ordering Provider Test Date Status SALVADOR KILGORE 09/19/2023 08:35:25 Final Observation Date Value Abnormality Reference (Units ) Status Treponema pallidum Ab [Presence] in Serum by Immunoassay 09/19/2023 08:35:25 Nonreactive Nonreactive Final No serologic evidence of syp hilis. No additional testing clinicially indicated at this time. Consider repeat testing in 2-4 weeks if acute or primary syphilis is suspected. Performing Location [facility]ORY [facility] [place] - [address] [place] [address]
--- OUTSIDE RECORDS SUMMARY | 2023-12-12 12:27 | External Medical Summary ---
Author Name Unknown Address Unknown Organization [id number]:LAB[facility]ORY [facility] - [address] [place] [id number] Laboratory Report Ordering Provider Test Date Status SALVADOR KILGORE 09/19/2023 08:35:25 Final Observation Date Value Abnormality Reference (Units ) Status SYNC LEUKOCYTES IN BLOOD BY AUTOMATED COUNT 09/19/2023 08:35:25 15.47 Above high normal 4.00-10.80 (K/uL) Final Segs 09/19/2023 08:35:25 76.7 Above high normal 40.0-75.0 (%) Final Lymphs % 09/19/2023 08:35:25 16.2 Below low normal 18.0-42.0 (%) Final Monos 09/19/2023 08:35:25 5.3 1.0-11.0 (%) Final Eosinophils 09/19/2023 08:35:25 1.6 0.0-6.0 (%) Final Basos 09/19/2023 08:35:25 0.2 0.0-2.0 (%) Final Absolute Segs 09/19/2023 08:35:25 11.87 Above high normal 1.80-7.70 (K/uL) Final Lymphs, absolute 09/19/2023 08:35:25 2.50 1.00-4.80 (K/ul) Final Monos, Abs 09/19/2023 08:35:25 0.82 0.00-1.10 (K/uL) Final Eos, Abs 09/19/2023 08:35:25 0.25 0.00-0.70 (K/uL) Final Basos, Abs 09/19/2023 08:35:25 0.03 0.00-0.20 (K/uL) Final Performing Location LAB[facility]ORY [facility]1 0 - [address] [place] [id number]
--- OUTSIDE RECORDS SUMMARY | 2023-12-12 12:27 | External Medical Summary | Summary of Care ---
Author Name Unknown Organization [facility] Address [address] [place] [address] Phone [phone] Care Team Providers Care Dry Transfer Worker Name Role Phone Unavailable Primary Care Provider Unavailabl e Encounter Details Date Type Department Care Team (Late st Contact Info) Description 09/19/2023 8:45 AM EST Office Visit Orthodontist Assistant Obstetrics Maternal Medicine, [address] [address] Shani Payne, DO [address], [place] [phone] Pre-existing type 2 diabetes mellitus during in second trimester*; Obesity in , antepartum; Ultrasound for screening for growth restriction; 27 weeks gestation of Allergies Active Allergy Reactions Criticality Noted Date Comments Amoxicillin Nausea/vomiting 06/04/2016 documented as of this encounter (statuses as of 09/20/2023) Medications Medication Sig Dispensed Refills Start Date [...] dinner). 200 Each 6 06/14/2023 Active Pen [place] 32G X 4 MMIndications:Pre-exi sting type 2 [...] as of this encounter (statuses as of 09/20/2023) Active Problems Problem Noted Date Diagnosed Date [...] to manage during now, previously followed with [facility] pharmacy. Elevated FBS and PP values. [...] bedtime 07/11/23-elevations in BS msg sent to Trade Recruiter 07/11/23: RPM reviewed; elevated FBS and some PP; increase to Basaglar 25 units with breakfast and 45 units at bedtime 07/19/23-elevated sugars- msg sent to manager of training and development 07/19/23: RPM increase to Basaglar insulin 30 units with breakfast and 50 units at bedtime 07/25/23- stable 07/02/23- elevated sugars sent to OVERHEAD CRANE TRUCK LOADER to review 08/01/23: RPM reviewed. Elevated FBS and PP's. (especially after breakfast). Increase Basaglar to 35 units with breakfast and 55 units at bedtime. May need to consider starting short acting with some meals-- 08/08/23-elevated sugars- sent to OVERHEAD CRANE TRUCK LOADER 08/08/23: RPM reviewed. Few elevated FBS and several elevated PP's after lunches and dinners. Increase Basaglar to 45 units with breakfast and 60 units at bedtime --KW 08/16/23-elevations in sugars;msg sent to OVERHEAD CRANE TRUCK LOADER 08/16/23: RPM reviewed; blood sugars improving since last dose change; continue Basaglar to 45 units with breakfast and 60 units at bedtime 08/23/23- stable at this time- some elevations- will review again next week 08/29/23-sugars elevated sent to OVERHEAD CRANE TRUCK LOADER 08/29/23: RPM reviewed, some elevated after dinner [...] has coverage problems again --KW 09/19/23- stable Last Assessment & Plan: Working with ADAPT; [...] as of this encounter (statuses as of 09/20/2023) Resolved Problems Problem Noted Date Diagnosed Date Resolved Date Tobacco smoking complicating 05/14/2023 05/14/2023 Acute conjunctivitis 08/25/2014 015 Bronchitis, complicated 08/09/201409/26 documented as of this encounter (statuses as of 09/20/2023) Immunizations Name Administration Dates Next Due Hepatitis B, 20+ yrs 07/04/2020,06/03/2020 PPD 09/26/2016,09/24/2014 Pneumococcal Conjugate Vacci ne, 20-valent ([id number]) 11/09/2022 Pneumococcal Polysaccharide PPV23 (Pneumovax) 06/03/2020 Seasonal [...] money to get more. Never true 11/12/2022 [place] Depression Scale Answer Date Recorded Last EPDS [...] Progress Notes * Shani Payne DO - 09/20/2023 8:16 AM EST Lilly presented for an ultrasound for the following indications: Pre-existing type 2 diabetes mellitus during in second trimester Obesity in , antepartum Ultrasound for screening for growth restriction 27 weeks gestation of Ultrasound summary: Patient presented at 27w 1d for growth assessment. Normal growth with EFW 1183 g at 77%ile. Normal MELINDA at 20.1 cm. Transverse presentation. I reviewed the ultrasound images. Lilly was given the opportunity to meet with me if she had any questions. Please refer to the ultrasound report for additional details about today's ultrasound examination. RECOMMENDATIONS: Recommend follow up ultrasound with MFM in 4-6 weeks for growth secondary to above indications. See prior formal MFM consultation note. Thank you for allowing us to participate in the care of this patient. Please call with any questions. Shani Payne DO 09/20/2023 8:16 AM documented in this encounter Plan of Treatment Upcoming Encounters Date Type Department Care Team (Late st Contact Info) Description 10/04/2023 2:15 PM EST Office Visit Gynecology/Obstetrics Amaris Hayes [address] [place] [address] Lolly Wright CRNP [address] [place] [address] 10/17/2023 1:45 PM EST Imaging Maternal Medicine Imaging, Chavo Shaw [place] [phone] 11/14/2023 2:30 PM EDT Office Visit Orthodontist Assistant Obstetrics Maternal Medicine, Chavo Shaw [place] [address] Shani Payne, DO [address] [place] [address] 11/14/2023 2:30 PM EDT Imaging Maternal Medicine Imaging, Chavo Shaw [place] [phone] Health Maintenance Due Date [...] Pre-existing type 2 diabetes mellitus during in second trimester- Primary Obesity in , antepartum Obesity complicating , childbirth, or the puerperium, antepartum condition or complication Ultrasound for screening for growth restriction screening for growth retardation using ultrasonics 27 weeks gestation of state, incidental documented in this encounter
--- OUTSIDE RECORDS SUMMARY | 2023-12-12 12:27 | External Medical Summary | Summary of Care ---
Author Name Unknown Organization [facility] Address [address] [facility] [place] [address] Phone [phone] Care Team Providers Care Vice President Mission Integration Name Role Phone Unavailable Primary Care Provider Unavailabl e Reason for Visit * Reason Onset Date Comments Test Results 09/20/2023 Encounter Details Date Type Department Care Team ([facility] st Contact Info) Description 09/20/2023 Telephone [facility] [address] [place] [address] BackerZa CRNP [address] [place] [address] Test Results Allergies Active Allergy Reactions Criticality Noted Date [...] dinner). 200 Each 6 06/14/2023 Active Pen [place] 32G X 4 MMIndications:Pre-exi sting type 2 [...] the evening. 90 Tablet 3 09/20/2023 Active Hospital, Clinic, or Other Facility Administered [...] this finding. Supervision of high risk in [facility] 05/20/2023 Abnormal CBC 05/15/2023 Overview: [...] to manage during now, previously followed with [facility] pharmacy. Elevated FBS and PP [...] bedtime 07/11/23-elevations in BS msg sent to Bat Boy/Girl 07/11/23: RPM reviewed; elevated FBS and some PP; increase to Basaglar 25 units with breakfast and 45 units at bedtime 07/19/23-elevated sugars- msg sent to tappet adjuster 07/19/23: RPM increase to Basaglar insulin 30 units with breakfast and 50 units at bedtime 07/25/23- stable 07/02/23- elevated sugars sent to BASKET GRADER to review 08/01/23: RPM reviewed. Elevated FBS and PP's. (especially after breakfast). Increase Basaglar to 35 units with breakfast and 55 units at bedtime. May need to consider starting short acting with some meals--KW 08/08/23-elevated sugars- sent to BASKET GRADER 08/08/23: RPM reviewed. Few elevated FBS and several elevated PP's after lunches and dinners. Increase Basaglar to 45 units with breakfast and 60 units at bedtime --KW 08/16/23-elevations in sugars;msg sent to BASKET GRADER 08/16/23: RPM reviewed; blood sugars improving since last dose change; continue Basaglar to 45 units with breakfast and 60 units at bedtime 08/23/23- stable at this time- some elevations- will review again next week 08/29/23-sugars elevated sent to BASKET GRADER 08/29/23: RPM reviewed, some elevated after dinner [...] for limited anatomy scan around 13 weeks [facility] anatomy scan scheduled 07/23/2023 Last [...] PPD 09/26/2016,09/24/2014 Pneumococcal Conjugate Vacci ne, 20-valent ([id number]) 11/09/2022 Pneumococcal Polysaccharide PPV23 (Pneumovax) 06/03/2020 Seasonal [...] money to get more. Never true 11/12/2022 [place] Depression Scale Answer Date Recorded Last EPDS [...] encounter Miscellaneous Notes * Telephone Encounter - Cate Huggins LPN - 09/20/2023 9:29 AM EST Called pt unabe to lm due to mailbox being full. My G sent * Telephone Encounter - Za Esquivel CRNP - 09/20/2023 8:22 AM EST +anemia on CBC. Will start iron 3x/day. Try to take at least an hr separately from vitamin and dairy products. Can use OTC colace if needed for constipation. Will recheck labs in 4 weeks. Please verify pharmacy and re-route to me, thanks. LYNN Rodriguez documented in this encounter Plan of Treatment Upcoming Encounters Date Type Department Care Team (Late st Contact Info) Description 10/04/2023 2:15 PM EST Office Visit Gynecology/Obstetrics Amaris Hayes [address] [place] [address] Lolly Wright CRNP [address] [place] [address] 10/17/2023 1:45 PM EST Imaging Maternal Medicine Imaging, Chavo Hayes [address] [place] [phone] 11/14/2023 2:30 PM EDT Office Visit Utility Worker Roller Shop Obstetrics Maternal Medicine, Chavo Hayes [address] [place] [address] Shani Payne, DO [address] [facility] [address] 11/14/2023 2:30 PM EDT Imaging Maternal Medicine Imaging, Chavo Garcia [place] [phone] Health Maintenance Due Date [...] of this encounter Visit Diagnoses Diagnosis Antepartum anemia complicating - Primary Anemia, antepartum documented in this encounter
--- OUTSIDE RECORDS SUMMARY | 2023-12-12 12:27 | External Medical Summary ---
Author Name Unknown Address Unknown Organization K01:[facility] [place] [address] [place] [address] Laboratory Report Ordering Provider Test Date Status SALVADOR KILGORE 09/19/2023 08:35:25 Final Observation Date Value Abnormality Reference (Units ) Status Iron 09/19/2023 08:35:25 38 33-151 (ug/dL) Final Iron-binding capacity 09/19/2023 08:35:25 366 250-425 (ug/dL) Final Transferrin Sat % 09/19/2023 08:35:25 10 Below low normal 15-55 (%) Final Performing Location [facility] - [address] [place] [address]
[2023-12-12] MEDS ORDERED: GENTAMICIN CONSULT ACTIVE PRN (12:56)
--- NOTE | 2023-12-12 13:01 | Obstetrical Progress Note ---
Date of Service December 12, 2023 Assessment & Plan Admission and Anticipated Discharge Date Admission Date: December 11, 2023 Subjective FHR had been having decelerations since Oxytocin was started VE; 4/ 50%/ -3, posterior, bulging bag, AROM'ed, dark meconium FHR recovered to 120's but then had late decels after each contractions Discussed the findings and recommended Primary Csection She signed and informed consent Understands the risks and benefists Results & Data Vital Signs (Past 12 Hours) Vital Signs Temp Pulse Resp BP Pulse Ox 12/12/23 12:54 100 12/12/23 12:54 68 12/12/23 12:54 78 128/74 12/12/23 12:49 69 100 12/12/23 12:44 78 100 12/12/23 12:39 70 145/77 H 100 12/12/23 12:37 66 89 L 12/12/23 12:34 73 100 12/12/23 12:29 67 100 12/12/23 12:28 75 91 12/12/23 12:24 74 100 12/12/23 12:19 77 100 12/12/23 12:14 60 100 12/12/23 12:09 100 12/12/23 12:09 64 12/12/23 12:09 61 141/87 H 12/12/23 12:04 65 100 12/12/23 11:59 60 100 12/12/23 11:54 69 148/87 H 100 12/12/23 11:49 61 100 12/12/23 11:44 68 147/82 H 100 12/12/23 11:40 67 139/77 12/12/23 11:39 68 100 12/12/23 11:34 66 100 12/12/23 11:29 65 100 12/12/23 11:24 70 138/82 100 12/12/23 11:19 67 100 12/12/23 11:14 67 100 12/12/23 11:09 64 139/80 100 12/12/23 11:04 63 100 12/12/23 10:59 65 100 12/12/23 10:54 64 139/84 99 12/12/23 10:49 72 100 12/12/23 10:44 65 100 12/12/23 10:39 80 100 12/12/23 10:36 73 137/64 12/12/23 10:34 77 100 12/12/23 10:32 80 138/65 12/12/23 10:30 73 147/72 H 12/12/23 10:29 75 100 12/12/23 10:26 78 170/87 H 12/12/23 10:24 84 100 12/12/23 10:19 83 100 12/12/23 10:17 92 H 92 12/12/23 10:14 76 100 12/12/23 10:09 81 100 12/12/23 10:04 79 100 12/12/23 09:59 84 100 12/12/23 08:20 90 143/98 H 12/12/23 08:18 82 140/94 12/12/23 07:10 16 12/12/23 07:10 36.7 C 16 12/12/23 07:07 85 136/81 12/12/23 03:10 75 124/75 12/12/23 02:57 18 12/12/23 02:57 36.7 C 18
[2023-12-12] MEDS: CITRIC ACID/SODIUM CITRATE 15 ML UDC PO SCH (13:02)
[2023-12-12] MEDS ORDERED: ONDANSETRON INJ 2 MG/ML 2 ML VIAL ONE (13:24)
[2023-12-12] MEDS ORDERED: MoRPHine SULFATE PF 1 MG/ML 10 ML AMP/VIAL ONE (13:24)
[2023-12-12] MEDS ORDERED: ePHEDrine sulfate 50 MG/5 ML SYR ONE (13:24)
[2023-12-12] MEDS ORDERED: LIDOCAINE 2%/EPINEPHRINE 1:200,000 20 ML PF ONE (13:24)
[2023-12-12] MEDS ORDERED: OXYTOCIN 10 UNITS/ML VIAL ONE (13:24)
[2023-12-12] MEDS ORDERED: PROMETHAZINE HCL 6.25 MG in SODIUM CHLORIDE 0.9% 50 ML IV PRN (13:41)
[2023-12-12] MEDS ORDERED: LACTATED RINGER'S 500 ML IV PRN (13:41)
[2023-12-12] MEDS ORDERED: NALOXONE HCL 0.08 MG in SYRINGE 1.8 ML IV PRN (13:41)
[2023-12-12] MEDS ORDERED: KETOROLAC 30 MG/ML VIAL IV PRN (13:41)
[2023-12-12] MEDS ORDERED: HYDROmorphone INJ 0.5 MG/0.5 ML SYR IV PRN (13:41)
[2023-12-12] MEDS ORDERED: NO NARCOTICS OR SEDATIVES SCH (13:45)
[2023-12-12] MEDS ORDERED: DC INTRASPINAL MORPHINE SCH (13:45)
[2023-12-12 14:12] LABS: Base Excess Cord Venous Blood -3.1 mEq/L (-7.7-1.9); Cord Venous Blood HCO3 23 mmol/L (18.4-26.8); Cord Venous Blood PCO2 45 mmHg (30.4-57.2); Cord Venous Blood PO2 29 mmHg (14.1-43.3); Cord Venous Blood pH 7.32 (7.20-7.44); O2 Saturation Cord Venous Bld < 60.0 % (<68)
[2023-12-12 14:13] LABS: CO2 Cord Arterial Blood 57 mmHg (39.1-73.5); HCO3 Cord Arterial Blood 24 mmol/L (19.7-28.5); Oxygen Sat Cord Arterial Blood < 60.0 % (<60); PO2 Cord Arterial Blood < 20 mmHg (4.1-31.7); pH Cord Arterial Blood 7.24 (7.1-7.38)
[2023-12-12] MEDS ORDERED: HYDROCORTISONE ACETATE 25 MG SUPP PR PRN (14:29)
[2023-12-12] MEDS ORDERED: SENNA 8.6 MG TAB PO PRN (14:29)
[2023-12-12] MEDS ORDERED: BENZOCAINE 20% SPRY 85 APPLN/85 GM CAN EXT PRN (14:29)
[2023-12-12] MEDS ORDERED: MAGNESIUM HYDROXIDE SUSP 30 ML UDC PO PRN (14:29)
[2023-12-12] MEDS ORDERED: PHARMACY GLYCEMIC MGMT CONSULT PRN (14:34)
--- NOTE | 2023-12-12 14:34 | Anesthesia Procedure Note ---
Date of Service December 12, 2023 Anesthesia Post Epidural Note Vital Signs Vital Signs: Temp Pulse Resp BP Pulse Ox 36.7 C 79 16 117/65 100 12/12/23 07:10 12/12/23 14:29 12/12/23 07:10 12/12/23 14:29 12/12/23 14:29 Notes Mental Status: alert / awake / arousable and participated in evaluation Patient Amnestic to Procedure: No Nausea / Vomiting: adequately controlled Pain: adequately controlled Airway Patency, RR, SpO2: stable & adequate BP & HR: stable & adequate Hydration State: stable & adequate Neuraxial Anesthesia: was administered and sensory block is resolving Anesthetic Complications: no major complications apparent and Pt Satisfied with anesthetic care Epidural: Removed without complications and With tip intact
--- NOTE | 2023-12-12 14:34 | Operative Report ---
Post Operative Report Pre & Post Diagnosis Operation Date: 12/12/23 13:30 Pre-Op Diagnosis: Nonreassuring Heart Rate Pattern, Dark Meconium, remote from delivery Post-Op Diagnosis: Same; Delivery of a live male child at 1330 I identified the patient and participated in the time-out.: Yes Procedure Operation Date: 12/12/23 13:30 Actual Procedures p Section in LD(Bilateral) - Sugey Mccray MD Surgeon Sugey Mccray MD Log Marker SWATHI Magdaleno Estimated Blood Loss 665 Findings Consistent with Post-Op Diagnosis Specimens Placenta Drains Brandon catheter, 500 ml. Anesthesia Type Labor Epidural Complications None Disposition Accompanied Patient To Recovery: Yes Indications Patient is a 33-year-old -0-1-0 at 39 weeks of gestation who was admitted on December 10 for induction of labor for pre-gestational diabetes. She has received single dose of p.o. Cytotec and then started having regular contractions. She then received epidural for pain and oxytocin was started per protocol to augment the contractions. heart rate started to have late decelerations with each contractions and artificial rupture of membranes con firmed dark meconium stained fluid. Decision was made to proceed with primary to expedite the delivery due to category 2 strip, dark meconium stained fluid, removed from delivery. Patient understood the risks and benefits and signed informed consent. Description of Procedure Patient was taken to operating room where epidural anesthesia was found to be adequate. She was placed in dorsal supine position with a leftward tilt. She was prepared and draped in usual sterile fashion. A financial skin incision was made and carried through to the underlying layer of fascia with the Bovie. Fascia was incised in the midline and incision was extended laterally with the help of Ragland scissors. Then the upper aspect of the fascial incision was grasped with 2 River clamps elevated the underlying rectus muscles were dissected off sharply with Ragland scissors. Same thing was done on the lower incision. Then the muscles were in the midline, peritoneum was identified grasped with 2 pickups and entered sharply with Metzenbaum scissors. Peritoneal incision was extended superior and inferiorly with good visualization of the bladder. The bladder blade was inserted. Vesicouterine peritoneum was identified, grasped with pickups and entered sharply with Metzenbaum scissors, bladder flap was created digitally and bladder blade was reinserted. Uterus was incised in transverse fashion, incision was extended laterally with bandage scissors, membranes were ruptured and dark meconium fluid was obtained. The loops of cords prolapse. Baby's head was delivered without difficulty, followed by shoulders, arms and rest of the body. Mouth and nose were suctioned there was dried on the field, The cord was clamped times and cut then the infant was handed off to the pediatric team. Then the placenta was delivered manually as intact and complete. Uterus was externalized and cleared of all clots and debris's. Uterine incision was repaired with 0 Vicryl in a running locked fashion, second umbilicating layer was placed with the same suture in running locked fashion. Excellent hemostasis achieved. Cul-de-sac and the pelvis was irrigated with warm normal saline and suctioned. Incision was checked of anesthetic again. Uterus was returned to the abdomen, parietal peritoneum was reapproximated with 3-0 Vicryl in a running fashion and the muscles were reapproximated in the same suture in a running fashion. All of the fascia and rectus muscles were hemostatic. Rectus fascia was reapproximated with #1 Vicryl starting from both columns meeting in the midline. Subcuticular fat tissue was brought together with 2-0 Vicryl in a running fashion, skin was closed with 4-0 Monocryl in a subcuticular cuticular fashion. The mom and baby tolerated procedure well. Sponge needle instrument count was correct x3. No complications happened, I was present during whole procedure. My funeral assistant was needed for retraction, hemostasis and aid during delivery of infant I attest to the content of the Intraoperative Record and any orders documented therein. Any exceptions are noted below.
--- NOTE | 2023-12-12 14:35 | Anesthesiology Progress Note ---
Date of Service December 12, 2023 Anesthesia Post Procedure Vital Signs Vital Signs: Temp Pulse Resp BP Pulse Ox 12/12/23 14:29 100 12/12/23 14:29 79 12/12/23 14:29 77 117/65 12/12/23 13:05 77 100 12/12/23 12:54 100 12/12/23 12:54 68 12/12/23 12:54 78 128/74 12/12/23 12:49 69 100 12/12/23 12:44 78 100 12/12/23 12:39 70 145/77 H 100 12/12/23 12:37 66 89 L 12/12/23 12:34 73 100 12/12/23 12:29 67 100 12/12/23 12:28 75 91 12/12/23 12:24 74 100 12/12/23 12:19 77 100 12/12/23 12:14 60 100 12/12/23 12:09 100 12/12/23 12:09 64 12/12/23 12:09 61 141/87 H 12/12/23 12:04 65 100 12/12/23 11:59 60 100 12/12/23 11:54 69 148/87 H 100 12/12/23 11:49 61 100 12/12/23 11:44 68 147/82 H 100 12/12/23 11:40 67 139/77 12/12/23 11:39 68 100 12/12/23 11:34 66 100 12/12/23 11:29 65 100 12/12/23 11:24 70 138/82 100 12/12/23 11:19 67 100 12/12/23 11:14 67 100 12/12/23 11:09 64 139/80 100 12/12/23 11:04 63 100 12/12/23 10:59 65 100 12/12/23 10:54 64 139/84 99 12/12/23 10:49 72 100 12/12/23 10:44 65 100 12/12/23 10:39 80 100 12/12/23 10:36 73 137/64 12/12/23 10:34 77 100 12/12/23 10:32 80 138/65 12/12/23 10:30 73 147/72 H 12/12/23 10:29 75 100 12/12/23 10:26 78 170/87 H 12/12/23 10:24 84 100 12/12/23 10:19 83 100 12/12/23 10:17 92 H 92 12/12/23 10:14 76 100 12/12/23 10:09 81 100 12/12/23 10:04 79 100 12/12/23 09:59 84 100 12/12/23 08:20 90 143/98 H 12/12/23 08:18 82 140/94 12/12/23 07:10 16 12/12/23 07:10 36.7 C 16 12/12/23 07:07 85 136/81 12/12/23 03:10 75 124/75 12/12/23 02:57 18 12/12/23 02:57 36.7 C 18 12/11/23 23:48 36.5 C 18 12/11/23 23:34 92 H 12/11/23 23:34 153/93 H 12/11/23 23:21 85 157/93 H 12/11/23 23:18 18 12/11/23 23:18 36.5 C 18 Transfer of Care Handoff Completed per policy Notes Mental Status: alert / awake / arousable and participated in evaluation Patient Amnestic to Procedure: No Nausea / Vomiting: adequately controlled Pain: adequately controlled Airway Patency, RR, SpO2: stable & adequate BP & HR: stable & adequate Hydration State: stable & adequate Neuraxial Anesthesia: was administered and sensory block is resolving Anesthetic Complications: no major complications apparent and Pt Satisfied with anesthetic care
--- NOTE | 2023-12-12 15:10 | Pharmacy Report ---
Pharmacy Glycemic Short Note 2 - Date of Service December 12, 2023 - Glycemic Short BSG Results (Last 24 hours): 12/11/23 12/12/23 12/12/23 23:26 01:02 01:57 Glucose POC Glucose 111 H 94 89 12/12/23 12/12/23 12/12/23 03:09 04:14 05:02 Glucose POC Glucose 86 91 86 12/12/23 12/12/23 12/12/23 06:05 07:06 08:07 Glucose POC Glucose 85 91 86 12/12/23 12/12/23 12/12/23 08:40 09:09 10:13 Glucose 89 POC Glucose 83 88 12/12/23 12/12/23 11:06 12:18 Glucose POC Glucose 87 76 OUTPATIENT ANTIDIABETIC REGIMEN: * Basaglar 70 units SC QAM * Basaglar 65 units SC HS ASSESSMENT: * 33 y/o F admitted for induction, labor and delivery. Patient has gestational diabetes managed with basal insulin BID at home. * She had a this afternoon. * BSGs all through today have been below 100 mg/dl. * Post- her insulin needs will be reduced. Novolog ordered starting at dinner with loose parameters based on stress of 1. * Basal insulin ordered on a scale at HS (~75% reduced from dose) will be based on BSG. * Will re-assess basal dose in AM. PLAN FOR INPATIENT GLYCEMIC CONTROL: * Basal insulin * Lantus 0/5/10/15 units HS based on BSG (see EMR for details) * Bolus insulin * NovoLog per scale ACHS or Q6hrs while NPO * Goal Range: Low 120 mg/dL - High 150 mg/dL * Correction Factor: 45 mg/dL/unit * Nutritional / Prandial insulin per carb ratio of 1 unit per 15 grams CHO consumed
[2023-12-12] MEDS ORDERED: GLUCOSE 10 TAB/TUBE PO PRN (15:30)
[2023-12-12] MEDS ORDERED: GLUCAGON FOR INJ 1 MG VIAL IM PRN (15:30)
[2023-12-12] MEDS ORDERED: DEXTROSE 50% 50 ML SYRINGE IV PRN (15:30)
[2023-12-12] MEDS ORDERED: GLUCOSE 40% GEL 15 GM TUBE PO PRN (15:30)
[2023-12-12] MEDS: ePHEDrine sulfate 50 MG/ML AMP ONE (15:38)
[2023-12-12] MEDS: BUPIVACAINE 0.25% PF 30 ML VIAL EPI STA (15:38)
[2023-12-12] MEDS: fentaNYL citrate PF 100 MCG/2 ML VIAL EPI STA (15:38)
[2023-12-12] MEDS: LIDOCAINE 2%/EPINEPHRINE 1:200,000 20 ML PF EPI STA (15:38)
[2023-12-12] MEDS: SODIUM CHLORIDE 0.9% PF INJ 10 ML VIAL ONE (15:38)
[2023-12-12] MEDS: SODIUM CHLORIDE 0.9% PF INJ 10 ML VIAL EPI STA (15:39)
--- NOTE | 2023-12-12 16:59 | Obstetrical Progress Note ---
Date of Service December 12, 2023 Assessment & Plan Admission and Anticipated Discharge Date Admission Date: December 11, 2023 Subjective Postop check Patient is seen and examined Feels well, no complaints Pain is under control No CP/ SOB/ Dizziness/ N&V/ VB/ Leg pain Not OOB yet Tolerating clears Working on breast feeding. Vital Signs Height Weight Body Mass Index Blood Pressure Temperature Pulse Rate Respiratory Rate 5 ft 3 in 96.162 kg 37.5 139/80 36.7 C 96 H 16 12/12/23 10:31 12/12/23 10:31 12/11/23 23:48 12/12/23 16:31 12/12/23 07:10 12/12/23 16:54 12/12/23 07:10 Pulse Oximetry 100 12/12/23 16:54 PE: General: Alert, orientedx3, NAD CVS: S1S2 RRR Lungs: CTAB Abd: soft, NT, ND, BS+, Incision/ dressing C/D/I Minimal lochia Ext: NT, no edema, SCD's on About 200 ml clear urine in bag AP: 33 yo female s/p Primary Csection , pod#0 VSS Afebrile doing well Continue to monitor closely Results & Data Vital Signs (Past 12 Hours) Vital Signs Temp Pulse Resp BP Pulse Ox 12/12/23 16:54 96 H 100 12/12/23 16:49 83 100 12/12/23 16:44 89 99 12/12/23 16:39 85 100 12/12/23 16:34 84 92 12/12/23 16:31 82 139/80 12/12/23 16:29 82 100 12/12/23 16:24 71 100 12/12/23 16:19 75 100 12/12/23 16:14 80 100 12/12/23 16:09 96 H 100 12/12/23 16:04 75 100 12/12/23 16:00 74 132/75 12/12/23 15:59 80 100 12/12/23 15:54 77 100 12/12/23 15:49 79 100 12/12/23 15:44 80 100 12/12/23 15:39 83 100 12/12/23 15:34 84 100 12/12/23 15:29 100 12/12/23 15:29 83 12/12/23 15:29 87 89 L 12/12/23 15:27 86 125/71 12/12/23 15:24 93 H 100 12/12/23 15:19 86 100 12/12/23 15:18 93 H 127/64 12/12/23 15:14 91 H 100 12/12/23 15:13 93 H 88 L 12/12/23 15:09 86 100 12/12/23 15:08 90 140/76 12/12/23 15:04 100 12/12/23 15:04 95 H 12/12/23 15:04 101 H 92 12/12/23 14:59 104 H 100 12/12/23 14:54 93 H 100 12/12/23 14:53 97 H 91 12/12/23 14:49 83 100 12/12/23 14:48 83 108/63 12/12/23 14:44 82 100 12/12/23 14:39 81 100 12/12/23 14:37 81 106/63 12/12/23 14:34 83 100 12/12/23 14:29 100 12/12/23 14:29 79 12/12/23 14:29 77 117/65 12/12/23 13:05 77 100 12/12/23 12:54 100 12/12/23 12:54 68 12/12/23 12:54 78 128/74 12/12/23 12:49 69 100 12/12/23 12:44 78 100 12/12/23 12:39 70 145/77 H 100 12/12/23 12:37 66 89 L 12/12/23 12:34 73 100 12/12/23 12:29 67 100 12/12/23 12:28 75 91 12/12/23 12:24 74 100 12/12/23 12:19 77 100 12/12/23 12:14 60 100 12/12/23 12:09 100 12/12/23 12:09 64 12/12/23 12:09 61 141/87 H 12/12/23 12:04 65 100 12/12/23 11:59 60 100 12/12/23 11:54 69 148/87 H 100 12/12/23 11:49 61 100 12/12/23 11:44 68 147/82 H 100 12/12/23 11:40 67 139/77 12/12/23 11:39 68 100 12/12/23 11:34 66 100 12/12/23 11:29 65 100 12/12/23 11:24 70 138/82 100 12/12/23 11:19 67 100 12/12/23 11:14 67 100 12/12/23 11:09 64 139/80 100 12/12/23 11:04 63 100 12/12/23 10:59 65 100 12/12/23 10:54 64 139/84 99 12/12/23 10:49 72 100 12/12/23 10:44 65 100 12/12/23 10:39 80 100 12/12/23 10:36 73 137/64 12/12/23 10:34 77 100 12/12/23 10:32 80 138/65 12/12/23 10:30 73 147/72 H 12/12/23 10:29 75 100 12/12/23 10:26 78 170/87 H 12/12/23 10:24 84 100 12/12/23 10:19 83 100 12/12/23 10:17 92 H 92 12/12/23 10:14 76 100 12/12/23 10:09 81 100 12/12/23 10:04 79 100 12/12/23 09:59 84 100 12/12/23 08:20 90 143/98 H 12/12/23 08:18 82 140/94 12/12/23 07:10 16 12/12/23 07:10 36.7 C 16 12/12/23 07:07 85 136/81
[2023-12-12] MEDS: OXYTOCIN 20 UNITS/LR 1,002 ML IV SCH (17:25)
[2023-12-12] MEDS: INSULIN ASPART PER UNIT CHARGE SC SCH (17:54)
[2023-12-12] MEDS: SIMETHICONE 80 MG CHEW PO SCH (17:55)
[2023-12-12] MEDS: LACTATED RINGER'S 1,000 ML IV SCH (17:56)
[2023-12-12] MEDS: DIPHTHER/TETAN/PERTUS Vaccine (Tdap, Adol/Adult) 0.5mL IM ONE (17:57)
[2023-12-12] MEDS: MEASLES, MUMPS & RUBELLA VIRUS VACCINE (MMR) 0.5ML VIAL SQ ONE (17:57)
[2023-12-12] MEDS: CARBOHYDRATES FOR HYPOGLYCEMIA PO PRN (18:08)
[2023-12-12] MEDS: CITRIC ACID/SODIUM CITRATE 15 ML UDC ONE (18:25)
[2023-12-12] MEDS: AZITHROMYCIN 500 MG in DEXTROSE 5% 250 ML IV SCH (18:25)
[2023-12-12] MEDS: CLINDAMYCIN/D5W 900 MG/50 ML BAG IV SCH (18:26)
[2023-12-12] MEDS: GENTAMICIN SULFATE 340 MG in DEXTROSE 5% 100 ML IV SCH (18:43)
[2023-12-12] MEDS: MoRPHine SULFATE PF 1 MG/ML 10 ML AMP/VIAL EPI ONE (18:44)
[2023-12-12] MEDS: SODIUM CHLORIDE 0.9% 1,000 ML IV SCH (18:44)
[2023-12-12] MEDS: DOCUSATE SODIUM 100 MG CAP PO SCH (21:03)
[2023-12-12] MEDS: LANTUS PER UNIT CHARGE SC SCH (22:44)
[2023-12-13] MEDS: INSULIN ASPART PER UNIT CHARGE SC SCH (01:26)
[2023-12-13] MEDS ORDERED: ONDANSETRON INJ 2 MG/ML 2 ML VIAL IV PRN (07:41)
[2023-12-13] MEDS ORDERED: diphenhydrAMINE Capsule 25 MG CAP PO PRN (07:41)
[2023-12-13] MEDS ORDERED: oxyCODONE/ACETAMINOPHEN 5mg/325mg TAB PO PRN (07:41)
[2023-12-13] MEDS ORDERED: MEPERIDINE HCL 50 MG/ML CARP IV PRN (07:41)
[2023-12-13] MEDS ORDERED: diphenhydrAMINE 50 MG/ML VIAL IV PRN (07:41)
[2023-12-13] MEDS ORDERED: PROMETHAZINE HCL 25 MG in SODIUM CHLORIDE 0.9% 50 ML IV PRN (07:41)
[2023-12-13] MEDS ORDERED: KETOROLAC 30 MG/ML VIAL IV PRN (07:41)
[2023-12-13 07:44] LABS: Hematocrit (blood only) 29.2 % (37.0-47.0); Hemoglobin 9.7 g/dl (12.0-16.0); Mean Corpuscular Hemoglobin 26.9 pg (25.0-34.0); Mean Corpuscular Hgb Conc 33.2 g/dL (32.0-36.0); Mean Corpuscular Volume 80.9 fL (80.0-100.0); Mean Platelet Volume 9.4 fL (9.4-12.4); Platelet Count 325 K/uL (130-400); RDW Coefficient of Variation 15.1 % (11.5-14.5); RDW Standard Deviation 44.7 fL (36.4-46.3); Red Blood Count 3.61 M/uL (4.20-5.40); White Blood Count 15.39 K/ul (4.8-10.8)
[2023-12-13] MEDS: PRENATAL VITAMIN 1 TAB PO SCH (08:40)
[2023-12-13] MEDS: FERROUS SULFATE 325 MG TAB PO SCH (08:40)
[2023-12-13 08:41] LABS: Basophils # (auto) 0.05 K/uL (0.00-0.20); Basophils % (auto) 0.3 %; Eosinophils # (auto) 0.06 K/uL (0.00-0.50); Eosinophils % (auto) 0.4 %; Immature Granulocytes # (auto) 0.09 K/uL (0.01-0.20); Immature Granulocytes % (auto) 0.6 %; Lymphocytes # (auto) 2.22 K/uL (1.20-3.40); Lymphocytes % (auto) 14.4 %; Monocytes # (auto) 0.97 K/uL (0.11-0.59); Monocytes % (auto) 6.3 %
[2023-12-13 09:03] LABS: Estimated Average Glucose 134 mg/dl; Hemoglobin A1C 6.3 % (4.5-5.6)
--- NOTE | 2023-12-13 10:19 | Obstetrical Progress Note ---
Date of Service December 13, 2023 Subjective Ambulation: ambulating normally Voiding: no voiding problems Passing Gas:: Yes Diet Tolerance:: regular diet Lochia:: Small Feeding Type:: breast feeding Current Pain Level(1-10): 0 doing well Physical Exam Constitutional WD/WN, vitals as above Gastrointestinal (Abdomen) Inspection/Auscultation: abdomen normal to inspection Musculoskeletal Extremities: extremities normal to inspection Skin no rashes, warm and dry Neurologic patellar DTR's 2+ bilat, sensation intact Psychiatric A+Ox3, euthymic affect Results & Data Vital Signs (Past 12 Hours) Vital Signs Temp Pulse Resp BP Pulse Ox O2 Del Method 12/13/23 07:55 37.0 C 94 H 18 127/82 99 Room Air 12/13/23 06:00 16 98 12/13/23 05:00 16 98 12/13/23 05:00 16 99 12/13/23 04:00 16 97 12/13/23 03:30 36.9 C 86 16 116/75 99 Room Air 12/13/23 03:00 16 98 12/13/23 02:00 16 99 12/13/23 01:00 16 99 12/13/23 00:00 16 99 12/12/23 23:00 36.7 C 88 16 117/70 99 Room Air 12/12/23 23:00 16 99 Laboratory Results Laboratory Results - last 72 hr 12/11/23 12/12/23 12/12/23 23:26 00:01 00:01 WBC 17.00 H RBC 4.67 Hgb 12.8 Hct 38.0 MCV 81.4 MCH 27.4 MCHC 33.7 RDW Std Deviation 44.1 RDW Coeff of Lauren 15.1 H Plt Count 389 MPV 9.5 Immature Gran % (Auto) Neut % (Auto) Lymph % (Auto) [place] % (Auto) Eos % (Auto) Baso % (Auto) Neut # (Auto) Lymph # (Auto) [place] # (Auto) Eos # (Auto) Baso # (Auto) Immature Gran # (Auto) Cord ABG pH Cord ABG pCO2 Cord ABG pO2 Cord ABG HCO3 Cord ABG Base Excess Cord ABG O2 Sat Cord VBG pH Cord VBG pCO2 Cord VBG pO2 Cord VBG HCO3 Cord VBG Base Excess Cord VBG O2 Sat Blood Gas Comments Sodium Potassium Chloride Carbon Dioxide Anion Gap BUN Creatinine Est Cr Clr Drug Dosing Est GFR ( Amer) Est GFR (Non-Af Amer) BUN/Creatinine Ratio Glucose POC Glucose 111 H Estimat Average Glucose Hemoglobin A1c Calcium Total Bilirubin AST ALT Alkaline Phosphatase Total Protein Albumin Globulin Albumin/Globulin Ratio Blood Type A Positive Cancelled Antibody Screen NEGATIVE 12/12/23 12/12/23 12/12/23 00:01 01:02 01:57 WBC RBC Hgb Hct MCV MCH MCHC RDW Std Deviation RDW Coeff of Lauren Plt Count MPV Immature Gran % (Auto) Neut % (Auto) Lymph % (Auto) [place] % (Auto) Eos % (Auto) Baso % (Auto) Neut # (Auto) Lymph # (Auto) [place] # (Auto) Eos # (Auto) Baso # (Auto) Immature Gran # (Auto) Cord ABG pH Cord ABG pCO2 Cord ABG pO2 Cord ABG HCO3 Cord ABG Base Excess Cord ABG O2 Sat Cord VBG pH Cord VBG pCO2 Cord VBG pO2 Cord VBG HCO3 Cord VBG Base Excess Cord VBG O2 Sat Blood Gas Comments Sodium Potassium Chloride Carbon Dioxide Anion Gap BUN Creatinine Est Cr Clr Drug Dosing Est GFR ( Amer) Est GFR (Non-Af Amer) BUN/Creatinine Ratio Glucose POC Glucose 94 89 Estimat Average Glucose Hemoglobin A1c Calcium Total Bilirubin AST ALT Alkaline Phosphatase Total Protein Albumin Globulin Albumin/Globulin Ratio Blood Type Antibody Screen Cancelled 12/12/23 12/12/23 12/12/23 03:09 04:14 05:02 WBC RBC Hgb Hct MCV MCH MCHC RDW Std Deviation RDW Coeff of Lauren Plt Count MPV Immature Gran % (Auto) Neut % (Auto) Lymph % (Auto) [place] % (Auto) Eos % (Auto) Baso % (Auto) Neut # (Auto) Lymph # (Auto) [place] # (Auto) Eos # (Auto) Baso # (Auto) Immature Gran # (Auto) Cord ABG pH Cord ABG pCO2 Cord ABG pO2 Cord ABG HCO3 Cord ABG Base Excess Cord ABG O2 Sat Cord VBG pH Cord VBG pCO2 Cord VBG pO2 Cord VBG HCO3 Cord VBG Base Excess Cord VBG O2 Sat Blood Gas Comments Sodium Potassium Chloride Carbon Dioxide Anion Gap BUN Creatinine Est Cr Clr Drug Dosing Est GFR ( Amer) Est GFR (Non-Af Amer) BUN/Creatinine Ratio Glucose POC Glucose 86 91 86 Estimat Average Glucose Hemoglobin A1c Calcium Total Bilirubin AST ALT Alkaline Phosphatase Total Protein Albumin Globulin Albumin/Globulin Ratio Blood Type Antibody Screen 12/12/23 12/12/23 12/12/23 06:05 07:06 08:07 WBC RBC Hgb Hct MCV MCH MCHC RDW Std Deviation RDW Coeff of Lauren Plt Count MPV Immature Gran % (Auto) Neut % (Auto) Lymph % (Auto) [place] % (Auto) Eos % (Auto) Baso % (Auto) Neut # (Auto) Lymph # (Auto) [place] # (Auto) Eos # (Auto) Baso # (Auto) Immature Gran # (Auto) Cord ABG pH Cord ABG pCO2 Cord ABG pO2 Cord ABG HCO3 Cord ABG Base Excess Cord ABG O2 Sat Cord VBG pH Cord VBG pCO2 Cord VBG pO2 Cord VBG HCO3 Cord VBG Base Excess Cord VBG O2 Sat Blood Gas Comments Sodium Potassium Chloride Carbon Dioxide Anion Gap BUN Creatinine Est Cr Clr Drug Dosing Est GFR ( Amer) Est GFR (Non-Af Amer) BUN/Creatinine Ratio Glucose POC Glucose 85 91 86 Estimat Average Glucose Hemoglobin A1c Calcium Total Bilirubin AST ALT Alkaline Phosphatase Total Protein Albumin Globulin Albumin/Globulin Ratio Blood Type Antibody Screen 12/12/23 12/12/23 12/12/23 08:40 09:09 10:13 WBC RBC Hgb Hct MCV MCH MCHC RDW Std Deviation RDW Coeff of Lauren Plt Count MPV Immature Gran % (Auto) Neut % (Auto) Lymph % (Auto) [place] % (Auto) Eos % (Auto) Baso % (Auto) Neut # (Auto) Lymph # (Auto) [place] # (Auto) Eos # (Auto) Baso # (Auto) Immature Gran # (Auto) Cord ABG pH Cord ABG pCO2 Cord ABG pO2 Cord ABG HCO3 Cord ABG Base Excess Cord ABG O2 Sat Cord VBG pH Cord VBG pCO2 Cord VBG pO2 Cord VBG HCO3 Cord VBG Base Excess Cord VBG O2 Sat Blood Gas Comments Sodium 134 L Potassium 4.0 Chloride 106 Carbon Dioxide 20 L Anion Gap 8 BUN 12 Creatinine 0.61 Est Cr Clr Drug Dosing 142.1 Est GFR ( Amer) 136.1 Est GFR (Non-Af Amer) 117.5 BUN/Creatinine Ratio 19.7 Glucose 89 POC Glucose 83 88 Estimat Average Glucose Hemoglobin A1c Calcium 9.3 Total Bilirubin 0.3 AST 10 L ALT 10 Alkaline Phosphatase 166 H Total Protein 6.9 Albumin 3.1 L Globulin 3.8 Albumin/Globulin Ratio 0.8 L Blood Type Antibody Screen 12/12/23 12/12/23 12/12/23 11:06 12:18 13:30 WBC RBC Hgb Hct MCV MCH MCHC RDW Std Deviation RDW Coeff of Lauren Plt Count MPV Immature Gran % (Auto) Neut % (Auto) Lymph % (Auto) [place] % (Auto) Eos % (Auto) Baso % (Auto) Neut # (Auto) Lymph # (Auto) [place] # (Auto) Eos # (Auto) Baso # (Auto) Immature Gran # (Auto) Cord ABG pH 7.24 Cord ABG pCO2 57 Cord ABG pO2 < 20 Cord ABG HCO3 24 Cord ABG Base Excess -4.0 Cord ABG O2 Sat < 60.0 Cord VBG pH 7.32 Cord VBG pCO2 45 Cord VBG pO2 29 Cord VBG HCO3 23 Cord VBG Base Excess -3.1 Cord VBG O2 Sat < 60.0 Blood Gas Comments PRAJAPATI Sodium Potassium Chloride Carbon Dioxide Anion Gap BUN Creatinine Est Cr Clr Drug Dosing Est GFR ( Amer) Est GFR (Non-Af Amer) BUN/Creatinine Ratio Glucose POC Glucose 87 76 Estimat Average Glucose Hemoglobin A1c Calcium Total Bilirubin AST ALT Alkaline Phosphatase Total Protein Albumin Globulin Albumin/Globulin Ratio Blood Type Antibody Screen 12/12/23 12/12/23 12/12/23 13:30 17:54 18:20 WBC RBC Hgb Hct MCV MCH MCHC RDW Std Deviation RDW Coeff of Lauren Plt Count MPV Immature Gran % (Auto) Neut % (Auto) Lymph % (Auto) [place] % (Auto) Eos % (Auto) Baso % (Auto) Neut # (Auto) Lymph # (Auto) [place] # (Auto) Eos # (Auto) Baso # (Auto) Immature Gran # (Auto) Cord ABG pH Cord ABG pCO2 Cord ABG pO2 Cord ABG HCO3 Cord ABG Base Excess Cord ABG O2 Sat Cord VBG pH Cord VBG pCO2 Cord VBG pO2 Cord VBG HCO3 Cord VBG Base Excess Cord VBG O2 Sat Blood Gas Comments PRAJAPATI Sodium Potassium Chloride Carbon Dioxide Anion Gap BUN Creatinine Est Cr Clr Drug Dosing Est GFR ( Amer) Est GFR (Non-Af Amer) BUN/Creatinine Ratio Glucose POC Glucose 68 L* 62 L* Estimat Average Glucose Hemoglobin A1c Calcium Total Bilirubin AST ALT Alkaline Phosphatase Total Protein Albumin Globulin Albumin/Globulin Ratio Blood Type Antibody Screen 12/12/23 12/12/23 12/13/23 18:44 20:28 01:15 WBC RBC Hgb Hct MCV MCH MCHC RDW Std Deviation RDW Coeff of Lauren Plt Count MPV Immature Gran % (Auto) Neut % (Auto) Lymph % (Auto) [place] % (Auto) Eos % (Auto) Baso % (Auto) Neut # (Auto) Lymph # (Auto) [place] # (Auto) Eos # (Auto) Baso # (Auto) Immature Gran # (Auto) Cord ABG pH Cord ABG pCO2 Cord ABG pO2 Cord ABG HCO3 Cord ABG Base Excess Cord ABG O2 Sat Cord VBG pH Cord VBG pCO2 Cord VBG pO2 Cord VBG HCO3 Cord VBG Base Excess Cord VBG O2 Sat Blood Gas Comments Sodium Potassium Chloride Carbon Dioxide Anion Gap BUN Creatinine Est Cr Clr Drug Dosing Est GFR ( Amer) Est GFR (Non-Af Amer) BUN/Creatinine Ratio Glucose POC Glucose 61 L* 88 57 L* Estimat Average Glucose Hemoglobin A1c Calcium Total Bilirubin AST ALT Alkaline Phosphatase Total Protein Albumin Globulin Albumin/Globulin Ratio Blood Type Antibody Screen 12/13/23 12/13/23 12/13/23 01:18 01:45 06:17 WBC RBC Hgb Hct MCV MCH MCHC RDW Std Deviation RDW Coeff of Lauren Plt Count MPV Immature Gran % (Auto) Neut % (Auto) Lymph % (Auto) [place] % (Auto) Eos % (Auto) Baso % (Auto) Neut # (Auto) Lymph # (Auto) [place] # (Auto) Eos # (Auto) Baso # (Auto) Immature Gran # (Auto) Cord ABG pH Cord ABG pCO2 Cord ABG pO2 Cord ABG HCO3 Cord ABG Base Excess Cord ABG O2 Sat Cord VBG pH Cord VBG pCO2 Cord VBG pO2 Cord VBG HCO3 Cord VBG Base Excess Cord VBG O2 Sat Blood Gas Comments Sodium Potassium Chloride Carbon Dioxide Anion Gap BUN Creatinine Est Cr Clr Drug Dosing Est GFR ( Amer) Est GFR (Non-Af Amer) BUN/Creatinine Ratio Glucose POC Glucose 59 L* 80 46 L* Estimat Average Glucose Hemoglobin A1c Calcium Total Bilirubin AST ALT Alkaline Phosphatase Total Protein Albumin Globulin Albumin/Globulin Ratio Blood Type Antibody Screen 12/13/23 12/13/23 12/13/23 06:42 07:10 08:18 WBC 15.39 H RBC 3.61 L Hgb 9.7 L D Hct 29.2 L MCV 80.9 MCH 26.9 MCHC 33.2 RDW Std Deviation 44.7 RDW Coeff of Lauren 15.1 H Plt Count 325 MPV 9.4 Immature Gran % (Auto) 0.6 Neut % (Auto) 78.0 Lymph % (Auto) 14.4 [place] % (Auto) 6.3 Eos % (Auto) 0.4 Baso % (Auto) 0.3 Neut # (Auto) 12.00 H Lymph # (Auto) 2.22 [place] # (Auto) 0.97 H Eos # (Auto) 0.06 Baso # (Auto) 0.05 Immature Gran # (Auto) 0.09 Cord ABG pH Cord ABG pCO2 Cord ABG pO2 Cord ABG HCO3 Cord ABG Base Excess Cord ABG O2 Sat Cord VBG pH Cord VBG pCO2 Cord VBG pO2 Cord VBG HCO3 Cord VBG Base Excess Cord VBG O2 Sat Blood Gas Comments Sodium Potassium Chloride Carbon Dioxide Anion Gap BUN Creatinine Est Cr Clr Drug Dosing Est GFR ( Amer) Est GFR (Non-Af Amer) BUN/Creatinine Ratio Glucose POC Glucose 96 122 H Estimat Average Glucose 134 Hemoglobin A1c 6.3 H Calcium Total Bilirubin AST ALT Alkaline Phosphatase Total Protein Albumin Globulin Albumin/Globulin Ratio Blood Type Antibody Screen
[2023-12-13] MEDS: SERTRALINE HCL 100 MG TABLET PO SCH (12:41)
--- NOTE | 2023-12-13 12:57 | Pharmacy Report ---
Pharmacy Glycemic Short Note 2 - Date of Service December 13, 2023 - Glycemic Short BSG Results (Last 24 hours): 12/12/23 12/12/23 12/12/23 17:54 18:20 18:44 POC Glucose 68 L* 62 L* 61 L* 12/12/23 12/13/23 12/13/23 20:28 01:15 01:18 POC Glucose 88 57 L* 59 L* 12/13/23 12/13/23 12/13/23 01:45 06:17 06:42 POC Glucose 80 46 L* 96 12/13/23 12/13/23 08:18 12:04 POC Glucose 122 H 83 OUTPATIENT ANTIDIABETIC REGIMEN: * Basaglar 70 units SC QAM * Basaglar 65 units SC HS ASSESSMENT: 12/12: * Patient received no insulin yesterday due to low blood sugars. BSGs yesterday were 44-52-82-88-57 mg/dl. Overnight she was low at 46 mg/dl. Novolog carb ratio was removed yesterday evening so that she would not get insulin for meal coverage due to low BSGs. * Fasting BSG today was 96 mg/dl. Holding off on AM basal. Will continue with current order for scaled basal dose at HS based on BSG (if BSG less than 140 mg/dl, she will not get any basal). 12/11: * 33 y/o F admitted for induction, labor and delivery. Patient has gestational diabetes managed with basal insulin BID at home. * She had a this afternoon. * BSGs all through today have been below 100 mg/dl. * Post- her insulin needs will be reduced. Novolog ordered starting at dinner with loose parameters based on stress of 1. * Basal insulin ordered on a scale at HS (~75% reduced from dose) will be based on BSG. * Will re-assess basal dose in AM. PLAN FOR INPATIENT GLYCEMIC CONTROL: * Basal insulin * Lantus 0/5/10/15 units HS based on BSG (see EMR for details) * Bolus insulin: removed carb ratio * NovoLog per scale ACHS or Q6hrs while NPO * Goal Range: Low 120 mg/dL - High 150 mg/dL * Correction Factor: 45 mg/dL/unit * Nutritional / Prandial insulin per carb ratio of 1 unit per __ grams CHO consumed
[2023-12-13] MEDS: IBUPROFEN 600 MG TAB PO PRN (14:45)
[2023-12-13] MEDS: bisacodyL 5 MG TABEC PO SCH (20:46)
[2023-12-14 06:46] LABS: Hematocrit (blood only) 26.8 % (37.0-47.0)
--- NOTE | 2023-12-14 08:35 | Obstetrical Progress Note ---
Date of Service December 14, 2023 Subjective Ambulation: ambulating normally Voiding: no voiding problems Passing Gas:: Yes Diet Tolerance:: regular diet Lochia:: Small Feeding Type:: breast feeding Current Pain Level(1-10): 0 doing well Physical Exam Constitutional WD/WN, vitals as above Gastrointestinal (Abdomen) Inspection/Auscultation: abdomen normal to inspection and + abdominal surgical incision Musculoskeletal Extremities: extremities normal to inspection Skin no rashes, warm and dry Neurologic patellar DTR's 2+ bilat, sensation intact Psychiatric A+Ox3, euthymic affect Results & Data Vital Signs (Past 12 Hours) Vital Signs Temp Pulse Resp BP Pulse Ox O2 Del Method 12/14/23 07:50 36.5 C 89 16 127/87 12/13/23 23:29 36.6 C 79 20 129/83 99 Room Air Laboratory Results Laboratory Results - last 72 hr 12/11/23 12/12/23 12/12/23 23:26 00:01 00:01 WBC 17.00 H RBC 4.67 Hgb 12.8 Hct 38.0 MCV 81.4 MCH 27.4 MCHC 33.7 RDW Std Deviation 44.1 RDW Coeff of Lauren 15.1 H Plt Count 389 MPV 9.5 Immature Gran % (Auto) Neut % (Auto) Lymph % (Auto) [place] % (Auto) Eos % (Auto) Baso % (Auto) Neut # (Auto) Lymph # (Auto) [place] # (Auto) Eos # (Auto) Baso # (Auto) Immature Gran # (Auto) Cord ABG pH Cord ABG pCO2 Cord ABG pO2 Cord ABG HCO3 Cord ABG Base Excess Cord ABG O2 Sat Cord VBG pH Cord VBG pCO2 Cord VBG pO2 Cord VBG HCO3 Cord VBG Base Excess Cord VBG O2 Sat Blood Gas Comments Sodium Potassium Chloride Carbon Dioxide Anion Gap BUN Creatinine Est Cr Clr Drug Dosing Est GFR ( Amer) Est GFR (Non-Af Amer) BUN/Creatinine Ratio Glucose POC Glucose 111 H Estimat Average Glucose Hemoglobin A1c Calcium Total Bilirubin AST ALT Alkaline Phosphatase Total Protein Albumin Globulin Albumin/Globulin Ratio Blood Type A Positive Cancelled Antibody Screen NEGATIVE 12/12/23 12/12/23 12/12/23 00:01 01:02 01:57 WBC RBC Hgb Hct MCV MCH MCHC RDW Std Deviation RDW Coeff of Lauren Plt Count MPV Immature Gran % (Auto) Neut % (Auto) Lymph % (Auto) [place] % (Auto) Eos % (Auto) Baso % (Auto) Neut # (Auto) Lymph # (Auto) [place] # (Auto) Eos # (Auto) Baso # (Auto) Immature Gran # (Auto) Cord ABG pH Cord ABG pCO2 Cord ABG pO2 Cord ABG HCO3 Cord ABG Base Excess Cord ABG O2 Sat Cord VBG pH Cord VBG pCO2 Cord VBG pO2 Cord VBG HCO3 Cord VBG Base Excess Cord VBG O2 Sat Blood Gas Comments Sodium Potassium Chloride Carbon Dioxide Anion Gap BUN Creatinine Est Cr Clr Drug Dosing Est GFR ( Amer) Est GFR (Non-Af Amer) BUN/Creatinine Ratio Glucose POC Glucose 94 89 Estimat Average Glucose Hemoglobin A1c Calcium Total Bilirubin AST ALT Alkaline Phosphatase Total Protein Albumin Globulin Albumin/Globulin Ratio Blood Type Antibody Screen Cancelled 12/12/23 12/12/23 12/12/23 03:09 04:14 05:02 WBC RBC Hgb Hct MCV MCH MCHC RDW Std Deviation RDW Coeff of Lauren Plt Count MPV Immature Gran % (Auto) Neut % (Auto) Lymph % (Auto) [place] % (Auto) Eos % (Auto) Baso % (Auto) Neut # (Auto) Lymph # (Auto) [place] # (Auto) Eos # (Auto) Baso # (Auto) Immature Gran # (Auto) Cord ABG pH Cord ABG pCO2 Cord ABG pO2 Cord ABG HCO3 Cord ABG Base Excess Cord ABG O2 Sat Cord VBG pH Cord VBG pCO2 Cord VBG pO2 Cord VBG HCO3 Cord VBG Base Excess Cord VBG O2 Sat Blood Gas Comments Sodium Potassium Chloride Carbon Dioxide Anion Gap BUN Creatinine Est Cr Clr Drug Dosing Est GFR ( Amer) Est GFR (Non-Af Amer) BUN/Creatinine Ratio Glucose POC Glucose 86 91 86 Estimat Average Glucose Hemoglobin A1c Calcium Total Bilirubin AST ALT Alkaline Phosphatase Total Protein Albumin Globulin Albumin/Globulin Ratio Blood Type Antibody Screen 12/12/23 12/12/23 12/12/23 06:05 07:06 08:07 WBC RBC Hgb Hct MCV MCH MCHC RDW Std Deviation RDW Coeff of Lauren Plt Count MPV Immature Gran % (Auto) Neut % (Auto) Lymph % (Auto) [place] % (Auto) Eos % (Auto) Baso % (Auto) Neut # (Auto) Lymph # (Auto) [place] # (Auto) Eos # (Auto) Baso # (Auto) Immature Gran # (Auto) Cord ABG pH Cord ABG pCO2 Cord ABG pO2 Cord ABG HCO3 Cord ABG Base Excess Cord ABG O2 Sat Cord VBG pH Cord VBG pCO2 Cord VBG pO2 Cord VBG HCO3 Cord VBG Base Excess Cord VBG O2 Sat Blood Gas Comments Sodium Potassium Chloride Carbon Dioxide Anion Gap BUN Creatinine Est Cr Clr Drug Dosing Est GFR ( Amer) Est GFR (Non-Af Amer) BUN/Creatinine Ratio Glucose POC Glucose 85 91 86 Estimat Average Glucose Hemoglobin A1c Calcium Total Bilirubin AST ALT Alkaline Phosphatase Total Protein Albumin Globulin Albumin/Globulin Ratio Blood Type Antibody Screen 12/12/23 12/12/23 12/12/23 08:40 09:09 10:13 WBC RBC Hgb Hct MCV MCH MCHC RDW Std Deviation RDW Coeff of Lauren Plt Count MPV Immature Gran % (Auto) Neut % (Auto) Lymph % (Auto) [place] % (Auto) Eos % (Auto) Baso % (Auto) Neut # (Auto) Lymph # (Auto) [place] # (Auto) Eos # (Auto) Baso # (Auto) Immature Gran # (Auto) Cord ABG pH Cord ABG pCO2 Cord ABG pO2 Cord ABG HCO3 Cord ABG Base Excess Cord ABG O2 Sat Cord VBG pH Cord VBG pCO2 Cord VBG pO2 Cord VBG HCO3 Cord VBG Base Excess Cord VBG O2 Sat Blood Gas Comments Sodium 134 L Potassium 4.0 Chloride 106 Carbon Dioxide 20 L Anion Gap 8 BUN 12 Creatinine 0.61 Est Cr Clr Drug Dosing 142.1 Est GFR ( Amer) 136.1 Est GFR (Non-Af Amer) 117.5 BUN/Creatinine Ratio 19.7 Glucose 89 POC Glucose 83 88 Estimat Average Glucose Hemoglobin A1c Calcium 9.3 Total Bilirubin 0.3 AST 10 L ALT 10 Alkaline Phosphatase 166 H Total Protein 6.9 Albumin 3.1 L Globulin 3.8 Albumin/Globulin Ratio 0.8 L Blood Type Antibody Screen 12/12/23 12/12/23 12/12/23 11:06 12:18 13:30 WBC RBC Hgb Hct MCV MCH MCHC RDW Std Deviation RDW Coeff of Lauren Plt Count MPV Immature Gran % (Auto) Neut % (Auto) Lymph % (Auto) [place] % (Auto) Eos % (Auto) Baso % (Auto) Neut # (Auto) Lymph # (Auto) [place] # (Auto) Eos # (Auto) Baso # (Auto) Immature Gran # (Auto) Cord ABG pH 7.24 Cord ABG pCO2 57 Cord ABG pO2 < 20 Cord ABG HCO3 24 Cord ABG Base Excess -4.0 Cord ABG O2 Sat < 60.0 Cord VBG pH 7.32 Cord VBG pCO2 45 Cord VBG pO2 29 Cord VBG HCO3 23 Cord VBG Base Excess -3.1 Cord VBG O2 Sat < 60.0 Blood Gas Comments PRAJAPATI Sodium Potassium Chloride Carbon Dioxide Anion Gap BUN Creatinine Est Cr Clr Drug Dosing Est GFR ( Amer) Est GFR (Non-Af Amer) BUN/Creatinine Ratio Glucose POC Glucose 87 76 Estimat Average Glucose Hemoglobin A1c Calcium Total Bilirubin AST ALT Alkaline Phosphatase Total Protein Albumin Globulin Albumin/Globulin Ratio Blood Type Antibody Screen 12/12/23 12/12/23 12/12/23 13:30 17:54 18:20 WBC RBC Hgb Hct MCV MCH MCHC RDW Std Deviation RDW Coeff of Lauren Plt Count MPV Immature Gran % (Auto) Neut % (Auto) Lymph % (Auto) [place] % (Auto) Eos % (Auto) Baso % (Auto) Neut # (Auto) Lymph # (Auto) [place] # (Auto) Eos # (Auto) Baso # (Auto) Immature Gran # (Auto) Cord ABG pH Cord ABG pCO2 Cord ABG pO2 Cord ABG HCO3 Cord ABG Base Excess Cord ABG O2 Sat Cord VBG pH Cord VBG pCO2 Cord VBG pO2 Cord VBG HCO3 Cord VBG Base Excess Cord VBG O2 Sat Blood Gas Comments PRAJAPATI Sodium Potassium Chloride Carbon Dioxide Anion Gap BUN Creatinine Est Cr Clr Drug Dosing Est GFR ( Amer) Est GFR (Non-Af Amer) BUN/Creatinine Ratio Glucose POC Glucose 68 L* 62 L* Estimat Average Glucose Hemoglobin A1c Calcium Total Bilirubin AST ALT Alkaline Phosphatase Total Protein Albumin Globulin Albumin/Globulin Ratio Blood Type Antibody Screen 12/12/23 12/12/23 12/13/23 18:44 20:28 01:15 WBC RBC Hgb Hct MCV MCH MCHC RDW Std Deviation RDW Coeff of Lauren Plt Count MPV Immature Gran % (Auto) Neut % (Auto) Lymph % (Auto) [place] % (Auto) Eos % (Auto) Baso % (Auto) Neut # (Auto) Lymph # (Auto) [place] # (Auto) Eos # (Auto) Baso # (Auto) Immature Gran # (Auto) Cord ABG pH Cord ABG pCO2 Cord ABG pO2 Cord ABG HCO3 Cord ABG Base Excess Cord ABG O2 Sat Cord VBG pH Cord VBG pCO2 Cord VBG pO2 Cord VBG HCO3 Cord VBG Base Excess Cord VBG O2 Sat Blood Gas Comments Sodium Potassium Chloride Carbon Dioxide Anion Gap BUN Creatinine Est Cr Clr Drug Dosing Est GFR ( Amer) Est GFR (Non-Af Amer) BUN/Creatinine Ratio Glucose POC Glucose 61 L* 88 57 L* Estimat Average Glucose Hemoglobin A1c Calcium Total Bilirubin AST ALT Alkaline Phosphatase Total Protein Albumin Globulin Albumin/Globulin Ratio Blood Type Antibody Screen 12/13/23 12/13/23 12/13/23 01:18 01:45 06:17 WBC RBC Hgb Hct MCV MCH MCHC RDW Std Deviation RDW Coeff of Lauren Plt Count MPV Immature Gran % (Auto) Neut % (Auto) Lymph % (Auto) [place] % (Auto) Eos % (Auto) Baso % (Auto) Neut # (Auto) Lymph # (Auto) [place] # (Auto) Eos # (Auto) Baso # (Auto) Immature Gran # (Auto) Cord ABG pH Cord ABG pCO2 Cord ABG pO2 Cord ABG HCO3 Cord ABG Base Excess Cord ABG O2 Sat Cord VBG pH Cord VBG pCO2 Cord VBG pO2 Cord VBG HCO3 Cord VBG Base Excess Cord VBG O2 Sat Blood Gas Comments Sodium Potassium Chloride Carbon Dioxide Anion Gap BUN Creatinine Est Cr Clr Drug Dosing Est GFR ( Amer) Est GFR (Non-Af Amer) BUN/Creatinine Ratio Glucose POC Glucose 59 L* 80 46 L* Estimat Average Glucose Hemoglobin A1c Calcium Total Bilirubin AST ALT Alkaline Phosphatase Total Protein Albumin Globulin Albumin/Globulin Ratio Blood Type Antibody Screen 12/13/23 12/13/23 12/13/23 06:42 07:10 08:18 WBC 15.39 H RBC 3.61 L Hgb 9.7 L D Hct 29.2 L MCV 80.9 MCH 26.9 MCHC 33.2 RDW Std Deviation 44.7 RDW Coeff of Lauren 15.1 H Plt Count 325 MPV 9.4 Immature Gran % (Auto) 0.6 Neut % (Auto) 78.0 Lymph % (Auto) 14.4 [place] % (Auto) 6.3 Eos % (Auto) 0.4 Baso % (Auto) 0.3 Neut # (Auto) 12.00 H Lymph # (Auto) 2.22 [place] # (Auto) 0.97 H Eos # (Auto) 0.06 Baso # (Auto) 0.05 Immature Gran # (Auto) 0.09 Cord ABG pH Cord ABG pCO2 Cord ABG pO2 Cord ABG HCO3 Cord ABG Base Excess Cord ABG O2 Sat Cord VBG pH Cord VBG pCO2 Cord VBG pO2 Cord VBG HCO3 Cord VBG Base Excess Cord VBG O2 Sat Blood Gas Comments Sodium Potassium Chloride Carbon Dioxide Anion Gap BUN Creatinine Est Cr Clr Drug Dosing Est GFR ( Amer) Est GFR (Non-Af Amer) BUN/Creatinine Ratio Glucose POC Glucose 96 122 H Estimat Average Glucose 134 Hemoglobin A1c 6.3 H Calcium Total Bilirubin AST ALT Alkaline Phosphatase Total Protein Albumin Globulin Albumin/Globulin Ratio Blood Type Antibody Screen 12/13/23 12/13/23 12/13/23 12:04 17:44 20:41 WBC RBC Hgb Hct MCV MCH MCHC RDW Std Deviation RDW Coeff of Lauren Plt Count MPV Immature Gran % (Auto) Neut % (Auto) Lymph % (Auto) [place] % (Auto) Eos % (Auto) Baso % (Auto) Neut # (Auto) Lymph # (Auto) [place] # (Auto) Eos # (Auto) Baso # (Auto) Immature Gran # (Auto) Cord ABG pH Cord ABG pCO2 Cord ABG pO2 Cord ABG HCO3 Cord ABG Base Excess Cord ABG O2 Sat Cord VBG pH Cord VBG pCO2 Cord VBG pO2 Cord VBG HCO3 Cord VBG Base Excess Cord VBG O2 Sat Blood Gas Comments Sodium Potassium Chloride Carbon Dioxide Anion Gap BUN Creatinine Est Cr Clr Drug Dosing Est GFR ( Amer) Est GFR (Non-Af Amer) BUN/Creatinine Ratio Glucose POC Glucose 83 148 H 100 H Estimat Average Glucose Hemoglobin A1c Calcium Total Bilirubin AST ALT Alkaline Phosphatase Total Protein Albumin Globulin Albumin/Globulin Ratio Blood Type Antibody Screen 12/14/23 06:24 WBC RBC Hgb 9.0 L Hct 26.8 L MCV MCH MCHC RDW Std Deviation RDW Coeff of Lauren Plt Count MPV Immature Gran % (Auto) Neut % (Auto) Lymph % (Auto) [place] % (Auto) Eos % (Auto) Baso % (Auto) Neut # (Auto) Lymph # (Auto) [place] # (Auto) Eos # (Auto) Baso # (Auto) Immature Gran # (Auto) Cord ABG pH Cord ABG pCO2 Cord ABG pO2 Cord ABG HCO3 Cord ABG Base Excess Cord ABG O2 Sat Cord VBG pH Cord VBG pCO2 Cord VBG pO2 Cord VBG HCO3 Cord VBG Base Excess Cord VBG O2 Sat Blood Gas Comments Sodium Potassium Chloride Carbon Dioxide Anion Gap BUN Creatinine Est Cr Clr Drug Dosing Est GFR ( Amer) Est GFR (Non-Af Amer) BUN/Creatinine Ratio Glucose POC Glucose Estimat Average Glucose Hemoglobin A1c Calcium Total Bilirubin AST ALT Alkaline Phosphatase Total Protein Albumin Globulin Albumin/Globulin Ratio Blood Type Antibody Screen
[2023-12-14] MEDS ORDERED: bisacodyL 10 MG SUPP PR PRN (14:29)
--- NOTE | 2023-12-17 09:25 | Discharge Summary ---
Date of Service December 17, 2023 Admission HPI Per Admitting Provider 33 F P0000 at38.6 weeks here for induction of labor for GDM on insulin. GBS is negative. Discharge Data Consultations 12/11/23 23:33 Consult Anesthesiology Stat Procedures Performed Operation Date: 12/12/23 13:30 Actual Procedures p Section in LD(Bilateral) - Sugey Mccray MD Hospital Course (1) Delivery by section at 37-39 weeks of gestation due to labor: Patient is a 33-year-old -0-1-0 at 39 weeks of gestation who was admitted on December 10 for induction of labor for pre-gestational diabetes. She has received single dose of p.o. Cytotec and then started having regular contractions. She then received epidural for pain and oxytocin was started per protocol to augment the contractions. heart rate started to have late decelerations with each contractions and artificial rupture of membranes confirmed dark meconium stained fluid. Decision was made to proceed with primary to expedite the delivery due to category 2 strip, dark meconium stained fluid, removed from delivery. Patient understood the risks and benefits and signed informed consent. She had emergency primary on December 11 and delivered a viable infant with no complications. See dictated op note for details. On postop recovery patient was doing well, vital signs stable afebrile, urine output was normal. On postop day #1 patient was doing well, vital signs stable afebrile, ambulating, tolerating regular diet, passing gas. Her physical exam was unremarkable, incision was clean dry intact and bleeding was minimal. On postop day #2 patient was doing well, vital signs stable afebrile, ambulating, tolerating regular diet. Her H&H has been stable and pain is under control. Patient desired to be discharged on postop day #2. Discharge instructions were given, prescriptions were written for pain, she is to be seen in office in a week for incision check. All questions were answered. (2) Gestational diabetes mellitus (GDM) requiring insulin:
== END 2023-12-14 13:38 | disposition home or self-care (01) | DRG 788 ==
LOC: 4S1 23:04 → 4E2 12-12 17:20